=== PATIENT | female | born 1960 | race Caucasian/White ===

== ENCOUNTER 2016-11-17 02:46 | Inpatient (IN) ==
[2016-11-17] MEDS ORDERED: 0.9 % Sodium Chloride 1,000 ML IVC ONE ×2 (03:46→04:57)
[2016-11-17 03:52] LABS: Bilirubin,Urine Negative (Negative); Blood,Urine Negative (Negative); Clarity,Urine Clear (Clear); Color,Urine Yellow (Yellow); Glucose,Urine (UA) >=1000 mg/dL (Normal); Ketones,Urine 15 mg/dL (Negative); Leukocyte Esterase,Urine Negative (Negative); Nitrite,Urine Negative (Negative); PH,Urine 5.5 pH Units (5.0-8.0); Protein,Urine Trace mg/dL (Neg-Trace); Specific Gravity,Urine 1.027 (1.010-1.025); Urobilinogen,Urine Normal (Normal)
[2016-11-17 03:54] LABS: Bacteria,Urine None Seen per hpf (None-Few); Hyaline Casts,Urine Few per lpf (None-Few); Squamous Epithelial Cell,Urine Many per lpf (None-Few)
[2016-11-17 03:58] LABS: Amphetamine Screen,Urine Negative ng/mL (Cutoff=1000); Barbiturate Screen,Urine Negative ng/mL (Cutoff=200); Benzodiazepines Screen,Urine Negative ng/mL (Cutoff=200); Cannabinoid Screen,Urine Negative ng/mL (Cutoff = 50); Cocaine Screen,Urine Positive ng/mL (Cutoff= 300); Opiate Screen,Urine Positive ng/mL (Cutoff=300); Phencyclidine Screen,Urine Negative ng/mL (Cutoff=25)
[2016-11-17 04:30] LABS: VBG HCO3 24.3 mEq/L (21-27); VBG PH 7.27 pH Units (7.32-7.42)
[2016-11-17 04:33] LABS: Basophils % 0.2 %; Hematocrit 36.9 % (35.3-44.9); Hemoglobin 12.4 g/dL (11.5-15.4); Immature Granulocytes % 0.5 % (0-4); Lymphocytes # 1.3 K/mcL (0.6-4.6); Lymphocytes % 13.9 %; Mean Corpuscular HGB Conc 33.6 g/dL (31.6-35.5); Mean Corpuscular Hemoglobin 27.3 pg (28.0-33.3); Mean Corpuscular Volume 81.3 fL (83.0-100.0); Monocytes # 0.7 K/mcL (0.0-1.3); Monocytes % 7.5 %; Neutrophils # 7.3 K/mcL (1.6-8.9); Platelet Count 288 K/mcL (140-400); Red Blood Count 4.54 M/mcL (3.82-4.97); Red Cell Distribution Width 14.1 % (11.5-14.5); Segmented Neutrophils % 77.9 %
[2016-11-17 04:37] LABS: Beta-Hydroxybutyric Acid 1.34 mmol/L (0.02-0.27)
[2016-11-17 04:46] LABS: BUN/Creatinine Ratio 24 (6-26); Blood Urea Nitrogen 31 mg/dL (7-20); Calcium 9.5 mg/dL (8.6-10.8); Carbon Dioxide 23 mEq/L (19-29); Chloride 97 mEq/L (98-109); Glucose 418 mg/dL (70-99); Osmolality,Calculated 296 (280-300); Potassium 4.4 mEq/L (3.5-4.5); Sodium 131 mEq/L (136-145); eGFR For African Americans 51 (> 60); eGFR For Non-African Americans 42 (> 60)
[2016-11-17 04:47] LABS: Acetaminophen < 1.0 mcg/mL (10-30); Ethanol < 10 mg/dL (0-10); Salicylate < 5.0 mg/dL (15-30)
[2016-11-17] MEDS ORDERED: *HR* Dextrose 50 % in Water (Syg) 50 ML SYRINGE IVP PRN ×2 (04:59→07:40)
[2016-11-17] MEDS ORDERED: Insulin Human Regular 100 UNIT in 0.9 % Sodium Chloride 100 ML IVC SCH (05:00)
--- NOTE | 2016-11-17 07:22 | Emergency Department Note ---
Disposition Clinical Impression: Suicidal ideation Diabetic ketoacidosis Qualifiers: Diabetes mellitus type: type 2 Diabetes mellitus complication detail: without coma Qualified Code(s): E13.10 - Other specified diabetes mellitus with ketoacidosis without coma Disposition: Admitted As Inpatient Condition: Serious General Adult HPI - General Chief complaint: ED Psychiatric Symptoms Stated complaint: SI/elevated glucose Time Seen by Provider: 11/17/16 05:25 Source: patient Limitations: no limitations Nursing Notes Reviewed: Yes Vital Signs Reviewed: Yes - History of Present Illness HPI Narrative: 56-year-old male with history of diabetes presents to the emergency department complaining of elevated blood sugar. She complains of some nausea and one episode of vomiting. No diarrhea. No abdominal pain. No shortness of breath or chest pain. She complains of pain in the right lower leg which is chronic from an old tendon injury. Patient also complains of some mild suicidal ideation. She admits to substance abuse. Pain Scale: 6 - Related Data Home Medications Medication Instructions Recorded Confirmed Trazodone HCl 150 mg PO HS PRN 04/15/16 11/17/16 Buprenorphine HCl/Naloxone HCl 1 film SL BID 11/17/16 11/17/16 [Suboxone 8 mg-2 mg Sl Film] Insulin Human Regular [HumuLIN R] 2 - 10 unit SQ TIDWM MDD Sliding 11/17/1602/24 Scale Previous Rx's Medication Instructions Recorded Insulin Glargine [Lantus] 30 unit SQ HS #100 mls 04/21/16 Allergies Allergy/AdvReac Type Severity Reaction Status Date / Time No Known Allergies Allergy Verified 04/15/16 17:07 All systems ED: reviewed and negative except as stated. Constitutional: Denies: fever, chills Cardiovascular: Denies: chest pain, palpitations, syncope Respiratory: Denies: cough, dyspnea Gastrointestinal: Reports: nausea, vomiting. Denies: abdominal pain Genitourinary: Denies: dysuria, frequency Musculoskeletal: Reports: other (Pain in right martinez secondary to an old tendon injury.). Denies: back pain, neck pain Integumentary: Denies: rash Neurological: Reports: headache. 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 Absent: scleral icterus, conjunctival injection, nystagmus - ENT ENT exam: normal exam, normal oropharynx, mucous membranes moist, normal external ear exam - Neck Neck exam: Present: normal inspection, full ROM, trachea midline. Absent: tenderness, meningismus, lymphadenopathy - Chest Chest inspection: Present: normal inspection, symmetric chest wall rise. Absent : tenderness - Respiratory Respiratory exam: Present: normal lung sounds bilaterally. Absent: respiratory distress, wheezes, stridor - Cardiovascular Cardiovascular exam: Present: regular rate, normal rhythm, normal heart sounds - Abdominal Exam Abdominal exam: Present: soft, Non-Tender, normal bowel sounds - Extremities Exam Extremities exam: Present: full ROM. Absent: pedal edema - Back Exam Back exam: Present: normal inspection. Absent: CVA tenderness (R), CVA tenderness (L) - Neurological Exam Neurological exam: Present: alert, oriented X3. Absent: motor sensory deficit - Psychiatric Psychiatric exam: Present: anxious, suicidal ideation - Skin Skin exam: Present: warm, dry, intact, normal color. Absent: cyanosis, diaphoresis Course Course Narrative: Patient with insulin-dependent diabetes presents with complaint of elevated blood sugar among other multiple complaints. Also admits to suicidal ideation. Workup reveals DKA. Clinically patient does not look toxic. IV fluids initiated and patient was placed on an insulin drip. Hospitalist consulted for admission. - Consultations Consultation #1: The hospitalist, Dr. Moreland, was consulted and accepted admission of the patient. Time: 06:10 Vital Signs Temperature 98.3 F 11/17/16 02:50 Pulse Rate 98 11/17/16 02:50 Respiratory Rate 16 11/17/16 02:50 Blood Pressure 103/62 11/17/16 02:50 O2 Sat by Pulse Oximetry 93 11/17/16 02:50 Temperature 98.3 F 11/17/16 02:50 Pulse Rate 70 11/17/16 08:06 Respiratory Rate 18 11/17/16 08:06 Blood Pressure 109/57 11/17/16 08:06 O2 Sat by Pulse Oximetry 98 11/17/16 08:06 Oxygen Delivery Oxygen Delivery Room Air Medical Decision Making - Medical Records Medical records reviewed: Yes I reviewed the patient's medical records. - Lab Data Lab results reviewed: Yes I reviewed the patient's lab results. Result diagrams: 11/17/16 04:22 11/17/16 04:22 Lab Results 11/17/16 11/17/16 11/17/16 Range/Units 03:38 03:38 04:22 WBC 9.4 (4.3-11.1) K/mcL RBC 4.54 (3.82-4.97) M/mcL Hgb 12.4 (11.5-15.4) g/dL Hct 36.9 (35.3-44.9) % MCV 81.3 L (83.0-100.0) fL MCH 27.3 L (28.0-33.3) pg MCHC 33.6 (31.6-35.5) g/dL RDW 14.1 (11.5-14.5) % Plt Count 288 (140-400) K/mcL MPV 9.0 L (9.4-12.4) fL Immature Gran % 0.5 (0-4) % Seg Neutrophils % 77.9 % Lymphocytes % 13.9 % Monocytes % 7.5 % Eosinophils % 0.0 % Basophils % 0.2 % Neutrophils # 7.3 (1.6-8.9) K/mcL Lymphocytes # 1.3 (0.6-4.6) K/mcL Monocytes # 0.7 (0.0-1.3) K/mcL Eosinophils # 0.0 (0.0-0.6) K/mcL Basophils # 0.0 (0.0-0.2) K/mcL PT (9.4-12.1) Seconds INR VBG pH (7.32-7.42) pH Units VBG pCO2 (41-51) mmHg VBG pO2 (25-40) mmHg VBG HCO3 (21-27) mEq/L Sodium (136-145) mEq/L Potassium (3.5-4.5) mEq/L Chloride (98-109) mEq/L Carbon Dioxide (19-29) mEq/L BUN (7-20) mg/dL Creatinine (0.57-1.11) mg/dL Est GFR ( Amer) (> 60) Est GFR (Non-Af Amer) (> 60) BUN/Creatinine Ratio (6-26) Glucose (70-99) mg/dL POC Glucose (58-89) Calculated Osmolality (280-300) Calcium (8.6-10.8) mg/dL Beta-Hydroxybutyric Acd (0.02-0.27) mmol/L Urine Color Yellow (Yellow) Urine Clarity Clear (Clear) Urine pH 5.5 (5.0-8.0) pH Units Ur Specific [place] 1.027 H (1.010-1.025) Urine Protein Trace (Neg-Trace) mg/dL Urine Glucose (UA) >=1000 H (Normal) mg/dL Urine Ketones 15 H (Negative) mg/dL Urine Blood Negative (Negative) Urine Nitrite Negative (Negative) Urine Bilirubin Negative (Negative) Urine Urobilinogen Normal (Normal) mg/dL Ur Leukocyte Esterase Negative (Negative) Urine Microscopic RBC 5-15 H (0-3) per hpf Urine Microscopic WBC 5-15 H (0-3) per hpf Ur Squamous Epith Cells Many H (None-Few) per lpf Urine Bacteria None Seen (None-Few) per hpf Hyaline Casts Few (None-Few) per lpf Salicylates (15-30) mg/dL Urine Opiates Screen Positive H (Djbwza=103) ng/mL Acetaminophen (10-30) mcg/mL Ur Barbiturates Screen Negative (Lsflrk=783) ng/mL Ur Phencyclidine Scrn Negative (Cutoff=25) ng/mL Ur Amphetamines Screen Negative (Asdtzk=3010) ng/mL U Benzodiazepines Scrn Negative (Tolrwe=202) ng/mL Urine Cocaine Screen Positive H (Cutoff= 300) ng/mL U Marijuana (THC) Screen Negative (Cutoff = 50) ng/mL Ethyl Alcohol (0-10) mg/dL 11/17/16 11/17/16 11/17/16 Range/Units 04:22 04:22 04:22 WBC (4.3-11.1) K/mcL RBC (3.82-4.97) M/mcL Hgb (11.5-15.4) g/dL Hct (35.3-44.9) % MCV (83.0-100.0) fL MCH (28.0-33.3) pg MCHC (31.6-35.5) g/dL RDW (11.5-14.5) % Plt Count (140-400) K/mcL MPV (9.4-12.4) fL Immature Gran % (0-4) % Seg Neutrophils % % Lymphocytes % % Monocytes % % Eosinophils % % Basophils % % Neutrophils # (1.6-8.9) K/mcL Lymphocytes # (0.6-4.6) K/mcL Monocytes # (0.0-1.3) K/mcL Eosinophils # (0.0-0.6) K/mcL Basophils # (0.0-0.2) K/mcL PT 11.8 (9.4-12.1) Seconds INR 1.1 VBG pH 7.27 L (7.32-7.42) pH Units VBG pCO2 53 H (41-51) mmHg VBG pO2 27 (25-40) mmHg VBG HCO3 24.3 (21-27) mEq/L Sodium 131 L (136-145) mEq/L Potassium 4.4 (3.5-4.5) mEq/L Chloride 97 L (98-109) mEq/L Carbon Dioxide 23 (19-29) mEq/L BUN 31 H (7-20) mg/dL Creatinine 1.31 H (0.57-1.11) mg/dL Est GFR ( Amer) 51 L (> 60) Est GFR (Non-Af Amer) 42 L (> 60) BUN/Creatinine Ratio 24 (6-26) Glucose 418 H (70-99) mg/dL POC Glucose (58-89) Calculated Osmolality 296 (280-300) Calcium 9.5 (8.6-10.8) mg/dL Beta-Hydroxybutyric Acd 1.34 H (0.02-0.27) mmol/L Urine Color (Yellow) Urine Clarity (Clear) Urine pH (5.0-8.0) pH Units Ur Specific [place] (1.010-1.025) Urine Protein (Neg-Trace) mg/dL Urine Glucose (UA) (Normal) mg/dL Urine Ketones (Negative) mg/dL Urine Blood (Negative) Urine Nitrite (Negative) Urine Bilirubin (Negative) Urine Urobilinogen (Normal) mg/dL Ur Leukocyte Esterase (Negative) Urine Microscopic RBC (0-3) per hpf Urine Microscopic WBC (0-3) per hpf Ur Squamous Epith Cells (None-Few) per lpf Urine Bacteria (None-Few) per hpf Hyaline Casts (None-Few) per lpf Salicylates < 5.0 L (15-30) mg/dL Urine Opiates Screen ([place]=146) ng/mL Acetaminophen < 1.0 L (10-30) mcg/mL Ur Barbiturates Screen (Gfccos=799) ng/mL Ur Phencyclidine Scrn (Cutoff=25) ng/mL Ur Amphetamines Screen (Xgyqej=3717) ng/mL U Benzodiazepines Scrn (Prfaie=458) ng/mL Urine Cocaine Screen (Cutoff= 300) ng/mL U Marijuana (THC) Screen (Cutoff = 50) ng/mL Ethyl Alcohol < 10 (0-10) mg/dL 11/17/16 Range/Units 06:14 WBC (4.3-11.1) K/mcL RBC (3.82-4.97) M/mcL Hgb (11.5-15.4) g/dL Hct (35.3-44.9) % MCV (83.0-100.0) fL MCH (28.0-33.3) pg MCHC (31.6-35.5) g/dL RDW (11.5-14.5) % Plt Count (140-400) K/mcL MPV (9.4-12.4) fL Immature Gran % (0-4) % Seg Neutrophils % % Lymphocytes % % Monocytes % % Eosinophils % % Basophils % % Neutrophils # (1.6-8.9) K/mcL Lymphocytes # (0.6-4.6) K/mcL Monocytes # (0.0-1.3) K/mcL Eosinophils # (0.0-0.6) K/mcL Basophils # (0.0-0.2) K/mcL PT (9.4-12.1) Seconds INR VBG pH (7.32-7.42) pH Units VBG pCO2 (41-51) mmHg VBG pO2 (25-40) mmHg VBG HCO3 (21-27) mEq/L Sodium (136-145) mEq/L Potassium (3.5-4.5) mEq/L Chloride (98-109) mEq/L Carbon Dioxide (19-29) mEq/L BUN (7-20) mg/dL Creatinine (0.57-1.11) mg/dL Est GFR ( Amer) (> 60) Est GFR (Non-Af Amer) (> 60) BUN/Creatinine Ratio (6-26) Glucose (70-99) mg/dL POC Glucose 325 H (58-89) Calculated Osmolality (280-300) Calcium (8.6-10.8) mg/dL Beta-Hydroxybutyric Acd (0.02-0.27) mmol/L Urine Color (Yellow) Urine Clarity (Clear) Urine pH (5.0-8.0) pH Units Ur Specific [place] (1.010-1.025) Urine Protein (Neg-Trace) mg/dL Urine Glucose (UA) (Normal) mg/dL Urine Ketones (Negative) mg/dL Urine Blood (Negative) Urine Nitrite (Negative) Urine Bilirubin (Negative) Urine Urobilinogen (Normal) mg/dL Ur Leukocyte Esterase (Negative) Urine Microscopic RBC (0-3) per hpf Urine Microscopic WBC (0-3) per hpf Ur Squamous Epith Cells (None-Few) per lpf Urine Bacteria (None-Few) per hpf Hyaline Casts (None-Few) per lpf Salicylates (15-30) mg/dL Urine Opiates Screen (Xxhxet=929) ng/mL Acetaminophen (10-30) mcg/mL Ur Barbiturates Screen (Pugixr=303) ng/mL Ur Phencyclidine Scrn (Cutoff=25) ng/mL Ur Amphetamines Screen (Dqwooz=1275) ng/mL U Benzodiazepines Scrn (Xsdqak=621) ng/mL Urine Cocaine Screen (Cutoff= 300) ng/mL U Marijuana (THC) Screen (Cutoff = 50) ng/mL Ethyl Alcohol (0-10) mg/dL Critical Care Time Critical Care Time: Yes Total Critical Care Time: 40 Attestation: Critical care performed: Time is exclusive of separately billable procedures. Time includes: direct patient care, patient reassessment, coordination of patient care, interpretation of data (laboratory data, radiology data, and respiratory data), review of patient's medical records, medical consultation and documentation of patient care. Procedures included in critical care time: Procedures excluded from critical care time:
[2016-11-17] MEDS ORDERED: Acetaminophen 325 MG TABLET PO PRN (07:34)
[2016-11-17] MEDS ORDERED: *HR* Morphine 2 MG/ML SYRINGE IVP PRN (07:34)
[2016-11-17] MEDS ORDERED: Ondansetron 4 MG/2 ML VIAL IVP PRN (07:34)
[2016-11-17] MEDS ORDERED: Naloxone 0.4 MG/ML INJ IVP PRN (07:34)
[2016-11-17] MEDS ORDERED: traZODone 50 MG TABLET PO PRN (07:39)
[2016-11-17] MEDS ORDERED: Dextrose Gel 15 GM PO PRN ×2 (07:40)
[2016-11-17] MEDS ORDERED: D5% in Water 1,000 ML IVC PRN (07:40)
[2016-11-17 07:59] LABS: INR 1.1; Prothrombin Time 11.8 Seconds (9.4-12.1)
[2016-11-17 08:09] LABS: Chol/HDL Ratio 2.6 (0-4.9); Cholesterol 193 mg/dL (< 200); HDL Cholesterol 73 mg/dL (40-59); LDL Cholesterol,Calculated 98 mg/dL (0-99); Magnesium 2.2 mg/dL (1.6-2.6); Triglycerides 110 mg/dL (< 150)
[2016-11-17 08:58] LABS: Hemoglobin A1C 8.3 %
[2016-11-17] MEDS: BUPRENORPHINE HCL SL SCH ×2 (09:00→21:20)
[2016-11-17] MEDS: NALOXONE HCL SL SCH ×2 (09:00→21:20)
[2016-11-17] MEDS: Pantoprazole 40 MG VIAL IVP SCH (09:10)
--- NOTE | 2016-11-17 09:10 | Internal Med History&Physical ---
Date of Encounter: 11/17/16 Time of Encounter: 08:40 Assessment and Plan (1) Type 2 diabetes mellitus Current visit: Yes Status: Chronic Diabetes mellitus type 2, insulin-dependent - with hyperglycemia and hyperosmolarity, without DKA and without coma With chronic kidney disease stage III and peripheral neuropathy IV insulin started in the ED - now discontinued, normal anion gap Continue insulin sliding scale, glucose checks and Levemir Continue IV fluids, ADA diet Diabetes education, social service consult Labs in a.m. 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 Qualified Code(s): E11.42 - Type 2 diabetes mellitus with diabetic polyneuropathy; Z79.4 - care home ( current) use of insulin (2) IVDU (intravenous drug user) Current visit: No Status: Chronic Chronic use of heroin Last use was about 24 hours ago special services coordinator consult - will need to provide information about addiction clinics (3) Polysubstance dependence Current visit: No Status: Chronic Chronic injection drug user - uses heroin and cocaine Last use was about 24 hours ago Patient states she takes Buprenorphine/Naloxone - unclear where she is obtaining this (4) Bipolar disorder Current visit: No Status: Chronic Chronic bipolar disorder Psych consult Qualifiers: Active/Remission status: remission status unspecified Qualified Code(s): F31.9 - Bipolar disorder, unspecified (5) Depression with anxiety Current visit: No Status: Chronic Continue trazodone Psych consult (6) CAD (coronary artery disease) Current visit: No Status: Chronic History of coronary artery disease as per medical records Unclear about any PR or any intervention in the past Qualifiers: Coronary Disease-Associated Artery/Lesion type: [place] artery [place] vs. transplanted heart: [place] heart Associated angina: without angina Qualified Code(s): I25.10 - Atherosclerotic heart disease of [place] coronary artery without angina pectoris (7) DVT prophylaxis Current visit: Yes Status: Acute Continue heparin subcutaneous Internal Medicine - H&P: HPI Chief complaint: Elevated glucose, syncope Admitted From: Emergency Dept Plans for Post Hospital Care: Home History of present illness: Ms. Richardson is a 56 year old female with past medical history of injection drug use, depression, chronic pain, diabetes, GERD and bipolar disorder. Patient presents to the ED with complaints of elevated blood glucose. Patient states she had a fall last night and passed out. There was some concern initially about suicidal ideation. But patient states she has no intent of harming herself or others. No suicidal ideation. On examination patient is awake and alert. Not need distress. Able to provide history. She does seem anxious. No family members at bedside. She is unsure about when she may have passed out for the duration. Patient admits to using heroin and cocaine within the past 24 hours. Patient states she has been checking her blood glucose and has been taking her insulin regularly. She does mention that she does not have a house to live in and seems to be taking long-term in the basement of an apartment complex illegally. Patient complains of some mild nausea and mild shortness of breath. Denies chest pain denies headache or dizziness no abdominal pain or diarrhea or vomiting. No other aggravating or relieving factors. No other associated symptoms. She does have a history of a chronic right lower leg wound which is healing well. Patient does not follow up with any primary care physician. She also states she does take Buprenorphine/Naloxone for deaddiction, but it is unclear as to how she is obtaining this. Initial evaluation in the ED revealed hyperglycemia with ketones in urine. She was started on IV insulin for probable DKA. Patient has a normal anion gap. She will be on insulin sliding scale and Levemir. ADA diet. She needs a social studies department chair consult to look into her social situation. She will need information about chronic pain clinic or deaddiction clinic. Urine drug screen is positive for opiates and cocaine. Patient has been explained about her condition and plan of care. She understood and agreed. No unanswered questions. CODE STATUS full code. Past Med Surg Social Fam HX - Past Medical History Medical history: diabetes, hepatitis, other Psychiatric history: bipolar, panic disorder - Past Surgical History Surgical History: other - Social History Smoking Status: Current every day smoker Smokeless Tobacco Status: No Alcohol use: none Drug use: cocaine, opiates, IV Drug Use, prescription drug abuse, other - Family History Mother Living Status: Still Living Hx Family Cardiac Disorders: No Hx Family Respiratory Disorders: No Hx Family Cancer: No Hx Family GI Disorders: No Hx Family Endocrine Disorder: No Hx Family Neuromuscular Disorders: No Hx Family Neurologic Disorders: No Hx Family HEENT Disorders: No Hx Family Autoimmune Disorders: No Father Living Status: Hx Family Cardiac Disorders: No Hx Family Respiratory Disorders: Yes Hx Family Cancer: No Hx Family GI Disorders: No Hx Family Endocrine Disorder: Yes Hx Family Neuromuscular Disorders: No Hx Family Neurologic Disorders: No Hx Family HEENT Disorders: No Hx Family Autoimmune Disorders: No Internal Medicine - H&P: Meds Trazodone HCl 150 mg PO HS PRN 04/15/16 [History] Insulin Glargine [Lantus] 30 unit SQ HS #100 mls 04/21/16 [Rx] Buprenorphine HCl/Naloxone HCl [Suboxone 8 mg-2 mg Sl Film] 1 film SL BID [History] Insulin Human Regular [HumuLIN R] 2 - 10 unit SQ TIDWM MDD Sliding Scale [History] Allergies No Known Allergies Allergy (Verified 04/15/16 17:07) All Systems PM: A 10-system review of systems was performed and is negative for pertinent findings except as documented above in the HPI. - Constitutional Constitutional: weakness, no fatigue, no fever(s), no night sweats - EENT Eyes: no blurry vision - Cardiovascular Cardiovascular ROS IM: syncope, no chest pain, no diaphoresis, no dyspnea, no dyspnea on exertion, no lightheadedness, no orthopnea - Respiratory Respiratory: no cough, no dyspnea, no hemoptysis, no dyspnea on exertion, no wheezing, no chest congestion - Gastrointestinal Gastrointestinal: nausea, no abdominal pain, no bloating, no cramping, no diarrhea, no melena, no vomiting - Genitourinary Genitourinary: no dysuria - Musculoskeletal Musculoskeletal ROS IM: no arthralgias - Neurological Neurological ROS: no abnormal gait, no abnormal speech, no dizziness, no focal weakness, no loss of vision, no numbness, no tingling - Psychiatric Psychiatric: anxiety, depression, no homicidal ideation, no panic attacks, no suicidal ideation - Endocrine Endocrine IM: other (elevated blood glucose) - Constitutional Vitals: Temp Pulse Resp BP Pulse Ox 97.8 F 70 18 109/57 98 11/17/16 08:06 11/17/16 08:06 11/17/16 08:06 11/17/16 08:06 11/17/16 08:06 General appearance: Present: cachectic, A&O X 3, no acute distress, underweight , answers questions appropriately Exam: Frail, ill-appearing, anxiety - Head Head exam: Present: atraumatic - Eye Eye exam: Present: EOMI. Absent: scleral icterus - ENT ENT exam: Present: mucous membranes moist - Neck Neck exam general surgery: Present: supple - Respiratory Respiratory exam: Present: CTAB. Absent: rales, rhonchi, wheezes, tachypnea - Cardiovascular Cardiovascular exam: Present: RRR, +S1, +S2, systolic murmur - GI/Abdominal GI/Abdominal exam: Present: soft, no peritoneal signs. Absent: distended, firm , guarding, rigid, tenderness - Extremities Exam Extremities exam: Present: radial pulses palpable and symetrical. Absent: cyanotic, pedal edema, tenderness Additional comments: Chronic right lower leg wound healing well - Neurological Exam Neurological exam: Present: alert, oriented X3, no focal deficits Internal Med - H&P Results - Labs CBC & Chem 7: 11/17/16 04:22 11/17/16 04:22
[2016-11-17] MEDS: 0.9 % Sodium Chloride 1,000 ML IVC SCH ×2 (09:11→18:44)
[2016-11-17] MEDS: Nicotine 21 MG PATCH.TD24 TD SCH (11:54)
[2016-11-17] MEDS: Insulin LISPRO 300 UNITS/3 ML VIAL SQ SCH ×2 (11:55→15:58)
--- NOTE | 2016-11-17 14:42 | Consult Note ---
Date of Encounter: 11/17/16 Time of Encounter: 14:33 Assessment & Recommendation (1) Depression with anxiety Current visit: No Status: Chronic Assessment & Recommendation: Would not start additional meds at this time. Needs AOD treatment and medical stabilization before mental health meds will be effective. Recommend a social work consult for residential AOD treatment. Client is agreeable and she has periods of sobriety in her past. Also has family in [place] who might offer support if client shows she is working on her AOD issues. Not actively suicidal but does feel helpless given her situation. She is amenable to follow- up care and agrees she will be safe if she feels she has somewhere to go. community outreach worker from [facility] plans to try and make contact with director of social work from [facility] to offer suggestions. History of Present Illness Requesting Physician: Aurora Anglin MD Reason for consult: depression History of present illness: Ms. Richardson is a 56 year old female who was admitted with blood sugars in the 400s and DKA. When told about her medical issues client endorsed not wanting to live and made a comment that staff should just let her . On eval today she is denying any active suicidal thoughts but did admit to a passive wish. Daughter kicked her out of the house and she has no where to go. Using heroin and crack cocaine daily. Not caring for her medical problems. Mother and sister in [place] but she reports they don't want her if she is actively using. Discussed residential AOD treatment as it sounds like client has had some success with sobriety in the past. Client is open to this and reported she would try AOD treatment before ever considering suicide. Has a historical diagnosis of Bipolar Disorder but has not had any mental health treatment for years. Diagnosis may not even be accurate given extensive drug use history. Discussed medications but client agreed nothing would provide much benefit given her significant AOD issues and medical issues that need to be stabilized first. CC: Aurora Anglin MD Past Med Surg Social Fam HX - Past Medical History Medical history: diabetes, hepatitis, other - Past Psychiatric History Psychiatric history: Reports: bipolar Family psychiatric history: Unknown Family History of Suicide: Unknown - Past Surgical History Surgical History: other - Social History Smoking Status: Current every day smoker Smokeless Tobacco Status: No Alcohol use: none Drug use: cocaine, opiates, IV Drug Use, prescription drug abuse, other - Family History Mother Living Status: Still Living Hx Family Cardiac Disorders: No Hx Family Respiratory Disorders: No Hx Family Cancer: No Hx Family GI Disorders: No Hx Family Endocrine Disorder: No Hx Family Neuromuscular Disorders: No Hx Family Neurologic Disorders: No Hx Family HEENT Disorders: No Hx Family Autoimmune Disorders: No Father Living Status: Hx Family Cardiac Disorders: No Hx Family Respiratory Disorders: Yes Hx Family Cancer: No Hx Family GI Disorders: No Hx Family Endocrine Disorder: Yes Hx Family Neuromuscular Disorders: No Hx Family Neurologic Disorders: No Hx Family HEENT Disorders: No Hx Family Autoimmune Disorders: No Medications & Allergies Trazodone HCl 150 mg PO HS PRN 04/15/16 [History] Insulin Glargine [Lantus] 30 unit SQ HS #100 mls 04/21/16 [Rx] Buprenorphine HCl/Naloxone HCl [Suboxone 8 mg-2 mg Sl Film] 1 film SL BID [History] Insulin Human Regular [HumuLIN R] 2 - 10 unit SQ TIDWM MDD Sliding Scale [History] Allergies No Known Allergies Allergy (Verified 04/15/16 17:07) Review of Systems Constitutional: Reports: weakness. Denies: fever, chills, weight change Eyes: Denies: eye pain, vision change Ears, Nose, Throat: Denies: ear pain, throat pain, dental pain, hearing loss, congestion Cardiovascular: Denies: chest pain, palpitations, dyspnea on exertion Respiratory: Denies: cough, dyspnea, wheezes Gastrointestinal: Reports: abdominal pain. Denies: nausea, vomiting, diarrhea, constipation Genitourinary male: Denies: urgency, dysuria, frequency, genital lesions Genitourinary female: Denies: urgency, dysuria, frequency, abnormal menses, dyspareunia Musculoskeletal: Reports: myalgia. Denies: joint swelling, joint pain Integumentary: Denies: rash, lesions, pruritus Neurological: Reports: weakness. Denies: headache, numbness, memory loss Endocrine: Denies: fatigue, heat or cold intolerance Hematologic/Lymphatic: Denies: easy bruising, lymphadenopathy Allergic/Immunologic: Denies: urticaria, itchy eyes Mental Status Exam Patient orientation: Yes Person, Yes Time, Yes Place Level of alertness: Alert Patient appearance: Appropriate Behavior: calm, cooperative Psychomotor activity: Normal Eye contact: Maintains Eye Contact Mood description: Depressed Affect description: congruent with mood Speech pattern: Normal rate, Normal rhythm, Normal tone Speech volume: Normal Thought process: Linear Thought content: No Suicidal ideation, No Homicidal ideation, No Overt delusions Perceptual disturbances: No Auditory hallucinations, No Visual hallucinations Attention span: Capable of Focused Attention Memory description: Grossly Intact Patient reliability: Reliable Historian Intelligence estimate: Average Judgment: Limited Insight: Partial Results - Vital Signs Vital signs: Temp Pulse Resp BP Pulse Ox 97.8 F 80 18 101/56 100 11/17/16 11:14 11/17/16 11:51 11/17/16 11:14 11/17/16 11:14 11/17/16 11:14 - Labs Labs: Laboratory Last Values WBC 9.4 K/mcL (4.3-11.1) 11/17/16 04:22 RBC 4.54 M/mcL (3.82-4.97) 11/17/16 04:22 Hgb 12.4 g/dL (11.5-15.4) 11/17/16 04:22 Hct 36.9 % (35.3-44.9) 11/17/16 04:22 MCV 81.3 fL (83.0-100.0) L 11/17/16 04:22 MCH 27.3 pg (28.0-33.3) L 11/17/16 04:22 MCHC 33.6 g/dL (31.6-35.5) 11/17/16 04:22 RDW 14.1 % (11.5-14.5) 11/17/16 04:22 Plt Count 288 K/mcL (140-400) 11/17/16 04:22 MPV 9.0 fL (9.4-12.4) L 11/17/16 04:22 Immature Gran % 0.5 % (0-4) 11/17/16 04:22 Seg Neutrophils % 77.9 % 11/17/16 04:22 Lymphocytes % 13.9 % 11/17/16 04:22 Monocytes % 7.5 % 11/17/16 04:22 Eosinophils % 0.0 % 11/17/16 04:22 Basophils % 0.2 % 11/17/16 04:22 Neutrophils # 7.3 K/mcL (1.6-8.9) 11/17/16 04:22 Lymphocytes # 1.3 K/mcL (0.6-4.6) 11/17/16 04:22 Monocytes # 0.7 K/mcL (0.0-1.3) 11/17/16 04:22 Eosinophils # 0.0 K/mcL (0.0-0.6) 11/17/16 04:22 Basophils # 0.0 K/mcL (0.0-0.2) 11/17/16 04:22 PT 11.8 Seconds (9.4-12.1) 11/17/16 04:22 INR 1.1 11/17/16 04:22 VBG pH 7.27 pH Units (7.32-7.42) L 11/17/16 04:22 VBG pCO2 53 mmHg (41-51) H 11/17/16 04:22 VBG pO2 27 mmHg (25-40) 11/17/16 04:22 VBG HCO3 24.3 mEq/L (21-27) 11/17/16 04:22 Sodium 131 mEq/L (136-145) L 11/17/16 04:22 Potassium 4.4 mEq/L (3.5-4.5) 11/17/16 04:22 Chloride 97 mEq/L (98-109) L 11/17/16 04:22 Carbon Dioxide 23 mEq/L (19-29) 11/17/16 04:22 BUN 31 mg/dL (7-20) H 11/17/16 04:22 Creatinine 1.31 mg/dL (0.57-1.11) H 11/17/16 04:22 Est GFR ( Amer) 51 (> 60) L 11/17/16 04:22 Est GFR (Non-Af Amer) 42 (> 60) L 11/17/16 04:22 BUN/Creatinine Ratio 24 (6-26) 11/17/16 04:22 Glucose 418 mg/dL (70-99) H 11/17/16 04:22 POC Glucose 216 (58-89) H 11/17/16 07:09 Est Mean Plasma Glucose 192 mg/dl 11/17/16 04:22 Hemoglobin A1c 8.3 % (-5.6) H 11/17/16 04:22 Calculated Osmolality 296 (280-300) 11/17/16 04:22 Calcium 9.5 mg/dL (8.6-10.8) 11/17/16 04:22 Magnesium 2.2 mg/dL (1.6-2.6) 11/17/16 04:22 Triglycerides 110 mg/dL (< 150) 11/17/16 04:22 Cholesterol 193 mg/dL (< 200) 11/17/16 04:22 LDL Cholesterol, Calc 98 mg/dL (0-99) 11/17/16 04:22 VLDL Cholesterol, Calc 22 mg/dL (< 31) 11/17/16 04:22 HDL Cholesterol 73 mg/dL (40-59) H 11/17/16 04:22 Cholesterol/HDL Ratio 2.6 (0-4.9) 11/17/16 04:22 Beta-Hydroxybutyric Acd 1.34 mmol/L (0.02-0.27) H 11/17/16 04:22 Urine Color Yellow (Yellow) 11/17/16 03:38 Urine Clarity Clear (Clear) 11/17/16 03:38 Urine pH 5.5 pH Units (5.0-8.0) 11/17/16 03:38 Ur Specific [place] 1.027 (1.010-1.025) H 11/17/16 03:38 Urine Protein Trace mg/dL (Neg-Trace) 11/17/16 03:38 Urine Glucose (UA) >=1000 mg/dL (Normal) H 11/17/16 03:38 Urine Ketones 15 mg/dL (Negative) H 11/17/16 03:38 Urine Blood Negative (Negative) 11/17/16 03:38 Urine Nitrite Negative (Negative) 11/17/16 03:38 Urine Bilirubin Negative (Negative) 11/17/16 03:38 Urine Urobilinogen Normal mg/dL (Normal) 11/17/16 03:38 Ur Leukocyte Esterase Negative (Negative) 11/17/16 03:38 Urine Microscopic RBC 5-15 per hpf (0-3) H 11/17/16 03:38 Urine Microscopic WBC 5-15 per hpf (0-3) H 11/17/16 03:38 Ur Squamous Epith Cells Many per lpf (None-Few) H 11/17/16 03:38 Urine Bacteria None Seen per hpf (None-Few) 11/17/16 03:38 Hyaline Casts Few per lpf (None-Few) 11/17/16 03:38 Salicylates < 5.0 mg/dL (15-30) L 11/17/16 04:22 Urine Opiates Screen Positive ng/mL (Rknnov=806) H 11/17/16 03:38 Acetaminophen < 1.0 mcg/mL (10-30) L 11/17/16 04:22 Ur Barbiturates Screen Negative ng/mL (Lwiixq=550) 11/17/16 03:38 Ur Phencyclidine Scrn Negative ng/mL (Cutoff=25) 11/17/16 03:38 Ur Amphetamines Screen Negative ng/mL (Mieffa=3892) 11/17/16 03:38 U Benzodiazepines Scrn Negative ng/mL (Knymgh=236) 11/17/16 03:38 Urine Cocaine Screen Positive ng/mL (Cutoff= 300) H 11/17/16 03:38 U Marijuana (THC) Screen Negative ng/mL (Cutoff = 50) 11/17/16 03:38 Ethyl Alcohol < 10 mg/dL (0-10) 11/17/16 04:22 Consult Discharge Plan - Plan Referrals: Alize Zamora, [employer] [Advanced Practice Nurse] - 12/25/16 8:00 am (THIS IS A NEW PATIENT VISIT. PLEASE FILL OUT THE NEW PATIENT PACKET BEING SENT TO YOU AND TAKE WITH YOU TO YOUR APPOINTMENT. TAKE PICTURE ID, ALL MEDICATION IN THE BOTTLES, INSURANCE CARDS TO YOUR APPOINTMENT. TAKE DISCHARGE INSTUCTIONS TO YOUR APPOINTMENT. IF YOU ARE NOT ABLE TO MAKE YOUR APPOINTMENT PLEASE CALL 24 HOURS IN ADVANCE. IF YOU DO NOT SHOW UP FOR THIS APPOINTMENT YOU WILL NEED TO FIND ANOTHER DOCTOR, STUART LUNA IN THE CALL CENTER. ) NO,PCP [Primary Care Provider] -
[2016-11-17] MEDS: *HR* Heparin 5,000 UNIT/ML VIAL SQ SCH (18:43)
[2016-11-17] MEDS ORDERED: Insulin LISPRO 300 UNITS/3 ML VIAL SQ SCH (21:00)
[2016-11-17] MEDS ORDERED: Insulin DETEMIR 100 UNIT/ML X5UNITS SQ SCH (21:00)
[2016-11-18] MEDS: *HR* Heparin 5,000 UNIT/ML VIAL SQ SCH (05:23)
[2016-11-18 05:56] LABS: Alanine Aminotransferase 40 Units/L (0-55); Albumin 3.1 g/dL (3.5-5.0); Albumin/Globulin Ratio 0.9 (1.1-2.2); Alkaline Phosphatase 93 Units/L (38-126); Aspartate Amino Transferase 61 Units/L (5-34); BUN/Creatinine Ratio 21 (6-26); Bilirubin,Total 0.3 mg/dL (0.2-1.2); Calcium 8.6 mg/dL (8.6-10.8); Carbon Dioxide 16 mEq/L (19-29); Chloride 106 mEq/L (98-109); Globulin 3.4 g/dL (2.4-3.5); Osmolality,Calculated 300 (280-300); Potassium 4.5 mEq/L (3.5-4.5); Sodium 131 mEq/L (136-145); Total Protein 6.5 g/dL (6.0-8.3); eGFR For African Americans > 60 (> 60); eGFR For Non-African Americans > 60 (> 60)
[2016-11-18] MEDS: 0.9 % Sodium Chloride 1,000 ML IVC SCH (05:56)
[2016-11-18 05:57] LABS: Basophils % 0.6 %; Eosinophils # 0.1 K/mcL (0.0-0.6); Eosinophils % 1.5 %; Hematocrit 37.3 % (35.3-44.9); Hemoglobin 12.2 g/dL (11.5-15.4); Immature Granulocytes % 0.2 % (0-4); Lymphocytes # 1.9 K/mcL (0.6-4.6); Lymphocytes % 35.5 %; Mean Corpuscular HGB Conc 32.7 g/dL (31.6-35.5); Mean Corpuscular Hemoglobin 27.5 pg (28.0-33.3); Mean Platelet Volume 9.1 fL (9.4-12.4); Monocytes # 0.4 K/mcL (0.0-1.3); Monocytes % 6.8 %; Platelet Count 225 K/mcL (140-400); Red Blood Count 4.44 M/mcL (3.82-4.97); Red Cell Distribution Width 14.4 % (11.5-14.5); Segmented Neutrophils % 55.4 %
[2016-11-18 05:58] LABS: Blood Urea Nitrogen 19 mg/dL (7-20)
[2016-11-18 05:59] LABS: Glucose 558 mg/dL (70-99)
[2016-11-18] MEDS ORDERED: Insulin LISPRO 300 UNITS/3 ML VIAL SQ ONE ×2 (06:06)
[2016-11-18] MEDS: Insulin LISPRO 300 UNITS/3 ML VIAL SQ SCH ×2 (08:09→09:53)
[2016-11-18] MEDS: Pantoprazole 40 MG VIAL IVP SCH (08:11)
[2016-11-18] MEDS: Nicotine 21 MG PATCH.TD24 TD SCH (08:11)
[2016-11-18] MEDS ORDERED: cloNIDine HCl 0.1 MG TABLET PO ONE (08:13)
[2016-11-18] MEDS ORDERED: *HR* HYDROcodone/Acet 5/325 mg TABLET PO PRN ×2 (08:16→11:39)
[2016-11-18] MEDS ORDERED: Insulin DETEMIR 100 UNIT/ML X5UNITS SQ SCH ×3 (09:00→21:00)
[2016-11-18] MEDS ORDERED: Fluconazole 100 MG TABLET PO SCH (09:00)
[2016-11-18] MEDS ORDERED: Ondansetron 4 MG/2 ML VIAL IVP PRN (11:39)
[2016-11-18] MEDS ORDERED: D5% in Water 1,000 ML IVC PRN (11:39)
[2016-11-18] MEDS ORDERED: Acetaminophen 325 MG TABLET PO PRN (11:39)
[2016-11-18] MEDS ORDERED: 0.9 % Sodium Chloride 1,000 ML IVC SCH (11:39)
[2016-11-18] MEDS ORDERED: Dextrose Gel 15 GM PO PRN ×2 (11:39)
[2016-11-18] MEDS ORDERED: *HR* Dextrose 50 % in Water (Syg) 50 ML SYRINGE IVP PRN (11:39)
[2016-11-18] MEDS ORDERED: Insulin LISPRO 300 UNITS/3 ML VIAL SQ SCH ×3 (12:00→21:00)
[2016-11-18 15:57] VITALS: BP 141/74
--- NOTE | 2016-11-18 16:59 | Internal Med Progress Note ---
Date of Encounter: 11/18/16 Time of Encounter: 07:45 - Assessment and plan (1) Hyperglycemia due to type 2 diabetes mellitus Current Visit: Yes Status: Acute Assessment and plan: Diabetes mellitus type 2, insulin-dependent - with hyperglycemia and hyperosmolarity, without DKA and without coma. With chronic kidney disease stage III and peripheral neuropathy Received IV insulin drip in the ED. GLucose level at 500s this morning. She was given 15 units IV insulin and started on home dose of levemir 30 units but had an episode of hypoglycemia (glucose at 53) at noon. Decrease levemir to 10 units bid. Continue insulin sliding scale, IV fluids, ADA diet Qualifiers: Diabetes mellitus exterminator insulin use: with fdc use Qualified Code( s): E11.65 - Type 2 diabetes mellitus with hyperglycemia; Z79.4 - exterminator ( current) use of insulin (2) CAD (coronary artery disease) Current Visit: No Status: Chronic Qualifiers: Coronary Disease-Associated Artery/Lesion type: [place] artery [place] vs. transplanted heart: [place] heart Associated angina: without angina Qualified Code(s): I25.10 - Atherosclerotic heart disease of [place] coronary artery without angina pectoris (3) Depression with anxiety Current Visit: No Status: Chronic Assessment and plan: Appreciate psych input. continue trazodone hs prn. (4) Insulin dependent diabetes mellitus Current Visit: No Status: Chronic Assessment and plan: plan as in hyperglycemia (5) IVDU (intravenous drug user) Current Visit: No Status: Chronic Assessment and plan: daily heroin use. (6) Polysubstance dependence Current Visit: No Status: Chronic Assessment and plan: counseled to quit all drugs. - Subjective Interval history: patient states she knows she is withdrawing from heroin use and would like to start suboxone. She reports moderate diarrhea and cravings. - Constitutional Vitals: Temp Pulse Resp BP Pulse Ox 98.1 F 81 20 141/74 99 11/18/16 15:50 11/18/16 15:50 11/18/16 15:50 11/18/16 15:50 11/18/16 15:50 General appearance: Present: cachectic, cooperative, A&O X 3, pleasant, no acute distress, underweight, answers questions appropriately - Eye Eye exam: Present: PERRL, sclera anicteric - Neck Neck exam general surgery: Present: supple, trachea midline. Absent: lymphadenopathy - Respiratory Respiratory exam: Present: CTAB - Cardiovascular Cardiovascular exam: Present: RRR - GI/Abdominal GI/Abdominal exam: Present: normal bowel sounds, soft. Absent: distended, tenderness - Extremities Exam Extremities exam: Absent: pedal edema - Back Exam Back exam: Absent: CVA tenderness (L), CVA tenderness (R) - Neurological Exam Neurological exam: Present: alert, oriented X3, no focal deficits, strengths equal and symetr throughout. Absent: pronater drift, facial droop, speech deficit - Skin Skin exam: Absent: rash Internal Medicine: Result - Labs CBC & Chem 7: 11/18/16 05:19 11/18/16 05:19 Labs: Short CBC 11/18/16 Range/Units 05:19 WBC 5.4 (4.3-11.1) K/mcL Hgb 12.2 (11.5-15.4) g/dL Hct 37.3 (35.3-44.9) % Plt Count 225 (140-400) K/mcL Neutrophils # 3.0 (1.6-8.9) K/mcL BMP 11/18/16 05:19 Sodium 131 L Potassium 4.5 Chloride 106 Carbon Dioxide 16 L BUN 19 D Creatinine 0.92 Glucose 558 H* Calcium 8.6 Liver Function 11/18/16 Range/Units 05:19 Total Bilirubin 0.3 (0.2-1.2) mg/dL AST 61 H (5-34) Units/L ALT 40 (0-55) Units/L Alkaline Phosphatase 93 (38-126) Units/L Albumin 3.1 L (3.5-5.0) g/dL - ABG Interpretation ABG results: PT/INR, D-dimer PT 11.8 Seconds (9.4-12.1) 11/17/16 04:22 Consult Discharge Plan - Plan Referrals: Alize Zamora [employer] DEVEL[employer] [Advanced Practice Nurse] - 12/25/16 8:00 am (THIS IS A NEW PATIENT VISIT. PLEASE FILL OUT THE NEW PATIENT PACKET BEING SENT TO YOU AND TAKE WITH YOU TO YOUR APPOINTMENT. TAKE PICTURE ID, ALL MEDICATION IN THE BOTTLES, INSURANCE CARDS TO YOUR APPOINTMENT. TAKE DISCHARGE INSTUCTIONS TO YOUR APPOINTMENT. IF YOU ARE NOT ABLE TO MAKE YOUR APPOINTMENT PLEASE CALL 24 HOURS IN ADVANCE. IF YOU DO NOT SHOW UP FOR THIS APPOINTMENT YOU WILL NEED TO FIND ANOTHER DOCTOR, PER JEREMY IN THE CALL CENTER. ) NO,PCP [Primary Care Provider] -
[2016-11-18] MEDS ORDERED: *HR* Heparin 5,000 UNIT/ML VIAL SQ SCH (18:00)
[2016-11-18] MEDS ORDERED: traZODone 50 MG TABLET PO PRN (21:00)
[2016-11-19] MEDS ORDERED: Pantoprazole 40 MG VIAL IVP SCH (09:00)
[2016-11-19] MEDS ORDERED: Nicotine 21 MG PATCH.TD24 TD SCH (09:00)
[2016-11-19] MEDS ORDERED: Fluconazole 100 MG TABLET PO SCH (09:00)
--- NOTE | 2016-11-27 20:08 | Event Note ---
Date of Encounter: 11/18/16 Time of Encounter: 17:35 Ms Richardson is a 56 year old female with past medical history of injection drug use, depression, chronic pain, diabetes, GERD and bipolar disorder. She presents to the ED with complaints of elevated blood glucose. She was admitted with diagnosis of hyperglycemia secondary to poorly controlled DM type 2 and received IV fluids and insulin. Her insulin was being adjusted when she developed withdrawal symptoms from heroin and despite medical therapy she left AMA.
== END 2016-11-18 17:36 | disposition left against medical advice (07) | DRG 420 ==
LOC: 2NNU 02:46 → EMEROO 02:46 → 2NNU 07:35 → SUATTDRO 08:39 → 2ANU 11-18 10:27
PROVIDERS: ADMIT Internal Medicine Endocrinology, Diabetes & Metabolism; ATTEND Internal Medicine

== ENCOUNTER 2018-02-11 12:57 | Observation (INO) ==
--- NOTE | 2018-02-11 13:39 | Emergency Department Note ---
Disposition Clinical Impression: Hypoglycemia, Substance abuse Disposition: Admitted As Inpatient Condition: Fair Time of Disposition: 18:11 General Adult HPI - General Chief complaint: ED Altered Mental Status Stated complaint: Low blood sugar Time Seen by Provider: 02/11/18 13:09 Source: patient, EMS Mode of arrival: EMS Limitations: no limitations Nursing Notes Reviewed: Yes Vital Signs Reviewed: Yes - History of Present Illness HPI Narrative: 57-year-old female with significant past medical history of insulin-dependent diabetes presenting to the emergency department with chief complaint of hypoglycemia. According to the patient she took 30 units of Lantus last evening. She is not sure if she took insulin this morning. She states she did eat breakfast. She went to see her counselor this morning. According to EMS they found her slouched over in the bathroom. When they arrived they checked her glucose and it was 16. The provided her with an amp of D50 and she became alert. At this time patient denies any concerns or complaints. She states similar episode happened last week and her glucose was 17. Pain Scale: 0 - Related Data Home Medications Medication Instructions Recorded Confirmed Insulin Human Regular [HumuLIN R] 2 - 10 unit SQ TIDWM MDD Sliding 11/17/1608/26 Scale Previous Rx's Medication Instructions Recorded Insulin Glargine [Lantus] 30 unit SQ HS #100 mls 04/21/16 Allergies Allergy/AdvReac Type Severity Reaction Status Date / Time No Known Allergies Allergy Verified 07/21/17 21:28 All systems ED: reviewed and negative except as stated. Constitutional: Denies: fever, chills Eyes: Reports: as per HPI ENT ED: Reports: as per HPI Cardiovascular: Denies: chest pain, palpitations, dyspnea on exertion Respiratory: Denies: cough, dyspnea, wheezes Gastrointestinal: Denies: abdominal pain, nausea, vomiting Genitourinary: Reports: as per HPI Musculoskeletal: Reports: as per HPI Integumentary: Reports: as per HPI Neurological: Denies: numbness, paresthesias Psychiatric: Reports: as per HPI Endocrine: Reports: as per HPI Hematological/Lymphatic: Reports: as per HPI Allergic/Immunologic: Reports: as per HPI Past Medical History - Past Medical History Attestation: Yes The following information was validated with the patient. 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 Absent: scleral icterus, conjunctival injection - ENT ENT exam: mucous membranes dry - Neck Neck exam: Present: normal inspection, full ROM. Absent: tenderness, meningismus - Chest Chest inspection: Present: normal inspection, symmetric chest wall rise. Absent : tenderness, rash - Respiratory Respiratory exam: Present: normal lung sounds bilaterally. Absent: respiratory distress, wheezes - Cardiovascular Cardiovascular exam: Present: regular rate, normal rhythm, normal heart sounds - Abdominal Exam Abdominal exam: Present: soft, Non-Tender. Absent: distention, guarding, rebound - Extremities Exam Extremities exam: Present: normal inspection, full ROM - Neurological Exam Neurological exam: Present: alert, oriented X3 - Psychiatric Psychiatric exam: Present: normal affect, normal mood - Skin Skin exam: Present: warm, intact Course Course Narrative: 57-year-old female presenting to the emergency department for hypoglycemia. Patient received an amp of D50 on the way. At this time patient is alert and oriented 3 and hemodynamically stable. Repeat blood glucose 160 in the room. At this time will obtain basic laboratory analysis and CT of the head due to patient's initial altered mental status for EMS. We will repeat glucose checks every 1 hour and provide the patient with a meal tray. Disposition pending results. Patient agrees with this plan. - Reevaluation(s) Reevaluation #1: Patient became hypoglycemic twice again in the emergency department. Each time and amp of D50 was given. Due to patient's continued hypoglycemia we will provide the patient with D5 normal saline and plan to admit her for further evaluation. A CT of the head and basic laboratory analysis was also added for patient admission. Laboratory analysis did not show any acute abnormality. CT of the head within normal limits. Patient's urine drug screen was positive for amphetamines. Patient eating without difficulty. She is alert and oriented 3 with stable vital signs. At this time will plan to admit her for further treatment of her hypoglycemia refractory in the emergency department. I spoke with the hospitalist document control clerk Dr. Jurado who agrees to accept the patient at this time. Vital Signs Temperature 97.6 F 02/11/18 12:59 Pulse Rate 75 02/11/18 12:59 Respiratory Rate 20 02/11/18 12:59 Blood Pressure 125/84 02/11/18 12:59 O2 Sat by Pulse Oximetry 100 02/11/18 12:59 Temperature 97.6 F 02/11/18 12:59 Pulse Rate 71 02/11/18 17:42 Respiratory Rate 16 02/11/18 16:12 Blood Pressure 137/60 02/11/18 17:42 O2 Sat by Pulse Oximetry 100 02/11/18 17:42 Oxygen Delivery Oxygen Delivery Room Air Medical Decision Making - Lab Data Result diagrams: 02/11/18 14:07 02/11/18 14:07 Lab Results 02/11/18 02/11/18 Range/Units 14:07 14:07 WBC 3.9 L (4.3-11.1) K/mcL RBC 4.53 (3.82-4.97) M/mcL Hgb 12.2 (11.5-15.4) g/dL Hct 37.6 (35.3-44.9) % MCV 83.0 (83.0-100.0) fL MCH 26.9 L (28.0-33.3) pg MCHC 32.4 (31.6-35.5) g/dL RDW 14.2 (11.5-14.5) % Plt Count 202 (140-400) K/mcL MPV 9.4 (9.4-12.4) fL Immature Gran % 0.5 (0-4) % Seg Neutrophils % 46.8 % Lymphocytes % 40.4 % Monocytes % 9.7 % Eosinophils % 1.8 % Basophils % 0.8 % Neutrophils # 1.8 (1.6-8.9) K/mcL Lymphocytes # 1.6 (0.6-4.6) K/mcL Monocytes # 0.4 (0.0-1.3) K/mcL Eosinophils # 0.1 (0.0-0.6) K/mcL Basophils # 0.0 (0.0-0.2) K/mcL Platelet Estimate Normal (Normal) Sodium 133 L (136-145) mEq/L Potassium 3.5 (3.5-5.1) mEq/L Chloride 102 (98-107) mEq/L Carbon Dioxide 26 (23-29) mEq/L BUN 10 (6-20) mg/dL Creatinine 0.50 L (0.60-1.20) mg/dL Est GFR ( Amer) > 60 (> 60) Est GFR (Non-Af Amer) > 60 (> 60) BUN/Creatinine Ratio 20 (6-26) Glucose 47 L (70-105) mg/dL Calculated Osmolality 272 L (280-300) Calcium 8.9 (8.6-10.3) mg/dL - EKG Data EKG #1 EKG results narrative: Sinus rhythm. 75 beats minute. [place] interval 150, QRS 108, QTC 44. No sign of acute ST segment elevations or ischemia. Compared to previous EKG completed on 08/08/2017 no significant changes noted. Attestation Statement - Attestation Attestation: I, Buster Roach DO, examined this patient [id number] and my medical decision-making was reviewed with Dr. Dorina Bishop , Resident Physician. I agree with the documented findings, disposition and treatment plan as described except to the extent set forth below. Please see my progress notes for details.
[2018-02-11] MEDS ORDERED: 0.9 % Sodium Chloride 1,000 ML IVC ONE (13:50)
[2018-02-11 14:20] LABS: Eosinophils % 1.8 %
--- NOTE | 2018-02-11 14:27 | Emergency Department Note ---
Disposition Clinical Impression: Hypoglycemia, Substance abuse Disposition: Admitted As Inpatient Condition: Fair Referrals: Javier Capps ENGINE SETTER [Primary Care Provider] - Time of Disposition: 15:37 General Adult HPI - General Chief complaint: ED Altered Mental Status Stated complaint: Low blood sugar Time Seen by Provider: 02/11/18 13:09 Source: patient, EMS Mode of arrival: EMS Limitations: no limitations - History of Present Illness Pain Scale: 0 - Related Data Home Medications Medication Instructions Recorded Confirmed Insulin Human Regular [HumuLIN R] 2 - 10 unit SQ TIDWM MDD Sliding 11/17/1608/26 Scale Previous Rx's Medication Instructions Recorded Insulin Glargine [Lantus] 30 unit SQ HS #100 mls 04/21/16 Allergies Allergy/AdvReac Type Severity Reaction Status Date / Time No Known Allergies Allergy Verified 07/21/17 21:28 Constitutional: Denies: fever, chills Eyes: Reports: as per HPI ENT ED: Reports: as per HPI Cardiovascular: Denies: chest pain, palpitations, dyspnea on exertion Respiratory: Denies: cough, dyspnea, wheezes Gastrointestinal: Denies: abdominal pain, nausea, vomiting Genitourinary: Reports: as per HPI Musculoskeletal: Reports: as per HPI Integumentary: Reports: as per HPI Neurological: Denies: numbness, paresthesias Psychiatric: Reports: as per HPI Endocrine: Reports: as per HPI Hematological/Lymphatic: Reports: as per HPI Allergic/Immunologic: Reports: as per HPI Past Medical History - Past Medical History Medical history: Reports: hepatitis, other Surgical history: Reports: other Psychiatric history: Reports: bipolar SEQUINS WINDER history: Reports: no SEQUINS WINDER history, other - Social History Smoking Status: Current every day smoker Smokeless Tobacco Status: No Alcohol use: Reports: none Drug use: Reports: cocaine, opiates, IV Drug Use, prescription drug abuse, other Physical Exam - General Limitations: no limitations General appearance: alert, in no apparent distress Course Vital Signs Temperature 97.6 F 02/11/18 12:59 Pulse Rate 75 02/11/18 12:59 Respiratory Rate 20 02/11/18 12:59 Blood Pressure 125/84 02/11/18 12:59 O2 Sat by Pulse Oximetry 100 02/11/18 12:59 Temperature 97.6 F 02/11/18 12:59 Pulse Rate 71 02/11/18 17:42 Respiratory Rate 16 02/11/18 16:12 Blood Pressure 137/60 02/11/18 17:42 O2 Sat by Pulse Oximetry 100 02/11/18 17:42 Oxygen Delivery Oxygen Delivery Room Air Medical Decision Making - Lab Data Result diagrams: 02/11/18 14:07 02/11/18 14:07 Lab Results 02/11/18 02/11/18 02/11/18 Range/Units 14:07 14:07 17:16 WBC 3.9 L (4.3-11.1) K/mcL RBC 4.53 (3.82-4.97) M/mcL Hgb 12.2 (11.5-15.4) g/dL Hct 37.6 (35.3-44.9) % MCV 83.0 (83.0-100.0) fL MCH 26.9 L (28.0-33.3) pg MCHC 32.4 (31.6-35.5) g/dL RDW 14.2 (11.5-14.5) % Plt Count 202 (140-400) K/mcL MPV 9.4 (9.4-12.4) fL Immature Gran % 0.5 (0-4) % Seg Neutrophils % 46.8 % Lymphocytes % 40.4 % Monocytes % 9.7 % Eosinophils % 1.8 % Basophils % 0.8 % Neutrophils # 1.8 (1.6-8.9) K/mcL Lymphocytes # 1.6 (0.6-4.6) K/mcL Monocytes # 0.4 (0.0-1.3) K/mcL Eosinophils # 0.1 (0.0-0.6) K/mcL Basophils # 0.0 (0.0-0.2) K/mcL Platelet Estimate Normal (Normal) Sodium 133 L (136-145) mEq/L Potassium 3.5 (3.5-5.1) mEq/L Chloride 102 (98-107) mEq/L Carbon Dioxide 26 (23-29) mEq/L BUN 10 (6-20) mg/dL Creatinine 0.50 L (0.60-1.20) mg/dL Est GFR ( Amer) > 60 (> 60) Est GFR (Non-Af Amer) > 60 (> 60) BUN/Creatinine Ratio 20 (6-26) Glucose 47 L (70-105) mg/dL Calculated Osmolality 272 L (280-300) Calcium 8.9 (8.6-10.3) mg/dL Urine Color Yellow (Yellow) Urine Clarity Clear (Clear) Urine pH 7.0 (5.0-8.0) pH Units Ur Specific [place] 1.005 L (1.010-1.025) Urine Protein Negative (Neg-Trace) mg/dL Urine Glucose (UA) 100 H (Normal) mg/dL Urine Ketones Negative (Negative) mg/dL Urine Blood Negative (Negative) Urine Nitrite Negative (Negative) Urine Bilirubin Negative (Negative) Urine Urobilinogen Normal (Normal) mg/dL Ur Leukocyte Esterase Negative (Negative) Ur Culture Indicated? NO (NO) Urine Opiates Screen (Gobiza=757) ng/mL Ur Barbiturates Screen (Lizkjf=752) ng/mL Ur Phencyclidine Scrn (Cutoff=25) ng/mL Ur Amphetamines Screen (Qdkfrh=1063) ng/mL U Benzodiazepines Scrn (Sxmdcs=785) ng/mL Urine Cocaine Screen (Cutoff= 300) ng/mL U Marijuana (THC) Screen (Cutoff = 50) ng/mL Ur Drug Screen Interp 02/11/18 Range/Units 17:16 WBC (4.3-11.1) K/mcL RBC (3.82-4.97) M/mcL Hgb (11.5-15.4) g/dL Hct (35.3-44.9) % MCV (83.0-100.0) fL MCH (28.0-33.3) pg MCHC (31.6-35.5) g/dL RDW (11.5-14.5) % Plt Count (140-400) K/mcL MPV (9.4-12.4) fL Immature Gran % (0-4) % Seg Neutrophils % % Lymphocytes % % Monocytes % % Eosinophils % % Basophils % % Neutrophils # (1.6-8.9) K/mcL Lymphocytes # (0.6-4.6) K/mcL Monocytes # (0.0-1.3) K/mcL Eosinophils # (0.0-0.6) K/mcL Basophils # (0.0-0.2) K/mcL Platelet Estimate (Normal) Sodium (136-145) mEq/L Potassium (3.5-5.1) mEq/L Chloride (98-107) mEq/L Carbon Dioxide (23-29) mEq/L BUN (6-20) mg/dL Creatinine (0.60-1.20) mg/dL Est GFR ( Amer) (> 60) Est GFR (Non-Af Amer) (> 60) BUN/Creatinine Ratio (6-26) Glucose (70-105) mg/dL Calculated Osmolality (280-300) Calcium (8.6-10.3) mg/dL Urine Color (Yellow) Urine Clarity (Clear) Urine pH (5.0-8.0) pH Units Ur Specific [place] (1.010-1.025) Urine Protein (Neg-Trace) mg/dL Urine Glucose (UA) (Normal) mg/dL Urine Ketones (Negative) mg/dL Urine Blood (Negative) Urine Nitrite (Negative) Urine Bilirubin (Negative) Urine Urobilinogen (Normal) mg/dL Ur Leukocyte Esterase (Negative) Ur Culture Indicated? (NO) Urine Opiates Screen Negative (Enwcwp=898) ng/mL Ur Barbiturates Screen Negative (Ehusse=718) ng/mL Ur Phencyclidine Scrn Negative (Cutoff=25) ng/mL Ur Amphetamines Screen Positive H (Wjrxes=2063) ng/mL U Benzodiazepines Scrn Negative (Ddjgyy=342) ng/mL Urine Cocaine Screen Negative (Cutoff= 300) ng/mL U Marijuana (THC) Screen Negative (Cutoff = 50) ng/mL Ur Drug Screen Interp See Below Attestation Statement - Attestation Attestation: I, Buster Roach DO, examined this patient [id number] and my medical decision-making was reviewed with Dr. Dorina Bishop , Resident Physician. I agree with the documented findings, disposition and treatment plan as described except to the extent set forth below. Please see my progress notes for details. 57-year-old female presents to emergency room for evaluation of confusion and altered mentation and hypoglycemia. Patient was at the methadone clinic today where she is having an evaluation with her counselor. She was found on that. Altered. She had an Accu-Chek completed 16. IV access was obtained the patient was given. He will dextrose and transilluminated mentation came back to baseline. Patient denies any substance abuse. Denies any chest pain shortness breath headache vision changes nausea vomiting or diarrhea. She is only on injectable insulin at home. She does not take any long-acting medications. Medication list was reviewed. We decided an EKG CT of the head as well as screening labs considering the patient was still very steady in her conversation. There is concern for possible substances being utilized outside of the methadone. When they went to take off the patient's bra found a baggy full of an illicit substance. Patient will have screening evaluation completed patient will be provided with a meal tray repeat Accu-Cheks. Otherwise the patient denies any other symptoms or complaints. Disposition pending the full workup. See detailed documentation the physical exam, medical intervention, medical decision-making and disposition in the resident physician's note. Patient's had the atraumatic pupils are round reactive oropharynx is patent trachea is midline. Lungs are clear heart is regular. 1500 Patient's blood glucose is 47. Patient was awake and talking during the entire presentation to the emergency room and Accu-Chek. A be stable and transported by EMS for greater than 100 after that. Patient then became sleepy and at the bedside repeat Accu-Chek was collected and Accu-Chek was 37. 2 mg of dextrose have been given. Patient was started on D5 normal saline. The hospitalist Dr. Jurado reviewed the case. The midline axis will be placed and patient will have CT imaging and urinalysis completed prior to the admission process. No other concerns or issues. Patient will be observed here in the emergency room and to these 2 medical interventions are completed. 1745 Patient has not set a means in her urine drug screen. Otherwise is no acute signs of infection. CT imaging of her head is unremarkable for acute signs of intracranial related pathology. Patient has been maintaining her Accu-Chek and glucose here in the emergency room at this time a mentating appropriately. Admission process to be established for refractory hypoglycemia at this point. No infectious etiology is noted for the source.
[2018-02-11 14:35] LABS: Basophils % 0.8 %; Eosinophils # 0.1 K/mcL (0.0-0.6); Hematocrit 37.6 % (35.3-44.9); Hemoglobin 12.2 g/dL (11.5-15.4); Immature Granulocytes % 0.5 % (0-4); Lymphocytes # 1.6 K/mcL (0.6-4.6); Lymphocytes % 40.4 %; Mean Corpuscular HGB Conc 32.4 g/dL (31.6-35.5); Mean Corpuscular Hemoglobin 26.9 pg (28.0-33.3); Mean Platelet Volume 9.4 fL (9.4-12.4); Monocytes # 0.4 K/mcL (0.0-1.3); Monocytes % 9.7 %; Neutrophils # 1.8 K/mcL (1.6-8.9); Platelet Count 202 K/mcL (140-400); Red Blood Count 4.53 M/mcL (3.82-4.97); Red Cell Distribution Width 14.2 % (11.5-14.5); Segmented Neutrophils % 46.8 %
[2018-02-11 14:37] LABS: BUN/Creatinine Ratio 20 (6-26); Blood Urea Nitrogen 10 mg/dL (6-20); Calcium 8.9 mg/dL (8.6-10.3); Carbon Dioxide 26 mEq/L (23-29); Chloride 102 mEq/L (98-107); Glucose 47 mg/dL (70-105); Osmolality,Calculated 272 (280-300); Potassium 3.5 mEq/L (3.5-5.1); Sodium 133 mEq/L (136-145); eGFR For Non-African Americans > 60 (> 60)
[2018-02-11] MEDS ORDERED: *HR* Dextrose 50 % in Water (Syg) 50 ML SYRINGE ONE (14:43)
[2018-02-11] MEDS ORDERED: *HR* Dextrose 50 % in Water (Syg) 50 ML SYRINGE IVP ONE ×2 (14:43→15:12)
[2018-02-11 14:55] LABS: Platelet Estimate Normal (Normal)
[2018-02-11] MEDS ORDERED: Lidocaine -MPF 1% 5 ML AMPUL INFILT ONE (15:27)
[2018-02-11] MEDS ORDERED: Naloxone 0.4 MG/ML INJ IVP PRN (15:55)
--- NOTE | 2018-02-11 16:00 | Internal Med History&Physical ---
Date of Encounter: 02/11/18 Time of Encounter: 16:00 Internal Medicine - H&P: HPI Chief complaint: Low blood sugars Admitted From: Emergency Dept Plans for Post Hospital Care: Home History of present illness: Ms. Richardson is a 57 year old female patient with history of diabetes, polysubstance abuse who goes to the methadone clinic presented to the ER from the methadone clinic with low blood sugars. She was apparently found in the toilet at the methadone clinic passed out. Her blood glucose was 16. A similar episode occurred last month and at that time her sugar was 17. She was referred to her primary care provider was in the process of adjusting her insulin regimens area patient states that she took her long-acting insulin last night but did not eat much this morning. She denies any fevers or chills. No nausea or vomiting. No abdominal pain. She complains mainly of pain in her right shoulder that she has had since July when she had a traumatic injury. She reports that she has had workup on this done before and was referred to orthopedics for cortisone injection as it was believed to be due to tendinitis. However she has not been able to get this done due to insurance issues. She is also had trouble getting a glucometer. According to the ED record, nursing staff found her bag of illicit substance while they were helping her change her dress. Past Med Surg Social Fam HX - Past Medical History Attestation: Yes The following information was validated with the patient. Source: patient Medical history: hepatitis, other Additional medical history: hepatitis C Psychiatric history: bipolar - Past Surgical History Surgical History: other Additional surgical history: right lower extremity abcess. - Social History Smoking Status: Current every day smoker Smokeless Tobacco Status: No Alcohol use: none Drug use: cocaine, opiates, IV Drug Use, prescription drug abuse, other - Family History Mother Living Status: Still Living Hx Family Cardiac Disorders: No Hx Family Respiratory Disorders: No Hx Family Cancer: No Hx Family GI Disorders: No Hx Family Endocrine Disorder: No Hx Family Neuromuscular Disorders: No Hx Family Neurologic Disorders: No Hx Family HEENT Disorders: No Hx Family Autoimmune Disorders: No Father Living Status: Hx Family Cardiac Disorders: No Hx Family Respiratory Disorders: Yes Hx Family Cancer: No Hx Family GI Disorders: No Hx Family Endocrine Disorder: Yes Hx Family Neuromuscular Disorders: No Hx Family Neurologic Disorders: No Hx Family HEENT Disorders: No Hx Family Autoimmune Disorders: No Internal Medicine - H&P: Meds Insulin Glargine [Lantus] 30 unit SQ HS #100 mls 04/21/16 [Rx] Insulin Human Regular [HumuLIN R] 2 - 10 unit SQ TIDWM MDD Sliding Scale [History] 3 Allergy/AdvReac Type Severity Reaction Status Date / Time No Known Allergies Allergy Verified 07/21/17 21:28 All Systems PM: A 10-system review of systems was performed and is negative for pertinent findings except as documented above in the HPI. - Constitutional Constitutional: no chills, no fever(s), no night sweats - EENT Eyes: no change in vision, no discharge, no pain, no photophobia Ears: no ear discharge, no ear pain, no tinnitus Nose, mouth and throat: no dysphagia, no nasal discharge, no neck pain, no sore throat - Cardiovascular Cardiovascular ROS IM: no chest pain, no diaphoresis, no dyspnea, no lightheadedness, no palpitations, no syncope - Constitutional Vitals: Temp Pulse Resp BP Pulse Ox 97.6 F 81 16 123/66 100 02/11/18 12:59 02/11/18 14:53 02/11/18 14:53 02/11/18 14:53 02/11/18 14:53 General appearance: Present: cooperative, A&O X 3, underweight, answers questions appropriately Exam: . - Neck Neck exam general surgery: Present: supple, trachea midline. Absent: lymphadenopathy - Respiratory Respiratory exam: Present: CTAB. Absent: accessory muscle use, rales, rhonchi, wheezes - Cardiovascular Cardiovascular exam: Present: RRR, +S1, +S2. Absent: diastolic murmur, gallop, rubs, systolic murmur - GI/Abdominal GI/Abdominal exam: Present: normal bowel sounds, soft, no peritoneal signs. Absent: distended, tenderness - Extremities Exam Extremities exam: Present: warm, radial pulses palpable and symmetrical. Absent : calf tenderness, cyanotic, pedal edema Additional comments: tenderness in right shoulder - Neurological Exam Neurological exam: Present: CN II-XII intact, oriented X3, no focal deficits. Absent: facial droop, speech deficit - Skin Skin exam: Present: dry, intact Internal Med - H&P Results - Labs CBC & Chem 7: 02/11/18 14:07 02/11/18 14:07 Labs: Short CBC 02/11/18 Range/Units 14:07 WBC 3.9 L (4.3-11.1) K/mcL Hgb 12.2 (11.5-15.4) g/dL Hct 37.6 (35.3-44.9) % Plt Count 202 (140-400) K/mcL Neutrophils # 1.8 (1.6-8.9) K/mcL BMP 02/11/18 14:07 Sodium 133 L Potassium 3.5 Chloride 102 Carbon Dioxide 26 BUN 10 Creatinine 0.50 L Glucose 47 L Calcium 8.9 - Assessment and plan (1) Hypoglycemia Current Visit: Yes Status: Acute Assessment and plan: Patient with new episode of hypoglycemia. Likely due to taking long-acting insulin and not adequately eating. Monitor blood sugars. Patient received glucagon and dextrose infusion in the ER. Will observe in the hospital. Check blood sugars every hour to the improved to greater than 200. Hold insulin products for now. (2) Right shoulder pain Current Visit: Yes Status: Chronic Assessment and plan: Chronic shoulder pain. Will get x-ray. Qualifiers: Chronicity: chronic Qualified Code(s): M25.511 - Pain in right shoulder; G89.29 - Other chronic pain (3) Substance abuse Current Visit: Yes Status: Chronic Assessment and plan: History of drug abuse. Will check urine drug screen. sheet metal worker apprentice consult. (4) Type 2 diabetes mellitus Current Visit: Yes Status: Chronic Assessment and plan: Patient is a poorly controlled diabetic with recurrent episodes of hypoglycemia. Consult social work program coordinator to help with supplies and needs. Patient will need close outpatient follow-up. She will definitely need a reduction in the amount of insulin that she is taking and maybe even switch to a shorter form of insulin. For now monitor blood sugars as above. Qualifiers: Diabetes mellitus mcc insulin use: with intermediate school teacher use Diabetes mellitus complication detail: with polyneuropathy Qualified Code(s): E11.42 - Type 2 diabetes mellitus with diabetic polyneuropathy; Z79.4 - skilled nursing ( current) use of insulin - Time Spent With Patient Total time spent is greater than 50% in coordination of care (as documented) at patient's floor/unit and/or counseling patient:
[2018-02-11] MEDS: D5% in 0.9% NACL 1,000 ML IVC SCH (16:40)
[2018-02-11 17:29] LABS: Bilirubin,Urine Negative (Negative); Blood,Urine Negative (Negative); Clarity,Urine Clear (Clear); Color,Urine Yellow (Yellow); Glucose,Urine (UA) 100 mg/dL (Normal); Ketones,Urine Negative (Negative); Leukocyte Esterase,Urine Negative (Negative); Nitrite,Urine Negative (Negative); Protein,Urine Negative (Neg-Trace); Specific Gravity,Urine 1.005 (1.010-1.025); Urobilinogen,Urine Normal (Normal)
[2018-02-11 17:39] LABS: Amphetamine Screen,Urine Positive ng/mL (Cutoff=1000); Barbiturate Screen,Urine Negative ng/mL (Cutoff=200); Benzodiazepines Screen,Urine Negative ng/mL (Cutoff=200); Cannabinoid Screen,Urine Negative ng/mL (Cutoff = 50); Cocaine Screen,Urine Negative ng/mL (Cutoff= 300); Opiate Screen,Urine Negative ng/mL (Cutoff=300); Phencyclidine Screen,Urine Negative ng/mL (Cutoff=25)
[2018-02-12] MEDS: D5% in 0.9% NACL 1,000 ML IVC SCH (05:40)
[2018-02-12 06:55] VITALS: BP 127/64
--- NOTE | 2018-02-12 10:21 | Discharge Summary ---
- NOTES TO OUTPATIENT PROVIDER Notes to Outpatient Provider: The patient was admitted with severe hypoglycemia after being passed out in methadone clinic. Blood glucose was improved throughout her stay. This is a recurrent issue for the patient. Unfortunately the patient left AGAINST MEDICAL ADVICE and was never seen by myself. Should she follow up would recommend altering her diabetic regimen. Patient also had imaging which revealed a 7 x 8 mm noncalcified nodule in the peripheral right upper lobe. This should be followed up with repeat imaging per guidelines. Date of Encounter: 02/12/18 Time of Encounter: 10:19 - Discharge Diagnosis (1) Type 2 diabetes mellitus Priority: Secondary Status: Chronic Qualifiers: Diabetes mellitus manager long term care insulin use: with detention use Diabetes mellitus complication detail: with polyneuropathy Qualified Code(s): E11.42 - Type 2 diabetes mellitus with diabetic polyneuropathy; Z79.4 - detention ( current) use of insulin (2) Hypoglycemia Priority: Primary Status: Acute (3) Substance abuse Priority: Secondary Status: Chronic (4) Right shoulder pain Priority: Secondary Status: Chronic Qualifiers: Chronicity: chronic Qualified Code(s): M25.511 - Pain in right shoulder; G89.29 - Other chronic pain Hospital course: Ms. Richardson is a 57 year old female with history of diabetes who presents after being found unresponsive at methadone clinic. The patient sounded have a blood sugar of 16. Patient was given glucagon and dextrose with improvement in her mental status and glucose. Patient also had imaging which revealed a right upper lobe lung nodule that she will follow-up as outpatient. Unfortunately the patient left AGAINST MEDICAL ADVICE before my evaluation and was never seen by myself. This discharge summary is done for documentation purposes only it is not for billing. Should the patient follow-up with her primary care physician and would be recommended that her diabetic regimen be altered. The patient should follow up with her primary care physician within one week. Due to her severe hypoglycemia and leaving his medical advice the patient is a very high risk for readmission, deterioration, complications including anything up into . - Time Spent with Patient Total time spent providing and/or coordinating discharge services: Less than 30 minutes (10 minutes) - Discharge Medications Home Medications: Insulin Glargine [Lantus] 30 unit SQ HS #100 mls 04/21/16 [Rx] Insulin Human Regular [HumuLIN R] 2 - 10 unit SQ TIDWM MDD Sliding Scale [History] Allergies/Adverse Reactions: 3 Allergy/AdvReac Type Severity Reaction Status Date / Time No Known Allergies Allergy Verified 07/21/17 21:28 Date of admission: 02/11/18 17:15 Primary care physician: Javier Capps CNP - Constitutional Vitals: Temp Pulse Resp BP Pulse Ox 98.4 F 61 17 127/64 97 02/12/18 06:54 02/12/18 06:54 02/12/18 06:54 02/12/18 06:54 02/12/18 06:54 General appearance: Present: cooperative, A&O X 3, underweight, answers questions appropriately Exam: No physical exam was performed as the patient left AGAINST MEDICAL ADVICE before my evaluation - Patient Status Disposition: Left Against Medical Advice Condition: Undetermined Overall status at discharge: other (Never evaluated by myself; therefore I cannot comment on her status at discharge) - Discharge Instructions Follow Up With: Javier Capps CNP [Primary Care Provider] - Additional Instructions: Follow-up with PCP to have your diabetic regimen altered and for follow-up of your right lung nodule - Diet and Activity Diet: diabetic diet
--- NOTE | 2018-02-12 17:43 | Electrocardiograph Report ---
[place] Test Date: 2018-02-11 Pat Name: Daniela Richardson Department: EXAM3 Room: 3B23 Gender: F Housemaid: : 1960 Requested By: Dorina Bishop Order Number: [id number] Reading MD: Sampson Branham Measurements Intervals [place] Rate: 75 P: 89 NV: 150 QRS: 97 QRSD: 108 T: 81 QT: 433 QTc: 484 Interpretive Statements Sinus rhythm Atrial premature complexes in couplets Borderline right axis deviation Electronically Signed On 02-12-2018 17:42:10 EDT by Sampson Branham
== END 2018-02-12 10:33 | disposition left against medical advice (07) ==
LOC: 3BNU 12:57 → EMEROOARM 12:57 → 3BNU 17:57
PROVIDERS: ADMIT Internal Medicine; ATTEND Internal Medicine

== ENCOUNTER 2018-02-14 14:49 | Inpatient (IN) ==
[2018-02-14] MEDS ORDERED: 0.9 % Sodium Chloride 1,000 ML IVC ONE (15:06)
[2018-02-14] MEDS ORDERED: *HR* Dextrose 50 % in Water (Syg) 50 ML SYRINGE IVP ONE ×2 (15:06→17:28)
--- NOTE | 2018-02-14 15:21 | Emergency Department Note ---
Disposition Clinical Impression: Altered mental status Qualifiers: Altered mental status type: unspecified Qualified Code(s): R41.82 - Altered mental status, unspecified Disposition: Still a Patient Referrals: Javier Capps CNP [Primary Care Provider] - Forms: ED Satisfaction Letter General Adult HPI - General Chief complaint: ED Altered Mental Status Stated complaint: Unresponsive Time Seen by Provider: 02/14/18 15:02 Source: EMS Limitations: altered mental status Nursing Notes Reviewed: Yes Vital Signs Reviewed: Yes - History of Present Illness HPI Narrative: Referred to other notes for history of present illness, review of systems, physical exam, decision-making. This note was placed for central line documentation. 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: Reports: no 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 TRYOUT PERSON history, other - Social History Smoking Status: Current every day smoker Smokeless Tobacco Status: No Alcohol use: Reports: none Drug use: Reports: cocaine, opiates, methamphetamine, IV Drug Use, prescription drug abuse, other Physical Exam - General Limitations: altered mental status General appearance: other Course Vital Signs Temperature 97.0 F L 02/14/18 14:55 Pulse Rate 82 02/14/18 14:55 Respiratory Rate 26 02/14/18 14:55 Blood Pressure 117/98 02/14/18 14:55 O2 Sat by Pulse Oximetry 88 02/14/18 14:55 Temperature 97.0 F L 02/14/18 14:55 Pulse Rate 85 02/14/18 15:20 Respiratory Rate 22 02/14/18 15:20 Blood Pressure 135/75 02/14/18 15:20 O2 Sat by Pulse Oximetry 95 02/14/18 15:20 Oxygen Delivery Oxygen Delivery Room Air Procedures - Central Line Placement Right Femoral Central Line Inserted*: Yes Central Line Catheter Replacement*: Yes Central Line Insertion: emergent Procedural Pause: perform hand hygiene Patient Placed on Monitor/Pulse Ox: Yes During the Procedure: clinician is wearing sterile gloves, cap, mask,& gown during insertion, sterile field and sterile technique are maintained, patient's face is covered with drape or mask and wearing a cap Central Line Prep: Chlorhexidine scrub Prep the Procedure Site: apply chloraprep to the skin using a back and forth scrubbing motion, apply chloraprep for 30 seconds (upper body), 1-2 min ( femoral sites) Local Anesthetic: lidocaine 1% Amount of anesthesia used (mL): 3 Ultrasound Used for Placement: Yes Central Line Lumen Inserted: triple Post Procedure: sutured in place, sterile dressing applied, guide wire removed and visualized, dressing is dated Patient Tolerated Procedure: well Complications: none Name of Clinician Inserting Central Line: Cortes Contreras D.O. Clinician Assisting/Completing Checklist: Dr. Jeb Dumont Date: 02/14/18 Attestation Statement - Attestation Attestation: Patient was seen with resident physician. I reviewed the history, physical, assessment and plan, and agree with the findings. I also personally evaluated this patient and had [id number] time with this patient. 57-year-old female presents emergency Department chief complaint of unresponsive. Apparently the patient was at home became unresponsive family called EMS. Prior to leaving even though she was not responsive to give her oral glucagon. Pulse ox on arrival was in the 70s. Patient was providing no information. Apparently she is well-known to the ER staff. She is a history of well-controlled diabetes and also opiate abuse. Review of systems unobtainable secondary patient condition. Physical exam vital signs pulse ox was low. Blood pressure and heart rate were okay. ENT patient has what appears to be some glucagon or some bloody mucus from her mouth. Pupils are reactive. Head and neck did not show signs of trauma. Heart regular rhythm and rate. Lungs diffuse crackles heard throughout. Adamant soft and nontender. Extremities unremarkable. Neurologically initially responsive to painful stimuli. Through the course of her visit her mental status improved. Skin no obvious rashes or lesions. Psych unable to evaluate. ED course. Patient is very difficult to obtain a line we were able to get 1 very small line in the left arm but she required central venous access. Central line was placed by resident physician I observed the entire procedure was here for the critical portions. We get good venous blood flow and 2 of the 3 ports were functioning properly so we were able to use that line. Patient was given an amp of D50 which improved her glucose. Her mental status continually improved throughout her stay. There was some concern for aspiration pneumonia considering her initial evaluation. I we will do a complete workup for middle status change including CT scans of the head neck, chest x-ray, lab testing, and will admit to the hospital service for additional evaluation and treatment. Patient did not require Narcan at this visit. Agree with resident physician assessment and plan. Critical care time 35 minutes.
--- NOTE | 2018-02-14 15:47 | Emergency Department Note ---
Disposition Clinical Impression: Metabolic encephalopathy, Hypoglycemia, Elevated troponin Altered mental status Qualifiers: Altered mental status type: unspecified Qualified Code(s): R41.82 - Altered mental status, unspecified Disposition: Admitted As Inpatient Condition: Fair Referrals: Javier Capps CNP [Primary Care Provider] - Forms: ED Satisfaction Letter Altered Mental Status HPI - General Chief Complaint: ED Altered Mental Status Stated Complaint: Unresponsive Time Seen by Provider: 02/14/18 15:02 Source: EMS Mode of arrival: EMS Limitations: altered mental status Nursing Notes Reviewed: Yes Vital Signs Reviewed: Yes - History of Present Illness HPI Narrative: 57-year-old female presents to the ER for altered mental status. History is obtained from EMS. States that they were called that the patient was unresponsive. Upon their arrival her glucose was in the high 40s. She is a diabetic on insulin. She was given oral glucose and then glucagon. Recheck was in the high 60s. She was placed on a nonrebreather and brought in for evaluation. Upon arrival she was obtunded not following commands but withdrawing to pain. She was noted to be hypoxic in the high 80s. She was administered an amp of D50 and placed on a nonrebreather with improvement of her symptoms. She also coughed producing a decent amount of sputum and what appeared to be the oral glucose she received. She is unsure what happened today. States she believes that her sugar. Complaining currently that she is cold. No other complaints. complaint: altered mental status Onset (ago): unknown Context: diabetes Treatments prior to arrival: glucose - Related Data Home Medications Medication Instructions Recorded Confirmed Insulin Human Regular [HumuLIN R] 2 - 10 unit SQ TIDWM MDD Sliding 11/17/1608/26 Scale Previous Rx's Medication Instructions Recorded Insulin Glargine [Lantus] 30 unit SQ HS #100 mls 04/21/16 Allergies Allergy/AdvReac Type Severity Reaction Status Date / Time No Known Allergies Allergy Verified 07/21/17 21:28 All systems ED: reviewed and negative except as stated. Limitations: ROS unobtainable due to patients medical condition Past Medical History - Past Medical History Attestation: Yes The following information was validated with the patient. 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 SETTER history: Reports: no CORE SETTER history, other - Social History Smoking Status: Current every day smoker Smokeless Tobacco Status: No Alcohol use: Reports: none Drug use: Reports: cocaine, opiates, methamphetamine, IV Drug Use, prescription drug abuse, other Physical Exam - General Limitations: altered mental status General appearance: obtunded - Head Head exam: atraumatic, normocephalic, normal inspection - Eye Eye exam: Present: normal appearance, PERRL - ENT ENT exam: normal exam - Neck Neck exam: Present: normal inspection - Chest Chest inspection: Present: normal inspection, symmetric chest wall rise - Respiratory Respiratory exam: Present: normal lung sounds bilaterally - Cardiovascular Cardiovascular exam: Present: regular rate, normal rhythm, normal heart sounds - Abdominal Exam Abdominal exam: Present: soft, Non-Tender. Absent: tenderness, distention, rigidity - Extremities Exam Extremities exam: Present: normal inspection - Expanded Upper Extremity Exam Shoulder exam: Present: normal inspection Arm exam: Present: normal inspection Elbow exam: Present: normal inspection Forearm/Wrist exam: Present: normal inspection Hand exam: Present: normal inspection - Expanded Lower Extremity Exam Hip/Pelvis exam: Present: normal inspection Upper leg exam: Present: normal inspection Knee exam: Present: normal inspection Lower leg exam: Present: normal inspection Ankle exam: Present: normal inspection Foot/toe exam: Present: normal inspection - Neurological Exam Neurological exam: Present: other (GCS of 9 on arrival. Opens eyes to painful stimuli. Withdraws to painful stimuli. Incomprehensible speech) - Expanded Neurological Exam Coma Scale Eye Opening: To Pain Coma Scale Motor Response: Localizes to Pain Coma Scale Verbal Response: Incomprehensible Coma Scale Total: 9 - Skin Skin exam: Present: warm, other (The patient has track zavala and bruising on all of her extremities.) Course Course Narrative: Patient seen and examined at time of arrival. She remained hypoglycemic. She was given an amp of D50. Patient poor peripheral access and the central line was obtained. She also did have an episode of coughing and coughed up sputum and the oral glucose. Saturations have improved off oxygen. Plan for CT imaging of her head and cervical spine, EKG, labs, urinalysis. Suspect the patient will likely need admission for her hypoglycemia and altered mentation. - Reevaluation(s) Reevaluation #1: Patient easily arousable, alert complaint of shoulder pain which is chronic. No other complaints. She is agreeable with admission. I reviewed her chart it appears that she left AMA 2 days ago and that she will likely went home started using her insulin again and had a hypoglycemic event. Troponin elevated. No chest pain. No EKG changes. Aspirin given. Vital Signs Temperature 97.0 F L 02/14/18 14:55 Pulse Rate 82 02/14/18 14:55 Respiratory Rate 26 02/14/18 14:55 Blood Pressure 117/98 02/14/18 14:55 O2 Sat by Pulse Oximetry 88 02/14/18 14:55 Temperature 97.0 F L 02/14/18 14:55 Pulse Rate 85 02/14/18 16:55 Respiratory Rate 18 02/14/18 16:55 Blood Pressure 126/77 02/14/18 16:55 O2 Sat by Pulse Oximetry 95 02/14/18 16:55 Oxygen Delivery Oxygen Delivery Room Air Altered Mental Status - MDM Narrative Medical decision making narrative: 57-year-old female presenting unresponsive found to be hyperglycemic. It appears she has been starting no insulin regimens. She has a previous admission 3 days ago for very similar presentation at which point she left AGAINST MEDICAL ADVICE. Her symptoms improved here with D50. She is alert and appropriate at this time. Imaging of her head was unremarkable. EKG is nonischemic with a troponin of 0.08 without chest pain. The patient was given aspirin for this. Her chest x-rays, however she originally had very coarse breath sounds and suspected aspiration so she was given a dose of Unasyn. The patient is admitted to the hospitalist service for hypoglycemia and altered mental status. - Lab Data Lab results reviewed: Yes I reviewed the patient's lab results. Result diagrams: 02/14/18 15:35 02/14/18 15:35 Lab Results 02/14/18 02/14/18 02/14/18 Range/Units 14:55 15:25 15:35 WBC 14.8 H D (4.3-11.1) K/mcL RBC 5.04 H (3.82-4.97) M/mcL Hgb 13.5 (11.5-15.4) g/dL Hct 40.9 (35.3-44.9) % MCV 81.2 L (83.0-100.0) fL MCH 26.8 L (28.0-33.3) pg MCHC 33.0 (31.6-35.5) g/dL RDW 14.4 (11.5-14.5) % Plt Count 326 D (140-400) K/mcL MPV 9.0 L (9.4-12.4) fL Immature Gran % 0.2 (0-4) % Seg Neutrophils % 90.4 % Lymphocytes % 3.2 % Monocytes % 6.0 % Eosinophils % 0.1 % Basophils % 0.1 % Neutrophils # 13.4 H (1.6-8.9) K/mcL Lymphocytes # 0.5 L (0.6-4.6) K/mcL Monocytes # 0.9 (0.0-1.3) K/mcL Eosinophils # 0.0 (0.0-0.6) K/mcL Basophils # 0.0 (0.0-0.2) K/mcL PT (9.4-12.1) Seconds INR APTT (26.0-36.0) Seconds Sodium (136-145) mEq/L Potassium (3.5-5.1) mEq/L Chloride (98-107) mEq/L Carbon Dioxide (23-29) mEq/L BUN (6-20) mg/dL Creatinine (0.60-1.20) mg/dL Est GFR ( Amer) (> 60) Est GFR (Non-Af Amer) (> 60) BUN/Creatinine Ratio (6-26) Glucose (70-105) mg/dL POC Glucose 80 93 (70-99) mg/dL Calculated Osmolality (280-300) Lactic Acid (0.5-2.2) mmol/L Calcium (8.6-10.3) mg/dL Total Bilirubin (0.3-1.0) mg/dL Direct Bilirubin (0.0-0.2) mg/dL Indirect Bilirubin (0.0-1.2) mg/dL AST (13-39) Units/L ALT (7-52) Units/L Alkaline Phosphatase (34-104) Units/L Ammonia (16-53) mcmol/L Troponin I (< 0.04) ng/mL Serum Total Protein (6.4-8.9) g/dL Albumin (3.5-5.7) g/dL Globulin (2.4-3.5) g/dL Albumin/Globulin Ratio (1.1-2.2) TSH (0.340-5.600) mcIU/mL Ethyl Alcohol (Less than 10) mg/dL 02/14/18 02/14/18 02/14/18 Range/Units 15:35 15:35 15:35 WBC (4.3-11.1) K/mcL RBC (3.82-4.97) M/mcL Hgb (11.5-15.4) g/dL Hct (35.3-44.9) % MCV (83.0-100.0) fL MCH (28.0-33.3) pg MCHC (31.6-35.5) g/dL RDW (11.5-14.5) % Plt Count (140-400) K/mcL MPV (9.4-12.4) fL Immature Gran % (0-4) % Seg Neutrophils % % Lymphocytes % % Monocytes % % Eosinophils % % Basophils % % Neutrophils # (1.6-8.9) K/mcL Lymphocytes # (0.6-4.6) K/mcL Monocytes # (0.0-1.3) K/mcL Eosinophils # (0.0-0.6) K/mcL Basophils # (0.0-0.2) K/mcL PT 10.0 (9.4-12.1) Seconds INR 0.9 APTT 25.7 L (26.0-36.0) Seconds Sodium 136 (136-145) mEq/L Potassium 3.4 L (3.5-5.1) mEq/L Chloride 102 (98-107) mEq/L Carbon Dioxide 25 (23-29) mEq/L BUN 13 (6-20) mg/dL Creatinine 0.51 L (0.60-1.20) mg/dL Est GFR ( Amer) > 60 (> 60) Est GFR (Non-Af Amer) > 60 (> 60) BUN/Creatinine Ratio 25 (6-26) Glucose 144 H (70-105) mg/dL POC Glucose (70-99) mg/dL Calculated Osmolality 285 (280-300) Lactic Acid (0.5-2.2) mmol/L Calcium 9.2 (8.6-10.3) mg/dL Total Bilirubin 0.5 (0.3-1.0) mg/dL Direct Bilirubin 0.1 (0.0-0.2) mg/dL Indirect Bilirubin 0.4 (0.0-1.2) mg/dL AST 32 (13-39) Units/L ALT 20 (7-52) Units/L Alkaline Phosphatase 104 (34-104) Units/L Ammonia 30 (16-53) mcmol/L Troponin I 0.08 H* (< 0.04) ng/mL Serum Total Protein 7.2 (6.4-8.9) g/dL Albumin 4.1 (3.5-5.7) g/dL Globulin 3.1 (2.4-3.5) g/dL Albumin/Globulin Ratio 1.3 (1.1-2.2) TSH 0.710 (0.340-5.600) mcIU/mL Ethyl Alcohol < 10 (Less than 10) mg/dL 02/14/18 Range/Units 15:35 WBC (4.3-11.1) K/mcL RBC (3.82-4.97) M/mcL Hgb (11.5-15.4) g/dL Hct (35.3-44.9) % MCV (83.0-100.0) fL MCH (28.0-33.3) pg MCHC (31.6-35.5) g/dL RDW (11.5-14.5) % Plt Count (140-400) K/mcL MPV (9.4-12.4) fL Immature Gran % (0-4) % Seg Neutrophils % % Lymphocytes % % Monocytes % % Eosinophils % % Basophils % % Neutrophils # (1.6-8.9) K/mcL Lymphocytes # (0.6-4.6) K/mcL Monocytes # (0.0-1.3) K/mcL Eosinophils # (0.0-0.6) K/mcL Basophils # (0.0-0.2) K/mcL PT (9.4-12.1) Seconds INR APTT (26.0-36.0) Seconds Sodium (136-145) mEq/L Potassium (3.5-5.1) mEq/L Chloride (98-107) mEq/L Carbon Dioxide (23-29) mEq/L BUN (6-20) mg/dL Creatinine (0.60-1.20) mg/dL Est GFR ( Amer) (> 60) Est GFR (Non-Af Amer) (> 60) BUN/Creatinine Ratio (6-26) Glucose (70-105) mg/dL POC Glucose (70-99) mg/dL Calculated Osmolality (280-300) Lactic Acid 1.6 (0.5-2.2) mmol/L Calcium (8.6-10.3) mg/dL Total Bilirubin (0.3-1.0) mg/dL Direct Bilirubin (0.0-0.2) mg/dL Indirect Bilirubin (0.0-1.2) mg/dL AST (13-39) Units/L ALT (7-52) Units/L Alkaline Phosphatase (34-104) Units/L Ammonia (16-53) mcmol/L Troponin I (< 0.04) ng/mL Serum Total Protein (6.4-8.9) g/dL Albumin (3.5-5.7) g/dL Globulin (2.4-3.5) g/dL Albumin/Globulin Ratio (1.1-2.2) TSH (0.340-5.600) mcIU/mL Ethyl Alcohol (Less than 10) mg/dL - Radiology Data Radiology results reviewed: Yes I reviewed the patient's radiology results. Cervical Spine CT 02/14/18 15:06 IMPRESSION: No acute abnormality of the cervical spine. D/ / Nilson Palma MD / Nilson Palma MD Interpreting Provider: Nilson Palma MD Chest X-Ray 02/14/18 15:06 IMPRESSION: No acute cardiopulmonary disease. D/ / 02/14/2018 15:36:19 Satya Elliott MD / Katia Gr Interpreting Provider: Satya Elliott MD Head CT 02/14/18 15:06 IMPRESSION: No acute intracranial abnormality. D/ / Anjali Huitron Cha, MD / Anjali Huitron Cha, MD Interpreting Provider: Anjali Huitron Cha, MD - EKG Data EKG attestation: Yes I reviewed and interpreted this EKG. EKG results narrative: EKG demonstrates sinus rhythm with rate of 70 bpm. Normal axis. Normal intervals. Normal R-wave progression. No gross ST elevations or depressions. No acute ischemic findings. Gilbert - Gilbert Situation: Demographics, MOA Background: Presenting Complaint, Relevant PMH, Meds, & Allergies Assessment: Course and respsone to treatment, Exam Concerns, Patient/Family Expectation, Pertinant Lab Results Recommendation: Barrier(s) to disposition, Recommendation based on pending studies, treatments, or consults Gilbert Report Given to: Dr. Michael Hunt Repor Time: 16:45 Attestation Statement - Attestation Attestation: Patient was seen with resident physician. I reviewed the history, physical, assessment and plan, and agree with the findings. I also personally evaluated this patient and had [id number] time with this patient. 57-year-old female presents emergency Department chief complaint of unresponsive. Apparently the patient was at home became unresponsive family called EMS. Prior to leaving even though she was not responsive to give her oral glucagon. Pulse ox on arrival was in the 70s. Patient was providing no information. Apparently she is well-known to the ER staff. She is a history of well-controlled diabetes and also opiate abuse. Review of systems unobtainable secondary patient condition. Physical exam vital signs pulse ox was low. Blood pressure and heart rate were okay. ENT patient has what appears to be some glucagon or some bloody mucus from her mouth. Pupils are reactive. Head and neck did not show signs of trauma. Heart regular rhythm and rate. Lungs diffuse crackles heard throughout. Adamant soft and nontender. Extremities unremarkable. Neurologically initially responsive to painful stimuli. Through the course of her visit her mental status improved. Skin no obvious rashes or lesions. Psych unable to evaluate. ED course. Patient is very difficult to obtain a line we were able to get 1 very small line in the left arm but she required central venous access. Central line was placed by resident physician I observed the entire procedure was here for the critical portions. We get good venous blood flow and 2 of the 3 ports were functioning properly so we were able to use that line. Patient was given an amp of D50 which improved her glucose. Her mental status continually improved throughout her stay. There was some concern for aspiration pneumonia considering her initial evaluation. I we will do a complete workup for middle status change including CT scans of the head neck, chest x-ray, lab testing, and will admit to the hospital service for additional evaluation and treatment. Patient did not require Narcan at this visit. Agree with resident physician assessment and plan. Critical care time 35 minutes.
[2018-02-14 15:55] LABS: Basophils % 0.1 %; Eosinophils % 0.1 %; Hematocrit 40.9 % (35.3-44.9); Hemoglobin 13.5 g/dL (11.5-15.4); Immature Granulocytes % 0.2 % (0-4); Lymphocytes # 0.5 K/mcL (0.6-4.6); Lymphocytes % 3.2 %; Mean Corpuscular Hemoglobin 26.8 pg (28.0-33.3); Mean Corpuscular Volume 81.2 fL (83.0-100.0); Monocytes # 0.9 K/mcL (0.0-1.3); Neutrophils # 13.4 K/mcL (1.6-8.9); Platelet Count 326 K/mcL (140-400); Red Blood Count 5.04 M/mcL (3.82-4.97); Red Cell Distribution Width 14.4 % (11.5-14.5); Segmented Neutrophils % 90.4 %
[2018-02-14 15:57] LABS: INR 0.9
[2018-02-14 15:59] LABS: Activated Partial Thrombo Time 25.7 Seconds (26.0-36.0)
[2018-02-14 16:14] LABS: Alanine Aminotransferase 20 Units/L (7-52); Albumin 4.1 g/dL (3.5-5.7); Albumin/Globulin Ratio 1.3 (1.1-2.2); Alkaline Phosphatase 104 Units/L (34-104); Aspartate Amino Transferase 32 Units/L (13-39); BUN/Creatinine Ratio 25 (6-26); Bilirubin,Direct 0.1 mg/dL (0.0-0.2); Bilirubin,Indirect 0.4 mg/dL (0.0-1.2); Bilirubin,Total 0.5 mg/dL (0.3-1.0); Blood Urea Nitrogen 13 mg/dL (6-20); Calcium 9.2 mg/dL (8.6-10.3); Carbon Dioxide 25 mEq/L (23-29); Chloride 102 mEq/L (98-107); Ethanol < 10 mg/dL (Less than 10); Globulin 3.1 g/dL (2.4-3.5); Glucose 144 mg/dL (70-105); Osmolality,Calculated 285 (280-300); Potassium 3.4 mEq/L (3.5-5.1); Sodium 136 mEq/L (136-145); Total Protein 7.2 g/dL (6.4-8.9); eGFR For Non-African Americans > 60 (> 60)
[2018-02-14 16:16] LABS: Troponin I 0.08 ng/mL (< 0.04)
[2018-02-14] MEDS ORDERED: Ampicillin/Sulbactam 3,000 MG in 0.9 % Sodium Chloride Mini Bag 100 ML IVPB ONE (16:36)
[2018-02-14] MEDS ORDERED: Aspirin 325 MG TABLET PO ONE (16:36)
[2018-02-14] MEDS ORDERED: *HR* Dextrose 50 % in Water (Syg) 50 ML SYRINGE IVP PRN ×2 (17:38→18:08)
[2018-02-14] MEDS ORDERED: Naloxone 0.4 MG/ML INJ IVP PRN (17:38)
--- NOTE | 2018-02-14 17:56 | Event Note ---
Date of Encounter: 02/14/18 Time of Encounter: 17:15 To serve as attestation to history and physical exam documentation which is pending at this time I examined this patient and my medical decision-making was reviewed with the Resident Physician Dr Gonzáles. I agree with the documented findings, disposition and treatment plan as described except to the extent set forth below. Ms Richardson presented via ems after being found unresponsive. She was admitted to [facility] 02/11 and left AMA for the same. This time she was found unresponsive at home by family. EMS called and bs 40 and o2 sat documented to be 70-80%. She was placed on non rebreather and given d50. On arrival here bs remained low, o2 sats repsonded to nrb. She was obtunded and mentation and oxygenation improved with glucose and oxygen. CVC placed for poor access and need for emergent D50, right fem line. Noted to have bloody sputum in mouth, treated as if aspiration with unasyn. EKG without ischemic changes, trop 0.08. CT head and neck neg for acute findings. CXR neg. She is asleep on room air currently, no family present, BP normotensive, HR normal, arouses to tactile and verbal stimuli. She keeps eyes closed, angry when removed blanket to eval. yells some answers to questions. Denies chest pain , denies recent cough or sob. hpi and ros limited by mental status med hx includes t2dm, hep c, bipolar disorder, tobacco dependence, polysubstance abuse hx, cocaine, methamphetamines, ivda, previous opiates, now on methadone General: lethargic, appears stated age, frail apprearing HEENT: mmm, no sputum/blood appreciated in mouth, pupils equal, round, reactive to light Neck: supple, trachea midline Cardiovascular:regular rate and rhythm, normal S1 & S2, no rubs, murmurs or gallops appreciated. No JVD. radial pulses 2+, no lower extremity edema, right groin cvc, warm extremities Lungs:Normal breath sounds, no wheezes, rhonchi or crackles can be appreciated, though she will not sit up for posterior exam Normal respiratory effort on room air Abdomen:Soft, non-tender, non-distended, no rigidity, + bowel sounds Neurological: AAO to person, follows command to stick out tongue, quickly falls back asleep, no facial asymetry, speech clear when talks, no focal drficits appreciated Skin:Normal color, no rash, no pallor, no jaundice Metabolic Encephaloapthy/ Episode of Unresponsiveness- suspect 2/2 hypoglycemia , recurrent episodes, rule out drug intoxication, on methadone, rule out related to infection or ACS given trop - if does not improve with cont improved bs then narcan should be given, check abg, hypoglycemia tx as below, ua, cx, blx pending, cxr neg, neuro checks, acs rule out as below, keep npo except meds and may advance diet as mentation improves if passes a bedside RN swallow eval when more awake Hypoglycemia, recurrent in T2DM on chronic insulin- hold all insulin, routine accu checks, prn hypoglycemics, bs 84 on eval in ED and another amp d50 given, infectious work up Acute Resp Failure as evidence by hypoxia, requiring nrb, now resolved- treating empirically for aspiration, no cough for sputum collection at this time , o2 prn Leukocytosis, 14. 8 reactive vs infectious - work up as above, lactate wnl Elevated trop 0.08- ekg personally reviewed and without ischemic changes, may be demand related to hypoxia, unclear if was hypotensive- tele, trend trops, serial ekgs, normal cv exam and normotensive in ED, uds remains pending, cards if significant change in trops or with any ekg changes tonight Polysubstance abuse hx- udrug pending, on methadone- hold opiates , rule out cocaine use given trop elevation Hypokalemia 3.4- replete iv
[2018-02-14] MEDS ORDERED: Dextrose Gel 15 GM/37.5 ML TUBE PO PRN ×2 (18:08)
[2018-02-14] MEDS ORDERED: D5% in Water 1,000 ML IVC PRN (18:08)
[2018-02-14] MEDS: D5% in 0.45% NACL 1,000 ML IVC SCH (18:10)
--- NOTE | 2018-02-14 18:42 | Internal Med History&Physical ---
<SpencerKristyn Rincon - Last Filed: 02/14/18 19:44> Date of Encounter: 02/14/18 Internal Medicine - H&P: HPI History of present illness: Ms. Richardson is a 57 year old female Internal Medicine - H&P: Meds Insulin Glargine [Lantus] 30 unit SQ HS #100 mls 04/21/16 [Rx] Insulin Human Regular [HumuLIN R] 2 - 10 unit SQ TIDWM MDD Sliding Scale [History] 3 Allergy/AdvReac Type Severity Reaction Status Date / Time No Known Allergies Allergy Verified 07/21/17 21:28 All Systems PM: A 10-system review of systems was performed and is negative for pertinent findings except as documented above in the HPI. - Constitutional Vitals: Temp Pulse Resp BP Pulse Ox 98.7 F 97 22 148/80 93 02/14/18 19:33 02/14/18 19:33 02/14/18 19:33 02/14/18 19:33 02/14/18 19:33 Internal Med - H&P Results - Labs CBC & Chem 7: 02/14/18 15:35 02/14/18 15:35 - Time Spent With Patient Total time spent is greater than 50% in coordination of care (as documented) at patient's floor/unit and/or counseling patient: - Attending Attestation I examined this patient and my medical decision-making was reviewed with the Resident Physician Dr Gonzáles. I agree with the documented findings, disposition and treatment plan as described except to the extent set forth below. Ms Richardson presented via ems after being found unresponsive. She was admitted to [facility] 02/11 and left AMA for the same. This time she was found unresponsive at home by family. EMS called and bs 40 and o2 sat documented to be 70-80%. She was placed on non rebreather and given d50. On arrival here bs remained low, o2 sats repsonded to nrb. She was obtunded and mentation and oxygenation improved with glucose and oxygen. CVC placed for poor access and need for emergent D50, right fem line. Noted to have bloody sputum in mouth, treated as if aspiration with unasyn. EKG without ischemic changes, trop 0.08. CT head and neck neg for acute findings. CXR neg. She is asleep on room air currently, no family present, BP normotensive, HR normal, arouses to tactile and verbal stimuli. She keeps eyes closed, angry when removed blanket to eval. yells some answers to questions. Denies chest pain , denies recent cough or sob. hpi and ros limited by mental status med hx includes t2dm, hep c, bipolar disorder, tobacco dependence, polysubstance abuse hx, cocaine, methamphetamines, ivda, previous opiates, now on methadone General: lethargic, appears stated age, frail apprearing HEENT: mmm, no sputum/blood appreciated in mouth, pupils equal, round, reactive to light Neck: supple, trachea midline Cardiovascular:regular rate and rhythm, normal S1 & S2, no rubs, murmurs or gallops appreciated. No JVD. radial pulses 2+, no lower extremity edema, right groin cvc, warm extremities Lungs:Normal breath sounds, no wheezes, rhonchi or crackles can be appreciated, though she will not sit up for posterior exam Normal respiratory effort on room air Abdomen:Soft, non-tender, non-distended, no rigidity, + bowel sounds Neurological: AAO to person, follows command to stick out tongue, quickly falls back asleep, no facial asymetry, speech clear when talks, no focal drficits appreciated Skin:Normal color, no rash, no pallor, no jaundice Metabolic Encephaloapthy/ Episode of Unresponsiveness- suspect 2/2 hypoglycemia , recurrent episodes, rule out drug intoxication, on methadone, rule out related to infection or ACS given trop - if does not improve with cont improved bs then narcan should be given, check abg, hypoglycemia tx as below, ua, cx, blx pending, cxr neg, neuro checks, acs rule out as below, keep npo except meds and may advance diet as mentation improves if passes a bedside RN swallow eval when more awake Hypoglycemia, recurrent in T2DM on chronic insulin- hold all insulin, routine accu checks, prn hypoglycemics, bs 84 on eval in ED and another amp d50 given, infectious work up Acute Resp Failure as evidence by hypoxia, requiring nrb, now resolved- treating empirically for aspiration, no cough for sputum collection at this time , o2 prn Leukocytosis, 14. 8 reactive vs infectious - work up as above, lactate wnl Elevated trop 0.08- ekg personally reviewed and without ischemic changes, may be demand related to hypoxia, unclear if was hypotensive- tele, trend trops, serial ekgs, normal cv exam and normotensive in ED, uds remains pending, cards if significant change in trops or with any ekg changes tonight Polysubstance abuse hx- udrug pending, on methadone- hold opiates , rule out cocaine use given trop elevation Hypokalemia 3.4- replete iv <Colby Gonzáles A - Last Filed: 02/14/18 20:35> Date of Encounter: 02/14/18 Time of Encounter: 15:30 Internal Medicine - H&P: HPI Chief complaint: AMS/Hypoglycemia Admitted From: Home Plans for Post Hospital Care: Home History of present illness: Ms. Richardson is a 57F with PMH of type 2 DM requiring insulin, hepatitis C, bipolar disorder, and polysubstance abuse. She presented to the ED today after being found unresponsive at home. She was recently admitted here at [facility] on 02/11 for a similar episode at the methadone clinic. EMS reported blood sugar was 40 and SpO2 was in the 70s-80s%. She was given 1 amp of D50 and placed on a non- rebreather. Subsequent blood sugar check was in the 60s. Upon arrival to the ED she was obtunded despite improvement in blood glucose and SpO2. It was also reported that the pt had some bloody sputum in her mouth at this time. EKG was unchanged from recent visit. CT head and neck were unremarkable. CXR negative for acute abnormalities. Troponin was elevated at 0.08, and a new leukocytosis of 14.8 was also discovered. During the encounter with this provider, the pt remained grossly obtunded, however she did answer some questions. She denied any drug use and was very upset she will not receive her Methadone today. She states she did eat today, but thinks she may have taken too much insulin by accident. Denies any recent illness. No fever, chills, chest pain, shortness of breath or abdominal pain. Past Med Surg Social Fam HX - Past Medical History Medical history: diabetes, hepatitis, other Additional medical history: cardiac catheterization Psychiatric history: bipolar - Past Surgical History Surgical History: other Additional surgical history: LLE surgery - Social History Smoking Status: Current every day smoker Smokeless Tobacco Status: No Alcohol use: none Drug use: cocaine, opiates, methamphetamine, IV Drug Use, prescription drug abuse, other - Family History Mother Living Status: Still Living Hx Family Cardiac Disorders: No Hx Family Respiratory Disorders: No Hx Family Cancer: No Hx Family GI Disorders: No Hx Family Endocrine Disorder: No Hx Family Neuromuscular Disorders: No Hx Family Neurologic Disorders: No Hx Family HEENT Disorders: No Hx Family Autoimmune Disorders: No Father Living Status: Hx Family Cardiac Disorders: No Hx Family Respiratory Disorders: Yes (COPD) Hx Family Cancer: No Hx Family GI Disorders: No Hx Family Endocrine Disorder: Yes (DM) Hx Family Neuromuscular Disorders: No Hx Family Neurologic Disorders: No Hx Family HEENT Disorders: No Hx Family Autoimmune Disorders: No ROS unobtainable: due to mental status All Systems PM: A 10-system review of systems was performed and is negative for pertinent findings except as documented above in the HPI. - Constitutional Vitals: Temp Pulse Resp BP Pulse Ox 97.0 F L 85 22 142/77 98 02/14/18 14:55 02/14/18 18:13 02/14/18 18:13 02/14/18 18:13 02/14/18 18:13 General appearance: Present: A&O X 3, underweight. Absent: cooperative, answers questions appropriately Exam: Constitutional: thin female in mild distress HEENT: head normocephalic and atraumatic. PERRL, EOMI. No sputum or blood noted in mouth. Neck: supple, trachea midline, no lymphadenopathy Lungs: CTA bilaterally. non-labored breathing Heart: RRR +s1 +s2 No murmurs, clicks, or rubs appreciated GI: abdomen soft, non-tender, non-distended Extremities: radial pulses palpable and symmetrical. No edema, cyanosis, or calf tenderness Neuro: A&Ox3. Able to follow commands such as sticking out her tongue, however she falls back asleep quickly. Very responsive to pain. No slurred speech or facial droop Skin: warm, dry, intact. No lesions or rashes noted. Internal Med - H&P Results - Labs CBC & Chem 7: 02/14/18 15:35 02/14/18 15:35 Labs: Short CBC 02/14/18 Range/Units 15:35 WBC 14.8 H D (4.3-11.1) K/mcL Hgb 13.5 (11.5-15.4) g/dL Hct 40.9 (35.3-44.9) % Plt Count 326 D (140-400) K/mcL Neutrophils # 13.4 H (1.6-8.9) K/mcL BMP 02/14/18 15:35 Sodium 136 Potassium 3.4 L Chloride 102 Carbon Dioxide 25 BUN 13 Creatinine 0.51 L Glucose 144 H Calcium 9.2 Cardiac Enzymes 02/14/18 Range/Units 15:35 Troponin I 0.08 H* (< 0.04) ng/mL Liver Function 02/14/18 Range/Units 15:35 Total Bilirubin 0.5 (0.3-1.0) mg/dL Direct Bilirubin 0.1 (0.0-0.2) mg/dL AST 32 (13-39) Units/L ALT 20 (7-52) Units/L Alkaline Phosphatase 104 (34-104) Units/L Albumin 4.1 (3.5-5.7) g/dL - EKG Data EKG shows normal: sinus rhythm, axis, intervals Rate: normal - EKG Data Prior EKG available for review: yes When compared to previous EKG: there is no significant change Interpretation IM: normal EKG - Impressions ITS Impressions Cervical Spine CT 02/14/18 15:06 IMPRESSION: No acute abnormality of the cervical spine. D/ / Nilson Palma MD / Nilson Palma MD Interpreting Provider: Nilson Palma MD Chest X-Ray 02/14/18 15:06 IMPRESSION: No acute cardiopulmonary disease. D/ / 02/14/2018 15:36:19 Satya Elliott MD / Katia Gr Interpreting Provider: Satya Elliott MD Head CT 02/14/18 15:06 IMPRESSION: No acute intracranial abnormality. D/ / Anjali Huitron Cha, MD / Anjlai Huitron Cha, MD Interpreting Provider: Anjali Huitron Cha, MD - Diagnostic Studies Chest x-ray Status: image reviewed by me - Assessment and plan (1) Metabolic encephalopathy Current Visit: Yes Status: Acute Assessment and plan: Suspect 2/2 hypoglycemia, pt was recently seen in ED and signed out AMA for similar episode Will rule out drug intoxication with UDS, on methadone, Will rule out infection or ACS given trop - CXR was negative. Check UA and blood cultures x2. Serial trops and repeat EKG Continue neuro checks and blood sugar checks as below (2) Hypoglycemia Current Visit: Yes Status: Acute Assessment and plan: recurrent, question due to insulin overdose vs infectious cause T2DM on chronic insulin Will hold all insulin q1h glood glucose checks prn hypoglycemics Blood glucose 84 on eval in ED and another amp d50 given Infectious workup as below (3) Leukocytosis Current Visit: Yes Status: Acute Assessment and plan: WBC 14.8 Could be reactive vs infectious Rectal temp 97.0F in ED, will continue to monitor Non-tachypnic HR normal CXR in ED negative, there are concerns for aspiration which would not been seen on CXR acutely. Continue Unasyn as started in ED Will check UA and blood cultures x2 for other infectious causes. Qualifiers: Leukocytosis type: unspecified Qualified Code(s): D72.829 - Elevated white blood cell count, unspecified (4) Acute respiratory failure with hypoxia Current Visit: Yes Status: Acute Assessment and plan: Initially required supplemental O2 via non-rebreather Oxygenating and ventilating fine on room air during ED eval Suspect 2/2 hypoglycemia and possible aspiration Continue Unasyn as above prn duonebs supplemental O2 as needed obtain ABG to eval for CO2 retention (5) Elevated troponin Current Visit: Yes Status: Acute Assessment and plan: Troponin elevated in ED at 0.08 EKG unchanged from previous visits Suspect likely 2/2 demand ischemia from hypoxia decreased respiratory drive and hypoglycemia 325mg ASA given in ED Trend troponins Will repeat EKG in AM (6) Polysubstance dependence Current Visit: No Status: Chronic Assessment and plan: hx of polysubstance abuse with opiods, amphetamines, and cocaine Follows in methadone clinic No hx of alcohol abuse, alcohol screen in ED negative (7) Type 2 diabetes mellitus Current Visit: No Status: Chronic Assessment and plan: hx of type 2 DM on chronic insulin will hold insulin as above for hypoglycemia Qualifiers: Diabetes mellitus rat exterminator insulin use: with rat exterminator use Diabetes mellitus complication detail: with polyneuropathy Qualified Code(s): E11.42 - Type 2 diabetes mellitus with diabetic polyneuropathy; Z79.4 - intermediate ( current) use of insulin (8) Hypokalemia Current Visit: Yes Status: Acute Assessment and plan: Will replace IV since questionable tolerance for po med - Time Spent With Patient Total time spent is greater than 50% in coordination of care (as documented) at patient's floor/unit and/or counseling patient:
[2018-02-14 19:46] LABS: ABG Base Excess 1 mEq/L (-2 to 3); ABG HCO3 25 mEq/L (21-27); ABG Oxygen Saturation 94 % (95-98); ABG PCO2 34 mmHg (35-45); ABG PH 7.47 pH Units (7.32-7.45); ABG PO2 64 mmHg (85-104); ABG TCO2 26 mEq/L (20-26)
[2018-02-14 20:07] LABS: Bilirubin,Urine Negative (Negative); Blood,Urine Negative (Negative); Clarity,Urine Clear (Clear); Color,Urine Yellow (Yellow); Glucose,Urine (UA) 500 mg/dL (Normal); Ketones,Urine Negative (Negative); Leukocyte Esterase,Urine Negative (Negative); Nitrite,Urine Negative (Negative); Protein,Urine 30 mg/dL (Neg-Trace); Urobilinogen,Urine Normal (Normal)
[2018-02-14 20:09] LABS: Bacteria,Urine None Seen per hpf (None-Few); Hyaline Casts,Urine None Seen per lpf (None-Few); RBC,Urine 0-3 per hpf (0-3); Squamous Epithelial Cell,Urine Moderate per lpf (None-Few); WBC,Urine 0-3 per hpf (0-3)
[2018-02-14 20:15] LABS: Amphetamine Screen,Urine Positive ng/mL (Cutoff=1000); Barbiturate Screen,Urine Negative ng/mL (Cutoff=200); Benzodiazepines Screen,Urine Negative ng/mL (Cutoff=200); Cannabinoid Screen,Urine Negative ng/mL (Cutoff = 50); Cocaine Screen,Urine Negative ng/mL (Cutoff= 300); Opiate Screen,Urine Negative ng/mL (Cutoff=300); Phencyclidine Screen,Urine Negative ng/mL (Cutoff=25)
[2018-02-14] MEDS ORDERED: Melatonin 3 MG TABLET PO PRN (20:21)
[2018-02-14] MEDS: Ampicillin/Sulbactam 3,000 MG in 0.9 % Sodium Chloride Mini Bag 100 ML IVPB SCH (23:34)
[2018-02-15] MEDS: D5% in 0.45% NACL 1,000 ML IVC SCH ×2 (03:29→13:56)
[2018-02-15 04:04] LABS: Basophils % 0.2 %; Eosinophils % 0.1 %; Hematocrit 34.8 % (35.3-44.9); Hemoglobin 11.5 g/dL (11.5-15.4); Immature Granulocytes % 0.4 % (0-4); Lymphocytes # 1.8 K/mcL (0.6-4.6); Lymphocytes % 13.8 %; Mean Corpuscular Hemoglobin 26.8 pg (28.0-33.3); Mean Corpuscular Volume 81.1 fL (83.0-100.0); Monocytes # 0.9 K/mcL (0.0-1.3); Monocytes % 6.9 %; Neutrophils # 10.5 K/mcL (1.6-8.9); Platelet Count 265 K/mcL (140-400); Red Blood Count 4.29 M/mcL (3.82-4.97); Red Cell Distribution Width 14.6 % (11.5-14.5); Segmented Neutrophils % 78.6 %
[2018-02-15 04:32] LABS: BUN/Creatinine Ratio 23 (6-26); Blood Urea Nitrogen 11 mg/dL (6-20); Calcium 8.6 mg/dL (8.6-10.3); Carbon Dioxide 24 mEq/L (23-29); Chloride 102 mEq/L (98-107); Chol/HDL Ratio 1.6 (0-4.9); Cholesterol 146 mg/dL (< 200); Glucose 181 mg/dL (70-105); HDL Cholesterol 89 mg/dL (40-59); LDL Cholesterol,Calculated 45 mg/dL (0-99); Magnesium 1.9 mg/dL (1.6-2.6); Osmolality,Calculated 278 (280-300); Potassium 4.3 mEq/L (3.5-5.1); Sodium 132 mEq/L (136-145); Triglycerides 59 mg/dL (< 150); eGFR For Non-African Americans > 60 (> 60)
[2018-02-15] MEDS: Ampicillin/Sulbactam 3,000 MG in 0.9 % Sodium Chloride Mini Bag 100 ML IVPB SCH ×3 (05:37→17:06)
--- NOTE | 2018-02-15 08:58 | Internal Med Progress Note ---
<Colby Gonzáles - Last Filed: 02/15/18 14:17> Hospitalist Progress Note - Encounter Date of Encounter: 02/15/18 Time of Encounter: 08:56 - Subjective Interval History: Ms. Richardson is a 57F with PMH of type 2 DM requiring insulin, hepatitis C, bipolar disorder, and polysubstance abuse. She presented to the ED today after being found unresponsive at home. She was recently admitted here at [facility] on 02/11 for a similar episode at the methadone clinic. EMS reported blood sugar was 40 and SpO2 was in the 70s-80s%. She was given 1 amp of D50 and placed on a non- rebreather. Subsequent blood sugar check was in the 60s. Upon arrival to the ED she was obtunded despite improvement in blood glucose and SpO2. It was also reported that the pt had some bloody sputum in her mouth at this time. EKG was unchanged from recent visit. CT head and neck were unremarkable. CXR negative for acute abnormalities. Troponin was elevated at 0.08, and a new leukocytosis of 14.8 was also discovered. Started on Unasyn. Pt seen and examined at bedside. Pt is resting comfortably in bed, but adamant that she will leave if she doesn't receive her methadone. States she greatly desires to seek help for her polysubstance abuse, and wants to manage her home insulin better. Denies any chest pain, shortness of breath, abdominal pain, nausea, vomiting, headache, numbness, or tingling. Is complaining of constipation and requesting a suppository. Mentation and disposition greatly improved from yesterday. - Exam Vitals: Temp Pulse Resp BP Pulse Ox 99.3 F 86 18 141/66 92 02/15/18 07:25 02/15/18 07:25 02/15/18 07:25 02/15/18 07:25 02/15/18 07:25 Exam: Constitutional: thin female in mild distress HEENT: head normocephalic and atraumatic. PERRL, EOMI. No sputum or blood noted in mouth. Neck: supple, trachea midline, no lymphadenopathy Lungs: CTA bilaterally. non-labored breathing Heart: RRR +s1 +s2 No murmurs, clicks, or rubs appreciated GI: abdomen soft, non-tender, non-distended Extremities: radial pulses palpable and symmetrical. No edema, cyanosis, or calf tenderness Neuro: A&Ox3. No focal deficits. No speech difficulty or abnormality. Skin: warm, dry, intact. No lesions or rashes noted. - Assessment and Plan (1) Leukocytosis Current Visit: Yes Status: Acute Assessment and Plan: WBC 14.8 on admission, remains elevated at 13.4 today Could be reactive vs infectious Afebrile Non-tachypnic HR normal CXR in ED negative, there are concerns for aspiration which would not been seen on CXR acutely. UA negative. Await results of blood cultures x2. Continue Unasyn to empirically cover for aspiration pneumonia (2) Polysubstance dependence including opioid type drug, episodic abuse Current Visit: No Status: Chronic Assessment and Plan: hx of polysubstance abuse with opiods, amphetamines, and cocaine Follows in methadone clinic No hx of alcohol abuse, alcohol screen in ED negative UDS did reveal +Amphetamine, but negative for opioids Continue Methadone after obtaining records from [facility] (3) Insulin dependent diabetes mellitus Current Visit: No Status: Chronic Assessment and Plan: Home regimen on admission was 30u Lantus qhs, and Medium dose SSI with meals Now that pt can tolerate diet, will start Low dose SSI qhs and TID at meals Will adjust home regimen based on insulin needs while here (4) Hypoglycemia Current Visit: Yes Status: Resolved Assessment and Plan: recurrent, question due to insulin overdose vs amphetamine use vs infectious cause T2DM on chronic insulin prn hypoglycemics Blood sugars consistently elevated Pt mentation and disposition has improved, start ADA diet (5) Elevated troponin Current Visit: Yes Status: Acute Assessment and Plan: Serial troponins elevated but adynamic EKG unchanged from previous visits Suspect likely 2/2 demand ischemia from hypoxia decreased respiratory drive and hypoglycemia No complaints of chest pain, nausea, or shortness of breath 81mg ASA daily (6) Acute respiratory failure with hypoxia Current Visit: Yes Status: Resolved Assessment and Plan: Required supplemental O2 via non-rebreather with EMS and in ED Resolved at this time Suspect 2/2 hypoglycemia and possible aspiration Continue Unasyn as above prn duonebs supplemental O2 as needed DVT Prophylaxis: SQ heparin - Time Spent with Patient Total time spent is greater than 50% in coordination of care (as documented) at patient's floor/unit and/or counseling patient: Internal Medicine: Result - Labs CBC & Chem 7: 02/15/18 03:50 02/15/18 03:50 Labs: Short CBC 02/15/18 Range/Units 03:50 WBC 13.4 H (4.3-11.1) K/mcL Hgb 11.5 D (11.5-15.4) g/dL Hct 34.8 L (35.3-44.9) % Plt Count 265 (140-400) K/mcL Neutrophils # 10.5 H (1.6-8.9) K/mcL BMP 02/15/18 03:50 Sodium 132 L Potassium 4.3 D Chloride 102 Carbon Dioxide 24 BUN 11 Creatinine 0.47 L Glucose 181 H Calcium 8.6 Cardiac Enzymes 02/14/18 02/15/18 Range/Units 21:00 03:50 Troponin I 0.11 H* 0.10 H* (< 0.04) ng/mL Urine 02/14/18 Range/Units 19:50 Urine Color Yellow (Yellow) Urine Clarity Clear (Clear) Urine pH 7.0 (5.0-8.0) pH Units Ur Specific [place] 1.010 (1.010-1.025) Urine Protein 30 H (Neg-Trace) mg/dL Urine Glucose (UA) 500 H (Normal) mg/dL - ABG Interpretation ABG results: ABG ABG pH 7.47 pH Units (7.32-7.45) H 02/14/18 19:43 ABG pCO2 34 mmHg (35-45) L 02/14/18 19:43 ABG pO2 64 mmHg (85-104) L 02/14/18 19:43 ABG O2 Saturation 94 % (95-98) L 02/14/18 19:43 PT/INR, D-dimer PT 10.0 Seconds (9.4-12.1) 02/14/18 15:35 Consult Discharge Plan - Plan Referrals: Javier Capps, [facility] [Primary Care Provider] - <Syed Chavez - Last Filed: 02/15/18 16:41> Hospitalist Progress Note - Encounter Date of Encounter: 02/15/18 - Exam Vitals: Temp Pulse Resp BP Pulse Ox 99.1 F 91 16 97/49 96 02/15/18 14:00 02/15/18 16:13 02/15/18 16:13 02/15/18 16:13 02/15/18 16:13 - Assessment and Plan (1) Insulin dependent diabetes mellitus Current Visit: No Status: Chronic (2) Polysubstance dependence including opioid type drug, episodic abuse Current Visit: No Status: Chronic (3) Hypoglycemia Current Visit: Yes Status: Resolved (4) Elevated troponin Current Visit: Yes Status: Acute (5) Leukocytosis Current Visit: Yes Status: Acute (6) Acute respiratory failure with hypoxia Current Visit: Yes Status: Resolved - Time Spent with Patient Total time spent is greater than 50% in coordination of care (as documented) at patient's floor/unit and/or counseling patient: Internal Medicine: Result - Labs CBC & Chem 7: 02/15/18 03:50 02/15/18 03:50 Labs: Short CBC 02/15/18 Range/Units 03:50 WBC 13.4 H (4.3-11.1) K/mcL Hgb 11.5 D (11.5-15.4) g/dL Hct 34.8 L (35.3-44.9) % Plt Count 265 (140-400) K/mcL Neutrophils # 10.5 H (1.6-8.9) K/mcL BMP 02/15/18 03:50 Sodium 132 L Potassium 4.3 D Chloride 102 Carbon Dioxide 24 BUN 11 Creatinine 0.47 L Glucose 181 H Calcium 8.6 Cardiac Enzymes 02/14/18 02/15/18 Range/Units 21:00 03:50 Troponin I 0.11 H* 0.10 H* (< 0.04) ng/mL Urine 02/14/18 Range/Units 19:50 Urine Color Yellow (Yellow) Urine Clarity Clear (Clear) Urine pH 7.0 (5.0-8.0) pH Units Ur Specific [place] 1.010 (1.010-1.025) Urine Protein 30 H (Neg-Trace) mg/dL Urine Glucose (UA) 500 H (Normal) mg/dL - ABG Interpretation ABG results: ABG ABG pH 7.47 pH Units (7.32-7.45) H 02/14/18 19:43 ABG pCO2 34 mmHg (35-45) L 02/14/18 19:43 ABG pO2 64 mmHg (85-104) L 02/14/18 19:43 ABG O2 Saturation 94 % (95-98) L 02/14/18 19:43 PT/INR, D-dimer PT 10.0 Seconds (9.4-12.1) 02/14/18 15:35 - Attending Attestation I examined this patient and my medical decision-making was reviewed with the Resident Physician Dr. Gonzáles. I agree with the documented findings, disposition and treatment plan as described except to the extent set forth below. Ms. Richardson is a 57F with PMH of type 2 DM requiring insulin, hepatitis C, bipolar disorder, and polysubstance abuse pt presented to the ED after being found unresponsive. She happened to have hypoglycemia, also her UDS positive for Amphetamines. She is alert, awake and O x 3. Denied any CP / SOB. Willing to go to rehab and wanted to quit drugs. Gen: A, A, O x 3 Chest: Diminished BS b/l, No wheezing, No crackles, No rales a/p 1. Severe hypoglycemia due to poor PO intake improved cont ISS + Levemir 2. Poly substance abuse counseled to quit SW consulted will provide information for rehab centers 3. Acute hypoxic resp failure Resolved 4. Elevated troponin due to demand ischemia no further work up needed <Colby Gonzáles - Last Filed: 02/15/18 14:17> (1) Leukocytosis Qualifiers: Leukocytosis type: unspecified Qualified Code(s): D72.829 - Elevated white blood cell count, unspecified <Syed Chavez - Last Filed: 02/15/18 16:41> (5) Leukocytosis Qualifiers: Leukocytosis type: unspecified Qualified Code(s): D72.829 - Elevated white blood cell count, unspecified
[2018-02-15] MEDS: *HR* Heparin 5,000 UNIT/ML VIAL SQ SCH ×2 (09:26→17:08)
[2018-02-15] MEDS: Aspirin 81 MG TAB.CHEW PO SCH (09:27)
[2018-02-15] MEDS: *HR* Methadone 10 MG TABLET PO SCH (09:27)
[2018-02-15] MEDS: Bisacodyl 10 MG RECTAL SUPPOSITORY RC SCH (11:28)
[2018-02-15] MEDS: Insulin LISPRO 300 UNITS/3 ML VIAL SQ SCH ×2 (11:32→16:27)
[2018-02-15] MEDS ORDERED: Insulin LISPRO 300 UNITS/3 ML VIAL SQ SCH (21:00)
[2018-02-16] MEDS: Ampicillin/Sulbactam 3,000 MG in 0.9 % Sodium Chloride Mini Bag 100 ML IVPB SCH ×4 (00:52→17:08)
[2018-02-16 04:21] LABS: Basophils % 0.3 %; Eosinophils # 0.1 K/mcL (0.0-0.6); Eosinophils % 0.7 %; Hematocrit 30.1 % (35.3-44.9); Immature Granulocytes % 0.3 % (0-4); Lymphocytes # 2.4 K/mcL (0.6-4.6); Lymphocytes % 26.9 %; Mean Corpuscular HGB Conc 33.2 g/dL (31.6-35.5); Mean Corpuscular Hemoglobin 27.2 pg (28.0-33.3); Mean Corpuscular Volume 81.8 fL (83.0-100.0); Mean Platelet Volume 9.3 fL (9.4-12.4); Monocytes # 0.6 K/mcL (0.0-1.3); Monocytes % 7.3 %; Neutrophils # 5.6 K/mcL (1.6-8.9); Platelet Count 232 K/mcL (140-400); Red Blood Count 3.68 M/mcL (3.82-4.97); Red Cell Distribution Width 14.6 % (11.5-14.5); Segmented Neutrophils % 64.5 %
[2018-02-16 04:43] LABS: BUN/Creatinine Ratio 34 (6-26); Blood Urea Nitrogen 19 mg/dL (6-20); Carbon Dioxide 22 mEq/L (23-29); Chloride 98 mEq/L (98-107); Glucose 512 mg/dL (70-105); Magnesium 1.6 mg/dL (1.6-2.6); Osmolality,Calculated 289 (280-300); Potassium 4.4 mEq/L (3.5-5.1); Sodium 127 mEq/L (136-145); eGFR For Non-African Americans > 60 (> 60)
[2018-02-16] MEDS ORDERED: Insulin DETEMIR 100 UNIT/ML X5UNITS SQ ONE (04:49)
[2018-02-16] MEDS ORDERED: Insulin LISPRO 300 UNITS/3 ML VIAL SQ ONE (04:50)
[2018-02-16] MEDS: *HR* Heparin 5,000 UNIT/ML VIAL SQ SCH ×2 (05:18→17:08)
[2018-02-16] MEDS: *HR* Methadone 10 MG TABLET PO SCH (08:32)
[2018-02-16] MEDS: Aspirin 81 MG TAB.CHEW PO SCH (08:32)
[2018-02-16] MEDS: Insulin LISPRO 300 UNITS/3 ML VIAL SQ SCH ×3 (08:32→17:08)
[2018-02-16] MEDS: Bisacodyl 10 MG RECTAL SUPPOSITORY RC SCH (08:34)
[2018-02-16 08:56] LABS: Estimated Average Glucose 186 mg/dl; Hemoglobin A1C 8.1 %
--- NOTE | 2018-02-16 09:30 | Discharge Summary ---
Date of Encounter: 02/16/18 Time of Encounter: 09:10 - Discharge Diagnosis (1) Hypoglycemia Priority: Primary Status: Resolved Assessment and Plan: recurrent, question due to insulin overdose vs amphetamine use vs infectious cause T2DM on chronic insulin prn hypoglycemics Tolerating ADA diet 10u Levemir qhs medium dose SSI (2) Leukocytosis Priority: Secondary Status: Acute Assessment and Plan: WBC 14.8 on admission, has since normalised Could be reactive vs infectious Afebrile Non-tachypnic HR normal CXR in ED negative, there are concerns for aspiration which would not been seen on CXR acutely. UA negative. Await results of blood cultures x2. Continue Unasyn to empirically cover for aspiration pneumonia Qualifiers: Leukocytosis type: unspecified Qualified Code(s): D72.829 - Elevated white blood cell count, unspecified (3) Polysubstance dependence including opioid type drug, episodic abuse Priority: Secondary Status: Chronic (4) Insulin dependent diabetes mellitus Priority: Secondary Status: Chronic (5) Elevated troponin Priority: Secondary Status: Acute (6) Acute respiratory failure with hypoxia Priority: Secondary Status: Resolved Hospital course: Ms. Richardson is a 57 year old female Discharge discussed with: patient, nurse - Time Spent with Patient Total time spent providing and/or coordinating discharge services: - Discharge Medications Home Medications: Insulin Glargine [Lantus] 30 unit SQ HS #100 mls 04/21/16 [Rx] Insulin Human Regular [HumuLIN R] 0 unit SQ TIDWM MDD Sliding Scale 11/17/16 [ History] Methadone HCl [Diskets] 40 mg PO DAILY 02/15/18 [History] Allergies/Adverse Reactions: 3 Allergy/AdvReac Type Severity Reaction Status Date / Time No Known Allergies Allergy Verified 02/15/18 09:31 Date of admission: 02/14/18 18:08 Primary care physician: Javier Capps CNP Consults: 02/16/18 07:31 Consult to Prospect Manager [CONS] Routine Reason for SW Consult: pt needs substance abuse information Discharging clinician: Colby Gonzáles - Constitutional Vitals: Temp Pulse Resp BP Pulse Ox 99.2 F 76 17 100/59 95 02/16/18 07:04 02/16/18 07:04 02/16/18 07:04 02/16/18 07:04 02/16/18 07:04 General appearance: Present: A&O X 3, underweight. Absent: cooperative, answers questions appropriately Exam: Constitutional: thin female in mild distress Head: normocephalic and atraumatic. Eyes: PERRL, EOMI. Neck: supple, trachea midline, no lymphadenopathy Lungs: CTA bilaterally. non-labored breathing Heart: RRR +s1 +s2 No murmurs, clicks, or rubs appreciated GI: abdomen soft, non-tender, non-distended Extremities: radial pulses palpable and symmetrical. No edema, cyanosis, or calf tenderness Neuro: A&Ox3. No focal deficits. No speech difficulty or abnormality. Skin: warm, dry, intact. No lesions or rashes noted. - Patient Status Disposition: Home, Self-Care Condition: Fair Functional capacity at discharge: independent ambulation Overall status at discharge: patient is back to baseline - Discharge Instructions Follow Up With: Javier Capps SHRIMP TRAWLER [Primary Care Provider] - - Diet and Activity Activity: increase activity as tolerated, resume usual activities as tolerated Diet: diabetic diet
--- NOTE | 2018-02-16 14:52 | Internal Med Progress Note ---
<Colby Gonzáles - Last Filed: 02/16/18 16:48> Hospitalist Progress Note - Encounter Date of Encounter: 02/16/18 Time of Encounter: 09:10 - Subjective Interval History: Ms. Richardson is a 57F with PMH of type 2 DM requiring insulin, hepatitis C, bipolar disorder, and polysubstance abuse. She presented to the ED today after being found unresponsive at home. She was recently admitted here at [facility] on 02/11 for a similar episode at the methadone clinic. EMS reported blood sugar was 40 and SpO2 was in the 70s-80s%. She was given 1 amp of D50 and placed on a non- rebreather. Subsequent blood sugar check was in the 60s. Upon arrival to the ED she was obtunded despite improvement in blood glucose and SpO2. It was also reported that the pt had some bloody sputum in her mouth at this time. EKG was unchanged from recent visit. CT head and neck were unremarkable. CXR negative for acute abnormalities. Troponin was elevated at 0.08, and a new leukocytosis of 14.8 was also discovered. Started on Unasyn. Pt seen and examined at bedside. Pt is sitting comfortably in bed. States she feels pretty good and is excited that she has worked with her methadone clinic to find a rehab facility for her polysubstance abuse. Denies any fever, chills , chest pain, shortness of breath, abdominal pain, nausea, vomiting, headache, numbness, or tingling. - Exam Vitals: Temp Pulse Resp BP Pulse Ox 98.2 F 76 18 117/69 97 02/16/18 11:22 02/16/18 11:22 02/16/18 11:22 02/16/18 11:22 02/16/18 11:22 Exam: Constitutional: thin female. no acute distress Head: normocephalic and atraumatic. Eyes: PERRL, EOMI. sclera anicteric Neck: supple, trachea midline, no lymphadenopathy Lungs: CTA bilaterally. non-labored breathing Heart: RRR +s1 +s2 No murmurs, clicks, or rubs appreciated GI: abdomen soft, non-tender, non-distended Extremities: radial pulses palpable and symmetrical. No edema, cyanosis, or calf tenderness Neuro: A&Ox3. No focal deficits. No speech difficulty or abnormality. Skin: warm, dry, intact. No lesions or rashes noted. - Assessment and Plan (1) Insulin dependent diabetes mellitus Current Visit: No Status: Chronic Assessment and Plan: Home regimen on admission was 30u Lantus qhs, and Medium dose SSI with meals Tolerating ADA diet 10u Levemir qhs medium dose SSI (2) Hypoglycemia Current Visit: Yes Status: Resolved Assessment and Plan: recurrent, question due to insulin overdose vs amphetamine use vs infectious cause T2DM on chronic insulin prn hypoglycemics Diabetes type 2 plan as above: Tolerating ADA diet 10u Levemir qhs medium dose SSI (3) Polysubstance dependence including opioid type drug, episodic abuse Current Visit: No Status: Chronic Assessment and Plan: hx of polysubstance abuse with opiods, amphetamines, and cocaine Follows in methadone clinic No hx of alcohol abuse, alcohol screen in ED negative UDS did reveal +Amphetamine, but negative for opioids Continue Methadone 40mg qd (4) Elevated troponin Current Visit: Yes Status: Acute Assessment and Plan: Serial troponins elevated but adynamic EKG unchanged from previous visits Suspect likely 2/2 demand ischemia from hypoxia decreased respiratory drive and hypoglycemia No complaints of chest pain, nausea, or shortness of breath 81mg ASA daily (5) Leukocytosis Current Visit: Yes Status: Acute Assessment and Plan: WBC 14.8 on admission, improved today at 8.7 Could be reactive vs infectious Afebrile Non-tachypnic HR normal CXR in ED negative, there are concerns for aspiration which would not been seen on CXR acutely. UA negative. Await results of blood cultures x2. Continue Unasyn to empirically cover for aspiration pneumonia DVT Prophylaxis: SQ Heparin - Time Spent with Patient Total time spent is greater than 50% in coordination of care (as documented) at patient's floor/unit and/or counseling patient: Internal Medicine: Result - Labs CBC & Chem 7: 02/16/18 04:00 02/16/18 04:00 Labs: Short CBC 02/16/18 Range/Units 04:00 WBC 8.7 (4.3-11.1) K/mcL Hgb 10.0 L D (11.5-15.4) g/dL Hct 30.1 L (35.3-44.9) % Plt Count 232 (140-400) K/mcL Neutrophils # 5.6 (1.6-8.9) K/mcL BMP 02/16/18 04:00 Sodium 127 L Potassium 4.4 Chloride 98 Carbon Dioxide 22 L BUN 19 Creatinine 0.56 L Glucose 512 H* Calcium 8.0 L - ABG Interpretation ABG results: ABG ABG pH 7.47 pH Units (7.32-7.45) H 02/14/18 19:43 ABG pCO2 34 mmHg (35-45) L 02/14/18 19:43 ABG pO2 64 mmHg (85-104) L 02/14/18 19:43 ABG O2 Saturation 94 % (95-98) L 02/14/18 19:43 PT/INR, D-dimer PT 10.0 Seconds (9.4-12.1) 02/14/18 15:35 Consult Discharge Plan - Plan Referrals: Javier Capps, ADOBE LAYER HELPER [Primary Care Provider] - <Maria L Sheets - Last Filed: 02/16/18 17:17> Hospitalist Progress Note - Encounter Date of Encounter: 02/16/18 - Exam Vitals: Temp Pulse Resp BP Pulse Ox 98.7 F 75 18 105/57 97 02/16/18 15:53 02/16/18 15:53 02/16/18 15:53 02/16/18 15:53 02/16/18 15:53 - Assessment and Plan (1) Insulin dependent diabetes mellitus Current Visit: No Status: Chronic (2) Polysubstance dependence including opioid type drug, episodic abuse Current Visit: No Status: Chronic (3) Hypoglycemia Current Visit: Yes Status: Resolved (4) Elevated troponin Current Visit: Yes Status: Acute (5) Leukocytosis Current Visit: Yes Status: Acute - Time Spent with Patient Total time spent is greater than 50% in coordination of care (as documented) at patient's floor/unit and/or counseling patient: Internal Medicine: Result - Labs CBC & Chem 7: 02/16/18 04:00 02/16/18 04:00 Labs: Short CBC 02/16/18 Range/Units 04:00 WBC 8.7 (4.3-11.1) K/mcL Hgb 10.0 L D (11.5-15.4) g/dL Hct 30.1 L (35.3-44.9) % Plt Count 232 (140-400) K/mcL Neutrophils # 5.6 (1.6-8.9) K/mcL BMP 02/16/18 04:00 Sodium 127 L Potassium 4.4 Chloride 98 Carbon Dioxide 22 L BUN 19 Creatinine 0.56 L Glucose 512 H* Calcium 8.0 L - ABG Interpretation ABG results: ABG ABG pH 7.47 pH Units (7.32-7.45) H 02/14/18 19:43 ABG pCO2 34 mmHg (35-45) L 02/14/18 19:43 ABG pO2 64 mmHg (85-104) L 02/14/18 19:43 ABG O2 Saturation 94 % (95-98) L 02/14/18 19:43 PT/INR, D-dimer PT 10.0 Seconds (9.4-12.1) 02/14/18 15:35 - Attending Attestation 57F with PMH of type 2 DM requiring insulin, hepatitis C, bipolar disorder, and polysubstance abuse. She presented to the ED today after being found unresponsive at home. She was recently admitted here at [facility] on 02/11 for a similar episode at the methadone clinic. EMS reported blood sugar was 40 and SpO2 was in the 70s-80s% S: feeling better this am. Blood sugar was in the 500s this am Exam Constitutional: thin female in mild distress HEENT: head normocephalic and atraumatic. PERRL, EOMI. No sputum or blood noted in mouth. Neck: supple, trachea midline, no lymphadenopathy Lungs: CTA bilaterally. non-labored breathing Heart: RRR +s1 +s2 No murmurs, clicks, or rubs appreciated GI: abdomen soft, non-tender, non-distended Extremities: radial pulses palpable and symmetrical. No edema, cyanosis, or calf tenderness Neuro: A&Ox3. No focal deficits. No speech difficulty or abnormality. Skin: warm, dry, intact. No lesions or rashes noted. Plan Uncontrolled diabetes with episodes of severe hyperglycemia and hypoglycemia. Start on lantus 10units qhs. LDSS. Plan to d/c home on novolog with meals. Patient admits taking 30units of levemir at bed time self prescribed Acute hypoxic respiratory failure. LIkely 2/2 to hypoglycemia and AMS improved Polysubstance abuse. counseled <Colby Gonzáles A - Last Filed: 02/16/18 16:48> (5) Leukocytosis Qualifiers: Leukocytosis type: unspecified Qualified Code(s): D72.829 - Elevated white blood cell count, unspecified <Maria L Sheets A - Last Filed: 02/16/18 17:17> (5) Leukocytosis Qualifiers: Leukocytosis type: unspecified Qualified Code(s): D72.829 - Elevated white blood cell count, unspecified
--- NOTE | 2018-02-16 18:09 | Electrocardiograph Report ---
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
--- NOTE | 2018-02-16 18:31 | Electrocardiograph Report ---
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
[2018-02-16] MEDS ORDERED: Insulin LISPRO 300 UNITS/3 ML VIAL SQ SCH (21:00)
[2018-02-16] MEDS ORDERED: Insulin DETEMIR 100 UNIT/ML X5UNITS SQ SCH (21:00)
[2018-02-17] MEDS: Ampicillin/Sulbactam 3,000 MG in 0.9 % Sodium Chloride Mini Bag 100 ML IVPB SCH ×2 (00:48→05:59)
[2018-02-17 04:46] LABS: Basophils % 0.5 %; Eosinophils # 0.2 K/mcL (0.0-0.6); Eosinophils % 2.9 %; Hematocrit 32.9 % (35.3-44.9); Hemoglobin 10.5 g/dL (11.5-15.4); Immature Granulocytes % 0.5 % (0-4); Lymphocytes # 3.1 K/mcL (0.6-4.6); Lymphocytes % 41.3 %; Mean Corpuscular HGB Conc 31.9 g/dL (31.6-35.5); Mean Corpuscular Hemoglobin 26.6 pg (28.0-33.3); Mean Corpuscular Volume 83.3 fL (83.0-100.0); Mean Platelet Volume 8.9 fL (9.4-12.4); Monocytes # 0.6 K/mcL (0.0-1.3); Monocytes % 7.7 %; Neutrophils # 3.5 K/mcL (1.6-8.9); Platelet Count 271 K/mcL (140-400); Red Blood Count 3.95 M/mcL (3.82-4.97); Red Cell Distribution Width 14.2 % (11.5-14.5); Segmented Neutrophils % 47.1 %
[2018-02-17 05:03] LABS: BUN/Creatinine Ratio 37 (6-26); Blood Urea Nitrogen 16 mg/dL (6-20); Calcium 8.7 mg/dL (8.6-10.3); Carbon Dioxide 26 mEq/L (23-29); Chloride 101 mEq/L (98-107); Glucose 72 mg/dL (70-105); Osmolality,Calculated 278 (280-300); Potassium 3.9 mEq/L (3.5-5.1); Sodium 134 mEq/L (136-145); eGFR For Non-African Americans > 60 (> 60)
[2018-02-17] MEDS: *HR* Heparin 5,000 UNIT/ML VIAL SQ SCH (05:58)
[2018-02-17 06:43] VITALS: BP 98/61
[2018-02-17] MEDS: *HR* Methadone 10 MG TABLET PO SCH (08:11)
[2018-02-17] MEDS: Insulin LISPRO 300 UNITS/3 ML VIAL SQ SCH (08:11)
[2018-02-17] MEDS: Bisacodyl 10 MG RECTAL SUPPOSITORY RC SCH (08:11)
[2018-02-17] MEDS: Aspirin 81 MG TAB.CHEW PO SCH (08:11)
--- NOTE | 2018-02-17 09:54 | Discharge Summary ---
<EliecerMarcoMillbrook A - Last Filed: 02/17/18 09:49> - NOTES TO OUTPATIENT PROVIDER Notes to Outpatient Provider: Ms. Richardson was admitted on 02/14 for hypoglycemia. She was found unresponsive at home. During her stay she recieved diabetic counseling. Due to her blood glucose levels during her admission, we decreased her Lantus to 8 units at night and advised her to decrease her sliding scale with meals. Date of Encounter: 02/17/18 Time of Encounter: 09:49 - Discharge Diagnosis (1) Insulin dependent diabetes mellitus Priority: Secondary Status: Chronic Assessment and Plan: Home regimen on admission was 30u Lantus qhs, and Medium dose SSI with meals Received 20u Levemir yesterday morning, followed by 10u Levemir at night. Had episode of hypoglycemia again overnight. Discharge plan: 8u Levemir qhs medium dose SSI (2) Hypoglycemia Priority: Primary Status: Resolved Assessment and Plan: recurrent, question due to insulin overdose vs amphetamine use vs infectious cause T2DM on chronic insulin prn hypoglycemics Diabetes type 2 plan as above: 8u Levemir qhs medium dose SSI (3) Polysubstance dependence including opioid type drug, episodic abuse Priority: Secondary Status: Chronic Assessment and Plan: hx of polysubstance abuse with opiods, amphetamines, and cocaine Follows in methadone clinic No hx of alcohol abuse, alcohol screen in ED negative UDS did reveal +Amphetamine, but negative for opioids Continue Methadone 40mg qd (4) Leukocytosis Priority: Secondary Status: Acute Assessment and Plan: WBC 14.8 on admission, improved today at 8.7 Could be reactive vs infectious Afebrile Non-tachypnic HR normal CXR in ED negative, there are concerns for aspiration which would not been seen on CXR acutely. UA negative. Await results of blood cultures x2. Continue Unasyn to empirically cover for aspiration pneumonia Qualifiers: Leukocytosis type: unspecified Qualified Code(s): D72.829 - Elevated white blood cell count, unspecified Hospital course: Ms. Richardson is a 57 year old female Discharge discussed with: patient, nurse - Time Spent with Patient Total time spent providing and/or coordinating discharge services: - Discharge Medications Prescriptions: Aspirin 81 mg PO DAILY 30 Days #30 tab.chew Insulin ASPART [NovoLOG] 4 unit SQ TIDWM 30 Days #100 mls Insulin DETEMIR [Levemir] 8 unit SQ HS 30 Days #30 [id number] Home Medications: Methadone HCl [Diskets] 40 mg PO DAILY 02/15/18 [History] Aspirin 81 mg PO DAILY 30 Days #30 tab.chew 02/17/18 [Rx] Insulin ASPART [NovoLOG] 4 unit SQ TIDWM 30 Days #100 mls 02/17/18 [Rx] Insulin DETEMIR [Levemir] 8 unit SQ HS 30 Days #30 [id number] 02/17/18 [Rx] Allergies/Adverse Reactions: 3 Allergy/AdvReac Type Severity Reaction Status Date / Time No Known Allergies Allergy Verified 02/15/18 09:31 Date of admission: 02/14/18 18:08 Primary care physician: Javier Capps CNP Consults: 02/16/18 07:31 Consult to Slasher Sawyer [CONS] Routine Reason for SW Consult: pt needs substance abuse information Discharging clinician: Colby Gonzáles - Constitutional Vitals: Temp Pulse Resp BP Pulse Ox 98.2 F 73 16 98/61 98 02/17/18 06:41 02/17/18 06:41 02/17/18 06:41 02/17/18 06:41 02/17/18 06:41 General appearance: Present: A&O X 3, underweight. Absent: cooperative, answers questions appropriately Exam: Constitutional: thin female. no acute distress Head: normocephalic and atraumatic. Eyes: PERRL, EOMI. sclera anicteric Neck: supple, trachea midline, no lymphadenopathy Lungs: CTA bilaterally. non-labored breathing Heart: RRR +s1 +s2 No murmurs, clicks, or rubs appreciated GI: abdomen soft, non-tender, non-distended Extremities: radial pulses palpable and symmetrical. No edema, cyanosis, or calf tenderness Neuro: A&Ox3. No focal deficits. No speech difficulty or abnormality. Skin: warm, dry, intact. No lesions or rashes noted. - Patient Status Disposition: Home, Self-Care Condition: Fair Functional capacity at discharge: independent ambulation Overall status at discharge: patient is back to baseline - Discharge Instructions Instructions: Aspirin (By mouth), Insulin Aspart, Recombinant (Injection), Insulin Glargine (Injection), Diabetic Hypoglycemia (DC) Follow Up With: Javier Capps CNP [Primary Care Provider] - 02/23/18 10:15 am (Please follow up as schedule) - Diet and Activity Activity: increase activity as tolerated, resume usual activities as tolerated Diet: diabetic diet <Maria L Sheets - Last Filed: 02/17/18 14:05> Date of Encounter: 02/17/18 - Discharge Diagnosis (1) Insulin dependent diabetes mellitus Status: Chronic (2) Polysubstance dependence including opioid type drug, episodic abuse Status: Chronic (3) Hypoglycemia Status: Resolved (4) Leukocytosis Status: Acute Qualifiers: Leukocytosis type: unspecified Qualified Code(s): D72.829 - Elevated white blood cell count, unspecified Hospital course: Ms. Richardson is a 57 year old female - Time Spent with Patient Total time spent providing and/or coordinating discharge services: Date of admission: 02/14/18 18:08 Primary care physician: Javier Capps CNP Consults: 02/16/18 07:31 Consult to Slasher Sawyer [CONS] Routine Reason for SW Consult: pt needs substance abuse information - Constitutional Vitals: Temp Pulse Resp BP Pulse Ox 98.2 F 73 16 98/61 98 02/17/18 06:41 02/17/18 06:41 02/17/18 06:41 02/17/18 06:41 02/17/18 06:41 - Attending Attestation Constitutional: thin female. no acute distress Head: normocephalic and atraumatic. Eyes: PERRL, EOMI. sclera anicteric Neck: supple, trachea midline, no lymphadenopathy Lungs: CTA bilaterally. non-labored breathing Heart: RRR +s1 +s2 No murmurs, clicks, or rubs appreciated GI: abdomen soft, non-tender, non-distended Extremities: radial pulses palpable and symmetrical. No edema, cyanosis, or calf tenderness Neuro: A&Ox3. No focal deficits. No speech difficulty or abnormality. Skin: warm, dry, intact. No lesions or rashes noted. Ms. Richardson is a 57F with PMH of type 2 DM requiring insulin, hepatitis C, bipolar disorder, and polysubstance abuse. She presented to the ED today after being found unresponsive at home. She was recently admitted here at [facility] on 02/11 for a similar episode at the methadone clinic. EMS reported blood sugar was 40 and SpO2 was in the 70s-80s%. She was given 1 amp of D50 and placed on a non- rebreather. Subsequent blood sugar check was in the 60s. Upon arrival to the ED she was obtunded despite improvement in blood glucose and SpO2. It was also reported that the pt had some bloody sputum in her mouth at this time. EKG was unchanged from recent visit. CT head and neck were unremarkable. CXR negative for acute abnormalities. Troponin was elevated at 0.08, and a new leukocytosis of 14.8 was also discovered. Started on Unasyn. She completed a course of unasyn for likely aspiration pneumonia. Her metabolic encephalopathy was likely secondary to drug overdose and hypoglycemia and resolved with supportive care. she was noted to have episodes of fluctuating hyper and hypoglycemia and said she had been taking a self prescribed dose of 30units of lantus at bedtime. Her long acting was successfully reduced to 10units sc qhs and she was discharged on this regimen and 4 units of novolog
[2018-02-17] MEDS ORDERED: Insulin DETEMIR 100 UNIT/ML X5UNITS SQ SCH (21:00)
== END 2018-02-17 10:56 | disposition home or self-care (01) | DRG 420 ==
LOC: EMEROOARM 14:49 → 2NNU 18:08 → SUATTDRO 18:08 → 2NNU 18:42 → 2ANU 02-15 13:36
PROVIDERS: ADMIT Internal Medicine; ATTEND Student in an Organized Health Care Education/Training Program

== ENCOUNTER 2018-10-27 17:57 | Inpatient (IN) ==
[2018-10-27] MEDS ORDERED: *HR* Dextrose 50 % in Water (Syg) 50 ML SYRINGE IVP PRN ×2 (18:10→23:22)
[2018-10-27] MEDS ORDERED: 0.9 % Sodium Chloride 1,000 ML IVC ONE ×4 (18:12→20:40)
--- NOTE | 2018-10-27 18:20 | Emergency Department Note ---
Disposition Clinical Impression: Elevated troponin Altered mental status Qualifiers: Altered mental status type: disorientation Qualified Code(s): R41.0 - Disorientation, unspecified DKA (diabetic ketoacidoses) Qualifiers: Diabetes mellitus type: type 2 Diabetes mellitus complication detail: without coma Qualified Code(s): E11.10 - Type 2 diabetes mellitus with ketoacidosis without coma Hypotension Qualifiers: Hypotension type: other hypotension type Qualified Code(s): I95.89 - Other hypotension Disposition: Admitted As Inpatient Condition: Fair Time of Disposition: 22:31 General Adult HPI - General Chief complaint: ED Altered Mental Status Time Seen by Provider: 10/27/18 18:00 - History of Present Illness HPI Narrative: Ms. Avina is a 58-year-old male brought to the ED via EMS after found at [facility]'s bathroom. Per EMS she was having diarrhea was found down at [facility] bathroom. She does have history of IV drug use currently on Suboxone. She is complaining of thirst, diarrhea and hypersensitivity to pain. Known history of diabetes reports she is not been taking any of her diabetic medications as she is currently homeless. She does report that today she might have been taking heroin. She reports she has not been taking any of her medications for unknown amount of time. Also reports she is on insulin for diabetes and has not been taking her insulin as well. She reports nausea, emesis and diarrhea and sure frequency or how long this is been occurring as she is unable to give further information.. She denies fever, chills chest pain, shortness of breath. - Related Data Home Medications Medication Instructions Recorded Confirmed Buprenorphine HCl/Naloxone HCl 2 each SL DAILY 10/28/18 10/28/18 [Suboxone 8 mg-2 mg Sl Film] Previous Rx's Medication Instructions Recorded Aspirin 81 mg PO DAILY 30 Days #30 tab.chew 02/17/18 Insulin ASPART [NovoLOG] 4 unit SQ TIDWM 30 Days #100 mls 02/17/18 Insulin DETEMIR [Levemir] 8 unit SQ HS 30 Days #30 [id number] 02/17/18 Allergies Allergy/AdvReac Type Severity Reaction Status Date / Time No Known Allergies Allergy Verified 02/15/18 09:31 Constitutional: Denies: fever, chills, weakness Eyes: Denies: eye pain, vision change ENT ED: Denies: ear pain, congestion, dysphagia Cardiovascular: Denies: chest pain, palpitations, dyspnea on exertion Respiratory: Denies: cough, dyspnea, wheezes Gastrointestinal: Reports: abdominal pain, nausea, vomiting Genitourinary: Denies: urgency, dysuria Integumentary: Denies: rash, abrasion Neurological: Denies: headache, paresthesias Psychiatric: Reports: other (Bipolar) Endocrine: Reports: fatigue Past Medical History - Past Medical History Medical history: Reports: diabetes, hepatitis, other Surgical history: Reports: other Psychiatric history: Reports: bipolar NURSING TECHN history: Reports: no NURSING TECHN history, other - Social History Smoking Status: Current every day smoker Smokeless Tobacco Status: No Alcohol use: Reports: none Drug use: Reports: cocaine, opiates, methamphetamine, IV Drug Use, prescription drug abuse, other Physical Exam - General Limitations: altered mental status General appearance: other (Altered mental status) - Head Head exam: atraumatic, normocephalic - Eye Eye exam: Present: normal appearance, EOMI, miosis. Absent: conjunctival injection - ENT ENT exam: normal exam, normal oropharynx, mucous membranes moist - Neck Neck exam: Present: normal inspection, full ROM, trachea midline - Chest Chest inspection: Present: normal inspection, symmetric chest wall rise - Respiratory Respiratory exam: Present: normal lung sounds bilaterally. Absent: respiratory distress, wheezes - Cardiovascular Cardiovascular exam: Present: regular rate, normal rhythm, +S1, +S2 - Abdominal Exam Abdominal exam: Present: soft. Absent: tenderness, distention, guarding, rigidity - Extremities Exam Extremities exam: Present: normal inspection, full ROM, pedal edema (2+ b ilateral). Absent: tenderness - Neurological Exam Neurological exam: Present: other (Waxing and waning mental status. Pinpoint pupils. Facial sensation intact. Uvula midline tongue midline. Attempted cranial nerve II through XII exam patient follows some directions uvula and tongue was midline. Facial sensation was intact, extraocular movement was also intact.) - Psychiatric Psychiatric exam: Present: agitated, flat affect - Skin Skin exam: Present: warm, dry, intact Course Vital Signs Temperature 98.4 F 10/27/18 18:02 Pulse Rate 94 10/27/18 18:02 Respiratory Rate 22 10/27/18 18:02 Blood Pressure 93/50 10/27/18 18:02 O2 Sat by Pulse Oximetry 96 10/27/18 18:02 Temperature 96.7 F L 10/28/18 12:23 Pulse Rate 82 10/28/18 12:00 Respiratory Rate 20 10/28/18 12:00 Blood Pressure 119/66 10/28/18 12:00 O2 Sat by Pulse Oximetry 100 10/28/18 12:00 Oxygen Delivery Oxygen Delivery Room Air Procedures - Central Line Placement Right IJ Central Line Inserted*: Yes Central Line Catheter Replacement*: No Central Line Insertion: emergent Consent Obtained: verbal consent Procedural Pause: verify patient name and date of , timeout performed per policy, kimber and assess the site, assemble equipment and verify supplies, perform hand hygiene Patient Placed on Monitor/Pulse Ox: Yes During the Procedure: clinician is wearing sterile gloves, cap, mask,& gown during insertion, sterile field and sterile technique are maintained, patient's face is covered with drape or mask and wearing a cap, everyone in room is wearing a mask Central Line Prep: Chlorhexidine scrub Local Anesthetic: lidocaine 1% Ultrasound Used for Placement: Yes Central Line Lumen Inserted: single Post Procedure: sutured in place Post Procedure X-Ray: tip of catheter in good position, no pneumothorax seen Complications: none Medical Decision Making - MDM Narrative Medical decision making narrative: Mr. avian is a 58-year-old female presented to the ED from EMS, she was found at [facility]'s bathroom. His history of diabetes has not been using her insulin. Additionally has history of IV drug use. Additionally reports she is not taking any home medications. Did not appear to have bilateral lower extremity edema. Reports she was likely taking heroin today she is unsure. She reports diarrhea. Hypersensitive to pain, her GCS score is 13. There is anion gap ordered 4 liters of IV fluids ordered. Troponin is elevated likely secondary to dehydration and demand ischemia. Lactic acid, BMP, CBC, uric acid pending. IV fluids ordered. BMP showed hyperkalemia which is likely secondary to DKA. Lactic acid is elevated but white blood cell count is within normal limits. Lactic acid elevation is likely secondary to DKA but she has any other symptoms would consider starting antibiotics. Did report episode of diarrhea but due to her altered mental status is difficult to discern. EKG had showed peak T waves received IV calcium gluconate. Due to low blood pressure placed central line in right IJ. Sterile technique was used and was placed ultrasound-guided. - Medical Records Medical records reviewed: Yes I reviewed the patient's medical records. - Lab Data Lab results reviewed: Yes I reviewed the patient's lab results. Result diagrams: 10/27/18 18:50 10/28/18 09:50 Lab Results 10/27/18 10/27/18 10/27/18 Range/Units 18:00 18:01 18:50 WBC 9.0 (4.3-11.1) K/mcL RBC 4.27 (3.82-4.97) M/mcL Hgb 12.2 (11.5-15.4) g/dL Hct 38.8 (35.3-44.9) % MCV 90.9 (83.0-100.0) fL MCH 28.6 (28.0-33.3) pg MCHC 31.4 L (31.6-35.5) g/dL RDW 15.0 H (11.5-14.5) % Plt Count 445 H (140-400) K/mcL MPV 9.1 L (9.4-12.4) fL Immature Gran % 1.3 (0-4) % Seg Neutrophils % 82.6 % Lymphocytes % 9.4 % Monocytes % 6.3 % Eosinophils % 0.0 % Basophils % 0.4 % Neutrophils # 7.4 (1.6-8.9) K/mcL Lymphocytes # 0.9 (0.6-4.6) K/mcL Monocytes # 0.6 (0.0-1.3) K/mcL Eosinophils # 0.0 (0.0-0.6) K/mcL Basophils # 0.0 (0.0-0.2) K/mcL VBG pH (7.32-7.42) pH Units VBG pCO2 (41-51) mmHg VBG pO2 (25-50) mmHg VBG HCO3 (21-27) mEq/L Sodium (136-145) mEq/L Potassium (3.5-5.1) mEq/L Chloride (98-107) mEq/L Carbon Dioxide (23-29) mEq/L BUN (8-23) mg/dL Creatinine (0.60-1.20) mg/dL Est GFR ( Amer) (> 60) Est GFR (Non-Af Amer) (> 60) BUN/Creatinine Ratio (6-26) Glucose (70-105) mg/dL POC Glucose > 600 H* > 600 H* (70-99) mg/dL Calculated Osmolality (280-300) Lactic Acid (0.5-2.2) mmol/L Calcium (8.6-10.3) mg/dL Phosphorus (2.7-4.5) mg/dL Magnesium (1.6-2.6) mg/dL Total Bilirubin (0.3-1.0) mg/dL Direct Bilirubin (0.0-0.2) mg/dL Indirect Bilirubin (0.0-1.2) mg/dL AST (13-39) Units/L ALT (7-52) Units/L Alkaline Phosphatase (34-104) Units/L Troponin I (< 0.04) ng/mL Serum Total Protein (6.4-8.9) g/dL Albumin (3.5-5.7) g/dL Globulin (2.4-3.5) g/dL Albumin/Globulin Ratio (1.1-2.2) Lipase (11-82) Units/L Beta-Hydroxybutyric Acd (0.02-0.27) mmol/L Urine Color (Yellow) Urine Clarity (Clear) Urine pH (5.0-8.0) pH Units Ur Specific [place] (1.010-1.025) Urine Protein (Neg-Trace) mg/dL Urine Glucose (UA) (Normal) mg/dL Urine Ketones (Negative) mg/dL Urine Blood (Negative) Urine Nitrite (Negative) Urine Bilirubin (Negative) Urine Urobilinogen (Normal) mg/dL Ur Leukocyte Esterase (Negative) Ur Culture Indicated? (NO) Urine Opiates Screen (Tnfnad=183) ng/mL Ur Barbiturates Screen (Mzdhvd=069) ng/mL Ur Phencyclidine Scrn (Cutoff=25) ng/mL Ur Amphetamines Screen (Knglhf=8997) ng/mL U Benzodiazepines Scrn (Ujvexp=927) ng/mL Urine Cocaine Screen (Cutoff= 300) ng/mL U Marijuana (THC) Screen (Cutoff = 50) ng/mL Ur Drug Screen Interp 10/27/18 10/27/18 10/27/18 Range/Units 18:50 18:50 18:50 WBC (4.3-11.1) K/mcL RBC (3.82-4.97) M/mcL Hgb (11.5-15.4) g/dL Hct (35.3-44.9) % MCV (83.0-100.0) fL MCH (28.0-33.3) pg MCHC (31.6-35.5) g/dL RDW (11.5-14.5) % Plt Count (140-400) K/mcL MPV (9.4-12.4) fL Immature Gran % (0-4) % Seg Neutrophils % % Lymphocytes % % Monocytes % % Eosinophils % % Basophils % % Neutrophils # (1.6-8.9) K/mcL Lymphocytes # (0.6-4.6) K/mcL Monocytes # (0.0-1.3) K/mcL Eosinophils # (0.0-0.6) K/mcL Basophils # (0.0-0.2) K/mcL VBG pH (7.32-7.42) pH Units VBG pCO2 (41-51) mmHg VBG pO2 (25-50) mmHg VBG HCO3 (21-27) mEq/L Sodium 126 L (136-145) mEq/L Potassium 6.4 H (3.5-5.1) mEq/L Chloride 83 L (98-107) mEq/L Carbon Dioxide 12 L (23-29) mEq/L BUN 31 H (8-23) mg/dL Creatinine 0.94 (0.60-1.20) mg/dL Est GFR ( Amer) > 60 (> 60) Est GFR (Non-Af Amer) > 60 (> 60) BUN/Creatinine Ratio 33 H (6-26) Glucose 788 H* (70-105) mg/dL POC Glucose (70-99) mg/dL Calculated Osmolality 307 H (280-300) Lactic Acid 2.7 H (0.5-2.2) mmol/L Calcium 10.2 (8.6-10.3) mg/dL Phosphorus (2.7-4.5) mg/dL Magnesium 2.8 H (1.6-2.6) mg/dL Total Bilirubin (0.3-1.0) mg/dL Direct Bilirubin (0.0-0.2) mg/dL Indirect Bilirubin (0.0-1.2) mg/dL AST (13-39) Units/L ALT (7-52) Units/L Alkaline Phosphatase (34-104) Units/L Troponin I 0.63 H* (< 0.04) ng/mL Serum Total Protein (6.4-8.9) g/dL Albumin (3.5-5.7) g/dL Globulin (2.4-3.5) g/dL Albumin/Globulin Ratio (1.1-2.2) Lipase (11-82) Units/L Beta-Hydroxybutyric Acd > 2.00 H (0.02-0.27) mmol/L Urine Color (Yellow) Urine Clarity (Clear) Urine pH (5.0-8.0) pH Units Ur Specific [place] (1.010-1.025) Urine Protein (Neg-Trace) mg/dL Urine Glucose (UA) (Normal) mg/dL Urine Ketones (Negative) mg/dL Urine Blood (Negative) Urine Nitrite (Negative) Urine Bilirubin (Negative) Urine Urobilinogen (Normal) mg/dL Ur Leukocyte Esterase (Negative) Ur Culture Indicated? (NO) Urine Opiates Screen (Inuvpa=221) ng/mL Ur Barbiturates Screen (Mohupz=383) ng/mL Ur Phencyclidine Scrn (Cutoff=25) ng/mL Ur Amphetamines Screen (Cmvspe=3284) ng/mL U Benzodiazepines Scrn (Chvedg=946) ng/mL Urine Cocaine Screen (Cutoff= 300) ng/mL U Marijuana (THC) Screen (Cutoff = 50) ng/mL Ur Drug Screen Interp 10/27/18 10/27/18 10/27/18 Range/Units 18:50 19:27 20:20 WBC (4.3-11.1) K/mcL RBC (3.82-4.97) M/mcL Hgb (11.5-15.4) g/dL Hct (35.3-44.9) % MCV (83.0-100.0) fL MCH (28.0-33.3) pg MCHC (31.6-35.5) g/dL RDW (11.5-14.5) % Plt Count (140-400) K/mcL MPV (9.4-12.4) fL Immature Gran % (0-4) % Seg Neutrophils % % Lymphocytes % % Monocytes % % Eosinophils % % Basophils % % Neutrophils # (1.6-8.9) K/mcL Lymphocytes # (0.6-4.6) K/mcL Monocytes # (0.0-1.3) K/mcL Eosinophils # (0.0-0.6) K/mcL Basophils # (0.0-0.2) K/mcL VBG pH 7.27 L (7.32-7.42) pH Units VBG pCO2 27 L (41-51) mmHg VBG pO2 69 H (25-50) mmHg VBG HCO3 12 L (21-27) mEq/L Sodium (136-145) mEq/L Potassium (3.5-5.1) mEq/L Chloride (98-107) mEq/L Carbon Dioxide (23-29) mEq/L BUN (8-23) mg/dL Creatinine (0.60-1.20) mg/dL Est GFR ( Amer) (> 60) Est GFR (Non-Af Amer) (> 60) BUN/Creatinine Ratio (6-26) Glucose (70-105) mg/dL POC Glucose (70-99) mg/dL Calculated Osmolality (280-300) Lactic Acid (0.5-2.2) mmol/L Calcium (8.6-10.3) mg/dL Phosphorus 4.8 H (2.7-4.5) mg/dL Magnesium (1.6-2.6) mg/dL Total Bilirubin 1.4 H (0.3-1.0) mg/dL Direct Bilirubin 0.3 H (0.0-0.2) mg/dL Indirect Bilirubin 1.1 (0.0-1.2) mg/dL AST 20 (13-39) Units/L ALT 33 (7-52) Units/L Alkaline Phosphatase 192 H (34-104) Units/L Troponin I (< 0.04) ng/mL Serum Total Protein 7.4 (6.4-8.9) g/dL Albumin 4.2 (3.5-5.7) g/dL Globulin 3.2 (2.4-3.5) g/dL Albumin/Globulin Ratio 1.3 (1.1-2.2) Lipase 10 L (11-82) Units/L Beta-Hydroxybutyric Acd (0.02-0.27) mmol/L Urine Color Yellow (Yellow) Urine Clarity Clear (Clear) Urine pH 5.0 (5.0-8.0) pH Units Ur Specific [place] 1.030 H (1.010-1.025) Urine Protein Negative (Neg-Trace) mg/dL Urine Glucose (UA) >=1000 H (Normal) mg/dL Urine Ketones 80 H (Negative) mg/dL Urine Blood Negative (Negative) Urine Nitrite Negative (Negative) Urine Bilirubin Negative (Negative) Urine Urobilinogen Normal (Normal) mg/dL Ur Leukocyte Esterase Negative (Negative) Ur Culture Indicated? NO (NO) Urine Opiates Screen (Ideqip=714) ng/mL Ur Barbiturates Screen (Uksgti=241) ng/mL Ur Phencyclidine Scrn (Cutoff=25) ng/mL Ur Amphetamines Screen (Wmgtpn=5950) ng/mL U Benzodiazepines Scrn (Qrcpxb=486) ng/mL Urine Cocaine Screen (Cutoff= 300) ng/mL U Marijuana (THC) Screen (Cutoff = 50) ng/mL Ur Drug Screen Interp 10/27/18 Range/Units 20:20 WBC (4.3-11.1) K/mcL RBC (3.82-4.97) M/mcL Hgb (11.5-15.4) g/dL Hct (35.3-44.9) % MCV (83.0-100.0) fL MCH (28.0-33.3) pg MCHC (31.6-35.5) g/dL RDW (11.5-14.5) % Plt Count (140-400) K/mcL MPV (9.4-12.4) fL Immature Gran % (0-4) % Seg Neutrophils % % Lymphocytes % % Monocytes % % Eosinophils % % Basophils % % Neutrophils # (1.6-8.9) K/mcL Lymphocytes # (0.6-4.6) K/mcL Monocytes # (0.0-1.3) K/mcL Eosinophils # (0.0-0.6) K/mcL Basophils # (0.0-0.2) K/mcL VBG pH (7.32-7.42) pH Units VBG pCO2 (41-51) mmHg VBG pO2 (25-50) mmHg VBG HCO3 (21-27) mEq/L Sodium (136-145) mEq/L Potassium (3.5-5.1) mEq/L Chloride (98-107) mEq/L Carbon Dioxide (23-29) mEq/L BUN (8-23) mg/dL Creatinine (0.60-1.20) mg/dL Est GFR ( Amer) (> 60) Est GFR (Non-Af Amer) (> 60) BUN/Creatinine Ratio (6-26) Glucose (70-105) mg/dL POC Glucose (70-99) mg/dL Calculated Osmolality (280-300) Lactic Acid (0.5-2.2) mmol/L Calcium (8.6-10.3) mg/dL Phosphorus (2.7-4.5) mg/dL Magnesium (1.6-2.6) mg/dL Total Bilirubin (0.3-1.0) mg/dL Direct Bilirubin (0.0-0.2) mg/dL Indirect Bilirubin (0.0-1.2) mg/dL AST (13-39) Units/L ALT (7-52) Units/L Alkaline Phosphatase (34-104) Units/L Troponin I (< 0.04) ng/mL Serum Total Protein (6.4-8.9) g/dL Albumin (3.5-5.7) g/dL Globulin (2.4-3.5) g/dL Albumin/Globulin Ratio (1.1-2.2) Lipase (11-82) Units/L Beta-Hydroxybutyric Acd (0.02-0.27) mmol/L Urine Color (Yellow) Urine Clarity (Clear) Urine pH (5.0-8.0) pH Units Ur Specific [place] (1.010-1.025) Urine Protein (Neg-Trace) mg/dL Urine Glucose (UA) (Normal) mg/dL Urine Ketones (Negative) mg/dL Urine Blood (Negative) Urine Nitrite (Negative) Urine Bilirubin (Negative) Urine Urobilinogen (Normal) mg/dL Ur Leukocyte Esterase (Negative) Ur Culture Indicated? (NO) Urine Opiates Screen Negative (Lbnhog=357) ng/mL Ur Barbiturates Screen Negative (Qizdbp=955) ng/mL Ur Phencyclidine Scrn Negative (Cutoff=25) ng/mL Ur Amphetamines Screen Negative (Ftmbhs=9955) ng/mL U Benzodiazepines Scrn Positive H (Psizsf=294) ng/mL Urine Cocaine Screen Positive H (Cutoff= 300) ng/mL U Marijuana (THC) Screen Negative (Cutoff = 50) ng/mL Ur Drug Screen Interp See Below - Radiology Data Radiology results reviewed: Yes I reviewed the patient's radiology results. Critical Care Time Critical Care Time: Yes Total Critical Care Time: 55 Attestation: Critical care time was exclusive of separately billable procedures and treating other patients. Critical care was necessary to treat or prevent imminent or life-threatening deterioration. Critical care was time spent personally by me on the following activities: development of treatment plan with patient and/or surrogate as well as nursing, discussions with consultants, evaluation of patient's response to treatment, examination of patient, obtaining history from patient or surrogate, ordering and performing treatments and interventions, ordering and review of laboratory studies, ordering and review of radiographic studies, pulse oximetry and re-evaluation of patient's condition. Attestation Statement - Attestation Attestation: Resident Attestation: I examined this patient and my medical decision making was reviewed with the Resident Physician. I agree with the documented findings, disposition and treatment plan as described except to the extent set forth below. We independently had [id number] contact with the patient.EKG reviewed with resident physician. Agree with documentation. The patient presents via EMS after being found at [facility]'s bathroom. Patient has known history of diabetes. Patient is known to the [facility]. Patient also has a history of IV drug use. Patient states she does not know what happened. She believes she passed out. She admitted to using heroin earlier. The patient states she was kicked out of family member's house and has been without her medications including her insulin. The patient is to And has no elevated [id number] glucose greater than 600. Overall concern for DKA. Patient will undergo blood work as well as further fluid resuscitation and likely admission. Patient is able to answer questions but is somewhat agitated, abdomen is soft nontender to palpation: Mild tachypnea. Central line placed by resident physician. I was present and available throughout the entirety of the procedure. Central line without complication.
[2018-10-27 19:30] LABS: Basophils % 0.4 %; Hematocrit 38.8 % (35.3-44.9); Hemoglobin 12.2 g/dL (11.5-15.4); Immature Granulocytes % 1.3 % (0-4); Lymphocytes # 0.9 K/mcL (0.6-4.6); Lymphocytes % 9.4 %; Mean Corpuscular HGB Conc 31.4 g/dL (31.6-35.5); Mean Corpuscular Hemoglobin 28.6 pg (28.0-33.3); Mean Corpuscular Volume 90.9 fL (83.0-100.0); Mean Platelet Volume 9.1 fL (9.4-12.4); Monocytes # 0.6 K/mcL (0.0-1.3); Monocytes % 6.3 %; Neutrophils # 7.4 K/mcL (1.6-8.9); Platelet Count 445 K/mcL (140-400); Red Blood Count 4.27 M/mcL (3.82-4.97); Segmented Neutrophils % 82.6 %
[2018-10-27 19:31] LABS: VBG HCO3 12 mEq/L (21-27); VBG PCO2 27 mmHg (41-51); VBG PH 7.27 pH Units (7.32-7.42); VBG PO2 69 mmHg (25-50)
[2018-10-27 20:14] LABS: BUN/Creatinine Ratio 33 (6-26); Blood Urea Nitrogen 31 mg/dL (8-23); Calcium 10.2 mg/dL (8.6-10.3); Carbon Dioxide 12 mEq/L (23-29); Chloride 83 mEq/L (98-107); Glucose 788 mg/dL (70-105); Magnesium 2.8 mg/dL (1.6-2.6); Osmolality,Calculated 307 (280-300); Potassium 6.4 mEq/L (3.5-5.1); Sodium 126 mEq/L (136-145); Troponin I 0.63 ng/mL (< 0.04); eGFR For African Americans > 60 (> 60); eGFR For Non-African Americans > 60 (> 60)
[2018-10-27] MEDS ORDERED: Insulin Human Regular 100 UNIT in 0.9 % Sodium Chloride 100 ML IVC SCH (20:30)
[2018-10-27 20:33] LABS: Albumin 4.2 g/dL (3.5-5.7); Albumin/Globulin Ratio 1.3 (1.1-2.2); Bilirubin,Direct 0.3 mg/dL (0.0-0.2); Bilirubin,Indirect 1.1 mg/dL (0.0-1.2); Bilirubin,Total 1.4 mg/dL (0.3-1.0); Globulin 3.2 g/dL (2.4-3.5); Phosphorous 4.8 mg/dL (2.7-4.5); Total Protein 7.4 g/dL (6.4-8.9)
[2018-10-27] MEDS ORDERED: Calcium Gluconate 2,000 MG in 0.9 % Sodium Chloride 100 ML IVPB ONE (20:33)
[2018-10-27 20:55] LABS: Bilirubin,Urine Negative (Negative); Blood,Urine Negative (Negative); Clarity,Urine Clear (Clear); Color,Urine Yellow (Yellow); Glucose,Urine (UA) >=1000 mg/dL (Normal); Ketones,Urine 80 mg/dL (Negative); Leukocyte Esterase,Urine Negative (Negative); Nitrite,Urine Negative (Negative); Protein,Urine Negative (Neg-Trace); Urobilinogen,Urine Normal (Normal)
[2018-10-27] MEDS ORDERED: *HR* LORazepam 2 MG/ML VIAL IVP ONE (21:15)
[2018-10-27] MEDS ORDERED: D5% in Water 250 ML ONE (21:35)
[2018-10-27] MEDS ORDERED: *HR* Norepinephrine 4 MG/4 ML VIAL IVC ONE (21:35)
[2018-10-27 21:40] LABS: Amphetamine Screen,Urine Negative ng/mL (Cutoff=1000); Barbiturate Screen,Urine Negative ng/mL (Cutoff=200); Benzodiazepines Screen,Urine Positive ng/mL (Cutoff=200); Cannabinoid Screen,Urine Negative ng/mL (Cutoff = 50); Cocaine Screen,Urine Positive ng/mL (Cutoff= 300); Opiate Screen,Urine Negative ng/mL (Cutoff=300); Phencyclidine Screen,Urine Negative ng/mL (Cutoff=25)
[2018-10-27] MEDS ORDERED: Norepinephrine 4 MG in D5% in Water 250 ML IVC SCH (21:45)
[2018-10-27] MEDS ORDERED: Insulin Human Regular 10 UNIT in 0.9 % Sodium Chloride 10 ML IV ONE (22:40)
[2018-10-27] MEDS ORDERED: Naloxone 0.4 MG/ML INJ IVP PRN (22:55)
--- NOTE | 2018-10-27 23:13 | Internal Med History&Physical ---
<Francisco Rosen - Last Filed: 10/27/18 23:29> Date of Encounter: 10/27/18 Time of Encounter: 23:13 Internal Medicine - H&P: HPI Chief complaint: UNresponsive Admitted From: Emergency Dept Plans for Post Hospital Care: Home History of present illness: Ms. Richardson is a 58 year old female with a past medical history of diabetes, hepatitis, IV and other drug abuse. EMS was called because the patient was f ound unresponsive on the floor in a [facility] bathroom. The patient admitted to recently using heroin and also having diarrhea, and not using her insulin. On arrival to the emergency department labs revealed metabolic acidosis, hyperkalemia, hyponatremia, anion gap, elevated glucose and elevated lactic acid consistent with DKA. Troponin was also elevated and EKG demonstrated peak T waves consistent with hyperkalemia but no ST changes consistent with acute ischemia. She was given 4 L normal saline bolus, started on insulin drip and norepinephrine drip and transferred to the ICU. On arrival to the ICU I attempted to interview patient however she was obtunded and not answering questions. Past Med Surg Social Fam HX - Past Medical History Medical history: diabetes, hepatitis, other Additional medical history: cardiac catheterization Psychiatric history: bipolar - Past Surgical History Surgical History: other Additional surgical history: LLE surgery - Social History Smoking Status: Current every day smoker Smokeless Tobacco Status: No Alcohol use: none Drug use: cocaine, opiates, methamphetamine, IV Drug Use, prescription drug abuse, other - Family History Mother Living Status: Still Living Hx Family Cardiac Disorders: No Hx Family Respiratory Disorders: No Hx Family Cancer: No Hx Family GI Disorders: No Hx Family Endocrine Disorder: No Hx Family Neuromuscular Disorders: No Hx Family Neurologic Disorders: No Hx Family HEENT Disorders: No Hx Family Autoimmune Disorders: No Father Living Status: Hx Family Cardiac Disorders: No Hx Family Respiratory Disorders: Yes (COPD) Hx Family Cancer: No Hx Family GI Disorders: No Hx Family Endocrine Disorder: Yes (DM) Hx Family Neuromuscular Disorders: No Hx Family Neurologic Disorders: No Hx Family HEENT Disorders: No Hx Family Autoimmune Disorders: No Internal Medicine - H&P: Meds Methadone HCl [Diskets] 40 mg PO DAILY 02/15/18 [History] Aspirin 81 mg PO DAILY 30 Days #30 tab.chew 02/17/18 [Rx] Insulin ASPART [NovoLOG] 4 unit SQ TIDWM 30 Days #100 mls 02/17/18 [Rx] Insulin DETEMIR [Levemir] 8 unit SQ HS 30 Days #30 [id number] 02/17/18 [Rx] Allergy/AdvReac Type Severity Reaction Status Date / Time No Known Allergies Allergy Verified 02/15/18 09:31 ROS unobtainable: due to mental status All Systems PM: A 10-system review of systems was performed and is negative for pertinent findings except as documented above in the HPI. - Constitutional Vitals: Temp Pulse Resp BP Pulse Ox 98.4 F 88 30 98/50 100 10/27/18 18:02 10/27/18 21:59 10/27/18 21:59 10/27/18 21:59 10/27/18 21:59 General appearance: Present: A&O X 0 Exam: Responsive to painful stimuli, says no and withdraws Unable to perform neuro exam Pupils equal and reactive to light, extraocular movements intact Heart in regular rate and rhythm without murmur or gallop auscultated Lungs diffusely rhonchorous bilaterally Abdomen soft and nontender with normal bowel sounds noted Skin warm and dry without rash, bruising, bleeding noted Internal Med - H&P Results - Labs CBC & Chem 7: 10/27/18 18:50 10/27/18 18:50 Labs: Short CBC 10/27/18 Range/Units 18:50 WBC 9.0 (4.3-11.1) K/mcL Hgb 12.2 (11.5-15.4) g/dL Hct 38.8 (35.3-44.9) % Plt Count 445 H (140-400) K/mcL Neutrophils # 7.4 (1.6-8.9) K/mcL BMP 10/27/18 18:50 Sodium 126 L Potassium 6.4 H Chloride 83 L Carbon Dioxide 12 L BUN 31 H Creatinine 0.94 Glucose 788 H* Calcium 10.2 Cardiac Enzymes 10/27/18 Range/Units 18:50 Troponin I 0.63 H* (< 0.04) ng/mL Liver Function 10/27/18 Range/Units 18:50 Total Bilirubin 1.4 H (0.3-1.0) mg/dL Direct Bilirubin 0.3 H (0.0-0.2) mg/dL AST 20 (13-39) Units/L ALT 33 (7-52) Units/L Alkaline Phosphatase 192 H (34-104) Units/L Albumin 4.2 (3.5-5.7) g/dL Urine 10/27/18 Range/Units 20:20 Urine Color Yellow (Yellow) Urine Clarity Clear (Clear) Urine pH 5.0 (5.0-8.0) pH Units Ur Specific [place] 1.030 H (1.010-1.025) Urine Protein Negative (Neg-Trace) mg/dL Urine Glucose (UA) >=1000 H (Normal) mg/dL - ABG Interpretation ABG results: 10/27/18 19:27 VBG pH 7.27 L VBG pCO2 27 L VBG pO2 69 H VBG HCO3 12 L - Impressions ITS Impressions Chest X-Ray 10/27/18 18:18 IMPRESSION: 1. No acute cardiopulmonary process identified. D/ / Ji Wilson MD / Ji Wilson MD Interpreting Provider: Ji Wilson MD Chest X-Ray 10/27/18 21:59 IMPRESSION: Interval placement of a right IJ central venous catheter with tip in the mid SVC. No pneumothorax. No new consolidation. D/ / Jonathon Garcia / Jonathon Garcia Interpreting Provider: Jonathon Garcia - Assessment and Plan (1) Encephalopathy Current Visit: Yes Status: Acute Assessment and plan: Patient was found unresponsive, continues to only respond to painful stimuli Etiology is likely metabolic acidosis secondary to DKA We will continue to treat DKA and observe for resolution of altered mental status Differential also includes substance abuse as the patient admitted to heroin use and her tox screen was positive for benzodiazepines and cocaine (2) Diabetic ketoacidosis Current Visit: Yes Status: Acute Assessment and plan: Patient found to be in DKA on presenting labs, pH 7.27, bicarbonate 12, potassium 6.8, glucose 788, lactic acid 2.7 She was started on an insulin drip and 4 L normal saline boluses, repeat labs potassium 5.3, bicarbonate 6, glucose 659 She was transferred up to the ICU where we will continue insulin drip and every 3 hour electrolytes, every hour glucose We will continue 0.45% NaCl with 20 mEq potassium at 150 mL per hour as per DKA protocol, replace electrolytes per protocol Qualifiers: Diabetes mellitus type: type 2 Diabetes mellitus complication detail: without coma Qualified Code(s): E11.10 - Type 2 diabetes mellitus with ketoacidosis without coma (3) Electrolyte abnormality Current Visit: Yes Status: Acute Assessment and plan: On presentation patient was found to have hyperkalemia, hyperphosphatemia, hypomagnesemia These have all improved with fluid boluses, we will continue to trend (4) Elevated troponin Current Visit: Yes Status: Acute Assessment and plan: Troponin elevated at 0.63 on presentation This is likely related to demand, EKG negative for ST changes or other signs of acute ischemia EKG did demonstrate peaked T waves secondary to hyperkalemia but these have improved with improvement in potassium We will continue to trend troponin (5) Substance abuse Current Visit: Yes Status: Chronic Assessment and plan: Patient has chronic history of substance abuse, she has methadone listed as a home medication and recently admitted to using heroin however her tox screen was negative for opiates but positive for benzodiazepines and cocaine We will continue to monitor for signs of toxicity or withdrawal - Time Spent With Patient Total time spent is greater than 50% in coordination of care (as documented) at patient's floor/unit and/or counseling patient: <RajeshJai - Last Filed: 10/28/18 02:02> Date of Encounter: 10/27/18 All Systems PM: A 10-system review of systems was performed and is negative for pertinent findings except as documented above in the HPI. - Constitutional Vitals: Temp Pulse Resp BP Pulse Ox 98.4 F 88 30 98/50 100 10/27/18 18:02 10/27/18 21:59 10/27/18 21:59 10/27/18 21:59 10/27/18 21:59 Internal Med - H&P Results - Labs CBC & Chem 7: 10/27/18 18:50 10/28/18 00:18 Labs: Short CBC 10/27/18 Range/Units 18:50 WBC 9.0 (4.3-11.1) K/mcL Hgb 12.2 (11.5-15.4) g/dL Hct 38.8 (35.3-44.9) % Plt Count 445 H (140-400) K/mcL Neutrophils # 7.4 (1.6-8.9) K/mcL BMP 10/27/18 18:50 Sodium 126 L Potassium 6.4 H Chloride 83 L Carbon Dioxide 12 L BUN 31 H Creatinine 0.94 Glucose 788 H* Calcium 10.2 Cardiac Enzymes 10/27/18 Range/Units 18:50 Troponin I 0.63 H* (< 0.04) ng/mL Liver Function 10/27/18 Range/Units 18:50 Total Bilirubin 1.4 H (0.3-1.0) mg/dL Direct Bilirubin 0.3 H (0.0-0.2) mg/dL AST 20 (13-39) Units/L ALT 33 (7-52) Units/L Alkaline Phosphatase 192 H (34-104) Units/L Albumin 4.2 (3.5-5.7) g/dL Urine 10/27/18 Range/Units 20:20 Urine Color Yellow (Yellow) Urine Clarity Clear (Clear) Urine pH 5.0 (5.0-8.0) pH Units Ur Specific [place] 1.030 H (1.010-1.025) Urine Protein Negative (Neg-Trace) mg/dL Urine Glucose (UA) >=1000 H (Normal) mg/dL - ABG Interpretation ABG results: 10/27/18 19:27 VBG pH 7.27 L VBG pCO2 27 L VBG pO2 69 H VBG HCO3 12 L - Impressions ITS Impressions Chest X-Ray 10/27/18 18:18 IMPRESSION: 1. No acute cardiopulmonary process identified. D/ / Ji Wilson MD / Ji Wilson MD Interpreting Provider: Ji Wilson MD Chest X-Ray 10/27/18 21:59 IMPRESSION: Interval placement of a right IJ central venous catheter with tip in the mid SVC. No pneumothorax. No new consolidation. D/ / Jonathon Sessions / Jonathon Garcia Interpreting Provider: Jonathon Garcia - Time Spent With Patient Total time spent is greater than 50% in coordination of care (as documented) at patient's floor/unit and/or counseling patient: - Attending Attestation I performed a history and physical exam of the patient and discussed management with the resident. I reviewed the resident's note and agree with the documented findings and plan of care. Daniela Richardson is a 58 year old woman with substance use disorder, HCV and diabetes who was found in a [facility] bathroom with AMS. She reportedly complained of thirst, diarrhea and diffuse body aches. On arrival she was hypotensive and received 4L of IVF with only a modest response. Labs revealed HAGMA and acidemia deemed secondary to DKA. She was also hyperkalemic and EKG as reviewed by me showed peaked T waves. UDS positive for cocaine and benzos only. She is admitted to ICU for ongoing monitoring. Physical exam remarkable for an emaciated unkempt woman who is notably disoriented and lethargic but protecting her airway adequately. No wheezes, rale or rhonchi. Abdomen non-distended. No c/c/e. Will start insulin gtt after receiving a loading bolus. Continue fluid resuscitation. Monitor electrolytes closely. No indication for antibiotics at this time. Family history reviewed and found non- contributory. GRANT XIE.
[2018-10-27 23:21] LABS: INR 0.8; Prothrombin Time 9.5 Seconds (9.4-12.1)
[2018-10-27] MEDS ORDERED: D5% in 0.45% NACL 1,000 ML IVC PRN (23:22)
[2018-10-27] MEDS ORDERED: D5% in 0.45% NACL w KCl 20 MEQ/1,000 ML MLS IVC PRN (23:22)
[2018-10-27] MEDS ORDERED: Insulin LISPRO 300 UNITS/3 ML VIAL SQ PRN (23:22)
[2018-10-27] MEDS ORDERED: Calcium Gluconate 1gm/50mL 1 GM/50 ML BAG IVPB PRN (23:27)
[2018-10-27 23:36] LABS: BUN/Creatinine Ratio 34 (6-26); Blood Urea Nitrogen 31 mg/dL (8-23); Calcium 9.1 mg/dL (8.6-10.3); Carbon Dioxide 6 mEq/L (23-29); Chloride 98 mEq/L (98-107); Glucose 659 mg/dL (70-105); Magnesium 2.7 mg/dL (1.6-2.6); Osmolality,Calculated 308 (280-300); Phosphorous 4.6 mg/dL (2.7-4.5); Potassium 5.3 mEq/L (3.5-5.1); Sodium 130 mEq/L (136-145); eGFR For African Americans > 60 (> 60); eGFR For Non-African Americans > 60 (> 60)
[2018-10-28] MEDS: 0.45 % Sodium Chloride w/KCl 20 MEQ/1,000 ML MLS IVC SCH ×2 (00:25→07:06)
[2018-10-28 02:42] LABS: BUN/Creatinine Ratio 38 (6-26); Blood Urea Nitrogen 27 mg/dL (8-23); Calcium 8.4 mg/dL (8.6-10.3); Carbon Dioxide 14 mEq/L (23-29); Chloride 107 mEq/L (98-107); Glucose 361 mg/dL (70-105); Magnesium 2.4 mg/dL (1.6-2.6); Osmolality,Calculated 298 (280-300); Phosphorous 2.2 mg/dL (2.7-4.5); Potassium 4.2 mEq/L (3.5-5.1); Sodium 134 mEq/L (136-145); eGFR For African Americans > 60 (> 60); eGFR For Non-African Americans > 60 (> 60)
[2018-10-28 04:15] LABS: VBG HCO3 17 mEq/L (21-27); VBG PCO2 34 mmHg (41-51); VBG PH 7.32 pH Units (7.32-7.42); VBG PO2 124 mmHg (25-50)
[2018-10-28] MEDS ORDERED: *HR* Heparin 5,000 UNIT/ML VIAL SQ SCH ×2 (06:00→14:00)
[2018-10-28 06:24] LABS: BUN/Creatinine Ratio 37 (6-26); Blood Urea Nitrogen 23 mg/dL (8-23); Calcium 8.4 mg/dL (8.6-10.3); Carbon Dioxide 20 mEq/L (23-29); Chloride 105 mEq/L (98-107); Glucose 259 mg/dL (70-105); Magnesium 2.1 mg/dL (1.6-2.6); Osmolality,Calculated 295 (280-300); Phosphorous 2.1 mg/dL (2.7-4.5); Potassium 4.4 mEq/L (3.5-5.1); Sodium 136 mEq/L (136-145); eGFR For African Americans > 60 (> 60); eGFR For Non-African Americans > 60 (> 60)
[2018-10-28] MEDS ORDERED: Naloxone 0.4 MG/ML INJ IVP PRN (10:00)
[2018-10-28] MEDS ORDERED: *HR* Dextrose 50 % in Water (Syg) 50 ML SYRINGE IVP PRN (10:00)
[2018-10-28 10:19] LABS: BUN/Creatinine Ratio 38 (6-26); Blood Urea Nitrogen 20 mg/dL (8-23); Carbon Dioxide 24 mEq/L (23-29); Chloride 106 mEq/L (98-107); Glucose 174 mg/dL (70-105); Osmolality,Calculated 293 (280-300); Potassium 4.2 mEq/L (3.5-5.1); Sodium 138 mEq/L (136-145); eGFR For African Americans > 60 (> 60); eGFR For Non-African Americans > 60 (> 60)
[2018-10-28] MEDS ORDERED: Insulin LISPRO 300 UNITS/3 ML VIAL SQ SCH (11:30)
--- NOTE | 2018-10-28 12:10 | Electrocardiograph Report ---
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
--- NOTE | 2018-10-28 12:26 | Electrocardiograph Report ---
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
[2018-10-28] MEDS: Insulin DETEMIR 100 UNIT/ML X5UNITS SQ SCH (12:37)
[2018-10-28] MEDS: *HR* Buprenorphine HCl 8 MG TAB.SUBL SL SCH (12:37)
[2018-10-28] MEDS: Insulin LISPRO 300 UNITS/3 ML VIAL SQ SCH ×2 (12:37→17:58)
--- NOTE | 2018-10-28 13:21 | Internal Med Progress Note ---
<Gregory Torres - Last Filed: 10/28/18 15:59> Hospitalist Progress Note - Encounter Date of Encounter: 10/28/18 - Exam Vitals: Temp Pulse Resp BP Pulse Ox 96.7 F L 82 20 119/66 100 10/28/18 12:23 10/28/18 12:00 10/28/18 12:00 10/28/18 12:00 10/28/18 12:00 - Time Spent with Patient Total time spent is greater than 50% in coordination of care (as documented) at patient's floor/unit and/or counseling patient: Internal Medicine: Result - Labs CBC & Chem 7: 10/27/18 18:50 10/28/18 09:50 Labs: Short CBC 10/27/18 Range/Units 18:50 WBC 9.0 (4.3-11.1) K/mcL Hgb 12.2 (11.5-15.4) g/dL Hct 38.8 (35.3-44.9) % Plt Count 445 H (140-400) K/mcL Neutrophils # 7.4 (1.6-8.9) K/mcL BMP 10/27/18 10/27/18 10/28/18 18:50 23:00 00:18 Sodium 126 L 130 L Potassium 6.4 H 5.3 H Chloride 83 L 98 Carbon Dioxide 12 L 6 L* BUN 31 H 31 H Creatinine 0.94 0.92 Glucose 788 H* 659 H* 522 H* Calcium 10.2 9.1 10/28/18 10/28/18 10/28/18 01:42 02:10 05:51 Sodium 134 L 136 Potassium 4.2 4.4 Chloride 107 105 Carbon Dioxide 14 L 20 L BUN 27 H 23 Creatinine 0.71 0.62 Glucose 394 H 361 H 259 H Calcium 8.4 L 8.4 L 10/28/18 09:50 Sodium 138 Potassium 4.2 Chloride 106 Carbon Dioxide 24 BUN 20 Creatinine 0.52 L Glucose 174 H Calcium 8.0 L Cardiac Enzymes 10/27/18 10/28/18 10/28/18 Range/Units 18:50 02:10 13:50 Troponin I 0.63 H* 0.75 H* 0.86 H* (< 0.04) ng/mL Liver Function 10/27/18 Range/Units 18:50 Total Bilirubin 1.4 H (0.3-1.0) mg/dL Direct Bilirubin 0.3 H (0.0-0.2) mg/dL AST 20 (13-39) Units/L ALT 33 (7-52) Units/L Alkaline Phosphatase 192 H (34-104) Units/L Albumin 4.2 (3.5-5.7) g/dL Urine 10/27/18 Range/Units 20:20 Urine Color Yellow (Yellow) Urine Clarity Clear (Clear) Urine pH 5.0 (5.0-8.0) pH Units Ur Specific [place] 1.030 H (1.010-1.025) Urine Protein Negative (Neg-Trace) mg/dL Urine Glucose (UA) >=1000 H (Normal) mg/dL - ABG Interpretation ABG results: PT/INR, D-dimer PT 9.5 Seconds (9.4-12.1) 10/27/18 23:00 - Impressions Impressions Chest X-Ray 10/27/18 18:18 IMPRESSION: 1. No acute cardiopulmonary process identified. D/ / Ji Wilson MD / Ji Wilson MD Interpreting Provider: Ji Wilson MD Chest X-Ray 10/27/18 21:59 IMPRESSION: Interval placement of a right IJ central venous catheter with tip in the mid SVC. No pneumothorax. No new consolidation. D/ / Jonathon Garcia / Jonathon Garcia Interpreting Provider: Jonathon Garcia Chest X-Ray 10/28/18 00:01 IMPRESSION: Little prior study. Right internal jugular catheter in place. Central vasculature is top normal. D/ / Mary Driver MD / Mary Driver MD Interpreting Provider: Mary Driver MD Consult Discharge Plan - Plan Referrals: NONE,PCP [Primary Care Provider] - - Attending Attestation I examined this patient and my medical decision-making was reviewed with the Resident Physician on 10/28/18. I agree with the documented findings, disposition and treatment plan as described except to the extent set forth below. Ms Richardson is currently hospitalized for acute DKA and unresponsiveness. Her t roponin continues to elevate. She remains high risk due to potential for worsening clinical status. Ms Richardson awakens to name. Feels hungry. DKA has resolved - transitioning to subqu insulin. No CP at this time. No GI symptoms. Exam - alert. Heart not tachycardic. Abd soft. No wheeze. Anticipate will need further cardiac eval. Continue monitor blood sugar and adjust insulin. Will need SW at discharge as well. Anticipate d/c in next 24-48 hours. 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 She denied any chest pain or shortness of breath. Denied any abdominal pain, nausea, or vomiting. Denied any fever. Denied any cough. - Exam Vitals: Temp Pulse Resp BP Pulse Ox 96.7 F L 82 20 119/66 100 10/28/18 12:23 10/28/18 12:00 10/28/18 12:00 10/28/18 12:00 10/28/18 12:00 Exam: GENERAL APPEARANCE: Well developed, well nourished, alert and cooperative, and appears to be in no acute distress. HEAD: normocephalic. EYES: vision is grossly intact. EARS: hearing grossly intact. NOSE: No nasal discharge. THROAT: Oral cavity and pharynx normal. Dry mucosa. No inflammation, swelling, exudate, or lesions. NECK: Neck supple, non-tender without lymphadenopathy, masses or thyromegaly. CARDIAC: Normal S1 and S2. No S3, S4 or murmurs. Rhythm is regular. There is no peripheral edema, cyanosis or pallor. Extremities are warm and well perfused. Capillary refill is less than 2 seconds. No carotid bruits. LUNGS: Clear to auscultation and percussion without rales, rhonchi, wheezing or diminished breath sounds. ABDOMEN: Positive bowel sounds. Soft, nondistended, nontender. No guarding or rebound. No masses. MUSKULOSKELETAL: Adequately aligned spine. ROM intact spine and extremities. No joint erythema or tenderness. Normal muscular development. BACK: Examination of the spine reveals normal gait and posture, no spinal deformity, symmetry of spinal muscles, without tenderness, decreased range of motion or muscular spasm. EXTREMITIES: No significant deformity or joint abnormality. No edema. Peripheral pulses intact. No varicosities. LOWER EXTREMITY: Examination of both feet reveals all toes to be normal in size and symmetry, normal range of motion, normal sensation with distal capillary filling of less than 2 seconds without tenderness, swelling, discoloration, nodules, weakness or deformity; SKIN: Skin normal color, texture and turgor with no lesions or eruptions. PSYCHIATRIC: The mental examination revealed the patient was oriented to person, place, and time. - Assessment and Plan (1) Encephalopathy Current Visit: Yes Status: Acute Assessment and Plan: Patient was found unresponsive, continues to only respond to painful stimuli. Etiology is likely metabolic acidosis secondary to DKA Patient admitted to heroin use and her tox screen was positive for benzodiazepines and cocaine. Improved mental status today: was a & o x3. Out of DKA status. (2) Diabetic ketoacidosis Current Visit: Yes Status: Resolved Assessment and Plan: Patient found to be in DKA on presenting labs, pH 7.27, bicarbonate 12, potassium 6.8, glucose 788, lactic acid 2.7 She was started on an insulin drip and 4 L normal saline boluses, repeat labs potassium 5.3, bicarbonate 6, glucose 659 She was transferred up to the ICU where we will continue insulin drip and every 3 hour electrolytes, every hour glucose We will continue 0.45% NaCl with 20 mEq potassium at 150 mL per hour as per DKA protocol, replace electrolytes per protocol Today patient's AG closed from 26 to 11. Her hyperkalemia decreased from 5.3 down to 4.4. Renal function improved from 0.92-0.62. Plan: - Stop insulin drip. - Start subcutaneous insulin. - Continue with IV fluids. - (3) Elevated troponin Current Visit: Yes Status: Acute Assessment and Plan: Troponin elevated at 0.63 on presentation. Subsequent troponins were 0.75 and 0.86. EKG negative for ST changes or other signs of acute ischemia EKG did demonstrate peaked T waves secondary to hyperkalemia but these have improved with improvement of potassium. Plan: - Given uptrending troponins, consult cardiology was placed. - Nothing by mouth at midnight. - Start heparin drip. - Echocardiogram. (4) Substance abuse Current Visit: Yes Status: Chronic Assessment and Plan: Patient has chronic history of substance abuse, she has methadone listed as a home medication and recently admitted to using heroin however her tox screen was negative for opiates but positive for benzodiazepines and cocaine We will continue to monitor for signs of toxicity or withdrawal (5) NSTEMI (non-ST elevated myocardial infarction) Current Visit: Yes Status: Acute Assessment and Plan: No active chest pain however patient is a diabetic. Uptrending troponins. Juwan: - See plan for elevated troponin. DVT Prophylaxis: On heparin drip. - Time Spent with Patient Total time spent is greater than 50% in coordination of care (as documented) at patient's floor/unit and/or counseling patient: Internal Medicine: Result - Labs CBC & Chem 7: 10/27/18 18:50 10/28/18 09:50 Labs: Short CBC 10/27/18 Range/Units 18:50 WBC 9.0 (4.3-11.1) K/mcL Hgb 12.2 (11.5-15.4) g/dL Hct 38.8 (35.3-44.9) % Plt Count 445 H (140-400) K/mcL Neutrophils # 7.4 (1.6-8.9) K/mcL BMP 10/27/18 10/27/18 10/28/18 18:50 23:00 00:18 Sodium 126 L 130 L Potassium 6.4 H 5.3 H Chloride 83 L 98 Carbon Dioxide 12 L 6 L* BUN 31 H 31 H Creatinine 0.94 0.92 Glucose 788 H* 659 H* 522 H* Calcium 10.2 9.1 10/28/18 10/28/18 10/28/18 01:42 02:10 05:51 Sodium 134 L 136 Potassium 4.2 4.4 Chloride 107 105 Carbon Dioxide 14 L 20 L BUN 27 H 23 Creatinine 0.71 0.62 Glucose 394 H 361 H 259 H Calcium 8.4 L 8.4 L 10/28/18 09:50 Sodium 138 Potassium 4.2 Chloride 106 Carbon Dioxide 24 BUN 20 Creatinine 0.52 L Glucose 174 H Calcium 8.0 L Cardiac Enzymes 10/27/18 10/28/18 Range/Units 18:50 02:10 Troponin I 0.63 H* 0.75 H* (< 0.04) ng/mL Liver Function 10/27/18 Range/Units 18:50 Total Bilirubin 1.4 H (0.3-1.0) mg/dL Direct Bilirubin 0.3 H (0.0-0.2) mg/dL AST 20 (13-39) Units/L ALT 33 (7-52) Units/L Alkaline Phosphatase 192 H (34-104) Units/L Albumin 4.2 (3.5-5.7) g/dL Urine 10/27/18 Range/Units 20:20 Urine Color Yellow (Yellow) Urine Clarity Clear (Clear) Urine pH 5.0 (5.0-8.0) pH Units Ur Specific [place] 1.030 H (1.010-1.025) Urine Protein Negative (Neg-Trace) mg/dL Urine Glucose (UA) >=1000 H (Normal) mg/dL - ABG Interpretation ABG results: PT/INR, D-dimer PT 9.5 Seconds (9.4-12.1) 10/27/18 23:00 - Impressions Impressions Chest X-Ray 10/27/18 18:18 IMPRESSION: 1. No acute cardiopulmonary process identified. D/ / Ji Wilson MD / Ji Wilson MD Interpreting Provider: Ji Wilson MD Chest X-Ray 10/27/18 21:59 IMPRESSION: Interval placement of a right IJ central venous catheter with tip in the mid SVC. No pneumothorax. No new consolidation. D/ / Jonathon Sessions / Jonathon Sessions Interpreting Provider: Jonathon Sessions Chest X-Ray 10/28/18 00:01 IMPRESSION: Little prior study. Right internal jugular catheter in place. Central vasculature is top normal. D/ / Mary Driver MD / Mary Driver MD Interpreting Provider: Mary Driver MD <Varinder Frost - Last Filed: 10/28/18 19:15> (2) Diabetic ketoacidosis Qualifiers: Diabetes mellitus type: type 2 Diabetes mellitus complication detail: without coma Qualified Code(s): E11.10 - Type 2 diabetes mellitus with ketoacidosis without coma
[2018-10-28] MEDS ORDERED: *HR* Heparin 5,000 UNIT/ML VIAL IVP ONE (15:44)
[2018-10-28] MEDS ORDERED: *HR* Heparin 5,000 UNIT/ML VIAL IVP PRN ×2 (15:44)
[2018-10-28] MEDS ORDERED: Heparin 25,000 UNIT/250 ML D5W 25,000 UNIT/250 ML IV.SOLN IVC SCH (15:45)
[2018-10-28 16:39] LABS: Heparin anti-factor XA UFH 0.11 IU/mL (0.30-0.70)
[2018-10-28 16:40] LABS: INR 0.8; Prothrombin Time 9.6 Seconds (9.4-12.1)
[2018-10-28] MEDS ORDERED: Insulin DETEMIR 100 UNIT/ML X5UNITS SQ SCH (21:00)
[2018-10-29 01:14] LABS: Hematocrit 30.1 % (35.3-44.9); Mean Corpuscular HGB Conc 32.9 g/dL (31.6-35.5); Mean Corpuscular Hemoglobin 28.3 pg (28.0-33.3); Mean Platelet Volume 8.6 fL (9.4-12.4); Platelet Count 301 K/mcL (140-400); White Blood Count 9.4 K/mcL (4.3-11.1)
[2018-10-29 01:17] LABS: Hemoglobin 9.9 g/dL (11.5-15.4)
[2018-10-29 01:33] LABS: BUN/Creatinine Ratio 30 (6-26); Blood Urea Nitrogen 20 mg/dL (8-23); Calcium 8.7 mg/dL (8.6-10.3); Carbon Dioxide 25 mEq/L (23-29); Chloride 102 mEq/L (98-107); Glucose 258 mg/dL (70-105); Osmolality,Calculated 287 (280-300); Potassium 4.6 mEq/L (3.5-5.1); Sodium 133 mEq/L (136-145); eGFR For African Americans > 60 (> 60); eGFR For Non-African Americans > 60 (> 60)
[2018-10-29] MEDS ORDERED: Dextrose Gel 15 GM/37.5 ML TUBE PO PRN ×2 (07:35)
[2018-10-29] MEDS ORDERED: D5% in Water 1,000 ML IVC PRN (07:35)
[2018-10-29] MEDS ORDERED: *HR* Dextrose 50 % in Water (Syg) 50 ML SYRINGE IVP PRN (07:35)
[2018-10-29] MEDS: *HR* Buprenorphine HCl 8 MG TAB.SUBL SL SCH (08:23)
[2018-10-29] MEDS: Insulin DETEMIR 100 UNIT/ML X5UNITS SQ SCH (08:23)
[2018-10-29] MEDS: Insulin LISPRO 300 UNITS/3 ML VIAL SQ SCH ×3 (08:23→17:25)
--- NOTE | 2018-10-29 08:38 | Cardiology Consult Note ---
Date of Encounter: 10/29/18 Time of Encounter: 08:31 Assessment and Plan (1) Elevated troponin Current Visit: Yes Status: Acute ACS unlikely. Mild troponin elevation noted at 0.63, 0.75, 0.86, 0.68. Patient was started on a heparin gtt by primary team. Patient presented to the ED in DKA, with blood glucose >700 and lactic acid 2.7. Though patient denies use of illicit substances other than opioids, UDS was positive for both cocaine and benzodiazepines. She denies any chest pain/pressures, shortness of breath, edema, palpitations, or orthopnea. Echocardiogram performed on 10/28/2018 demonstrated the following: LVEF 60%. Indeterminate diastolic function. Normal right ventricular structure and function. Mild mitral regurgitation. Mild tricuspid regurgitation. No pulmonary hypertension. Suspect that mild troponin elevation likely occurred secondary to DKA/hypotension/cocaine use. Heparin gtt discontinued; patient started on SQ heparin. Recommend outpatient followup with PCP. Discussion w patient/family: The assessment and plan as outlined above was discussed with the patient and/or family members who expressed understanding and agreement. All questions were answered. Thank you for involving us in the care of your patient. Please call with any questions. History of Present Illness Consult date: 10/28/18 Requesting physician: Varinder Frost Consult reason: NSTEMI History of present illness: Ms. Richardson is a 58 year old female with a history of bipolar I disorder, hepatitis C, DM, and IVDU who presented to the ED via EMS after being found unresponsive on the floor in the bathroom of [facility]. Patient was found to be in DKA, with initial blood glucose of 788. Patient was also found to have lactic acid of 2.7, potassium 6.4, and pH 7.27. She became hypotensive while in the ED, requiring placement of IJ CVC and initiation of pressor support, with subsequent admission to the ICU for management. Her DKA has since resolved, and she has been transferred to the nursing floor. Patient was found to have an elevated troponin of 0.63, with continued upward trend. Cardiology consult placed for recommendations. On evaluation today, patient reports feeling well, and denies any chest pain, shortness of breath, palpitations, or edema. She denies any prior cardiac history, though she did have some type of cardiac workup in the past for chest heaviness. She denies use of cocaine, but does admit to opioid use. No previous cardiac studies available per search of [employer]. Past Med Surg Social Fam HX - Past Medical History Medical history: diabetes, hepatitis, other Additional medical history: cardiac catheterization Psychiatric history: bipolar - Past Surgical History Surgical History: other Additional surgical history: LLE surgery - Social History Smoking Status: Current every day smoker Smokeless Tobacco Status: No Alcohol use: none Drug use: cocaine, opiates, methamphetamine, IV Drug Use, prescription drug abuse, other - Family History Mother Living Status: Still Living Hx Family Cardiac Disorders: No Hx Family Respiratory Disorders: No Hx Family Cancer: No Hx Family GI Disorders: No Hx Family Endocrine Disorder: No Hx Family Neuromuscular Disorders: No Hx Family Neurologic Disorders: No Hx Family HEENT Disorders: No Hx Family Autoimmune Disorders: No Father Living Status: Hx Family Cardiac Disorders: No Hx Family Respiratory Disorders: Yes (COPD) Hx Family Cancer: No Hx Family GI Disorders: No Hx Family Endocrine Disorder: Yes (DM) Hx Family Neuromuscular Disorders: No Hx Family Neurologic Disorders: No Hx Family HEENT Disorders: No Hx Family Autoimmune Disorders: No Medications and Allergies Buprenorphine HCl/Naloxone HCl [Suboxone 8 mg-2 mg Sl Film] 2 each SL DAILY 10/28/18 [History] Cetirizine HCl [Allergy Relief] 10 mg PO DAILY 10/29/18 [History] Insulin ASPART [NovoLOG] 5 unit SQ TIDWM 10/29/18 [History] Insulin Glargine,Hum.rec.anlog [Basaglar Kwikpen U-100] 30 units SQ QPM 10/29/18 [History] Latanoprost [Xalatan] 1 drop BOTH EYES HS 10/29/18 [History] Meloxicam [Mobic] 15 mg PO DAILY PRN 10/29/18 [History] NALOXONE 4 MG Nasal Universal [Narcan] 1 spray NS AD 10/29/18 [History] Allergy/AdvReac Type Severity Reaction Status Date / Time No Known Allergies Allergy Verified 02/15/18 09:31 All Systems Review: The remainder of the systems were reviewed and are negative - Cardiovascular Cardiovascular: no chest pain at rest, no chest pain with exertion, no dyspnea on exertion, no irregular heart rhythm, no radiating jaw, neck or arm pain, no palpitations - Musculoskeletal Musculoskeletal: arthralgias, other (right shoulder pain) Physical Examination Vital Signs, Last 4 Hours Temp Pulse Resp BP Pulse Ox 10/29/18 08:27 98.3 F 68 16 122/69 91 General: Conversant HEENT: Atraumatic, Normocephaly, Mucus Membranes Moist Neck: No JVD, Normal carotid pulses Cardiac: Reg Rate and Rhythm, Normal S1 and S2, No Murmur Lungs: Normal Breath Sounds Neuro: Alert and responsive, No focal deficits noted Abdomen: Soft, Non-Tender Skin: No rashes noted on visualized skin Musculoskeletal: No Chest Wall Tenderness Extremities: No Clubbing, No Cyanosis, No Edema, Normal Pulses Results 10/29/18 00:33 10/29/18 00:33 Lab Results 10/28/18 10/28/18 10/28/18 09:50 13:50 16:21 WBC Hgb Hct Plt Count INR 0.8 Sodium 138 Potassium 4.2 Chloride 106 Carbon Dioxide 24 BUN 20 Creatinine 0.52 L Glucose 174 H Calcium 8.0 L Troponin I 0.86 H* 10/29/18 10/29/18 00:33 00:33 WBC 9.4 Hgb 9.9 L D Hct 30.1 L Plt Count 301 INR Sodium 133 L Potassium 4.6 Chloride 102 Carbon Dioxide 25 BUN 20 Creatinine 0.67 Glucose 258 H Calcium 8.7 Troponin I Consult Discharge Plan - Plan Referrals: NONE,PCP [Primary Care Provider] -
--- NOTE | 2018-10-29 13:38 | Discharge Summary ---
Date of Encounter: 10/29/18 Time of Encounter: 09:10 - Discharge Diagnosis (1) Encephalopathy Priority: Primary Status: Acute (2) Diabetic ketoacidosis Priority: Primary Status: Resolved Qualifiers: Diabetes mellitus type: type 2 Diabetes mellitus complication detail: without coma Qualified Code(s): E11.10 - Type 2 diabetes mellitus with ketoacidosis without coma (3) Elevated troponin Priority: Primary Status: Acute (4) Substance abuse Priority: Secondary Status: Chronic Hospital course: Ms. Richardson is a 58 year old female - Time Spent with Patient Total time spent providing and/or coordinating discharge services: - Discharge Medications Prescriptions: No Action Buprenorphine HCl/Naloxone HCl [Suboxone 8 mg-2 mg Sl Film] 2 each SL DAILY NALOXONE 4 MG Nasal [place] [Narcan] 1 spray NS AD Latanoprost [Xalatan] 1 drop BOTH EYES HS Cetirizine HCl [Allergy Relief] 10 mg PO DAILY Insulin Glargine,Hum.rec.anlog [Basaglar Kwikpen U-100] 30 units SQ QPM Insulin ASPART [NovoLOG] 5 unit SQ TIDWM Meloxicam [Mobic] 15 mg PO DAILY PRN PRN Reason: Pain Home Medications: Buprenorphine HCl/Naloxone HCl [Suboxone 8 mg-2 mg Sl Film] 2 each SL DAILY 10/28/18 [History] Cetirizine HCl [Allergy Relief] 10 mg PO DAILY 10/29/18 [History] Insulin ASPART [NovoLOG] 5 unit SQ TIDWM 10/29/18 [History] Insulin Glargine,Hum.rec.anlog [Basaglar Kwikpen U-100] 30 units SQ QPM 10/29/18 [History] Latanoprost [Xalatan] 1 drop BOTH EYES HS 10/29/18 [History] Meloxicam [Mobic] 15 mg PO DAILY PRN 10/29/18 [History] NALOXONE 4 MG Nasal [place] [Narcan] 1 spray NS AD 10/29/18 [History] Allergies/Adverse Reactions: Allergy/AdvReac Type Severity Reaction Status Date / Time No Known Allergies Allergy Verified 02/15/18 09:31 Date of admission: 10/27/18 22:23 Primary care physician: PCP NONE Consults: 10/28/18 15:49 Consult to Cardiology [CONS] Routine Comment: Consulting Provider: Cardiology Cassia Reason for Consult: NSTEMI Call Completed: Yes 10/29/18 11:16 Consult to Lab Animal Technician [CONS] Routine Reason for SW Consult: Hoimeless. 10/29/18 12:21 Consult to Invasive Line Access Team [CONS] Routine Reason for Consult: limited access Line Type: EPIV Discharging clinician: Varinder Frost Anticipated date of discharge: 10/29/18 - Constitutional Vitals: Temp Pulse Resp BP Pulse Ox 98.9 F 70 16 107/62 96 10/29/18 11:28 10/29/18 11:28 10/29/18 11:28 10/29/18 11:28 10/29/18 11:28 General appearance: Present: A&O X 0 - Patient Status Condition: Fair - Discharge Instructions Follow Up With: NONE,PCP [Primary Care Provider] - Forms: ED Satisfaction Letter
--- NOTE | 2018-10-29 13:50 | Internal Med Progress Note ---
Hospitalist Progress Note - Encounter Date of Encounter: 10/29/18 Time of Encounter: 09:10 - Subjective Interval History: When seen today, patient denies any abdominal pain, nausea, or vomiting. She denies a fever. Denies any cough wheezing, or SOB. - Exam Vitals: Temp Pulse Resp BP Pulse Ox 98.9 F 70 16 107/62 96 10/29/18 11:28 10/29/18 11:28 10/29/18 11:28 10/29/18 11:28 10/29/18 11:28 Exam: GENERAL APPEARANCE: Well developed, well nourished, alert and cooperative, and appears to be in no acute distress. Alert and oriented x 3. HEAD: normocephalic. EYES: vision is grossly intact. EARS: hearing grossly intact. NOSE: No nasal discharge. THROAT: Oral cavity and pharynx normal. Dry mucosa. No inflammation, swelling, exudate, or lesions. NECK: Neck supple, non-tender without lymphadenopathy, masses or thyromegaly. CARDIAC: Normal S1 and S2. No S3, S4 or murmurs. Rhythm is regular. There is no peripheral edema, cyanosis or pallor. Extremities are warm and well perfused. Capillary refill is less than 2 seconds. No carotid bruits. LUNGS: Clear to auscultation and percussion without rales, rhonchi, wheezing or diminished breath sounds. ABDOMEN: Positive bowel sounds. Soft, nondistended, nontender. No guarding or rebound. No masses. MUSKULOSKELETAL: Adequately aligned spine. ROM intact spine and extremities. No joint erythema or tenderness. Normal muscular development. BACK: Examination of the spine reveals normal gait and posture, no spinal deformity, symmetry of spinal muscles, without tenderness, decreased range of motion or muscular spasm. EXTREMITIES: No significant deformity or joint abnormality. No edema. Peripheral pulses intact. No varicosities. LOWER EXTREMITY: Examination of both feet reveals all toes to be normal in size and symmetry, normal range of motion, normal sensation with distal capillary filling of less than 2 seconds without tenderness, swelling, discoloration, nodules, weakness or deformity; SKIN: Skin normal color, texture and turgor with no lesions or eruptions. PSYCHIATRIC: The mental examination revealed the patient was oriented to person, place, and time. - Assessment and Plan (1) Encephalopathy Current Visit: Yes Status: Acute Assessment and Plan: Patient was found unresponsive, continues to only respond to painful stimuli. Etiology is likely metabolic acidosis secondary to DKA Patient admitted to heroin use and her tox screen was positive for benzodiaze pines and cocaine. Mental status continues to improve: was a & o x3. Is out of DKA status. (2) Diabetic ketoacidosis Current Visit: Yes Status: Resolved Assessment and Plan: Patient found to be in DKA on presenting labs, pH 7.27, bicarbonate 12, potassium 6.8, glucose 788, lactic acid 2.7 She was started on an insulin drip and 4 L normal saline boluses, repeat labs potassium 5.3, bicarbonate 6, glucose 659 She was transferred up to the ICU where she was on insulin drip and every 3 hour electrolytes, every hour glucose She was on 0.45% NaCl with 20 mEq potassium at 150 mL per hour as per DKA prot ocol, and replaced electrolytes per protocol Patient's AG closed from 26 to 11. Electrolytes WNL. Renal function improved. Insulin drip was stopped and patient was transitioned to SQ insulin. IVF were stopped. Plan: - C/W subcutaneous insulin. (3) Elevated troponin Current Visit: Yes Status: Acute Assessment and Plan: Mild troponin elevation noted at 0.63, 0.75, 0.86, 0.68. No active chest pain, however patient is a diabetic. Cardiology was consulted. Echocardiogram showed 60% EF with indeterminate diastolic dysfunction. Mild mitral regurgitation. Mild tricuspid regurgitation. No pulmonary hypertension. Cardiology notes that mild troponin elevation likely occurred secondary to DKA/hypotension/cocaine use. Heparin gtt discontinued; patient started on SQ heparin. (4) Substance abuse Current Visit: Yes Status: Chronic Assessment and Plan: Patient has chronic history of substance abuse, she has methadone listed as a home medication and recently admitted to using heroin however her tox screen was negative for opiates but positive for benzodiazepines and cocaine We will continue to monitor for signs of toxicity or withdrawal (5) Homeless Current Visit: Yes Status: Acute Assessment and Plan: Patient states that she used to live with her daughter, but was kicked out of the house by her. Plan: - Consult to social work for placement. DVT Prophylaxis: SQ heparin. - Time Spent with Patient Total time spent is greater than 50% in coordination of care (as documented) at patient's floor/unit and/or counseling patient: Internal Medicine: Result - Labs CBC & Chem 7: 10/29/18 00:33 10/29/18 00:33 Labs: Short CBC 10/29/18 Range/Units 00:33 WBC 9.4 (4.3-11.1) K/mcL Hgb 9.9 L D (11.5-15.4) g/dL Hct 30.1 L (35.3-44.9) % Plt Count 301 (140-400) K/mcL BMP 10/29/18 00:33 Sodium 133 L Potassium 4.6 Chloride 102 Carbon Dioxide 25 BUN 20 Creatinine 0.67 Glucose 258 H Calcium 8.7 Cardiac Enzymes 10/28/18 10/29/18 Range/Units 13:50 09:00 Troponin I 0.86 H* 0.68 H* (< 0.04) ng/mL - ABG Interpretation ABG results: PT/INR, D-dimer PT 9.6 Seconds (9.4-12.1) 10/28/18 16:21 - Impressions Impressions Echocardiogram 10/28/18 16:04 Impressions: LVEF 60%. Indeterminate diastolic function. Normal right ventricular structure and function. Mild mitral regurgitation. Mild tricuspid regurgitation. No pulmonary hypertension. Left Ventricular Wall Motion: Rest Echo Findings All wall segments showed normal motion. Findings: Study Quality * Technically adequate exam. ECG Findings * Normal sinus rhythm. Left Ventricle * LVEF 60%. * Normal LV chamber size, wall thickness and function. * Indeterminate diastolic function. Right Ventricle * Normal right ventricular structure and function. Left Atrium * Normal left atrial size. Right Atrium * Normal right atrial size. Mitral Valve * Normal mitral valve structure. * No mitral stenosis. * Mildly thickened mitral valve leaflets. * Mild mitral regurgitation. Aortic Valve * No aortic regurgitation. * Trileaflet aortic valve. * No aortic stenosis. Tricuspid Valve * Normal tricuspid valve structure. * Mild tricuspid regurgitation. * Estimated RA pressure is 8 mmHg. * Estimated RVSP is 26 mmHg. * No pulmonary hypertension. Pulmonic Valve * Pulmonic valve is not well visualized. * No pulmonic stenosis. * No pulmonic regurgitation. Pulmonary Artery * Pulmonary artery not well visualized. Aorta * Normally sized aortic root. Pericardium * There is no pericardial effusion present. Interatrial Septum * No evidence of PFO by color Doppler. IVC * The IVC is not dilated. * < 50% respiratory change. Consult Discharge Plan - Plan Referrals: NONE,PCP [Primary Care Provider] - (2) Diabetic ketoacidosis Qualifiers: Diabetes mellitus type: type 2 Diabetes mellitus complication detail: without coma Qualified Code(s): E11.10 - Type 2 diabetes mellitus with ketoacidosis without coma
[2018-10-29] MEDS ORDERED: *HR* Heparin 5,000 UNIT/ML VIAL SQ SCH (14:00)
[2018-10-29] MEDS ORDERED: cefTRIAXone 250 MG VIAL IM ONE ×2 (15:29)
[2018-10-29] MEDS ORDERED: Azithromycin 250 MG TABLET PO ONE (15:29)
[2018-10-29] MEDS ORDERED: metroNIDAZOLE 500 MG TABLET PO ONE (15:32)
[2018-10-29] MEDS ORDERED: Ondansetron 4 MG/2 ML VIAL IVP ONE (15:33)
[2018-10-29] MEDS ORDERED: Lidocaine -MPF 1% 2 ML VIAL INFILT ONE (16:02)
--- NOTE | 2018-10-29 16:07 | Discharge Summary ---
<MaikelkalyaniirisVarinder jin - Last Filed: 10/29/18 15:53> Orders not resulted at time of discharge: Pending orders 10/29/18 15:00 C.trach N.gonorrhoea DNA Moore U [MOLMIC] Routine Wet Prep (Tric/BV/Aide) [RM] Routine Date of Encounter: 10/29/18 Time of Encounter: 08:00 - Discharge Diagnosis (1) Encephalopathy Priority: Primary Status: Acute (2) Diabetic ketoacidosis Priority: Primary Status: Resolved Qualifiers: Diabetes mellitus type: type 2 Diabetes mellitus complication detail: with out coma Qualified Code(s): E11.10 - Type 2 diabetes mellitus with ketoacidosis without coma (3) Elevated troponin Priority: Secondary Status: Acute (4) Substance abuse Priority: Secondary Status: Chronic (5) Vaginal discharge Priority: Primary Status: Acute (6) Homeless Priority: Secondary Status: Acute Hospital course: Ms. Richardson is a 58 year old female with a past medical history of diabetes, hepatitis, IV and other drug abuse. EMS was called because the patient was found unresponsive on the floor in a [facility] bathroom. The patient admitted to recently using heroin and also having diarrhea, and not using her insulin. On arrival to the emergency department labs revealed metabolic acidosis, hyperkalemia, hyponatremia, anion gap, elevated glucose and elevated lactic acid consistent with DKA. Troponin was also elevated and EKG demonstrated peak T wa ves consistent with hyperkalemia but no ST changes consistent with acute ischemia. She was given 4 L normal saline bolus, started on insulin drip and norepinephrine drip and transferred to the ICU. On arrival to the ICU I attempted to interview patient however she was obtunded and not answering questions. Shana had an anion gap of 26 on admission and subsequently improved to 11. Transitioned from insulin drip to subcutaneous. Patient's mental status improved and she is now at her baseline. Patient had en elevated troponin on arrival of 0.63, 0.75, 0.86, 0.68. Echocardiogram showed an EF of 60% with indeterminate diastolic function. Normal right ventricular structure and function. Mild mitral regurgitation. Mild tricuspid regurgitation. No pulmonary hypertension. Suspect that mild troponin elevation likely occurred secondary to DKA/hypotension/cocaine use. Patient was also complaining of vaginal discharge. A pelvic exam was performed which showed erythema of the cervix and white pur ulent discharge in the cervical os. Gonorrhea and chlamydia urine cultures were obtained as well as trich/BV/aide cultures. Patient was empirically treated with a single dose of rocephin, azithromycin, and flagyl. Patient was warned that if her tests come back positive that she is to inform her sexual partners to have them treated as well. Patient is currently homeless. Social work has been working with the patient, providing her with list of homeless shelters that she is to follow-up with. Patient will need to follow-up with her PCP in the next 3-4 days. - Time Spent with Patient Total time spent providing and/or coordinating discharge services: Time spent: Greater than 30 minutes - Discharge Medications Prescriptions: New Latanoprost/Pf [Latanoprost 0.005% Eye Drop] 7.5 ml OP QPM #1 drops Meloxicam [Mobic] 15 mg PO DAILY PRN #60 tablet PRN Reason: Pain Continued Buprenorphine HCl/Naloxone HCl [Suboxone 8 mg-2 mg Sl Film] 2 each SL DAILY Cetirizine HCl [Allergy Relief] 10 mg PO DAILY #30 capsule Insulin Glargine,Hum.rec.anlog [Basaglar Kwikpen U-100] 30 units SQ QPM #30 insuln.pen Insulin ASPART [NovoLOG] 5 unit SQ TIDWM #450 mls Changed NALOXONE 4 MG Nasal Premont [Narcan] 1 spray NS AD PRN #2 spray PRN Reason: opiod overdose Discontinued Latanoprost [Xalatan] 1 drop BOTH EYES HS No Action Meloxicam [Mobic] 15 mg PO DAILY PRN PRN Reason: Pain Home Medications: Buprenorphine HCl/Naloxone HCl [Suboxone 8 mg-2 mg Sl Film] 2 each SL DAILY 10/28/18 [History] Cetirizine HCl [Allergy Relief] 10 mg PO DAILY #30 capsule 10/29/18 [Rx] Insulin ASPART [NovoLOG] 5 unit SQ TIDWM #450 mls 10/29/18 [Rx] Insulin Glargine,Hum.rec.anlog [Basaglar Kwikpen U-100] 30 units SQ QPM #30 insuln.pen 10/29/18 [Rx] Latanoprost/Pf [Latanoprost 0.005% Eye Drop] 7.5 ml OP QPM #1 drops 10/29/18 [Rx] Meloxicam [Mobic] 15 mg PO DAILY PRN 10/29/18 [History] Meloxicam [Mobic] 15 mg PO DAILY PRN #60 tablet 10/29/18 [Rx] NALOXONE 4 MG Nasal Premont [Narcan] 1 spray NS AD PRN #2 spray 10/29/18 [Rx] Allergies/Adverse Reactions: Allergy/AdvReac Type Severity Reaction Status Date / Time No Known Allergies Allergy Verified 02/15/18 09:31 Date of admission: 10/27/18 22:23 Primary care physician: PCP NONE Consults: 10/28/18 15:49 Consult to Cardiology [CONS] Routine Comment: Consulting Provider: Cardiology Cassia Reason for Consult: NSTEMI Call Completed: Yes 10/29/18 11:16 Consult to Rn Imaging [CONS] Routine Reason for SW Consult: Hoimeless. 10/29/18 12:21 Consult to Invasive Line Access Team [CONS] Routine Reason for Consult: limited access Line Type: EPIV Discharging clinician: Varinder Frost Anticipated date of discharge: 10/29/18 - Constitutional Vitals: Temp Pulse Resp BP Pulse Ox 98.9 F 70 16 107/62 96 10/29/18 11:28 10/29/18 11:28 10/29/18 11:28 10/29/18 11:28 10/29/18 11:28 General appearance: Present: A&O X 0 Exam: GENERAL APPEARANCE: Well developed, well nourished, alert and cooperative, and appears to be in no acute distress. Alert and oriented x 3. HEAD: normocephalic. EYES: vision is grossly intact. EARS: hearing grossly intact. NOSE: No nasal discharge. THROAT: Oral cavity and pharynx normal. Dry mucosa. No inflammation, swelling, exudate, or lesions. NECK: Neck supple, non-tender without lymphadenopathy, masses or thyromegaly. CARDIAC: Normal S1 and S2. No S3, S4 or murmurs. Rhythm is regular. There is no peripheral edema, cyanosis or pallor. Extremities are warm and well perfused. Capillary refill is less than 2 seconds. No carotid bruits. LUNGS: Clear to auscultation and percussion without rales, rhonchi, wheezing or diminished breath sounds. ABDOMEN: Positive bowel sounds. Soft, nondistended, nontender. No guarding or rebound. No masses. MUSKULOSKELETAL: Adequately aligned spine. ROM intact spine and extremities. No joint erythema or tenderness. Normal muscular development. BACK: Examination of the spine reveals normal gait and posture, no spinal deformity, symmetry of spinal muscles, without tenderness, decreased range of motion or muscular spasm. EXTREMITIES: No significant deformity or joint abnormality. No edema. Peripheral pulses intact. No varicosities. LOWER EXTREMITY: Examination of both feet reveals all toes to be normal in size and symmetry, normal range of motion, normal sensation with distal capillary filling of less than 2 seconds without tenderness, swelling, discoloration, nodules, weakness or deformity; SKIN: Skin normal color, texture and turgor with no lesions or eruptions. PSYCHIATRIC: The mental examination revealed the patient was oriented to person, place, and time. - Patient Status Disposition: Home, Self-Care Condition: Fair Functional capacity at discharge: independent ambulation Overall status at discharge: patient is progressing back to baseline - Discharge Instructions Instructions: Diabetes Mellitus Type 2 in Adults (DC) Follow Up With: NONE,PCP [Primary Care Provider] - Forms: ED Satisfaction Letter - Diet and Activity Activity: increase activity as tolerated Diet: diabetic diet <Gregory Torres - Last Filed: 10/29/18 18:02> Orders not resulted at time of discharge: Pending orders 10/29/18 15:00 Vaginosis Panel [MOLMIC] Stat 10/29/18 16:20 C.trach N.gonorrhoea DNA Panel [MOLMIC] Routine Date of Encounter: 10/29/18 Hospital course: Ms. Richardson is a 58 year old female - Time Spent with Patient Total time spent providing and/or coordinating discharge services: 38min Date of admission: 10/27/18 22:23 Primary care physician: PCP NONE Consults: 10/28/18 15:49 Consult to Cardiology [CONS] Routine Comment: Consulting Provider: Cardiology Cassia Reason for Consult: NSTEMI Call Completed: Yes 10/29/18 11:16 Consult to Rn Imaging [CONS] Routine Reason for SW Consult: Hoimeless. 10/29/18 12:21 Consult to Invasive Line Access Team [CONS] Routine Reason for Consult: limited access Line Type: EPIV - Constitutional Vitals: Temp Pulse Resp BP Pulse Ox 98.9 F 70 16 107/62 96 10/29/18 11:28 10/29/18 11:28 10/29/18 11:28 10/29/18 11:28 10/29/18 11:28 - Attending Attestation I examined this patient and my medical decision-making was reviewed with the Resident Physician on 10/29/18. I agree with the documented findings, disposition and treatment plan as described except to the extent set forth below. Ms Richardson has been hospitalized for acute DKA. She had type 2 MS as well. She had vaginal discharge and studies sent. She was treated with abx. She is planning to go to drug rehab or homeless retirement. She is ready for discharge. Exam as above.
[2018-10-29 18:30] VITALS: BP 124/54
== END 2018-10-29 18:06 | disposition home or self-care (01) | DRG 420 ==
LOC: EMEROOARM 17:57 → SUATTDRO 22:23 → ICNU 22:23 → 2ANU 10-28 20:13
PROVIDERS: ADMIT Internal Medicine; ATTEND Internal Medicine

== ENCOUNTER 2018-11-12 11:59 | Inpatient (IN) ==
[2018-11-12] MEDS ORDERED: *HR* Dextrose 50 % in Water (Syg) 50 ML SYRINGE IVP PRN ×2 (12:16→16:04)
[2018-11-12] MEDS ORDERED: 0.9 % Sodium Chloride 1,000 ML ONE (12:24)
[2018-11-12] MEDS: 0.9 % Sodium Chloride 1,000 ML IVC SCH ×4 (12:28→22:03)
[2018-11-12 12:41] LABS: Basophils % 0.2 %; Eosinophils % 0.1 %; Immature Granulocytes % 2.3 % (0-4); Mean Corpuscular HGB Conc 27.4 g/dL (31.6-35.5); Red Cell Distribution Width 15.4 % (11.5-14.5); Segmented Neutrophils % 83.5 %
[2018-11-12 12:42] LABS: Hematocrit 42.4 % (35.3-44.9); Hemoglobin 11.6 g/dL (11.5-15.4); Lymphocytes # 1.3 K/mcL (0.6-4.6); Mean Corpuscular Hemoglobin 28.4 pg (28.0-33.3); Mean Corpuscular Volume 103.7 fL (83.0-100.0); Mean Platelet Volume 9.6 fL (9.4-12.4); Monocytes # 1.3 K/mcL (0.0-1.3); Monocytes % 6.9 %; Platelet Count 485 K/mcL (140-400); Red Blood Count 4.09 M/mcL (3.82-4.97); White Blood Count 18.6 K/mcL (4.3-11.1)
[2018-11-12 12:53] LABS: VBG HCO3 4 mEq/L (21-27); VBG PCO2 16 mmHg (41-51); VBG PH 6.96 pH Units (7.32-7.42); VBG PO2 101 mmHg (25-50)
[2018-11-12 12:54] LABS: Bilirubin,Urine Negative (Negative); Blood,Urine Moderate (Negative); Clarity,Urine Cloudy (Clear); Color,Urine Yellow (Yellow); Glucose,Urine (UA) >=1000 mg/dL (Normal); Ketones,Urine 80 mg/dL (Negative); Leukocyte Esterase,Urine Negative (Negative); Nitrite,Urine Negative (Negative); Protein,Urine 30 mg/dL (Neg-Trace); Specific Gravity,Urine 1.023 (1.010-1.025); Urobilinogen,Urine Normal (Normal)
[2018-11-12 12:56] LABS: Bacteria,Urine None Seen per hpf (None-Few); Hyaline Casts,Urine Few per lpf (None-Few); RBC,Urine 0-3 per hpf (0-3); Squamous Epithelial Cell,Urine Many per lpf (None-Few); WBC,Urine 0-3 per hpf (0-3)
[2018-11-12] MEDS ORDERED: Piperacillin/Tazobactam 3.375 GM in 0.9 % Sodium Chloride Mini Bag 100 ML IVPB ONE (12:59)
[2018-11-12 13:11] LABS: Amphetamine Screen,Urine Negative ng/mL (Cutoff=1000); Barbiturate Screen,Urine Negative ng/mL (Cutoff=200); Benzodiazepines Screen,Urine Negative ng/mL (Cutoff=200); Cannabinoid Screen,Urine Negative ng/mL (Cutoff = 50); Cocaine Screen,Urine Positive ng/mL (Cutoff= 300); Opiate Screen,Urine Negative ng/mL (Cutoff=300); Phencyclidine Screen,Urine Negative ng/mL (Cutoff=25)
[2018-11-12] MEDS ORDERED: Insulin Human Regular 100 UNIT in 0.9 % Sodium Chloride 100 ML IVC SCH (13:15)
[2018-11-12 13:19] LABS: Alanine Aminotransferase 35 Units/L (7-52); Albumin 3.8 g/dL (3.5-5.7); Albumin/Globulin Ratio 1.4 (1.1-2.2); Alkaline Phosphatase 170 Units/L (34-104); Aspartate Amino Transferase 22 Units/L (13-39); BUN/Creatinine Ratio 28 (6-26); Bilirubin,Total 0.5 mg/dL (0.3-1.0); Blood Urea Nitrogen 43 mg/dL (8-23); Calcium 9.4 mg/dL (8.6-10.3); Carbon Dioxide 4 mEq/L (23-29); Chloride 89 mEq/L (98-107); Globulin 2.8 g/dL (2.4-3.5); Glucose 1198 mg/dL (70-105); Magnesium 3.4 mg/dL (1.6-2.6); Osmolality,Calculated 338 (280-300); Phosphorous 9.7 mg/dL (2.7-4.5); Potassium 6.9 mEq/L (3.5-5.1); Sodium 128 mEq/L (136-145); Total Protein 6.6 g/dL (6.4-8.9); Troponin I 0.61 ng/mL (< 0.04); eGFR For African Americans 43 (> 60); eGFR For Non-African Americans 35 (> 60)
[2018-11-12] MEDS ORDERED: Sodium Bicarbonate 50 MEQ/50 ML VIAL IVP ONE (13:21)
[2018-11-12 13:23] LABS: Neutrophils # 15.5 K/mcL (1.6-8.9)
[2018-11-12 13:25] LABS: Platelet Estimate Normal (Normal)
[2018-11-12 13:26] LABS: Hypochromasia Present (Not Present)
[2018-11-12] MEDS ORDERED: Insulin Regular, Human 100 UNIT/ML ONE (13:48)
[2018-11-12] MEDS ORDERED: 0.9 % Sodium Chloride 250 ML ONE (14:00)
[2018-11-12 15:33] LABS: Thyroid Stimulating Hormone 0.684 mcIU/mL (0.340-5.600)
[2018-11-12] MEDS ORDERED: Insulin Regular, Human 100 UNIT/ML IV PRN (16:04)
[2018-11-12] MEDS: Insulin Human Regular 100 UNIT in 0.9 % Sodium Chloride 100 ML IVC SCH ×2 (16:34→22:07)
[2018-11-12 16:55] LABS: ABG PCO2 < 13 mmHg (35-45); ABG PH 7.14 pH Units (7.32-7.45); ABG PO2 94 mmHg (85-104)
[2018-11-12 17:57] LABS: Potassium 4.7 mEq/L (3.5-5.1)
[2018-11-12] MEDS: 0.45 % Sodium Chloride w/KCl 20 MEQ/1,000 ML MLS IVC SCH ×2 (18:33→23:03)
[2018-11-12 20:23] LABS: ABG PCO2 < 13 mmHg (35-45); ABG PH 7.35 pH Units (7.32-7.45); ABG PO2 101 mmHg (85-104)
[2018-11-12 21:33] LABS: BUN/Creatinine Ratio 30 (6-26); Blood Urea Nitrogen 30 mg/dL (8-23); Calcium 8.3 mg/dL (8.6-10.3); Carbon Dioxide 10 mEq/L (23-29); Chloride 120 mEq/L (98-107); Glucose 225 mg/dL (70-105); Osmolality,Calculated 317 (280-300); Potassium 4.3 mEq/L (3.5-5.1); Sodium 147 mEq/L (136-145); eGFR For African Americans > 60 (> 60); eGFR For Non-African Americans 57 (> 60)
[2018-11-12] MEDS: D5% in 0.45% NACL w KCl 20 MEQ/1,000 ML MLS IVC PRN (22:04)
[2018-11-12] MEDS: *HR* Heparin 5,000 UNIT/ML VIAL SQ SCH (22:57)
[2018-11-13 00:42] LABS: VBG HCO3 17 mEq/L (21-27); VBG PCO2 29 mmHg (41-51); VBG PH 7.39 pH Units (7.32-7.42); VBG PO2 157 mmHg (25-50)
[2018-11-13 01:41] LABS: BUN/Creatinine Ratio 31 (6-26); Blood Urea Nitrogen 28 mg/dL (8-23); Calcium 7.9 mg/dL (8.6-10.3); Carbon Dioxide 14 mEq/L (23-29); Chloride 121 mEq/L (98-107); Glucose 152 mg/dL (70-105); Osmolality,Calculated 310 (280-300); Potassium 4.1 mEq/L (3.5-5.1); Sodium 146 mEq/L (136-145); eGFR For African Americans > 60 (> 60); eGFR For Non-African Americans > 60 (> 60)
[2018-11-13] MEDS: 0.9 % Sodium Chloride 1,000 ML IVC SCH (02:59)
[2018-11-13 04:56] LABS: Basophils % 0.1 %; Hematocrit 31.9 % (35.3-44.9); Hemoglobin 10.6 g/dL (11.5-15.4); Immature Granulocytes % 0.5 % (0-4); Lymphocytes % 7.9 %; Mean Corpuscular HGB Conc 33.2 g/dL (31.6-35.5); Mean Corpuscular Hemoglobin 28.3 pg (28.0-33.3); Mean Platelet Volume 9.3 fL (9.4-12.4); Monocytes # 0.7 K/mcL (0.0-1.3); Monocytes % 5.3 %; Neutrophils # 11.4 K/mcL (1.6-8.9); Platelet Count 248 K/mcL (140-400); Red Blood Count 3.75 M/mcL (3.82-4.97); Red Cell Distribution Width 15.6 % (11.5-14.5); Segmented Neutrophils % 86.2 %; White Blood Count 13.2 K/mcL (4.3-11.1)
[2018-11-13 04:57] LABS: VBG HCO3 18 mEq/L (21-27); VBG PCO2 26 mmHg (41-51); VBG PH 7.45 pH Units (7.32-7.42); VBG PO2 206 mmHg (25-50)
[2018-11-13] MEDS: D5% in 0.45% NACL w KCl 20 MEQ/1,000 ML MLS IVC PRN (05:05)
[2018-11-13 05:10] LABS: Mean Corpuscular Volume 85.1 fL (83.0-100.0)
[2018-11-13 05:16] LABS: BUN/Creatinine Ratio 33 (6-26); Blood Urea Nitrogen 27 mg/dL (8-23); Carbon Dioxide 18 mEq/L (23-29); Chloride 121 mEq/L (98-107); Glucose 150 mg/dL (70-105); Osmolality,Calculated 310 (280-300); Sodium 146 mEq/L (136-145); eGFR For African Americans > 60 (> 60); eGFR For Non-African Americans > 60 (> 60)
[2018-11-13] MEDS: *HR* Heparin 5,000 UNIT/ML VIAL SQ SCH ×3 (05:58→22:50)
[2018-11-13 07:14] LABS: VBG HCO3 19 mEq/L (21-27); VBG PCO2 28 mmHg (41-51); VBG PH 7.44 pH Units (7.32-7.42); VBG PO2 178 mmHg (25-50)
[2018-11-13] MEDS: 0.45 % Sodium Chloride w/KCl 20 MEQ/1,000 ML MLS IVC SCH (07:16)
[2018-11-13 07:27] LABS: BUN/Creatinine Ratio 32 (6-26); Blood Urea Nitrogen 25 mg/dL (8-23); Calcium 7.9 mg/dL (8.6-10.3); Carbon Dioxide 20 mEq/L (23-29); Chloride 119 mEq/L (98-107); Glucose 98 mg/dL (70-105); Osmolality,Calculated 310 (280-300); Potassium 3.7 mEq/L (3.5-5.1); Sodium 148 mEq/L (136-145); eGFR For African Americans > 60 (> 60); eGFR For Non-African Americans > 60 (> 60)
[2018-11-13] MEDS ORDERED: Insulin LISPRO 300 UNITS/3 ML VIAL SQ ONE (08:28)
[2018-11-13] MEDS ORDERED: Insulin DETEMIR 100 UNIT/ML X5UNITS SQ ONE (09:32)
[2018-11-13] MEDS ORDERED: Piperacillin/Tazobactam 3.375 GM in 0.9 % Sodium Chloride Mini Bag 100 ML IVPB SCH (10:00)
[2018-11-13] MEDS ORDERED: *HR* Dextrose 50 % in Water (Syg) 50 ML SYRINGE IVP PRN (10:28)
[2018-11-13] MEDS: Piperacillin/Tazobactam 3.375 GM in 0.9 % Sodium Chloride Mini Bag 100 ML IVPB SCH ×2 (10:49→18:49)
[2018-11-13] MEDS: Vancomycin 500 MG in 0.9 % Sodium Chloride Mini Bag 100 ML IVPB SCH (11:34)
[2018-11-13] MEDS ORDERED: Dextrose Gel 15 GM/37.5 ML TUBE PO PRN ×2 (13:00)
[2018-11-13] MEDS ORDERED: Insulin LISPRO 300 UNITS/3 ML VIAL SQ SCH ×2 (16:30→21:00)
[2018-11-13] MEDS ORDERED: *HR* LORazepam 2 MG/ML VIAL IVP PRN ×3 (18:37)
[2018-11-13] MEDS: Insulin LISPRO 300 UNITS/3 ML VIAL SQ SCH (21:46)
[2018-11-14 01:56] LABS: Basophils % 0.1 %; Eosinophils % 0.1 %; Hematocrit 32.3 % (35.3-44.9); Hemoglobin 10.6 g/dL (11.5-15.4); Immature Granulocytes % 0.6 % (0-4); Lymphocytes # 1.4 K/mcL (0.6-4.6); Lymphocytes % 19.9 %; Mean Corpuscular HGB Conc 32.8 g/dL (31.6-35.5); Mean Corpuscular Hemoglobin 28.3 pg (28.0-33.3); Mean Corpuscular Volume 86.4 fL (83.0-100.0); Mean Platelet Volume 9.3 fL (9.4-12.4); Monocytes # 0.4 K/mcL (0.0-1.3); Monocytes % 6.1 %; Neutrophils # 5.1 K/mcL (1.6-8.9); Platelet Count 195 K/mcL (140-400); Red Blood Count 3.74 M/mcL (3.82-4.97); Red Cell Distribution Width 16.1 % (11.5-14.5); Segmented Neutrophils % 73.2 %; White Blood Count 6.9 K/mcL (4.3-11.1)
[2018-11-14 02:21] LABS: Troponin I 0.47 ng/mL (< 0.04)
[2018-11-14] MEDS: Piperacillin/Tazobactam 3.375 GM in 0.9 % Sodium Chloride Mini Bag 100 ML IVPB SCH ×3 (03:24→18:08)
[2018-11-14] MEDS: *HR* Heparin 5,000 UNIT/ML VIAL SQ SCH ×3 (06:43→21:26)
[2018-11-14] MEDS ORDERED: Aminoglycoside Consult 1 EACH MC ONE (08:17)
[2018-11-14] MEDS: Insulin LISPRO 300 UNITS/3 ML VIAL SQ SCH ×4 (08:20→21:33)
[2018-11-14] MEDS: Loratadine 10 MG TABLET PO SCH (08:21)
[2018-11-14] MEDS: Vancomycin 500 MG in 0.9 % Sodium Chloride Mini Bag 100 ML IVPB SCH (12:06)
[2018-11-14] MEDS ORDERED: Ziprasidone 10 MG in Water for inj. (sterile) 0.5 ML IM ONE (16:05)
[2018-11-14] MEDS: Ziprasidone 20 MG CAPSULE PO PRN (16:21)
[2018-11-14] MEDS: *HR* Buprenorphine HCl 8 MG TAB.SUBL SL SCH (17:01)
[2018-11-14] MEDS ORDERED: Ziprasidone 20 MG CAPSULE PO SCH (21:00)
[2018-11-15 03:36] LABS: Hematocrit 33.6 % (35.3-44.9); Hemoglobin 10.7 g/dL (11.5-15.4); Mean Corpuscular HGB Conc 31.8 g/dL (31.6-35.5); Mean Corpuscular Hemoglobin 28.3 pg (28.0-33.3); Mean Corpuscular Volume 88.9 fL (83.0-100.0); Mean Platelet Volume 9.1 fL (9.4-12.4); Platelet Count 185 K/mcL (140-400); Red Blood Count 3.78 M/mcL (3.82-4.97); Red Cell Distribution Width 15.8 % (11.5-14.5); White Blood Count 5.3 K/mcL (4.3-11.1)
[2018-11-15 03:55] LABS: Alanine Aminotransferase 22 Units/L (7-52); Albumin 2.6 g/dL (3.5-5.7); Albumin/Globulin Ratio 1.1 (1.1-2.2); Alkaline Phosphatase 104 Units/L (34-104); Aspartate Amino Transferase 20 Units/L (13-39); BUN/Creatinine Ratio 33 (6-26); Blood Urea Nitrogen 23 mg/dL (8-23); Calcium 8.1 mg/dL (8.6-10.3); Carbon Dioxide 24 mEq/L (23-29); Chloride 103 mEq/L (98-107); Globulin 2.3 g/dL (2.4-3.5); Glucose 393 mg/dL (70-105); Magnesium 1.6 mg/dL (1.6-2.6); Osmolality,Calculated 302 (280-300); Potassium 4.1 mEq/L (3.5-5.1); Sodium 136 mEq/L (136-145); Total Protein 4.9 g/dL (6.4-8.9); eGFR For African Americans > 60 (> 60); eGFR For Non-African Americans > 60 (> 60)
[2018-11-15] MEDS: Piperacillin/Tazobactam 3.375 GM in 0.9 % Sodium Chloride Mini Bag 100 ML IVPB SCH ×3 (04:15→18:33)
[2018-11-15] MEDS: *HR* Heparin 5,000 UNIT/ML VIAL SQ SCH ×3 (04:15→22:53)
[2018-11-15] MEDS ORDERED: Insulin DETEMIR 100 UNIT/ML X5UNITS SQ SCH ×2 (08:00→21:00)
[2018-11-15] MEDS ORDERED: Insulin LISPRO 300 UNITS/3 ML VIAL SQ ONE ×2 (08:48→10:30)
[2018-11-15] MEDS: Insulin LISPRO 300 UNITS/3 ML VIAL SQ SCH ×4 (08:49→22:54)
[2018-11-15] MEDS: *HR* Buprenorphine HCl 8 MG TAB.SUBL SL SCH (08:51)
[2018-11-15] MEDS: Loratadine 10 MG TABLET PO SCH (08:51)
[2018-11-15] MEDS: 0.9 % Sodium Chloride 1,000 ML IVC SCH ×3 (08:52→22:56)
[2018-11-15] MEDS: Doxycycline 100 MG CAPSULE PO SCH ×2 (12:13→22:54)
[2018-11-15 13:16] LABS: Alanine Aminotransferase 23 Units/L (7-52); Albumin 2.6 g/dL (3.5-5.7); Albumin/Globulin Ratio 1.1 (1.1-2.2); Alkaline Phosphatase 101 Units/L (34-104); Aspartate Amino Transferase 25 Units/L (13-39); BUN/Creatinine Ratio 27 (6-26); Bilirubin,Total 0.6 mg/dL (0.3-1.0); Blood Urea Nitrogen 19 mg/dL (8-23); Carbon Dioxide 17 mEq/L (23-29); Chloride 114 mEq/L (98-107); Globulin 2.4 g/dL (2.4-3.5); Glucose 159 mg/dL (70-105); Osmolality,Calculated 304 (280-300); Potassium 3.5 mEq/L (3.5-5.1); Sodium 144 mEq/L (136-145); eGFR For African Americans > 60 (> 60); eGFR For Non-African Americans > 60 (> 60)
[2018-11-15] MEDS: *HR* Dextrose 50 % in Water (Syg) 50 ML SYRINGE IVP PRN ×2 (17:26→18:37)
[2018-11-15] MEDS: Ziprasidone 20 MG CAPSULE PO PRN (18:34)
[2018-11-16] MEDS: *HR* Dextrose 50 % in Water (Syg) 50 ML SYRINGE IVP PRN ×3 (04:00→09:00)
[2018-11-16] MEDS: Piperacillin/Tazobactam 3.375 GM in 0.9 % Sodium Chloride Mini Bag 100 ML IVPB SCH ×3 (04:00→19:09)
[2018-11-16] MEDS: D5% in Water 1,000 ML IVC PRN ×2 (04:53→12:36)
[2018-11-16] MEDS: *HR* Heparin 5,000 UNIT/ML VIAL SQ SCH ×3 (05:16→19:36)
[2018-11-16] MEDS ORDERED: Insulin DETEMIR 100 UNIT/ML X5UNITS SQ SCH (07:00)
[2018-11-16] MEDS: Loratadine 10 MG TABLET PO SCH (08:18)
[2018-11-16] MEDS: *HR* Buprenorphine HCl 8 MG TAB.SUBL SL SCH (08:18)
[2018-11-16] MEDS: Ziprasidone 20 MG CAPSULE PO PRN ×2 (08:18→19:53)
[2018-11-16] MEDS: 0.9 % Sodium Chloride 1,000 ML IVC SCH (08:18)
[2018-11-16] MEDS: Doxycycline 100 MG CAPSULE PO SCH ×2 (08:18→19:53)
[2018-11-16] MEDS: Insulin LISPRO 300 UNITS/3 ML VIAL SQ SCH ×4 (08:20→19:36)
[2018-11-16] MEDS ORDERED: *HR* Succinylcholine 200 MG/10 ML VIAL IVP ONE (16:06)
[2018-11-16] MEDS ORDERED: *HR* FentaNYL (PF) 100 MCG/2 ML VIAL ONE (16:06)
[2018-11-16] MEDS ORDERED: Lidocaine -MPF 2% 2 ML VIAL ONE (16:06)
[2018-11-16] MEDS ORDERED: *HR* Propofol 200 MG/20 ML VIAL IVP ONE (16:06)
[2018-11-16] MEDS ORDERED: Ondansetron 4 MG/2 ML VIAL IVP ONE (16:16)
[2018-11-16] MEDS ORDERED: *HR* Promethazine 25 MG/ML VIAL IVP PRN (16:16)
[2018-11-16] MEDS ORDERED: *HR* HYDROmorphone (PF) 1 MG/ML SYRINGE IVP PRN (16:16)
[2018-11-16] MEDS ORDERED: *HR* OxyCODONE Immed Rel 5 MG TABLET PO PRN (16:16)
[2018-11-16] MEDS ORDERED: Dexamethasone 4 MG/ML VIAL IVP ONE ×2 (16:16→18:27)
[2018-11-16] MEDS ORDERED: Acetaminophen IV 1,000 MG/100 ML INFUS..BTL ONE (16:22)
[2018-11-16] MEDS ORDERED: *HR* PHENYLEPHRINE 1,000 MCG/10 ML SYRINGE IVP ONE (17:04)
[2018-11-16] MEDS ORDERED: *HR* LORazepam 2 MG/ML VIAL IVP PRN ×2 (18:27)
[2018-11-16] MEDS ORDERED: Dextrose Gel 15 GM/37.5 ML TUBE PO PRN ×2 (18:27)
[2018-11-16] MEDS ORDERED: D5% in Water 1,000 ML IVC PRN (18:27)
[2018-11-16] MEDS ORDERED: 0.9 % Sodium Chloride 1,000 ML IVC SCH (18:27)
[2018-11-16] MEDS: *HR* LORazepam 2 MG/ML VIAL IVP PRN (19:53)
[2018-11-17] MEDS: Piperacillin/Tazobactam 3.375 GM in 0.9 % Sodium Chloride Mini Bag 100 ML IVPB SCH ×3 (02:08→20:20)
[2018-11-17] MEDS: *HR* LORazepam 2 MG/ML VIAL IVP PRN (02:08)
[2018-11-17 05:44] LABS: Basophils % 0.3 %; Hematocrit 31.6 % (35.3-44.9); Hemoglobin 10.1 g/dL (11.5-15.4); Immature Granulocytes % 0.5 % (0-4); Lymphocytes # 1.2 K/mcL (0.6-4.6); Lymphocytes % 31.5 %; Mean Corpuscular Hemoglobin 27.7 pg (28.0-33.3); Mean Corpuscular Volume 86.8 fL (83.0-100.0); Mean Platelet Volume 9.4 fL (9.4-12.4); Monocytes # 0.2 K/mcL (0.0-1.3); Monocytes % 6.5 %; Neutrophils # 2.3 K/mcL (1.6-8.9); Platelet Count 188 K/mcL (140-400); Red Blood Count 3.64 M/mcL (3.82-4.97); Red Cell Distribution Width 15.4 % (11.5-14.5); Segmented Neutrophils % 61.2 %; White Blood Count 3.7 K/mcL (4.3-11.1)
[2018-11-17 05:56] LABS: BUN/Creatinine Ratio 27 (6-26); Blood Urea Nitrogen 19 mg/dL (8-23); Calcium 8.1 mg/dL (8.6-10.3); Carbon Dioxide 22 mEq/L (23-29); Chloride 101 mEq/L (98-107); Glucose 355 mg/dL (70-105); Osmolality,Calculated 303 (280-300); Potassium 4.2 mEq/L (3.5-5.1); Sodium 138 mEq/L (136-145); eGFR For African Americans > 60 (> 60); eGFR For Non-African Americans > 60 (> 60)
[2018-11-17] MEDS: *HR* Heparin 5,000 UNIT/ML VIAL SQ SCH ×3 (06:45→20:21)
[2018-11-17] MEDS: *HR* Buprenorphine HCl 8 MG TAB.SUBL SL SCH (08:29)
[2018-11-17] MEDS: Doxycycline 100 MG CAPSULE PO SCH ×2 (08:29→20:20)
[2018-11-17] MEDS: Loratadine 10 MG TABLET PO SCH (08:30)
[2018-11-17] MEDS: Insulin LISPRO 300 UNITS/3 ML VIAL SQ SCH ×4 (08:30→20:33)
[2018-11-17] MEDS: Insulin DETEMIR 100 UNIT/ML X5UNITS SQ SCH (08:31)
[2018-11-17] MEDS: Ziprasidone 20 MG CAPSULE PO PRN (20:34)
[2018-11-18] MEDS: Piperacillin/Tazobactam 3.375 GM in 0.9 % Sodium Chloride Mini Bag 100 ML IVPB SCH ×3 (03:20→22:09)
[2018-11-18 05:40] LABS: Hematocrit 30.8 % (35.3-44.9); Hemoglobin 10.1 g/dL (11.5-15.4); Mean Corpuscular HGB Conc 32.8 g/dL (31.6-35.5); Mean Corpuscular Hemoglobin 28.1 pg (28.0-33.3); Mean Corpuscular Volume 85.8 fL (83.0-100.0); Mean Platelet Volume 9.3 fL (9.4-12.4); Platelet Count 201 K/mcL (140-400); Red Blood Count 3.59 M/mcL (3.82-4.97); Red Cell Distribution Width 15.3 % (11.5-14.5)
[2018-11-18 05:55] LABS: Alanine Aminotransferase 17 Units/L (7-52); Albumin 2.5 g/dL (3.5-5.7); Albumin/Globulin Ratio 1.1 (1.1-2.2); Alkaline Phosphatase 92 Units/L (34-104); Aspartate Amino Transferase 14 Units/L (13-39); BUN/Creatinine Ratio 27 (6-26); Bilirubin,Total 0.3 mg/dL (0.3-1.0); Blood Urea Nitrogen 20 mg/dL (8-23); Calcium 8.2 mg/dL (8.6-10.3); Carbon Dioxide 27 mEq/L (23-29); Chloride 102 mEq/L (98-107); Globulin 2.3 g/dL (2.4-3.5); Glucose 167 mg/dL (70-105); Magnesium 1.7 mg/dL (1.6-2.6); Osmolality,Calculated 296 (280-300); Phosphorous 3.3 mg/dL (2.7-4.5); Potassium 4.5 mEq/L (3.5-5.1); Sodium 140 mEq/L (136-145); Total Protein 4.8 g/dL (6.4-8.9); eGFR For African Americans > 60 (> 60); eGFR For Non-African Americans > 60 (> 60)
[2018-11-18] MEDS: *HR* Heparin 5,000 UNIT/ML VIAL SQ SCH ×3 (06:34→22:11)
[2018-11-18] MEDS ORDERED: Acetaminophen 325 MG TABLET PO PRN (07:52)
[2018-11-18] MEDS ORDERED: Furosemide 20 MG/2 ML VIAL IVP ONE (08:52)
[2018-11-18] MEDS ORDERED: Aminoglycoside Consult 1 EACH MC ONE (09:10)
[2018-11-18] MEDS: Doxycycline 100 MG CAPSULE PO SCH ×2 (11:07→22:10)
[2018-11-18] MEDS: *HR* Buprenorphine HCl 8 MG TAB.SUBL SL SCH (11:07)
[2018-11-18] MEDS: Loratadine 10 MG TABLET PO SCH (11:07)
[2018-11-18] MEDS: Insulin LISPRO 300 UNITS/3 ML VIAL SQ SCH ×4 (11:07→22:10)
[2018-11-18] MEDS: Vancomycin 500 MG in 0.9 % Sodium Chloride Mini Bag 100 ML IVPB SCH ×2 (11:08→22:10)
[2018-11-18] MEDS: Insulin DETEMIR 100 UNIT/ML X5UNITS SQ SCH (11:16)
[2018-11-19 02:59] LABS: Hematocrit 32.9 % (35.3-44.9); Hemoglobin 10.6 g/dL (11.5-15.4); Mean Corpuscular HGB Conc 32.2 g/dL (31.6-35.5); Mean Corpuscular Hemoglobin 27.8 pg (28.0-33.3); Mean Corpuscular Volume 86.4 fL (83.0-100.0); Mean Platelet Volume 8.9 fL (9.4-12.4); Platelet Count 268 K/mcL (140-400); Red Blood Count 3.81 M/mcL (3.82-4.97); Red Cell Distribution Width 14.9 % (11.5-14.5); White Blood Count 5.2 K/mcL (4.3-11.1)
[2018-11-19] MEDS: Ziprasidone 20 MG CAPSULE PO PRN (03:15)
[2018-11-19] MEDS: Piperacillin/Tazobactam 3.375 GM in 0.9 % Sodium Chloride Mini Bag 100 ML IVPB SCH ×3 (03:16→21:05)
[2018-11-19 03:19] LABS: Alanine Aminotransferase 22 Units/L (7-52); Albumin 2.9 g/dL (3.5-5.7); Albumin/Globulin Ratio 1.2 (1.1-2.2); Alkaline Phosphatase 105 Units/L (34-104); Aspartate Amino Transferase 19 Units/L (13-39); BUN/Creatinine Ratio 29 (6-26); Bilirubin,Total 0.4 mg/dL (0.3-1.0); Blood Urea Nitrogen 22 mg/dL (8-23); Calcium 8.3 mg/dL (8.6-10.3); Carbon Dioxide 32 mEq/L (23-29); Chloride 99 mEq/L (98-107); Globulin 2.4 g/dL (2.4-3.5); Glucose 91 mg/dL (70-105); Magnesium 1.7 mg/dL (1.6-2.6); Osmolality,Calculated 287 (280-300); Phosphorous 3.2 mg/dL (2.7-4.5); Potassium 3.8 mEq/L (3.5-5.1); Sodium 137 mEq/L (136-145); Total Protein 5.3 g/dL (6.4-8.9); eGFR For African Americans > 60 (> 60); eGFR For Non-African Americans > 60 (> 60)
[2018-11-19 03:30] LABS: Hepatitis B Surface Antibody < 3.10 mIU/mL
[2018-11-19 03:41] LABS: Hepatitis B Surface Antigen Nonreactive (Nonreactive)
[2018-11-19 04:10] LABS: HIV-1&2 Antibody & p24 Ag Nonreactive (Nonreactive)
[2018-11-19] MEDS: *HR* Heparin 5,000 UNIT/ML VIAL SQ SCH ×4 (06:16→21:07)
[2018-11-19] MEDS: Doxycycline 100 MG CAPSULE PO SCH (08:40)
[2018-11-19] MEDS: Loratadine 10 MG TABLET PO SCH (08:41)
[2018-11-19] MEDS: *HR* Buprenorphine HCl 8 MG TAB.SUBL SL SCH (08:41)
[2018-11-19] MEDS: Insulin LISPRO 300 UNITS/3 ML VIAL SQ SCH ×4 (09:25→21:14)
[2018-11-19] MEDS: Insulin DETEMIR 100 UNIT/ML X5UNITS SQ SCH ×2 (09:29→21:13)
[2018-11-19] MEDS: Vancomycin 500 MG in 0.9 % Sodium Chloride Mini Bag 100 ML IVPB SCH (14:39)
[2018-11-19] MEDS: Latanoprost 2.5 ML BOTTLE BOTH EYES SCH (21:07)
[2018-11-20] MEDS: *HR* Dextrose 50 % in Water (Syg) 50 ML SYRINGE IVP PRN (01:12)
[2018-11-20] MEDS: Piperacillin/Tazobactam 3.375 GM in 0.9 % Sodium Chloride Mini Bag 100 ML IVPB SCH ×3 (03:51→19:51)
[2018-11-20] MEDS: *HR* Heparin 5,000 UNIT/ML VIAL SQ SCH ×3 (05:14→21:19)
[2018-11-20 07:28] LABS: Hematocrit 31.8 % (35.3-44.9); Hemoglobin 10.4 g/dL (11.5-15.4); Mean Corpuscular HGB Conc 32.7 g/dL (31.6-35.5); Mean Corpuscular Hemoglobin 28.3 pg (28.0-33.3); Mean Corpuscular Volume 86.4 fL (83.0-100.0); Platelet Count 228 K/mcL (140-400); Red Blood Count 3.68 M/mcL (3.82-4.97); Red Cell Distribution Width 14.9 % (11.5-14.5)
[2018-11-20 07:32] LABS: Alanine Aminotransferase 24 Units/L (7-52); Albumin/Globulin Ratio 1.2 (1.1-2.2); Alkaline Phosphatase 118 Units/L (34-104); Aspartate Amino Transferase 24 Units/L (13-39); BUN/Creatinine Ratio 24 (6-26); Bilirubin,Total 0.4 mg/dL (0.3-1.0); Blood Urea Nitrogen 22 mg/dL (8-23); Calcium 8.6 mg/dL (8.6-10.3); Carbon Dioxide 30 mEq/L (23-29); Chloride 99 mEq/L (98-107); Globulin 2.6 g/dL (2.4-3.5); Glucose 103 mg/dL (70-105); Magnesium 2.1 mg/dL (1.6-2.6); Osmolality,Calculated 286 (280-300); Phosphorous 3.5 mg/dL (2.7-4.5); Potassium 4.7 mEq/L (3.5-5.1); Sodium 136 mEq/L (136-145); Total Protein 5.6 g/dL (6.4-8.9); eGFR For African Americans > 60 (> 60); eGFR For Non-African Americans > 60 (> 60)
[2018-11-20] MEDS ORDERED: Insulin DETEMIR 100 UNIT/ML X5UNITS SQ SCH (09:00)
[2018-11-20] MEDS: Insulin LISPRO 300 UNITS/3 ML VIAL SQ SCH ×3 (10:04→18:11)
[2018-11-20] MEDS: *HR* Buprenorphine HCl 8 MG TAB.SUBL SL SCH (10:17)
[2018-11-20] MEDS: Loratadine 10 MG TABLET PO SCH (10:17)
[2018-11-20] MEDS: Latanoprost 2.5 ML BOTTLE BOTH EYES SCH (21:19)
[2018-11-21] MEDS: Piperacillin/Tazobactam 3.375 GM in 0.9 % Sodium Chloride Mini Bag 100 ML IVPB SCH ×3 (03:13→20:22)
[2018-11-21] MEDS: *HR* Heparin 5,000 UNIT/ML VIAL SQ SCH ×3 (05:36→20:24)
[2018-11-21 05:48] LABS: Hematocrit 43.4 % (35.3-44.9); Mean Corpuscular HGB Conc 31.8 g/dL (31.6-35.5); Mean Corpuscular Hemoglobin 27.9 pg (28.0-33.3); Mean Corpuscular Volume 87.9 fL (83.0-100.0); Mean Platelet Volume 8.7 fL (9.4-12.4); Platelet Count 314 K/mcL (140-400); Red Blood Count 4.94 M/mcL (3.82-4.97); Red Cell Distribution Width 15.3 % (11.5-14.5); White Blood Count 3.8 K/mcL (4.3-11.1)
[2018-11-21 05:49] LABS: Hemoglobin 13.8 g/dL (11.5-15.4)
[2018-11-21 06:09] LABS: Alanine Aminotransferase 25 Units/L (7-52); Albumin 3.8 g/dL (3.5-5.7); Albumin/Globulin Ratio 1.1 (1.1-2.2); Alkaline Phosphatase 165 Units/L (34-104); Aspartate Amino Transferase 17 Units/L (13-39); BUN/Creatinine Ratio 32 (6-26); Bilirubin,Total 1.2 mg/dL (0.3-1.0); Blood Urea Nitrogen 27 mg/dL (8-23); Calcium 9.4 mg/dL (8.6-10.3); Carbon Dioxide 29 mEq/L (23-29); Chloride 90 mEq/L (98-107); Globulin 3.4 g/dL (2.4-3.5); Glucose 467 mg/dL (70-105); Magnesium 2.2 mg/dL (1.6-2.6); Osmolality,Calculated 292 (280-300); Phosphorous 2.5 mg/dL (2.7-4.5); Potassium 5.4 mEq/L (3.5-5.1); Sodium 128 mEq/L (136-145); Total Protein 7.2 g/dL (6.4-8.9); eGFR For African Americans > 60 (> 60); eGFR For Non-African Americans > 60 (> 60)
[2018-11-21] MEDS: Insulin LISPRO 300 UNITS/3 ML VIAL SQ SCH ×3 (06:37→17:07)
[2018-11-21 07:38] LABS: BUN/Creatinine Ratio 33 (6-26); Blood Urea Nitrogen 26 mg/dL (8-23); Calcium 8.9 mg/dL (8.6-10.3); Carbon Dioxide 26 mEq/L (23-29); Chloride 91 mEq/L (98-107); Glucose 454 mg/dL (70-105); Osmolality,Calculated 291 (280-300); Potassium 4.7 mEq/L (3.5-5.1); Sodium 128 mEq/L (136-145); eGFR For African Americans > 60 (> 60); eGFR For Non-African Americans > 60 (> 60)
[2018-11-21] MEDS: *HR* Buprenorphine HCl 8 MG TAB.SUBL SL SCH (08:16)
[2018-11-21] MEDS: Loratadine 10 MG TABLET PO SCH (08:16)
[2018-11-21] MEDS: Insulin DETEMIR 100 UNIT/ML X5UNITS SQ SCH (08:16)
[2018-11-21] MEDS: QUEtiapine Fumarate 100 MG TABLET PO PRN (20:24)
[2018-11-21] MEDS: Latanoprost 2.5 ML BOTTLE BOTH EYES SCH (20:28)
[2018-11-22] MEDS: Piperacillin/Tazobactam 3.375 GM in 0.9 % Sodium Chloride Mini Bag 100 ML IVPB SCH ×3 (02:37→17:54)
[2018-11-22 02:47] LABS: Hematocrit 33.9 % (35.3-44.9); Mean Corpuscular HGB Conc 31.6 g/dL (31.6-35.5); Mean Corpuscular Hemoglobin 27.6 pg (28.0-33.3); Mean Corpuscular Volume 87.6 fL (83.0-100.0); Mean Platelet Volume 8.9 fL (9.4-12.4); Platelet Count 314 K/mcL (140-400); Red Blood Count 3.87 M/mcL (3.82-4.97); Red Cell Distribution Width 15.5 % (11.5-14.5); White Blood Count 4.8 K/mcL (4.3-11.1)
[2018-11-22 02:48] LABS: Hemoglobin 10.7 g/dL (11.5-15.4)
[2018-11-22 03:10] LABS: Alanine Aminotransferase 19 Units/L (7-52); Albumin 3.2 g/dL (3.5-5.7); Albumin/Globulin Ratio 1.3 (1.1-2.2); Alkaline Phosphatase 106 Units/L (34-104); Aspartate Amino Transferase 14 Units/L (13-39); BUN/Creatinine Ratio 29 (6-26); Bilirubin,Total 0.5 mg/dL (0.3-1.0); Blood Urea Nitrogen 24 mg/dL (8-23); Calcium 8.7 mg/dL (8.6-10.3); Carbon Dioxide 29 mEq/L (23-29); Chloride 98 mEq/L (98-107); Globulin 2.4 g/dL (2.4-3.5); Glucose 172 mg/dL (70-105); Magnesium 2.1 mg/dL (1.6-2.6); Osmolality,Calculated 286 (280-300); Phosphorous 3.1 mg/dL (2.7-4.5); Potassium 4.4 mEq/L (3.5-5.1); Sodium 134 mEq/L (136-145); Total Protein 5.6 g/dL (6.4-8.9); eGFR For African Americans > 60 (> 60); eGFR For Non-African Americans > 60 (> 60)
[2018-11-22] MEDS: Ziprasidone 20 MG CAPSULE PO PRN ×2 (03:24→12:29)
[2018-11-22] MEDS: *HR* Heparin 5,000 UNIT/ML VIAL SQ SCH ×3 (06:09→20:45)
[2018-11-22] MEDS: Loratadine 10 MG TABLET PO SCH (07:33)
[2018-11-22] MEDS: *HR* Buprenorphine HCl 8 MG TAB.SUBL SL SCH (07:33)
[2018-11-22 08:02] LABS: Glucose 547 mg/dL (70-105)
[2018-11-22] MEDS: Insulin DETEMIR 100 UNIT/ML X5UNITS SQ SCH (08:08)
[2018-11-22] MEDS: Insulin LISPRO 300 UNITS/3 ML VIAL SQ SCH ×3 (08:08→16:23)
[2018-11-22 10:07] LABS: % Iron Saturation 29 % (15-50); Iron 87 mcg/dL (50-170); Transferrin 218 mg/dL (203-362)
[2018-11-22] MEDS: Latanoprost 2.5 ML BOTTLE BOTH EYES SCH (20:45)
[2018-11-22] MEDS: QUEtiapine Fumarate 100 MG TABLET PO PRN (20:47)
[2018-11-22] MEDS ORDERED: Mag Hydrox/Al Hydrox/Simeth 30 ML UDC PO ONE (22:50)
[2018-11-23] MEDS: Piperacillin/Tazobactam 3.375 GM in 0.9 % Sodium Chloride Mini Bag 100 ML IVPB SCH ×3 (02:32→18:04)
[2018-11-23] MEDS: *HR* Heparin 5,000 UNIT/ML VIAL SQ SCH ×3 (05:03→23:35)
[2018-11-23 07:27] LABS: Hematocrit 38.7 % (35.3-44.9); Hemoglobin 12.1 g/dL (11.5-15.4); Mean Corpuscular HGB Conc 31.3 g/dL (31.6-35.5); Mean Corpuscular Hemoglobin 28.3 pg (28.0-33.3); Mean Corpuscular Volume 90.4 fL (83.0-100.0); Mean Platelet Volume 8.9 fL (9.4-12.4); Platelet Count 309 K/mcL (140-400); Red Blood Count 4.28 M/mcL (3.82-4.97); Red Cell Distribution Width 15.1 % (11.5-14.5); White Blood Count 4.1 K/mcL (4.3-11.1)
[2018-11-23] MEDS: *HR* Buprenorphine HCl 8 MG TAB.SUBL SL SCH (07:33)
[2018-11-23] MEDS: Insulin LISPRO 300 UNITS/3 ML VIAL SQ SCH ×3 (07:33→16:53)
[2018-11-23] MEDS: Insulin DETEMIR 100 UNIT/ML X5UNITS SQ SCH (07:34)
[2018-11-23 07:49] LABS: Alanine Aminotransferase 18 Units/L (7-52); Albumin 3.2 g/dL (3.5-5.7); Albumin/Globulin Ratio 1.2 (1.1-2.2); Alkaline Phosphatase 120 Units/L (34-104); Aspartate Amino Transferase 16 Units/L (13-39); BUN/Creatinine Ratio 33 (6-26); Bilirubin,Total 0.7 mg/dL (0.3-1.0); Blood Urea Nitrogen 27 mg/dL (8-23); Calcium 8.7 mg/dL (8.6-10.3); Carbon Dioxide 26 mEq/L (23-29); Chloride 93 mEq/L (98-107); Globulin 2.7 g/dL (2.4-3.5); Glucose 545 mg/dL (70-105); Osmolality,Calculated 300 (280-300); Phosphorous 2.6 mg/dL (2.7-4.5); Potassium 5.5 mEq/L (3.5-5.1); Sodium 130 mEq/L (136-145); Total Protein 5.9 g/dL (6.4-8.9); eGFR For African Americans > 60 (> 60); eGFR For Non-African Americans > 60 (> 60)
[2018-11-23] MEDS ORDERED: Insulin DETEMIR 100 UNIT/ML X5UNITS SQ STA (09:00)
[2018-11-23] MEDS ORDERED: Insulin DETEMIR 100 UNIT/ML X5UNITS SQ SCH (09:00)
[2018-11-23] MEDS: Latanoprost 2.5 ML BOTTLE BOTH EYES SCH (23:35)
[2018-11-24] MEDS: Piperacillin/Tazobactam 3.375 GM in 0.9 % Sodium Chloride Mini Bag 100 ML IVPB SCH ×2 (04:56→12:47)
[2018-11-24] MEDS: *HR* Heparin 5,000 UNIT/ML VIAL SQ SCH ×3 (04:56→21:35)
[2018-11-24] MEDS ORDERED: Insulin LISPRO 300 UNITS/3 ML VIAL SQ ONE (07:38)
[2018-11-24] MEDS: *HR* Buprenorphine HCl 8 MG TAB.SUBL SL SCH (07:59)
[2018-11-24] MEDS: Insulin LISPRO 300 UNITS/3 ML VIAL SQ SCH ×3 (08:00→16:32)
[2018-11-24 08:20] LABS: Basophils % 0.4 %; Eosinophils # 0.1 K/mcL (0.0-0.6); Eosinophils % 0.7 %; Hematocrit 39.9 % (35.3-44.9); Hemoglobin 12.6 g/dL (11.5-15.4); Immature Granulocytes % 0.7 % (0-4); Lymphocytes # 2.1 K/mcL (0.6-4.6); Lymphocytes % 30.5 %; Mean Corpuscular HGB Conc 31.6 g/dL (31.6-35.5); Mean Corpuscular Hemoglobin 27.8 pg (28.0-33.3); Mean Corpuscular Volume 88.1 fL (83.0-100.0); Mean Platelet Volume 8.9 fL (9.4-12.4); Monocytes # 0.5 K/mcL (0.0-1.3); Monocytes % 7.1 %; Neutrophils # 4.2 K/mcL (1.6-8.9); Platelet Count 357 K/mcL (140-400); Red Blood Count 4.53 M/mcL (3.82-4.97); Red Cell Distribution Width 15.2 % (11.5-14.5); Segmented Neutrophils % 60.6 %
[2018-11-24 08:22] LABS: White Blood Count 6.9 K/mcL (4.3-11.1)
[2018-11-24 08:33] LABS: BUN/Creatinine Ratio 34 (6-26); Blood Urea Nitrogen 25 mg/dL (8-23); Calcium 9.3 mg/dL (8.6-10.3); Carbon Dioxide 26 mEq/L (23-29); Chloride 90 mEq/L (98-107); Glucose 545 mg/dL (70-105); Magnesium 1.9 mg/dL (1.6-2.6); Osmolality,Calculated 293 (280-300); Potassium 5.2 mEq/L (3.5-5.1); Sodium 127 mEq/L (136-145); eGFR For African Americans > 60 (> 60); eGFR For Non-African Americans > 60 (> 60)
[2018-11-24] MEDS ORDERED: 0.9 % Sodium Chloride 1,000 ML IVC SCH (09:00)
[2018-11-24] MEDS ORDERED: Insulin DETEMIR 100 UNIT/ML X5UNITS SQ SCH ×2 (09:00→21:00)
[2018-11-24] MEDS: *HR* Dextrose 50 % in Water (Syg) 50 ML SYRINGE IVP PRN (15:14)
[2018-11-24] MEDS: Latanoprost 2.5 ML BOTTLE BOTH EYES SCH (21:36)
[2018-11-25] MEDS: *HR* Dextrose 50 % in Water (Syg) 50 ML SYRINGE IVP PRN (02:50)
[2018-11-25 06:23] LABS: Basophils % 0.3 %; Eosinophils % 0.4 %; Hematocrit 34.5 % (35.3-44.9); Immature Granulocytes % 0.4 % (0-4); Lymphocytes # 1.7 K/mcL (0.6-4.6); Lymphocytes % 23.7 %; Mean Corpuscular HGB Conc 31.3 g/dL (31.6-35.5); Mean Corpuscular Hemoglobin 28.3 pg (28.0-33.3); Mean Corpuscular Volume 90.3 fL (83.0-100.0); Mean Platelet Volume 10.6 fL (9.4-12.4); Monocytes # 0.6 K/mcL (0.0-1.3); Monocytes % 7.7 %; Neutrophils # 4.8 K/mcL (1.6-8.9); Platelet Count 180 K/mcL (140-400); Red Blood Count 3.82 M/mcL (3.82-4.97); Red Cell Distribution Width 15.5 % (11.5-14.5); Segmented Neutrophils % 67.5 %; White Blood Count 7.2 K/mcL (4.3-11.1)
[2018-11-25 06:24] LABS: Hemoglobin 10.8 g/dL (11.5-15.4)
[2018-11-25 06:55] LABS: BUN/Creatinine Ratio 37 (6-26); Blood Urea Nitrogen 19 mg/dL (8-23); Calcium 8.4 mg/dL (8.6-10.3); Carbon Dioxide 25 mEq/L (23-29); Chloride 103 mEq/L (98-107); Glucose 52 mg/dL (70-105); Magnesium 2.1 mg/dL (1.6-2.6); Osmolality,Calculated 290 (280-300); Potassium 4.6 mEq/L (3.5-5.1); Sodium 140 mEq/L (136-145); eGFR For African Americans > 60 (> 60); eGFR For Non-African Americans > 60 (> 60)
[2018-11-25] MEDS: *HR* Heparin 5,000 UNIT/ML VIAL SQ SCH (07:33)
[2018-11-25] MEDS: *HR* Buprenorphine HCl 8 MG TAB.SUBL SL SCH (08:08)
[2018-11-25] MEDS: Insulin LISPRO 300 UNITS/3 ML VIAL SQ SCH ×2 (08:09→12:17)
[2018-11-25] MEDS ORDERED: Insulin DETEMIR 100 UNIT/ML X5UNITS SQ SCH ×2 (09:00)
[2018-11-25 10:57] VITALS: BP 123/66
== END 2018-11-25 13:41 | disposition left against medical advice (07) | DRG 710 ==
LOC: EMEROOARM 11:59 → ICNU 14:48 → SUATTDRO 14:48 → ICNU 15:40 → 3ANU 11-13 13:48
PROVIDERS: ADMIT Internal Medicine Hospice and Palliative Medicine; ATTEND Internal Medicine

== ENCOUNTER 2018-12-18 07:49 | Inpatient (IN) ==
[2018-12-18] MEDS ORDERED: 0.9 % Sodium Chloride 1,000 ML IVC ONE (07:58)
[2018-12-18] MEDS ORDERED: Piperacillin/Tazobactam 3.375 GM in Water for inj. (sterile) 20 ML IVP ONE (07:58)
[2018-12-18] MEDS ORDERED: Propofol 500 MG/50 ML INFUS..BTL ONE (07:59)
[2018-12-18] MEDS ORDERED: Insulin Human Regular 10 UNIT in 0.9 % Sodium Chloride 10 ML IV ONE (08:02)
[2018-12-18] MEDS ORDERED: Calcium Gluconate 1,000 MG/10 ML VIAL ONE (08:03)
[2018-12-18] MEDS ORDERED: *HR* Etomidate 20 MG/10 ML AMPUL IVP ONE ×2 (08:03→10:54)
[2018-12-18] MEDS ORDERED: *HR* Rocuronium Bromide 50 MG/5 ML VIAL IVP ONE (08:03)
--- NOTE | 2018-12-18 08:16 | Emergency Department Note ---
Disposition Clinical Impression: Unresponsive, Hypokalemia Disposition: Admitted As Inpatient Condition: Critical Referrals: NONE,PCP [Primary Care Provider] - Time of Disposition: 09:53 General Adult HPI - General Chief complaint: ED Overdose Stated complaint: UNRESPONSIVE Time Seen by Provider: 12/18/18 07:58 Source: EMS Limitations: no limitations Nursing Notes Reviewed: Yes Vital Signs Reviewed: Yes - History of Present Illness HPI Narrative: Patient is a 58-year-old female who is brought in via EMS from home with chief complaint of unresponsive. Patient has known history of insulin-dependent diabetes type 2, CAD, IV drug use including heroin, amphetamines and cocaine, DKA. Per EMS on their arrival, patient was found down at her home, for unknown time, last known well is unknown. In route, patient was given a total of 2 mg of Narcan without response, glucose on arrival was 14, patient was given 1 amp of D50 without change in AMS. Patient was initially nasally intubated, with oxygen saturation in the mid 80s, patient then became agitated and pulled out her nasal tube. When patient arrived to the ER, patient glucose was obtained and noted to be 109. Patient otherwise is unable to answer questions, she does respond to painful similar to the upper and lower extremities, however has no pupillary response, no specific posturing is noted on examination. Pain Scale: 0 - Related Data Home Medications Medication Instructions Recorded Confirmed Buprenorphine HCl/Naloxone HCl 2 each SL DAILY 10/28/18 11/15/18 [Suboxone 8 mg-2 mg Sl Film] Previous Rx's Medication Instructions Recorded Cetirizine HCl [Allergy Relief] 10 mg PO DAILY #30 capsule 10/29/18 Insulin ASPART [NovoLOG] 5 unit SQ TIDWM #450 mls 10/29/18 Latanoprost/Pf [Latanoprost 0.005% 7.5 ml OP QPM #1 drops 10/29/18 Eye Drop] Meloxicam [Mobic] 15 mg PO DAILY PRN #60 tablet 10/29/18 Naloxone [Narcan] 1 spray NS AD PRN #2 spray 10/29/18 Amoxicillin/Clavulanate [Augmentin] 875 mg PO BIDWM 5 Days #10 tablet 11/25/18 Insulin Glargine,Hum.rec.anlog 17 units SQ QAM 30 Days insuln.pen 11/25/18 [Coni Ellison U-100] Allergies Allergy/AdvReac Type Severity Reaction Status Date / Time No Known Allergies Allergy Verified 02/15/18 09:31 All systems ED: reviewed and negative except as stated. Review of Systems: As Per HPI Limitations: ROS unobtainable due to patients medical condition Past Medical History - Past Medical History Attestation: Yes The following information was validated with the patient. Source: old records reviewed Medical history: Reports: diabetes, hepatitis, other Surgical history: Reports: other Psychiatric history: Reports: bipolar, depression SUBSTATION MECHANIC history: Reports: no SUBSTATION MECHANIC history, other - Social History Smoking Status: Unknown if ever smoked Smokeless Tobacco Status: No Alcohol use: Reports: none Drug use: Reports: cocaine, opiates, methamphetamine, IV Drug Use, prescription drug abuse, other Physical Exam - General Limitations: no limitations, altered mental status General appearance: in distress - Head Head exam: atraumatic, normocephalic - Eye Eye exam: Present: mydriasis. Absent: PERRL, scleral icterus, miosis - ENT ENT exam: mucous membranes dry - Neck Neck exam: Present: normal inspection, trachea midline - Chest Chest inspection: Present: normal inspection, symmetric chest wall rise - Respiratory Respiratory exam: Present: other (Patient with diffuse crackles throughout, decreased breath sounds) - Cardiovascular Cardiovascular exam: Present: normal rhythm, tachycardia - Abdominal Exam Abdominal exam: Present: soft, Non-Tender. Absent: tenderness, distention, guarding, rebound, rigidity - Extremities Exam Extremities exam: Present: normal capillary refill. Absent: pedal edema - Expanded Neurological Exam Patient oriented to: Absent: person, place, time Speech: Absent: fluid speech Coma Scale Eye Opening: None Coma Scale Motor Response: Withdraws to Pain Coma Scale Verbal Response: None Coma Scale Total: 6 - Skin Skin exam: Absent: rash, diaphoresis Course Vital Signs Pulse Rate 109 12/18/18 07:50 Respiratory Rate 42 12/18/18 07:50 Blood Pressure 176/96 12/18/18 07:50 O2 Sat by Pulse Oximetry 96 12/18/18 07:50 Temperature 97 F L 12/18/18 10:06 Pulse Rate 108 12/18/18 10:06 Respiratory Rate 22 12/18/18 10:06 Blood Pressure 156/76 12/18/18 10:06 O2 Sat by Pulse Oximetry 100 12/18/18 10:11 Oxygen Delivery Oxygen Delivery Ventilator Procedures - Intubation Time out performed: Yes sedative: Etomidate Mg Given: 20 paralytic: Rocuronium Mg Given: 80 Laryngoscope: fiber optic video scope ET Tube Size: Oral Tube Secured Depth (cm): 23 Tube Secured Location: lips Tube Placement Confirmation: visualized tube passing through cords, equal breath sounds bilaterally, no breath sounds over epigastrium, confirmation by capnometry Patient Tolerated Procedure: well, no complications Intubation Complications: none Medical Decision Making - MDM Narrative Medical decision making narrative: Patient is a 58-year-old female who is presenting unresponsive via EMS. Patient was found in her home unresponsive with last known well being around 1 AM. P atient otherwise is unable to provide further history. On arrival, patient is hypertensive, tachycardic with a GCS of 6. On arrival to patient's home, EMS had POC glucose of 14, patient was given an amp of D50, on arrival her glucose is 109. Patient remains unresponsive. She was nasally intubated in route, however the patient did become combative and pulled this in route. On her arrival to the ED, patient continues to be unresponsive, patient was given a total 4 mg of Narcan, unchanged mental status. She will respond to painful stimuli. She has crackles bilaterally, with decreased breath sounds throughout, trachea is midline. Patient is unable to protect her airway, therefore she was intubated. During this time her oxygen saturation remained in the low 90s to 98%. Patient was intubated without complications. Immediate concern for infectious versus overdose versus intracranial etiology. CT of the head, chest x-ray and cervical spine was performed. Blood work was also performed. Given concerning EKG for hyperacute T waves in anterior septal leads, 1 g of calcium chloride was given peripherally. She was started on vancomycin and Zosyn, with concern for aspiration. X-ray reveals the patient has hypokalemia at 3.0, further blood work is relatively unremarkable with a normal lactic acid, CBC. Urinalysis shows no sign of urinary tract infection, UDS shows positive cocaine. ABG shows patient to be without significant acidosis with a pH of 7.39, further ABG is relatively auricle. Patient was given 40 mEq via potassium rider. She was also started on D5 fluids. Patient is remained sedated on propofol and fentanyl drip. No clear etiology for her current mental status, most likely anoxic brain injury. I did speak with Dr. Malcolm, ICU attending, patient has been accepted to the ICU at this point in time. Patient otherwise has remained stable here in the ER. Currently patient has multiple peripheral IVs including an EJ. Otherwise patient's blood pressures remained stable, she has not gone hypotensive, do not feel as though a central line is necessary at this point. - Medical Records Medical records reviewed: Yes I reviewed the patient's medical records. - Lab Data Lab results reviewed: Yes I reviewed the patient's lab results. Result diagrams: 12/18/18 07:59 12/18/18 07:59 Lab Results 12/18/18 12/18/18 12/18/18 Range/Units 07:52 07:58 07:59 WBC 16.1 H (4.3-11.1) K/mcL RBC 4.79 (3.82-4.97) M/mcL Hgb 13.4 (11.5-15.4) g/dL Hct 41.7 (35.3-44.9) % MCV 87.1 (83.0-100.0) fL MCH 28.0 (28.0-33.3) pg MCHC 32.1 (31.6-35.5) g/dL RDW 14.1 (11.5-14.5) % Plt Count 345 (140-400) K/mcL MPV 8.2 L (9.4-12.4) fL Immature Gran % 0.6 (0-4) % Seg Neutrophils % 88.8 % Lymphocytes % 6.4 % Monocytes % 3.8 % Eosinophils % 0.1 % Basophils % 0.3 % Neutrophils # 14.3 H (1.6-8.9) K/mcL Lymphocytes # 1.0 (0.6-4.6) K/mcL Monocytes # 0.6 (0.0-1.3) K/mcL Eosinophils # 0.0 (0.0-0.6) K/mcL Basophils # 0.1 (0.0-0.2) K/mcL PT (9.4-12.1) Seconds INR APTT (26.0-36.0) Seconds Sample Site ABG pH (7.32-7.45) pH Units ABG pCO2 (35-45) mmHg ABG pO2 (85-104) mmHg ABG HCO3 (21-27) mEq/L ABG Total CO2 (20-26) mEq/L ABG O2 Saturation (95-98) % ABG Base Excess (-2 to 3) mEq/L Nicolás Test Respiration Rate O2 Delivery Device Blood Gas Modality Inspired O2 (1-15=lpm ew63-963=%) Tidal Volume cc PEEP cm H2O Sodium (136-145) mEq/L Potassium (3.5-5.1) mEq/L Chloride (98-107) mEq/L Carbon Dioxide (23-29) mEq/L BUN (8-23) mg/dL Creatinine (0.60-1.20) mg/dL Est GFR ( Amer) (> 60) Est GFR (Non-Af Amer) (> 60) BUN/Creatinine Ratio (6-26) Glucose (70-105) mg/dL POC Glucose 109 H (70-99) mg/dL Calculated Osmolality (280-300) Lactic Acid (0.5-2.2) mmol/L Calcium (8.6-10.3) mg/dL Phosphorus (2.7-4.5) mg/dL Magnesium (1.6-2.6) mg/dL Total Bilirubin (0.3-1.0) mg/dL Direct Bilirubin (0.0-0.2) mg/dL Indirect Bilirubin (0.0-1.2) mg/dL AST (13-39) Units/L ALT (7-52) Units/L Alkaline Phosphatase (34-104) Units/L Creatine Kinase (30-223) Units/L Troponin I (< 0.04) ng/mL Serum Total Protein (6.4-8.9) g/dL Albumin (3.5-5.7) g/dL Globulin (2.4-3.5) g/dL Albumin/Globulin Ratio (1.1-2.2) Lipase 8 L (11-82) Units/L Random Cortisol 35.7 mcg/dl Urine Color (Yellow) Urine Clarity (Clear) Urine pH (5.0-8.0) pH Units Ur Specific [place] (1.010-1.025) Urine Protein (Neg-Trace) mg/dL Urine Glucose (UA) (Normal) mg/dL Urine Ketones (Negative) mg/dL Urine Blood (Negative) Urine Nitrite (Negative) Urine Bilirubin (Negative) Urine Urobilinogen (Normal) mg/dL Ur Leukocyte Esterase (Negative) Urine Microscopic RBC (0-3) per hpf Urine Microscopic WBC (0-3) per hpf Ur Squamous Epith Cells (None-Few) per lpf Urine Bacteria (None-Few) per hpf Hyaline Casts (None-Few) per lpf Ur Culture Indicated? (NO) Salicylates < 2.5 L (15.0-30.0) mg/dL Urine Opiates Screen (Hcyykf=427) ng/mL Acetaminophen < 10 L (10-20) mcg/mL Ur Barbiturates Screen (Nynmmu=923) ng/mL Ur Phencyclidine Scrn (Cutoff=25) ng/mL Ur Amphetamines Screen (Myokvw=3377) ng/mL U Benzodiazepines Scrn (Yrxsdz=391) ng/mL Urine Cocaine Screen (Cutoff= 300) ng/mL U Marijuana (THC) Screen (Cutoff = 50) ng/mL Ur Drug Screen Interp Ethyl Alcohol < 10 (Less than 10) mg/dL 12/18/18 12/18/18 12/18/18 Range/Units 07:59 07:59 08:03 WBC (4.3-11.1) K/mcL RBC (3.82-4.97) M/mcL Hgb (11.5-15.4) g/dL Hct (35.3-44.9) % MCV (83.0-100.0) fL MCH (28.0-33.3) pg MCHC (31.6-35.5) g/dL RDW (11.5-14.5) % Plt Count (140-400) K/mcL MPV (9.4-12.4) fL Immature Gran % (0-4) % Seg Neutrophils % % Lymphocytes % % Monocytes % % Eosinophils % % Basophils % % Neutrophils # (1.6-8.9) K/mcL Lymphocytes # (0.6-4.6) K/mcL Monocytes # (0.0-1.3) K/mcL Eosinophils # (0.0-0.6) K/mcL Basophils # (0.0-0.2) K/mcL PT 10.1 (9.4-12.1) Seconds INR 0.9 APTT 30.9 (26.0-36.0) Seconds Sample Site ABG pH (7.32-7.45) pH Units ABG pCO2 (35-45) mmHg ABG pO2 (85-104) mmHg ABG HCO3 (21-27) mEq/L ABG Total CO2 (20-26) mEq/L ABG O2 Saturation (95-98) % ABG Base Excess (-2 to 3) mEq/L Nicolás Test Respiration Rate O2 Delivery Device Blood Gas Modality Inspired O2 (1-15=lpm ad90-658=%) Tidal Volume cc PEEP cm H2O Sodium 138 (136-145) mEq/L Potassium 3.0 L (3.5-5.1) mEq/L Chloride 102 (98-107) mEq/L Carbon Dioxide 28 (23-29) mEq/L BUN 11 (8-23) mg/dL Creatinine 0.43 L (0.60-1.20) mg/dL Est GFR ( Amer) > 60 (> 60) Est GFR (Non-Af Amer) > 60 (> 60) BUN/Creatinine Ratio 26 (6-26) Glucose 81 (70-105) mg/dL POC Glucose (70-99) mg/dL Calculated Osmolality 284 (280-300) Lactic Acid (0.5-2.2) mmol/L Calcium 12.3 H (8.6-10.3) mg/dL Phosphorus 4.0 (2.7-4.5) mg/dL Magnesium 1.9 (1.6-2.6) mg/dL Total Bilirubin 0.6 (0.3-1.0) mg/dL Direct Bilirubin 0.1 (0.0-0.2) mg/dL Indirect Bilirubin 0.5 (0.0-1.2) mg/dL AST 41 H (13-39) Units/L ALT 34 (7-52) Units/L Alkaline Phosphatase 154 H (34-104) Units/L Creatine Kinase 112 (30-223) Units/L Troponin I 0.34 H* (< 0.04) ng/mL Serum Total Protein 7.3 (6.4-8.9) g/dL Albumin 4.2 (3.5-5.7) g/dL Globulin 3.1 (2.4-3.5) g/dL Albumin/Globulin Ratio 1.4 (1.1-2.2) Lipase (11-82) Units/L Random Cortisol mcg/dl Urine Color (Yellow) Urine Clarity (Clear) Urine pH (5.0-8.0) pH Units Ur Specific [place] (1.010-1.025) Urine Protein (Neg-Trace) mg/dL Urine Glucose (UA) (Normal) mg/dL Urine Ketones (Negative) mg/dL Urine Blood (Negative) Urine Nitrite (Negative) Urine Bilirubin (Negative) Urine Urobilinogen (Normal) mg/dL Ur Leukocyte Esterase (Negative) Urine Microscopic RBC (0-3) per hpf Urine Microscopic WBC (0-3) per hpf Ur Squamous Epith Cells (None-Few) per lpf Urine Bacteria (None-Few) per hpf Hyaline Casts (None-Few) per lpf Ur Culture Indicated? (NO) Salicylates (15.0-30.0) mg/dL Urine Opiates Screen (Kjeqcs=055) ng/mL Acetaminophen (10-20) mcg/mL Ur Barbiturates Screen (Rkvnzs=589) ng/mL Ur Phencyclidine Scrn (Cutoff=25) ng/mL Ur Amphetamines Screen (Yuyuqe=9682) ng/mL U Benzodiazepines Scrn (Pbsibw=405) ng/mL Urine Cocaine Screen (Cutoff= 300) ng/mL U Marijuana (THC) Screen (Cutoff = 50) ng/mL Ur Drug Screen Interp Ethyl Alcohol (Less than 10) mg/dL 12/18/18 12/18/18 12/18/18 Range/Units 08:40 09:16 09:16 WBC (4.3-11.1) K/mcL RBC (3.82-4.97) M/mcL Hgb (11.5-15.4) g/dL Hct (35.3-44.9) % MCV (83.0-100.0) fL MCH (28.0-33.3) pg MCHC (31.6-35.5) g/dL RDW (11.5-14.5) % Plt Count (140-400) K/mcL MPV (9.4-12.4) fL Immature Gran % (0-4) % Seg Neutrophils % % Lymphocytes % % Monocytes % % Eosinophils % % Basophils % % Neutrophils # (1.6-8.9) K/mcL Lymphocytes # (0.6-4.6) K/mcL Monocytes # (0.0-1.3) K/mcL Eosinophils # (0.0-0.6) K/mcL Basophils # (0.0-0.2) K/mcL PT (9.4-12.1) Seconds INR APTT (26.0-36.0) Seconds Sample Site ABG pH (7.32-7.45) pH Units ABG pCO2 (35-45) mmHg ABG pO2 (85-104) mmHg ABG HCO3 (21-27) mEq/L ABG Total CO2 (20-26) mEq/L ABG O2 Saturation (95-98) % ABG Base Excess (-2 to 3) mEq/L Nicolás Test Respiration Rate O2 Delivery Device Blood Gas Modality Inspired O2 (1-15=lpm ng63-850=%) Tidal Volume cc PEEP cm H2O Sodium (136-145) mEq/L Potassium (3.5-5.1) mEq/L Chloride (98-107) mEq/L Carbon Dioxide (23-29) mEq/L BUN (8-23) mg/dL Creatinine (0.60-1.20) mg/dL Est GFR ( Amer) (> 60) Est GFR (Non-Af Amer) (> 60) BUN/Creatinine Ratio (6-26) Glucose (70-105) mg/dL POC Glucose (70-99) mg/dL Calculated Osmolality (280-300) Lactic Acid 0.9 (0.5-2.2) mmol/L Calcium (8.6-10.3) mg/dL Phosphorus (2.7-4.5) mg/dL Magnesium (1.6-2.6) mg/dL Total Bilirubin (0.3-1.0) mg/dL Direct Bilirubin (0.0-0.2) mg/dL Indirect Bilirubin (0.0-1.2) mg/dL AST (13-39) Units/L ALT (7-52) Units/L Alkaline Phosphatase (34-104) Units/L Creatine Kinase (30-223) Units/L Troponin I (< 0.04) ng/mL Serum Total Protein (6.4-8.9) g/dL Albumin (3.5-5.7) g/dL Globulin (2.4-3.5) g/dL Albumin/Globulin Ratio (1.1-2.2) Lipase (11-82) Units/L Random Cortisol mcg/dl Urine Color Yellow (Yellow) Urine Clarity Clear (Clear) Urine pH 7.5 (5.0-8.0) pH Units Ur Specific [place] 1.011 (1.010-1.025) Urine Protein 30 H (Neg-Trace) mg/dL Urine Glucose (UA) 100 H (Normal) mg/dL Urine Ketones Negative (Negative) mg/dL Urine Blood Moderate H (Negative) Urine Nitrite Negative (Negative) Urine Bilirubin Negative (Negative) Urine Urobilinogen Normal (Normal) mg/dL Ur Leukocyte Esterase Negative (Negative) Urine Microscopic RBC 30-50 H (0-3) per hpf Urine Microscopic WBC 0-3 (0-3) per hpf Ur Squamous Epith Cells Few (None-Few) per lpf Urine Bacteria None Seen (None-Few) per hpf Hyaline Casts None Seen (None-Few) per lpf Ur Culture Indicated? NO (NO) Salicylates (15.0-30.0) mg/dL Urine Opiates Screen Negative (Vjjxfn=673) ng/mL Acetaminophen (10-20) mcg/mL Ur Barbiturates Screen Negative (Qqoeky=754) ng/mL Ur Phencyclidine Scrn Negative (Cutoff=25) ng/mL Ur Amphetamines Screen Negative (Zgdjfl=1571) ng/mL U Benzodiazepines Scrn Negative (Dawwlz=259) ng/mL Urine Cocaine Screen Positive H (Cutoff= 300) ng/mL U Marijuana (THC) Screen Negative (Cutoff = 50) ng/mL Ur Drug Screen Interp See Below Ethyl Alcohol (Less than 10) mg/dL 12/18/18 12/18/18 Range/Units 09:21 09:37 WBC (4.3-11.1) K/mcL RBC (3.82-4.97) M/mcL Hgb (11.5-15.4) g/dL Hct (35.3-44.9) % MCV (83.0-100.0) fL MCH (28.0-33.3) pg MCHC (31.6-35.5) g/dL RDW (11.5-14.5) % Plt Count (140-400) K/mcL MPV (9.4-12.4) fL Immature Gran % (0-4) % Seg Neutrophils % % Lymphocytes % % Monocytes % % Eosinophils % % Basophils % % Neutrophils # (1.6-8.9) K/mcL Lymphocytes # (0.6-4.6) K/mcL Monocytes # (0.0-1.3) K/mcL Eosinophils # (0.0-0.6) K/mcL Basophils # (0.0-0.2) K/mcL PT (9.4-12.1) Seconds INR APTT (26.0-36.0) Seconds Sample Site R Brach ABG pH 7.39 (7.32-7.45) pH Units ABG pCO2 40 (35-45) mmHg ABG pO2 181 H (85-104) mmHg ABG HCO3 25 (21-27) mEq/L ABG Total CO2 26 (20-26) mEq/L ABG O2 Saturation 100 H (95-98) % ABG Base Excess 0 (-2 to 3) mEq/L Nicolás Test Positive Respiration Rate 31 O2 Delivery Device Adult Vent Blood Gas Modality ASSIST CONTROL Inspired O2 60.0 (1-15=lpm ds20-836=%) Tidal Volume 420 cc PEEP 5 cm H2O Sodium (136-145) mEq/L Potassium (3.5-5.1) mEq/L Chloride (98-107) mEq/L Carbon Dioxide (23-29) mEq/L BUN (8-23) mg/dL Creatinine (0.60-1.20) mg/dL Est GFR ( Amer) (> 60) Est GFR (Non-Af Amer) (> 60) BUN/Creatinine Ratio (6-26) Glucose (70-105) mg/dL POC Glucose 79 (70-99) mg/dL Calculated Osmolality (280-300) Lactic Acid (0.5-2.2) mmol/L Calcium (8.6-10.3) mg/dL Phosphorus (2.7-4.5) mg/dL Magnesium (1.6-2.6) mg/dL Total Bilirubin (0.3-1.0) mg/dL Direct Bilirubin (0.0-0.2) mg/dL Indirect Bilirubin (0.0-1.2) mg/dL AST (13-39) Units/L ALT (7-52) Units/L Alkaline Phosphatase (34-104) Units/L Creatine Kinase (30-223) Units/L Troponin I (< 0.04) ng/mL Serum Total Protein (6.4-8.9) g/dL Albumin (3.5-5.7) g/dL Globulin (2.4-3.5) g/dL Albumin/Globulin Ratio (1.1-2.2) Lipase (11-82) Units/L Random Cortisol mcg/dl Urine Color (Yellow) Urine Clarity (Clear) Urine pH (5.0-8.0) pH Units Ur Specific [place] (1.010-1.025) Urine Protein (Neg-Trace) mg/dL Urine Glucose (UA) (Normal) mg/dL Urine Ketones (Negative) mg/dL Urine Blood (Negative) Urine Nitrite (Negative) Urine Bilirubin (Negative) Urine Urobilinogen (Normal) mg/dL Ur Leukocyte Esterase (Negative) Urine Microscopic RBC (0-3) per hpf Urine Microscopic WBC (0-3) per hpf Ur Squamous Epith Cells (None-Few) per lpf Urine Bacteria (None-Few) per hpf Hyaline Casts (None-Few) per lpf Ur Culture Indicated? (NO) Salicylates (15.0-30.0) mg/dL Urine Opiates Screen (Ahjpot=111) ng/mL Acetaminophen (10-20) mcg/mL Ur Barbiturates Screen (Xcsfrn=240) ng/mL Ur Phencyclidine Scrn (Cutoff=25) ng/mL Ur Amphetamines Screen (Fgkgdi=2021) ng/mL U Benzodiazepines Scrn (Gzxsoa=761) ng/mL Urine Cocaine Screen (Cutoff= 300) ng/mL U Marijuana (THC) Screen (Cutoff = 50) ng/mL Ur Drug Screen Interp Ethyl Alcohol (Less than 10) mg/dL - Radiology Data Radiology results reviewed: Yes I reviewed the patient's radiology results. Chest X-Ray 12/18/18 07:59 IMPRESSION: No acute abnormality. D/ / Sree Jones MD / Sree Jones MD Interpreting Provider: Sree Jones MD Cervical Spine CT 12/18/18 08:00 IMPRESSION: No acute abnormality of the cervical spine. D/ / Clayton Colindres MD / Clayton Colindres MD Interpreting Provider: Clayton Colindres MD Head CT 12/18/18 08:00 IMPRESSION: No acute intracranial abnormality. D/ / Sree Jones MD / Sree Jones MD Interpreting Provider: Sree Jones MD - EKG Data EKG #1 EKG attestation: Yes I reviewed and interpreted this EKG. EKG results narrative: EKG obtained at 0 756 ventricular rate of 90, regular rhythm, normal axis, right atrial enlargement is noted, LVH first peak T waves in the anterior septal leads. Attestation Statement - Attestation Attestation: I, Buster Roach DO, examined this patient [id number] and my medical decision-making was reviewed with Dr. Keagan Mccloud , Resident Physician. I agree with the documented findings, disposition and treatment plan as described except to the extent set forth below. I personally supervised and was present for the pa/critical portions of the procedures completed by the resident documented below. Please see my progress notes for details.
[2018-12-18 08:52] LABS: Basophils # 0.1 K/mcL (0.0-0.2); Basophils % 0.3 %; Eosinophils % 0.1 %; Hematocrit 41.7 % (35.3-44.9); Hemoglobin 13.4 g/dL (11.5-15.4); Immature Granulocytes % 0.6 % (0-4); Lymphocytes % 6.4 %; Mean Corpuscular HGB Conc 32.1 g/dL (31.6-35.5); Mean Corpuscular Volume 87.1 fL (83.0-100.0); Mean Platelet Volume 8.2 fL (9.4-12.4); Monocytes # 0.6 K/mcL (0.0-1.3); Monocytes % 3.8 %; Neutrophils # 14.3 K/mcL (1.6-8.9); Platelet Count 345 K/mcL (140-400); Red Blood Count 4.79 M/mcL (3.82-4.97); Red Cell Distribution Width 14.1 % (11.5-14.5); Segmented Neutrophils % 88.8 %; White Blood Count 16.1 K/mcL (4.3-11.1)
[2018-12-18 09:02] LABS: INR 0.9; Prothrombin Time 10.1 Seconds (9.4-12.1)
[2018-12-18 09:04] LABS: Activated Partial Thrombo Time 30.9 Seconds (26.0-36.0)
--- NOTE | 2018-12-18 09:05 | Emergency Department Note ---
Disposition Clinical Impression: Unresponsive, Hypokalemia Disposition: Admitted As Inpatient Condition: Critical Forms: ED Satisfaction Letter Time of Disposition: 10:11 General Adult HPI - General Chief complaint: ED Overdose Stated complaint: UNRESPONSIVE Time Seen by Provider: 12/18/18 07:58 Source: EMS Limitations: no limitations - History of Present Illness Pain Scale: 0 - Related Data Home Medications Medication Instructions Recorded Confirmed Buprenorphine HCl/Naloxone HCl 2 each SL DAILY 10/28/18 11/15/18 [Suboxone 8 mg-2 mg Sl Film] Previous Rx's Medication Instructions Recorded Cetirizine HCl [Allergy Relief] 10 mg PO DAILY #30 capsule 10/29/18 Insulin ASPART [NovoLOG] 5 unit SQ TIDWM #450 mls 10/29/18 Latanoprost/Pf [Latanoprost 0.005% 7.5 ml OP QPM #1 drops 10/29/18 Eye Drop] Meloxicam [Mobic] 15 mg PO DAILY PRN #60 tablet 10/29/18 Naloxone [Narcan] 1 spray NS AD PRN #2 spray 10/29/18 Amoxicillin/Clavulanate [Augmentin] 875 mg PO BIDWM 5 Days #10 tablet 11/25/18 Insulin Glargine,Hum.rec.anlog 17 units SQ QAM 30 Days insuln.pen 11/25/18 [Basaglar Kwikpen U-100] Allergies Allergy/AdvReac Type Severity Reaction Status Date / Time No Known Allergies Allergy Verified 02/15/18 09:31 Past Medical History - Past Medical History Medical history: Reports: diabetes, hepatitis, other Surgical history: Reports: other Psychiatric history: Reports: bipolar, depression 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 SUPERVISOR history, other - Social History Smoking Status: Unknown if ever smoked Smokeless Tobacco Status: No Alcohol use: Reports: none Drug use: Reports: cocaine, opiates, methamphetamine, IV Drug Use, prescription drug abuse, other Physical Exam - General Limitations: no limitations General appearance: in distress Course Vital Signs Pulse Rate 109 12/18/18 07:50 Respiratory Rate 42 12/18/18 07:50 Blood Pressure 176/96 12/18/18 07:50 O2 Sat by Pulse Oximetry 96 12/18/18 07:50 Temperature 97 F L 12/18/18 10:06 Pulse Rate 108 12/18/18 10:06 Respiratory Rate 22 12/18/18 10:06 Blood Pressure 156/76 12/18/18 10:06 O2 Sat by Pulse Oximetry 100 12/18/18 10:06 Oxygen Delivery Oxygen Delivery Ventilator Medical Decision Making - Lab Data Result diagrams: 12/18/18 07:59 12/18/18 07:59 Lab Results 12/18/18 12/18/18 12/18/18 Range/Units 07:52 07:58 07:59 WBC 16.1 H (4.3-11.1) K/mcL RBC 4.79 (3.82-4.97) M/mcL Hgb 13.4 (11.5-15.4) g/dL Hct 41.7 (35.3-44.9) % MCV 87.1 (83.0-100.0) fL MCH 28.0 (28.0-33.3) pg MCHC 32.1 (31.6-35.5) g/dL RDW 14.1 (11.5-14.5) % Plt Count 345 (140-400) K/mcL MPV 8.2 L (9.4-12.4) fL Immature Gran % 0.6 (0-4) % Seg Neutrophils % 88.8 % Lymphocytes % 6.4 % Monocytes % 3.8 % Eosinophils % 0.1 % Basophils % 0.3 % Neutrophils # 14.3 H (1.6-8.9) K/mcL Lymphocytes # 1.0 (0.6-4.6) K/mcL Monocytes # 0.6 (0.0-1.3) K/mcL Eosinophils # 0.0 (0.0-0.6) K/mcL Basophils # 0.1 (0.0-0.2) K/mcL PT (9.4-12.1) Seconds INR APTT (26.0-36.0) Seconds Sample Site ABG pH (7.32-7.45) pH Units ABG pCO2 (35-45) mmHg ABG pO2 (85-104) mmHg ABG HCO3 (21-27) mEq/L ABG Total CO2 (20-26) mEq/L ABG O2 Saturation (95-98) % ABG Base Excess (-2 to 3) mEq/L Nicolás Test Respiration Rate O2 Delivery Device Blood Gas Modality Inspired O2 (1-15=lpm [id number]=%) Tidal Volume cc PEEP cm H2O Sodium (136-145) mEq/L Potassium (3.5-5.1) mEq/L Chloride (98-107) mEq/L Carbon Dioxide (23-29) mEq/L BUN (8-23) mg/dL Creatinine (0.60-1.20) mg/dL Est GFR ( Amer) (> 60) Est GFR (Non-Af Amer) (> 60) BUN/Creatinine Ratio (6-26) Glucose (70-105) mg/dL POC Glucose 109 H (70-99) mg/dL Calculated Osmolality (280-300) Lactic Acid (0.5-2.2) mmol/L Calcium (8.6-10.3) mg/dL Phosphorus (2.7-4.5) mg/dL Magnesium (1.6-2.6) mg/dL Total Bilirubin (0.3-1.0) mg/dL Direct Bilirubin (0.0-0.2) mg/dL Indirect Bilirubin (0.0-1.2) mg/dL AST (13-39) Units/L ALT (7-52) Units/L Alkaline Phosphatase (34-104) Units/L Creatine Kinase (30-223) Units/L Troponin I (< 0.04) ng/mL Serum Total Protein (6.4-8.9) g/dL Albumin (3.5-5.7) g/dL Globulin (2.4-3.5) g/dL Albumin/Globulin Ratio (1.1-2.2) Lipase 8 L (11-82) Units/L Random Cortisol 35.7 mcg/dl Urine Color (Yellow) Urine Clarity (Clear) Urine pH (5.0-8.0) pH Units Ur Specific Monroe (1.010-1.025) Urine Protein (Neg-Trace) mg/dL Urine Glucose (UA) (Normal) mg/dL Urine Ketones (Negative) mg/dL Urine Blood (Negative) Urine Nitrite (Negative) Urine Bilirubin (Negative) Urine Urobilinogen (Normal) mg/dL Ur Leukocyte Esterase (Negative) Urine Microscopic RBC (0-3) per hpf Urine Microscopic WBC (0-3) per hpf Ur Squamous Epith Cells (None-Few) per lpf Urine Bacteria (None-Few) per hpf Hyaline Casts (None-Few) per lpf Ur Culture Indicated? (NO) Salicylates < 2.5 L (15.0-30.0) mg/dL Acetaminophen < 10 L (10-20) mcg/mL Ur Drug Screen Interp Ethyl Alcohol < 10 (Less than 10) mg/dL 12/18/18 12/18/18 12/18/18 Range/Units 07:59 07:59 08:03 WBC (4.3-11.1) K/mcL RBC (3.82-4.97) M/mcL Hgb (11.5-15.4) g/dL Hct (35.3-44.9) % MCV (83.0-100.0) fL MCH (28.0-33.3) pg MCHC (31.6-35.5) g/dL RDW (11.5-14.5) % Plt Count (140-400) K/mcL MPV (9.4-12.4) fL Immature Gran % (0-4) % Seg Neutrophils % % Lymphocytes % % Monocytes % % Eosinophils % % Basophils % % Neutrophils # (1.6-8.9) K/mcL Lymphocytes # (0.6-4.6) K/mcL Monocytes # (0.0-1.3) K/mcL Eosinophils # (0.0-0.6) K/mcL Basophils # (0.0-0.2) K/mcL PT 10.1 (9.4-12.1) Seconds INR 0.9 APTT 30.9 (26.0-36.0) Seconds Sample Site ABG pH (7.32-7.45) pH Units ABG pCO2 (35-45) mmHg ABG pO2 (85-104) mmHg ABG HCO3 (21-27) mEq/L ABG Total CO2 (20-26) mEq/L ABG O2 Saturation (95-98) % ABG Base Excess (-2 to 3) mEq/L Nicolás Test Respiration Rate O2 Delivery Device Blood Gas Modality Inspired O2 (1-15=lpm [id number]=%) Tidal Volume cc PEEP cm H2O Sodium 138 (136-145) mEq/L Potassium 3.0 L (3.5-5.1) mEq/L Chloride 102 (98-107) mEq/L Carbon Dioxide 28 (23-29) mEq/L BUN 11 (8-23) mg/dL Creatinine 0.43 L (0.60-1.20) mg/dL Est GFR ( Amer) > 60 (> 60) Est GFR (Non-Af Amer) > 60 (> 60) BUN/Creatinine Ratio 26 (6-26) Glucose 81 (70-105) mg/dL POC Glucose (70-99) mg/dL Calculated Osmolality 284 (280-300) Lactic Acid (0.5-2.2) mmol/L Calcium 12.3 H (8.6-10.3) mg/dL Phosphorus 4.0 (2.7-4.5) mg/dL Magnesium 1.9 (1.6-2.6) mg/dL Total Bilirubin 0.6 (0.3-1.0) mg/dL Direct Bilirubin 0.1 (0.0-0.2) mg/dL Indirect Bilirubin 0.5 (0.0-1.2) mg/dL AST 41 H (13-39) Units/L ALT 34 (7-52) Units/L Alkaline Phosphatase 154 H (34-104) Units/L Creatine Kinase 112 (30-223) Units/L Troponin I 0.34 H* (< 0.04) ng/mL Serum Total Protein 7.3 (6.4-8.9) g/dL Albumin 4.2 (3.5-5.7) g/dL Globulin 3.1 (2.4-3.5) g/dL Albumin/Globulin Ratio 1.4 (1.1-2.2) Lipase (11-82) Units/L Random Cortisol mcg/dl Urine Color (Yellow) Urine Clarity (Clear) Urine pH (5.0-8.0) pH Units Ur Specific Monroe (1.010-1.025) Urine Protein (Neg-Trace) mg/dL Urine Glucose (UA) (Normal) mg/dL Urine Ketones (Negative) mg/dL Urine Blood (Negative) Urine Nitrite (Negative) Urine Bilirubin (Negative) Urine Urobilinogen (Normal) mg/dL Ur Leukocyte Esterase (Negative) Urine Microscopic RBC (0-3) per hpf Urine Microscopic WBC (0-3) per hpf Ur Squamous Epith Cells (None-Few) per lpf Urine Bacteria (None-Few) per hpf Hyaline Casts (None-Few) per lpf Ur Culture Indicated? (NO) Salicylates (15.0-30.0) mg/dL Acetaminophen (10-20) mcg/mL Ur Drug Screen Interp Ethyl Alcohol (Less than 10) mg/dL 12/18/18 12/18/18 12/18/18 Range/Units 08:40 09:16 09:16 WBC (4.3-11.1) K/mcL RBC (3.82-4.97) M/mcL Hgb (11.5-15.4) g/dL Hct (35.3-44.9) % MCV (83.0-100.0) fL MCH (28.0-33.3) pg MCHC (31.6-35.5) g/dL RDW (11.5-14.5) % Plt Count (140-400) K/mcL MPV (9.4-12.4) fL Immature Gran % (0-4) % Seg Neutrophils % % Lymphocytes % % Monocytes % % Eosinophils % % Basophils % % Neutrophils # (1.6-8.9) K/mcL Lymphocytes # (0.6-4.6) K/mcL Monocytes # (0.0-1.3) K/mcL Eosinophils # (0.0-0.6) K/mcL Basophils # (0.0-0.2) K/mcL PT (9.4-12.1) Seconds INR APTT (26.0-36.0) Seconds Sample Site ABG pH (7.32-7.45) pH Units ABG pCO2 (35-45) mmHg ABG pO2 (85-104) mmHg ABG HCO3 (21-27) mEq/L ABG Total CO2 (20-26) mEq/L ABG O2 Saturation (95-98) % ABG Base Excess (-2 to 3) mEq/L Nicolás Test Respiration Rate O2 Delivery Device Blood Gas Modality Inspired O2 (1-15=lpm [id number]=%) Tidal Volume cc PEEP cm H2O Sodium (136-145) mEq/L Potassium (3.5-5.1) mEq/L Chloride (98-107) mEq/L Carbon Dioxide (23-29) mEq/L BUN (8-23) mg/dL Creatinine (0.60-1.20) mg/dL Est GFR ( Amer) (> 60) Est GFR (Non-Af Amer) (> 60) BUN/Creatinine Ratio (6-26) Glucose (70-105) mg/dL POC Glucose (70-99) mg/dL Calculated Osmolality (280-300) Lactic Acid 0.9 (0.5-2.2) mmol/L Calcium (8.6-10.3) mg/dL Phosphorus (2.7-4.5) mg/dL Magnesium (1.6-2.6) mg/dL Total Bilirubin (0.3-1.0) mg/dL Direct Bilirubin (0.0-0.2) mg/dL Indirect Bilirubin (0.0-1.2) mg/dL AST (13-39) Units/L ALT (7-52) Units/L Alkaline Phosphatase (34-104) Units/L Creatine Kinase (30-223) Units/L Troponin I (< 0.04) ng/mL Serum Total Protein (6.4-8.9) g/dL Albumin (3.5-5.7) g/dL Globulin (2.4-3.5) g/dL Albumin/Globulin Ratio (1.1-2.2) Lipase (11-82) Units/L Random Cortisol mcg/dl Urine Color Yellow (Yellow) Urine Clarity Clear (Clear) Urine pH 7.5 (5.0-8.0) pH Units Ur Specific Monroe 1.011 (1.010-1.025) Urine Protein 30 H (Neg-Trace) mg/dL Urine Glucose (UA) 100 H (Normal) mg/dL Urine Ketones Negative (Negative) mg/dL Urine Blood Moderate H (Negative) Urine Nitrite Negative (Negative) Urine Bilirubin Negative (Negative) Urine Urobilinogen Normal (Normal) mg/dL Ur Leukocyte Esterase Negative (Negative) Urine Microscopic RBC 30-50 H (0-3) per hpf Urine Microscopic WBC 0-3 (0-3) per hpf Ur Squamous Epith Cells Few (None-Few) per lpf Urine Bacteria None Seen (None-Few) per hpf Hyaline Casts None Seen (None-Few) per lpf Ur Culture Indicated? NO (NO) Salicylates (15.0-30.0) mg/dL Acetaminophen (10-20) mcg/mL Ur Drug Screen Interp See Below Ethyl Alcohol (Less than 10) mg/dL 12/18/18 12/18/18 Range/Units 09:21 09:37 WBC (4.3-11.1) K/mcL RBC (3.82-4.97) M/mcL Hgb (11.5-15.4) g/dL Hct (35.3-44.9) % MCV (83.0-100.0) fL MCH (28.0-33.3) pg MCHC (31.6-35.5) g/dL RDW (11.5-14.5) % Plt Count (140-400) K/mcL MPV (9.4-12.4) fL Immature Gran % (0-4) % Seg Neutrophils % % Lymphocytes % % Monocytes % % Eosinophils % % Basophils % % Neutrophils # (1.6-8.9) K/mcL Lymphocytes # (0.6-4.6) K/mcL Monocytes # (0.0-1.3) K/mcL Eosinophils # (0.0-0.6) K/mcL Basophils # (0.0-0.2) K/mcL PT (9.4-12.1) Seconds INR APTT (26.0-36.0) Seconds Sample Site R Brach ABG pH 7.39 (7.32-7.45) pH Units ABG pCO2 40 (35-45) mmHg ABG pO2 181 H (85-104) mmHg ABG HCO3 25 (21-27) mEq/L ABG Total CO2 26 (20-26) mEq/L ABG O2 Saturation 100 H (95-98) % ABG Base Excess 0 (-2 to 3) mEq/L Nicolás Test Positive Respiration Rate 31 O2 Delivery Device Adult Vent Blood Gas Modality ASSIST CONTROL Inspired O2 60.0 (1-15=lpm [id number]=%) Tidal Volume 420 cc PEEP 5 cm H2O Sodium (136-145) mEq/L Potassium (3.5-5.1) mEq/L Chloride (98-107) mEq/L Carbon Dioxide (23-29) mEq/L BUN (8-23) mg/dL Creatinine (0.60-1.20) mg/dL Est GFR ( Amer) (> 60) Est GFR (Non-Af Amer) (> 60) BUN/Creatinine Ratio (6-26) Glucose (70-105) mg/dL POC Glucose 79 (70-99) mg/dL Calculated Osmolality (280-300) Lactic Acid (0.5-2.2) mmol/L Calcium (8.6-10.3) mg/dL Phosphorus (2.7-4.5) mg/dL Magnesium (1.6-2.6) mg/dL Total Bilirubin (0.3-1.0) mg/dL Direct Bilirubin (0.0-0.2) mg/dL Indirect Bilirubin (0.0-1.2) mg/dL AST (13-39) Units/L ALT (7-52) Units/L Alkaline Phosphatase (34-104) Units/L Creatine Kinase (30-223) Units/L Troponin I (< 0.04) ng/mL Serum Total Protein (6.4-8.9) g/dL Albumin (3.5-5.7) g/dL Globulin (2.4-3.5) g/dL Albumin/Globulin Ratio (1.1-2.2) Lipase (11-82) Units/L Random Cortisol mcg/dl Urine Color (Yellow) Urine Clarity (Clear) Urine pH (5.0-8.0) pH Units Ur Specific Monroe (1.010-1.025) Urine Protein (Neg-Trace) mg/dL Urine Glucose (UA) (Normal) mg/dL Urine Ketones (Negative) mg/dL Urine Blood (Negative) Urine Nitrite (Negative) Urine Bilirubin (Negative) Urine Urobilinogen (Normal) mg/dL Ur Leukocyte Esterase (Negative) Urine Microscopic RBC (0-3) per hpf Urine Microscopic WBC (0-3) per hpf Ur Squamous Epith Cells (None-Few) per lpf Urine Bacteria (None-Few) per hpf Hyaline Casts (None-Few) per lpf Ur Culture Indicated? (NO) Salicylates (15.0-30.0) mg/dL Acetaminophen (10-20) mcg/mL Ur Drug Screen Interp Ethyl Alcohol (Less than 10) mg/dL Attestation Statement - Attestation Attestation: I, Buster Roach DO, examined this patient [id number] and my medical decision-making was reviewed with Dr. Keagan Mccloud , Resident Physician. I agree with the documented findings, disposition and treatment plan as described except to the extent set forth below. I personally supervised and was present for the pa/critical portions of the procedures completed by the resident documented below. Please see my progress notes for details. 58-year-old female noted to be this person based on records as well as ID from police presents emergency room via EMS for an unresponsive presentation. Patient found a home morning nonspeaking and unable to be aroused. Patient last seen well for 1 AM last night. She does have a history of IV drug abuse as well as what is suspected to be diabetes considering her glucose was 14 on arrival. Patient IV access obtained dextrose was given and Narcan were given. She was nasally intubated in transport and pulled it out when she became agitated. Patient does not show any acute signs of neurologic status at this point. She is moving her extremities and does isolate pain. She does not appear to be protecting her airway and has coarse crackles on bilateral auscultation of the lungs. At that point patient was provided oxygen by bag valve mask and her pulse ox remained up at 100%. It was determined that because she was not responsive to Narcan as well as had a repeat Accu-Chek here in the department of 109, the patient would be intubated for protection of her airway. 20 mg of etomidate and 80 mg this document utilize that point for 1 attempt with direct v isualization of the oropharynx and vocal cords. The tube was passed without any difficulty and placement was confirmed by chest x-ray. After that measure was completed patient was stabilized and had detailed workup looking for infectious, traumatic, metabolic issues causing the presentation here today. Her head is otherwise atraumatic. Her pupils were approximately 3 mm and fixed. She did not have any specific vulvar sensation with palpation and type of the ET tube after arrival. She did isolate pain out in the upper extremities and lower extremities on arrival. She has coarse crackles bilaterally on auscultation abdomen is soft her heart was regular and tachycardic. Patient will have CBCs chemistry lactic acid CPK troponin urinalysis along with a VBG collected here in the emergency department. CT imaging of the head and cervical spine will be ordered as well as a chest x-ray for confirmatory placement ET tube. Disposition will most likely be admission to the intensive care unit for continuation of care management. Neurologic status is questionable this time the patient may have had anoxic brain injury considering she had a end-tidal CO2 of 4 at the time of arrival by EMS prior to nasopharyngeal intubation. Disposition and clinical outcome are most likely bleak considering the patient's presenting issues as well as medical history. 2 large-bore IVs were obtained 1 in the left external jugular by myself and then 1 in the left before meals by EMS prior to arrival. Since the date of measures were started. EKG was reviewed and documented in the resident physician's note. There are visible signs of acute T waves in leads V2 and V3 use of calcium insulin dextrose were given and the patient was started on D5 normal saline resuscitative fluid here in the emergency department. Patient will be monitored here in the department until admission process is completed. 60 minutes of critical care applied. See detailed documentation the physical exam, medical intervention, medical decision-making, procedures and disposition in the resident physician's note. 1000 Patient has stable ABG and labs appear to be normal at this point. Patient otherwise does not require any other immediate intervention. She is continuing to tremor falls or place. CPK is normal. Lactic acid is normal. Chest x-ray shows possible aspiration antibiotics including vancomycin and Zosyn have been given. The on-call manager corporate marketing was contacted and Dr. Malcolm reviewed the case and is happy except patient to the ICU for continued care management. At this point, CT imaging the head cervical spine and chest x-ray unremarkable. Source to this is most likely polypharmacy based on the patient's history as well as described presentation. We will continue to monitor here to the ICU admission is completed. No other concerns or issues noted this time. Patient is oth erwise stabilizing.
[2018-12-18] MEDS ORDERED: *HR* Midazolam HCl 5 MG/5 ML VIAL IVP ONE (09:08)
[2018-12-18] MEDS ORDERED: *HR* Midazolam HCl 2 MG/2 ML VIAL ONE (09:11)
[2018-12-18 09:13] LABS: Lipase 8 Units/L (11-82)
[2018-12-18 09:18] LABS: Alanine Aminotransferase 34 Units/L (7-52); Albumin 4.2 g/dL (3.5-5.7); Albumin/Globulin Ratio 1.4 (1.1-2.2); Alkaline Phosphatase 154 Units/L (34-104); Aspartate Amino Transferase 41 Units/L (13-39); BUN/Creatinine Ratio 26 (6-26); Bilirubin,Direct 0.1 mg/dL (0.0-0.2); Bilirubin,Indirect 0.5 mg/dL (0.0-1.2); Bilirubin,Total 0.6 mg/dL (0.3-1.0); Blood Urea Nitrogen 11 mg/dL (8-23); Calcium 12.3 mg/dL (8.6-10.3); Carbon Dioxide 28 mEq/L (23-29); Chloride 102 mEq/L (98-107); Globulin 3.1 g/dL (2.4-3.5); Glucose 81 mg/dL (70-105); Magnesium 1.9 mg/dL (1.6-2.6); Osmolality,Calculated 284 (280-300); Sodium 138 mEq/L (136-145); Total Protein 7.3 g/dL (6.4-8.9); Troponin I 0.34 ng/mL (< 0.04); eGFR For African Americans > 60 (> 60); eGFR For Non-African Americans > 60 (> 60)
[2018-12-18] MEDS: FentaNYL (PF) 1,000 MCG in 0.9 % Sodium Chloride 80 ML IVC SCH (09:23)
[2018-12-18] MEDS: D5% in 0.9% NACL 1,000 ML IVC SCH (09:28)
[2018-12-18 09:32] LABS: Acetaminophen < 10 mcg/mL (10-20); Ethanol < 10 mg/dL (Less than 10); Salicylate < 2.5 mg/dL (15.0-30.0)
[2018-12-18 09:41] LABS: ABG Base Excess 0 mEq/L (-2 to 3); ABG HCO3 25 mEq/L (21-27); ABG Oxygen Saturation 100 % (95-98); ABG PCO2 40 mmHg (35-45); ABG PH 7.39 pH Units (7.32-7.45); ABG PO2 181 mmHg (85-104); ABG TCO2 26 mEq/L (20-26); Blood Gas Modality ASSIST CONTROL; Blood Gas PEEP 5 cm H2O; Blood Gas VT 420 cc
[2018-12-18 09:53] LABS: Bilirubin,Urine Negative (Negative); Blood,Urine Moderate (Negative); Clarity,Urine Clear (Clear); Color,Urine Yellow (Yellow); Glucose,Urine (UA) 100 mg/dL (Normal); Ketones,Urine Negative (Negative); Leukocyte Esterase,Urine Negative (Negative); Nitrite,Urine Negative (Negative); PH,Urine 7.5 pH Units (5.0-8.0); Protein,Urine 30 mg/dL (Neg-Trace); Specific Gravity,Urine 1.011 (1.010-1.025); Urobilinogen,Urine Normal (Normal)
[2018-12-18 09:56] LABS: Bacteria,Urine None Seen per hpf (None-Few); Hyaline Casts,Urine None Seen per lpf (None-Few); RBC,Urine 30-50 per hpf (0-3); Squamous Epithelial Cell,Urine Few per lpf (None-Few); WBC,Urine 0-3 per hpf (0-3)
[2018-12-18 10:14] LABS: Amphetamine Screen,Urine Negative ng/mL (Cutoff=1000); Barbiturate Screen,Urine Negative ng/mL (Cutoff=200)
[2018-12-18 10:15] LABS: Benzodiazepines Screen,Urine Negative ng/mL (Cutoff=300); Cannabinoid Screen,Urine Negative ng/mL (Cutoff = 50); Cocaine Screen,Urine Positive ng/mL (Cutoff= 300); Opiate Screen,Urine Negative ng/mL (Cutoff=300); Phencyclidine Screen,Urine Negative ng/mL (Cutoff=25)
[2018-12-18] MEDS ORDERED: *HR* Rocuronium Bromide 100 MG/10 ML VIAL IVC ONE (10:54)
--- NOTE | 2018-12-18 12:47 | Pulmonology History & Physical ---
Date of Encounter: 12/18/18 Time of Encounter: 12:44 Assessment and Plan (1) Acute respiratory failure Current visit: Yes Status: Acute The patient was intubated due to failure to protect the airway in the setting of severe encephalopathy. The full vent support as her current mental status precludes extubation. Qualifiers: Respiratory failure complication: unspecified whether with hypoxia or hypercapnia Qualified Code(s): J96.00 - Acute respiratory failure, unspecified whether with hypoxia or hypercapnia (2) Encephalopathy Current visit: No Status: Acute Multifactorial in etiology. She had fairly profound hypoglycemia, and may have sustained a brain injury. She may also benefit hypoxic, and she is at risk for anoxia. Polysubstance abuse is likely also playing a role. We will continue supportive measures and minimize sedation as able. We can consider EEG, MRI, neurology consultation based on clinical course and goals of care. (3) Hypoglycemia Current visit: No Status: Resolved The patient is reportedly a type II diabetic but is insulin-dependent. Reportedly, her blood sugar was 14 in the field. She is now back up in the normal range. She is on a D5 drip, but we can likely begin enteral nutrition soon. We will start sliding scale insulin, and we can consider adding long- acting insulin based on her requirements. (4) Pneumonia Current visit: Yes Status: Acute Although her chest imaging is fairly unremarkable, we are suctioning copious amounts of purulent secretions from her endotracheal tube. In this clinical setting, I am concerned for an aspiration pneumonia. We will treat her with a 7 day course of ceftriaxone and follow up culture results. Qualifiers: Pneumonia type: aspiration pneumonia Aspiration pneumonia type: unspecified Laterality: unspecified laterality Lung location: unspecified part of lung Qualified Code(s): J69.0 - Pneumonitis due to inhalation of food and vomit (5) Polysubstance abuse Current visit: No Status: Acute Urine drug screen positive for cocaine. She has a history of IV drug abuse and hepatitis C. We will monitor for signs of withdrawal. Comment: Prognosis guarded. History of Present Illness Chief complaint: respiratory failure HPI: Ms. Richardson is a 58 year old female Of note, the patient is currently intubated and encephalopathic. Therefore, she has unable to test. In history or review of systems. Information was obtained from the medical record and in discussion with hospital staff. Reportedly, the patient was found unresponsive. When EMS arrived she was noted to be severely hypoglycemic with a glucose level of 14. She did not respond adequately to Narcan. She was intubated in the field nasally, and then she was reintubated in the emergency department. She was transferred to the ICU for o ngoing care. Past Med Surg Social Fam HX - Past Medical History Medical history: diabetes, hepatitis, other Additional medical history: cardiac catheterization Psychiatric history: bipolar, depression - Past Surgical History Surgical History: other Additional surgical history: LLE surgery - Social History Smoking Status: Unknown if ever smoked Smokeless Tobacco Status: No Alcohol use: none Drug use: cocaine, opiates, methamphetamine, IV Drug Use, prescription drug abuse, other - Family History Mother Living Status: Still Living Hx Family Cardiac Disorders: No Hx Family Respiratory Disorders: No Hx Family Cancer: No Hx Family GI Disorders: No Hx Family Endocrine Disorder: No Hx Family Neuromuscular Disorders: No Hx Family Neurologic Disorders: No Hx Family HEENT Disorders: No Hx Family Autoimmune Disorders: No Father Living Status: Hx Family Cardiac Disorders: No Hx Family Respiratory Disorders: Yes (COPD) Hx Family Cancer: No Hx Family GI Disorders: No Hx Family Endocrine Disorder: Yes (DM) Hx Family Neuromuscular Disorders: No Hx Family Neurologic Disorders: No Hx Family HEENT Disorders: No Hx Family Autoimmune Disorders: No Medications and Allergies Buprenorphine HCl/Naloxone HCl [Suboxone 8 mg-2 mg Sl Film] 2 each SL DAILY 10/28/18 [History] Cetirizine HCl [Allergy Relief] 10 mg PO DAILY #30 capsule 10/29/18 [Rx] Insulin ASPART [NovoLOG] 5 unit SQ TIDWM #450 mls 10/29/18 [Rx] Latanoprost/Pf [Latanoprost 0.005% Eye Drop] 7.5 ml OP QPM #1 drops 10/29/18 [Rx] Meloxicam [Mobic] 15 mg PO DAILY PRN #60 tablet 10/29/18 [Rx] Naloxone [Narcan] 1 spray NS AD PRN #2 spray 10/29/18 [Rx] Amoxicillin/Clavulanate [Augmentin] 875 mg PO BIDWM 5 Days #10 tablet 11/25/18 [Rx] Insulin Glargine,Hum.rec.anlog [Basaglar Kwikpen U-100] 17 units SQ QAM 30 Days insuln.pen 11/25/18 [Rx] Allergy/AdvReac Type Severity Reaction Status Date / Time No Known Allergies Allergy Verified 02/15/18 09:31 ROS unobtainable: due to endotracheal tube, due to mental status Physical Examination Vital Signs: Vital Signs, Last 4 Hours Temp Pulse Resp BP Pulse Ox 12/18/18 12:08 92 16 140/70 100 12/18/18 11:37 16 100 12/18/18 11:35 23 100 12/18/18 11:08 99 F 101 17 184/102 97 12/18/18 10:11 100 12/18/18 10:06 97 F L 108 22 156/76 100 12/18/18 10:01 112 16 164/85 100 General: Intubated and sedated Eyes: nonicteric ENT: Endotracheal tube in place Neck: supple, no lymphadenopathy Lungs: Coarse bilateral breath sounds Cardiovascular: regular rate and rhythm Gastrointestinal: Abdomen is soft, non-tender, non-distended Integumentary: normal Extremities: no cyanosis, no edema Musculoskeletal: no deformities Neuro: Sedated Psych: Sedated Results - Laboratory Findings CBC and BMP: 12/18/18 07:59 12/18/18 07:59 ABG ABG pH 7.39 pH Units (7.32-7.45) 12/18/18 09:37 ABG pCO2 40 mmHg (35-45) 12/18/18 09:37 ABG pO2 181 mmHg (85-104) H 12/18/18 09:37 ABG O2 Saturation 100 % (95-98) H 12/18/18 09:37 PT/INR, D-dimer PT 10.1 Seconds (9.4-12.1) 12/18/18 07:59 Abnormal lab findings: Abnormal lab results WBC 16.1 K/mcL (4.3-11.1) H 12/18/18 07:59 MPV 8.2 fL (9.4-12.4) L 12/18/18 07:59 Neutrophils # 14.3 K/mcL (1.6-8.9) H 12/18/18 07:59 ABG pO2 181 mmHg (85-104) H 12/18/18 09:37 ABG O2 Saturation 100 % (95-98) H 12/18/18 09:37 Potassium 3.0 mEq/L (3.5-5.1) L 12/18/18 07:59 Creatinine 0.43 mg/dL (0.60-1.20) L 12/18/18 07:59 POC Glucose 109 mg/dL (70-99) H 12/18/18 07:52 Calcium 12.3 mg/dL (8.6-10.3) H 12/18/18 07:59 AST 41 Units/L (13-39) H 12/18/18 07:59 Alkaline Phosphatase 154 Units/L (34-104) H 12/18/18 07:59 Troponin I 0.34 ng/mL (< 0.04) H* 12/18/18 07:59 Lipase 8 Units/L (11-82) L 12/18/18 07:58 Urine Protein 30 mg/dL (Neg-Trace) H 12/18/18 09:16 Urine Glucose (UA) 100 mg/dL (Normal) H 12/18/18 09:16 Urine Blood Moderate (Negative) H 12/18/18 09:16 Urine Microscopic RBC 30-50 per hpf (0-3) H 12/18/18 09:16 Salicylates < 2.5 mg/dL (15.0-30.0) L 12/18/18 07:58 Acetaminophen < 10 mcg/mL (10-20) L 12/18/18 07:58 Urine Cocaine Screen Positive ng/mL (Cutoff= 300) H 12/18/18 09:16
[2018-12-18] MEDS ORDERED: 0.9 % Sodium Chloride Mini Bag 100 ML ONE (13:31)
[2018-12-18] MEDS: cefTRIAXone 1,000 MG in 0.9 % Sodium Chloride Mini Bag 100 ML IVPB SCH (13:32)
[2018-12-18] MEDS: Insulin LISPRO 300 UNITS/3 ML VIAL SQ SCH ×2 (17:12→20:51)
[2018-12-18] MEDS ORDERED: Insulin LISPRO 300 UNITS/3 ML VIAL SQ SCH (21:00)
[2018-12-19] MEDS: Insulin LISPRO 300 UNITS/3 ML VIAL SQ SCH ×7 (00:21→23:28)
[2018-12-19] MEDS: FentaNYL (PF) 1,000 MCG in 0.9 % Sodium Chloride 80 ML IVC SCH ×2 (00:22→18:41)
[2018-12-19 05:09] LABS: Basophils % 0.3 %; Eosinophils % 0.2 %; Immature Granulocytes % 0.5 % (0-4); Lymphocytes # 1.6 K/mcL (0.6-4.6); Mean Corpuscular HGB Conc 32.8 g/dL (31.6-35.5); Mean Corpuscular Hemoglobin 28.6 pg (28.0-33.3); Mean Corpuscular Volume 87.2 fL (83.0-100.0); Mean Platelet Volume 8.5 fL (9.4-12.4); Monocytes # 0.8 K/mcL (0.0-1.3); Monocytes % 5.4 %; Neutrophils # 11.7 K/mcL (1.6-8.9); Platelet Count 255 K/mcL (140-400); Red Blood Count 3.67 M/mcL (3.82-4.97); Red Cell Distribution Width 14.1 % (11.5-14.5); Segmented Neutrophils % 82.6 %; White Blood Count 14.2 K/mcL (4.3-11.1)
[2018-12-19 05:12] LABS: Hemoglobin 10.5 g/dL (11.5-15.4)
[2018-12-19 05:28] LABS: ABG Base Excess 4 mEq/L (-2 to 3); ABG HCO3 28 mEq/L (21-27); ABG Oxygen Saturation 95 % (95-98); ABG PCO2 41 mmHg (35-45); ABG PH 7.45 pH Units (7.32-7.45); ABG PO2 74 mmHg (85-104); ABG TCO2 30 mEq/L (20-26); Blood Gas Modality AF; Blood Gas PEEP 5 cm H2O; Blood Gas VT 420 cc
[2018-12-19 05:33] LABS: BUN/Creatinine Ratio 29 (6-26); Blood Urea Nitrogen 12 mg/dL (8-23); Calcium 8.5 mg/dL (8.6-10.3); Carbon Dioxide 27 mEq/L (23-29); Chloride 102 mEq/L (98-107); Glucose 132 mg/dL (70-105); Osmolality,Calculated 288 (280-300); Potassium 3.7 mEq/L (3.5-5.1); Sodium 138 mEq/L (136-145); eGFR For African Americans > 60 (> 60); eGFR For Non-African Americans > 60 (> 60)
--- NOTE | 2018-12-19 08:17 | Pulmonology Progress Note ---
Date of Encounter: 12/19/18 Time of Encounter: 08:13 Assessment and Plan (1) Acute respiratory failure Current Visit: Yes Status: Acute The patient was intubated due to failure to protect the airway in the setting of severe encephalopathy. Continue with daily SAT and SBT. Suspect mental status may preclude extubation for now. She will be risk for requiring tracheostomy tube placement (depending on goals of care) if her mental status does not impro ve. Qualifiers: Respiratory failure complication: unspecified whether with hypoxia or hypercapnia Qualified Code(s): J96.00 - Acute respiratory failure, unspecified whether with hypoxia or hypercapnia (2) Encephalopathy Current Visit: No Status: Acute Multifactorial in etiology. She had fairly profound hypoglycemia, and may have sustained a brain injury. She may also have been hypoxic prior to being found, and she is at risk for anoxia. Polysubstance abuse is likely also playing a role. We will continue supportive measures and minimize sedation as able. We can consider EEG, MRI, neurology consultation based on clinical course and goals of care. (3) Hypoglycemia Current Visit: No Status: Resolved The patient is reportedly a type II diabetic and is insulin-dependent. Reportedly, her blood sugar was 14 in the field. She is now back up in the normal range. We have her on sliding scale insulin and enteral nutrition. We can add long-acting insulin if indicated. (4) Pneumonia Current Visit: Yes Status: Acute Although her chest imaging is fairly unremarkable, we are suctioning copious amounts of purulent secretions from her endotracheal tube. In this clinical setting, I am concerned for an aspiration pneumonia. We will treat her with a 7 day course of ceftriaxone and follow up culture results. Gram stain from sputum culture polymicrobial, consistent with aspiration. Final culture and sensitivities pending. Qualifiers: Pneumonia type: aspiration pneumonia Aspiration pneumonia type: unspecified Laterality: unspecified laterality Lung location: unspecified part of lung Qualified Code(s): J69.0 - Pneumonitis due to inhalation of food and vomit (5) Polysubstance abuse Current Visit: No Status: Acute Urine drug screen positive for cocaine. She has a history of IV drug abuse and hepatitis C. We will monitor for signs of withdrawal. Comment: Prognosis guarded. Total direct critical care time: 32 minutes. Subjective Principal diagnosis: Coronary failure, encephalopathy Interval history: No acute overnight events. Patient was stable on the mechanical ventilator. Hypoglycemia has resolved. She is still not following commands or interacting with caregivers. Objective PUL Vital signs: Last Vital Signs Temp 98.4 F 12/19/18 04:00 Pulse 83 12/19/18 06:00 Resp 17 12/19/18 06:00 BP 98/54 12/19/18 06:00 Pulse Ox 98 12/19/18 06:00 General: Intubated and sedated Eyes: nonicteric ENT: Endotracheal tube in place Neck: supple, no lymphadenopathy Lungs: Coarse bilateral breath sounds Cardiovascular: regular rate and rhythm Gastrointestinal: Abdomen is soft, non-tender, non-distended Integumentary: normal Extremities: no cyanosis, no edema Musculoskeletal: no deformities Neuro: Sedated Psych: Sedated Ventilator Settings Ventilator Settings: Ventilator Settings, Last 8 Hours Ventilator Tidal Volume 420 Setting Ventilator Tidal Volume 420 Setting Ventilator Tidal Volume 420 Setting Ventilator Tidal Volume 420 Setting Ventilator Tidal Volume 420 Setting Ventilator Tidal Volume 420 Setting Ventilator Tidal Volume 420 Setting Ventilator Tidal Volume 420 Setting Ventilator Tidal Volume 420 Setting Ventilator Respiratory Rate 16 Setting Ventilator Respiratory Rate 16 Setting Ventilator Respiratory Rate 16 Setting Ventilator Respiratory Rate 16 Setting Ventilator Respiratory Rate 16 Setting Ventilator Respiratory Rate 16 Setting Ventilator Respiratory Rate 16 Setting Ventilator Respiratory Rate 16 Setting Ventilator Respiratory Rate 16 Setting Actual Respiratory Rate 17 Actual Respiratory Rate 17 Actual Respiratory Rate 17 Actual Respiratory Rate 17 Actual Respiratory Rate 16 Actual Respiratory Rate 16 Actual Respiratory Rate 16 Actual Respiratory Rate 16 Positive End Expiratory 5 Pressure Positive End Expiratory 5 Pressure Positive End Expiratory 5 Pressure Positive End Expiratory 5 Pressure Positive End Expiratory 5 Pressure Positive End Expiratory 5 Pressure Positive End Expiratory 5 Pressure Positive End Expiratory 5 Pressure Positive End Expiratory 5 Pressure Peak Inspiratory Airway 18 Pressure Peak Inspiratory Airway 17 Pressure Peak Inspiratory Airway 18 Pressure Peak Inspiratory Airway 17 Pressure Peak Inspiratory Airway 18 Pressure Peak Inspiratory Airway 18 Pressure Peak Inspiratory Airway 17 Pressure Peak Inspiratory Airway 18 Pressure Results - Laboratory Findings CBC and BMP: 12/19/18 04:55 12/19/18 04:55 ABG ABG pH 7.45 pH Units (7.32-7.45) 12/19/18 05:25 ABG pCO2 41 mmHg (35-45) 12/19/18 05:25 ABG pO2 74 mmHg (85-104) L 12/19/18 05:25 ABG O2 Saturation 95 % (95-98) 12/19/18 05:25 PT/INR, D-dimer PT 10.1 Seconds (9.4-12.1) 12/18/18 07:59 Abnormal lab findings: Abnormal lab results WBC 14.2 K/mcL (4.3-11.1) H 12/19/18 04:55 RBC 3.67 M/mcL (3.82-4.97) L 12/19/18 04:55 Hgb 10.5 g/dL (11.5-15.4) L D 12/19/18 04:55 Hct 32.0 % (35.3-44.9) L 12/19/18 04:55 MPV 8.5 fL (9.4-12.4) L 12/19/18 04:55 Neutrophils # 11.7 K/mcL (1.6-8.9) H 12/19/18 04:55 ABG pO2 74 mmHg (85-104) L 12/19/18 05:25 ABG HCO3 28 mEq/L (21-27) H 12/19/18 05:25 ABG Total CO2 30 mEq/L (20-26) H 12/19/18 05:25 ABG O2 Saturation 100 % (95-98) H 12/18/18 09:37 ABG Base Excess 4 mEq/L (-2 to 3) H 12/19/18 05:25 Potassium 3.0 mEq/L (3.5-5.1) L 12/18/18 07:59 Creatinine 0.42 mg/dL (0.60-1.20) L 12/19/18 04:55 BUN/Creatinine Ratio 29 (6-26) H 12/19/18 04:55 Glucose 132 mg/dL (70-105) H 12/19/18 04:55 POC Glucose 110 mg/dL (70-99) H 12/18/18 19:21 Calcium 8.5 mg/dL (8.6-10.3) L 12/19/18 04:55 AST 41 Units/L (13-39) H 12/18/18 07:59 Alkaline Phosphatase 154 Units/L (34-104) H 12/18/18 07:59 Troponin I 0.34 ng/mL (< 0.04) H* 12/18/18 07:59 Lipase 8 Units/L (11-82) L 12/18/18 07:58 Urine Protein 30 mg/dL (Neg-Trace) H 12/18/18 09:16 Urine Glucose (UA) 100 mg/dL (Normal) H 12/18/18 09:16 Urine Blood Moderate (Negative) H 12/18/18 09:16 Urine Microscopic RBC 30-50 per hpf (0-3) H 12/18/18 09:16 Salicylates < 2.5 mg/dL (15.0-30.0) L 12/18/18 07:58 Acetaminophen < 10 mcg/mL (10-20) L 12/18/18 07:58 Urine Cocaine Screen Positive ng/mL (Cutoff= 300) H 12/18/18 09:16 - Microbiology Findings Microbiology Findings: Microbiology, Last 48 Hours 12/18/18 12:45 Sputum Culture - Preliminary Aspirate 12/18/18 08:40 Blood Culture - Preliminary Peripheral Venipuncture Culture is incubating and being continuously monitored for growth. Final report to follow. 12/18/18 08:40 Blood Culture - Preliminary Peripheral Venipuncture Culture is incubating and being continuously monitored for growth. Final report to follow. - Clinical Findings Intake & Output: Intake & Output 12/18/18 12/19/18 12/19/18 23:59 07:59 15:59 Intake Total 339 / 712 363 / 363 Output Total 150 / 200 150 / 150 Balance 189 / 512 213 / 213 Weight 49.7 kg Consult Discharge Plan - Plan Referrals: NONE,PCP [Primary Care Provider] -
[2018-12-19] MEDS: D5% in 0.9% NACL 1,000 ML IVC SCH (09:53)
[2018-12-19] MEDS: cefTRIAXone 1,000 MG in 0.9 % Sodium Chloride Mini Bag 100 ML IVPB SCH (09:57)
[2018-12-20] MEDS: Insulin LISPRO 300 UNITS/3 ML VIAL SQ SCH ×5 (03:28→19:41)
[2018-12-20 04:19] LABS: ABG Base Excess 1 mEq/L (-2 to 3); ABG HCO3 25 mEq/L (21-27); ABG Oxygen Saturation 99 % (95-98); ABG PCO2 37 mmHg (35-45); ABG PH 7.44 pH Units (7.32-7.45); ABG PO2 113 mmHg (85-104); ABG TCO2 26 mEq/L (20-26); Blood Gas Modality PRVC; Blood Gas PEEP 5 cm H2O; Blood Gas VT 420 cc
[2018-12-20 04:43] LABS: Basophils % 0.4 %; Eosinophils % 0.4 %; Hematocrit 33.8 % (35.3-44.9); Hemoglobin 10.6 g/dL (11.5-15.4); Immature Granulocytes % 0.5 % (0-4); Lymphocytes # 1.5 K/mcL (0.6-4.6); Lymphocytes % 14.6 %; Mean Corpuscular HGB Conc 31.4 g/dL (31.6-35.5); Mean Corpuscular Hemoglobin 27.8 pg (28.0-33.3); Mean Corpuscular Volume 88.7 fL (83.0-100.0); Monocytes # 0.7 K/mcL (0.0-1.3); Monocytes % 6.9 %; Platelet Count 254 K/mcL (140-400); Red Blood Count 3.81 M/mcL (3.82-4.97); Red Cell Distribution Width 14.1 % (11.5-14.5); Segmented Neutrophils % 77.2 %; White Blood Count 10.4 K/mcL (4.3-11.1)
[2018-12-20 04:47] LABS: BUN/Creatinine Ratio 33 (6-26); Blood Urea Nitrogen 16 mg/dL (8-23); Calcium 8.4 mg/dL (8.6-10.3); Carbon Dioxide 24 mEq/L (23-29); Chloride 103 mEq/L (98-107); Glucose 281 mg/dL (70-105); Osmolality,Calculated 293 (280-300); Potassium 3.6 mEq/L (3.5-5.1); Sodium 136 mEq/L (136-145); eGFR For African Americans > 60 (> 60); eGFR For Non-African Americans > 60 (> 60)
[2018-12-20] MEDS: Dexmedetomidine HCl 400 MCG/100 ML MLS IVC SCH ×2 (06:05→15:33)
--- NOTE | 2018-12-20 06:14 | Pulmonology Progress Note ---
Date of Encounter: 12/20/18 Time of Encounter: 06:10 Assessment and Plan (1) Acute respiratory failure with hypoxia Current Visit: No Status: Resolved Complicated by encephalopathy and pneumonia V/Q mismatch is stable adjusted the tidal volume and respiratory rate for lung protective strategy. Patient did not do well on the spontaneous awakening trial she was doing okay with the breathing trial patient cannot be extubated today because of not improving mental status. (2) Metabolic encephalopathy Current Visit: No Status: Resolved The initial encephalopathy is due to hyperglycemia now the blood sugars are stabilized possible that will be some demyelination injury contributing to this current time picture. We will need to get a few more days to see how she recovers in the mental status is not improving we will consider EEG, MRI possible neuro consult. (3) Polysubstance abuse Current Visit: No Status: Acute Patient has baseline polysubstance abuse that might worsen her already existing encephalopathy (4) Pneumonia Current Visit: Yes Status: Acute Patient is growing Enterobacter pansensitive patient was on ceftriaxone patient might have inducible resistant to this above organism will change antibiotic to Zosyn. Qualifiers: Pneumonia type: due to other aerobic Gram-negative bacteria Laterality: unspecified laterality Lung location: unspecified part of lung Qualified Code(s): J15.6 - Pneumonia due to other Gram-negative bacteria Subjective Principal diagnosis: encephalopathy, respiratory failure Interval history: No acute events overnight patient still encephalopathy needing mechanical ventilation. Objective PUL Vital signs: Last Vital Signs Temp 98.8 F 12/20/18 00:00 Pulse 96 12/20/18 06:00 Resp 16 12/20/18 06:00 BP 149/86 12/20/18 06:00 Pulse Ox 100 12/20/18 06:00 General appearance: no acute distress, lethargic Eyes: nonicteric ENT: oropharynx moist Auscultation: bilateral: diminished breath sounds (in the bases ) Cardiovascular: regular rate and rhythm Gastrointestinal: normoactive bowel sounds Extremities: no cyanosis, no edema unable to assess due to mental status other (Unable to assess due to mental status.) Ventilator Settings Ventilator Settings: Ventilator Settings, Last 8 Hours Ventilator Tidal Volume 420 Setting Ventilator Tidal Volume 420 Setting Ventilator Tidal Volume 420 Setting Ventilator Tidal Volume 420 Setting Ventilator Tidal Volume 420 Setting Ventilator Tidal Volume 420 Setting Ventilator Tidal Volume 420 Setting Ventilator Tidal Volume 420 Setting Ventilator Tidal Volume 420 Setting Ventilator Tidal Volume 420 Setting Ventilator Tidal Volume 420 Setting Ventilator Respiratory Rate 16 Setting Ventilator Respiratory Rate 16 Setting Ventilator Respiratory Rate 16 Setting Ventilator Respiratory Rate 16 Setting Ventilator Respiratory Rate 16 Setting Ventilator Respiratory Rate 16 Setting Ventilator Respiratory Rate 16 Setting Ventilator Respiratory Rate 16 Setting Ventilator Respiratory Rate 16 Setting Ventilator Respiratory Rate 16 Setting Ventilator Respiratory Rate 16 Setting Ventilator Respiratory Rate 16 Setting Actual Respiratory Rate 16 Actual Respiratory Rate 28 Actual Respiratory Rate 28 Actual Respiratory Rate 22 Actual Respiratory Rate 18 Actual Respiratory Rate 16 Actual Respiratory Rate 16 Actual Respiratory Rate 16 Actual Respiratory Rate 16 Actual Respiratory Rate 19 Actual Respiratory Rate 16 Actual Respiratory Rate 16 Actual Respiratory Rate 16 Positive End Expiratory 5 Pressure Positive End Expiratory 5 Pressure Positive End Expiratory 5 Pressure Positive End Expiratory 5 Pressure Positive End Expiratory 5 Pressure Positive End Expiratory 5 Pressure Positive End Expiratory 5 Pressure Positive End Expiratory 5 Pressure Positive End Expiratory 5 Pressure Positive End Expiratory 5 Pressure Positive End Expiratory 5 Pressure Positive End Expiratory 5 Pressure Positive End Expiratory 5 Pressure Positive End Expiratory 5 Pressure Peak Inspiratory Airway 44 Pressure Peak Inspiratory Airway 18 Pressure Peak Inspiratory Airway 10 Pressure Peak Inspiratory Airway 11 Pressure Peak Inspiratory Airway 24 Pressure Peak Inspiratory Airway 24 Pressure Peak Inspiratory Airway 18 Pressure Peak Inspiratory Airway 21 Pressure Peak Inspiratory Airway 21 Pressure Peak Inspiratory Airway 21 Pressure Peak Inspiratory Airway 20 Pressure Peak Inspiratory Airway 20 Pressure Peak Inspiratory Airway 17 Pressure Results - Laboratory Findings CBC and BMP: 12/20/18 04:00 12/20/18 04:00 ABG ABG pH 7.44 pH Units (7.32-7.45) 12/20/18 04:17 ABG pCO2 37 mmHg (35-45) 12/20/18 04:17 ABG pO2 113 mmHg (85-104) H 12/20/18 04:17 ABG O2 Saturation 99 % (95-98) H 12/20/18 04:17 PT/INR, D-dimer PT 10.1 Seconds (9.4-12.1) 12/18/18 07:59 Abnormal lab findings: Abnormal lab results WBC 14.2 K/mcL (4.3-11.1) H 12/19/18 04:55 RBC 3.81 M/mcL (3.82-4.97) L 12/20/18 04:00 Hgb 10.6 g/dL (11.5-15.4) L 12/20/18 04:00 Hct 33.8 % (35.3-44.9) L 12/20/18 04:00 MCH 27.8 pg (28.0-33.3) L 12/20/18 04:00 MCHC 31.4 g/dL (31.6-35.5) L 12/20/18 04:00 MPV 9.0 fL (9.4-12.4) L 12/20/18 04:00 Neutrophils # 11.7 K/mcL (1.6-8.9) H 12/19/18 04:55 ABG pO2 113 mmHg (85-104) H 12/20/18 04:17 ABG HCO3 28 mEq/L (21-27) H 12/19/18 05:25 ABG Total CO2 30 mEq/L (20-26) H 12/19/18 05:25 ABG O2 Saturation 99 % (95-98) H 12/20/18 04:17 ABG Base Excess 4 mEq/L (-2 to 3) H 12/19/18 05:25 Potassium 3.0 mEq/L (3.5-5.1) L 12/18/18 07:59 Creatinine 0.49 mg/dL (0.60-1.20) L 12/20/18 04:00 BUN/Creatinine Ratio 33 (6-26) H 12/20/18 04:00 Glucose 281 mg/dL (70-105) H 12/20/18 04:00 POC Glucose 166 mg/dL (70-99) H 12/19/18 23:08 Calcium 8.4 mg/dL (8.6-10.3) L 12/20/18 04:00 AST 41 Units/L (13-39) H 12/18/18 07:59 Alkaline Phosphatase 154 Units/L (34-104) H 12/18/18 07:59 Troponin I 0.34 ng/mL (< 0.04) H* 12/18/18 07:59 Lipase 8 Units/L (11-82) L 12/18/18 07:58 Urine Protein 30 mg/dL (Neg-Trace) H 12/18/18 09:16 Urine Glucose (UA) 100 mg/dL (Normal) H 12/18/18 09:16 Urine Blood Moderate (Negative) H 12/18/18 09:16 Urine Microscopic RBC 30-50 per hpf (0-3) H 12/18/18 09:16 Salicylates < 2.5 mg/dL (15.0-30.0) L 12/18/18 07:58 Acetaminophen < 10 mcg/mL (10-20) L 12/18/18 07:58 Urine Cocaine Screen Positive ng/mL (Cutoff= 300) H 12/18/18 09:16 - Microbiology Findings Microbiology Findings: Microbiology, Last 48 Hours 12/18/18 12:45 Sputum Culture - Preliminary Aspirate Gram Negative Rian 12/18/18 08:40 Blood Culture - Preliminary Peripheral Venipuncture Culture is incubating and being continuously monitored for growth. Final report to follow. 12/18/18 08:40 Blood Culture - Preliminary Peripheral Venipuncture Culture is incubating and being continuously monitored for growth. Final report to follow. - Clinical Findings Intake & Output: Intake & Output 12/19/18 12/19/18 12/20/18 15:59 23:59 07:59 Intake Total 2509 / 3386 464 / 3386 241 / 241 Output Total 300 / 650 100 / 650 100 / 100 Balance 2209 / 2736 364 / 2736 141 / 141 Weight 50.4 kg Consult Discharge Plan - Plan Referrals: NONE,PCP [Primary Care Provider] - Critical Care Time Critical Care Time: Yes Total Critical Care Time: 40 Attestation: I spent 40 minutes of Critical Care time with this patient. It involved decision making of high complexity to assess, manipulate, and support vital organ system failure and/or to prevent further life threatening deterioration of the patient's condition. The time involved in the performance of separately reportable procedures was not counted toward critical care time.
[2018-12-20] MEDS: Piperacillin/Tazobactam 3.375 GM in 0.9 % Sodium Chloride Mini Bag 100 ML IVPB SCH ×2 (08:02→15:32)
[2018-12-20] MEDS ORDERED: Artificial Tears SOLN 15 ML BOTTLE BOTH EYES PRN (11:14)
[2018-12-20] MEDS: Pantoprazole 40 MG VIAL IVP SCH (11:44)
[2018-12-20] MEDS: Artificial Tears SOLN 15 ML BOTTLE BOTH EYES SCH ×3 (11:44→19:44)
[2018-12-20] MEDS ORDERED: Piperacillin/Tazobactam 4.5 GM in 0.9 % Sodium Chloride Mini Bag 100 ML IVPB SCH (12:00)
[2018-12-20] MEDS: FentaNYL (PF) 1,000 MCG in 0.9 % Sodium Chloride 80 ML IVC SCH (14:32)
[2018-12-20] MEDS: Chlorhexidine Rinse 15 ML MOUTHWASH MM SCH (20:48)
[2018-12-21] MEDS: Artificial Tears SOLN 15 ML BOTTLE BOTH EYES SCH ×7 (00:19→23:09)
[2018-12-21] MEDS: Insulin LISPRO 300 UNITS/3 ML VIAL SQ SCH ×7 (00:24→23:10)
[2018-12-21] MEDS: Piperacillin/Tazobactam 3.375 GM in 0.9 % Sodium Chloride Mini Bag 100 ML IVPB SCH ×4 (00:27→23:15)
[2018-12-21 04:57] LABS: ABG Base Excess 3 mEq/L (-2 to 3); ABG HCO3 28 mEq/L (21-27); ABG Oxygen Saturation 90 % (95-98); ABG PCO2 42 mmHg (35-45); ABG PH 7.43 pH Units (7.32-7.45); ABG PO2 58 mmHg (85-104); ABG TCO2 29 mEq/L (20-26); Blood Gas Modality ASSIST CONTROL; Blood Gas PEEP 5 cm H2O; Blood Gas VT 380 cc
[2018-12-21] MEDS: Chlorhexidine Rinse 15 ML MOUTHWASH MM SCH ×2 (08:17→19:35)
[2018-12-21] MEDS: Pantoprazole 40 MG VIAL IVP SCH (08:18)
--- NOTE | 2018-12-21 08:24 | Pulmonology Progress Note ---
<Ave Duran - Last Filed: 12/21/18 10:47> Date of Encounter: 12/21/18 Time of Encounter: 08:22 Assessment and Plan (1) Acute respiratory failure with hypoxia Current Visit: Yes Status: Resolved Likely multifactorial secondary to pneumonia and not able to be weaned off the event as she failed spontaneous awakening trial. Likely complicated by encephalopathy and not improving mental status. -Continue to wean off the vent if tolerating -Continue to treat underlying pneumonia (2) Metabolic encephalopathy Current Visit: Yes Status: Acute Was presented to the ED on 12/18/18 due to unresponsiveness Likely multifactorial given history of IV heroin use, methamphetamine and cocaine Additionally has history of insulin-dependent type 2 diabetes and glucose was found to be 14 at presentation Continues to not respond to commands, at presentation did not show acute abnorma lities EEG and MRI pending Continue to monitor blood glucose (3) Pneumonia Current Visit: Yes Status: Acute Sputum culture showed Enterobacter which is pansensitive Was unresponsive at presentation concern for aspiration pneumonia Continue Zosyn day 2 Qualifiers: Pneumonia type: aspiration pneumonia Aspiration pneumonia type: unspecified Laterality: unspecified laterality Lung location: unspecified part of lung Qualified Code(s): J69.0 - Pneumonitis due to inhalation of food and vomit (4) Polysubstance abuse Current Visit: No Status: Acute History of polysubstance use Family reported history of IV heroin use and cocaine use UDS was positive for cocaine Likely effecting underlying encephalopathy (5) DVT prophylaxis Current Visit: Yes Status: Acute Continue subcutaneous heparin every 12 hours Subjective Principal diagnosis: encephalopathy, respiratory failure Interval history: Ms. Richardson was seen at bedside this morning. She was noted to be tachycardic at a heart rate of 90 and was afebrile overnight. She was awake and opening her eyes but not responding to command. Objective PUL Vital signs: Last Vital Signs Temp 99.0 F 12/21/18 07:20 Pulse 92 12/21/18 08:00 Resp 11 12/21/18 08:00 BP 156/75 12/21/18 08:00 Pulse Ox 100 12/21/18 08:00 General appearance: no acute distress, other (Awake but does not respond to commands) Eyes: nonicteric ENT: oropharynx moist Neck: supple Effort: normal Auscultation: bilateral: diminished breath sounds (Bilateral bases) Cardiovascular: other (Regular rhythm but tachycardic) Gastrointestinal: hypoactive bowel sounds, soft, non-tender Integumentary: normal Extremities: no cyanosis, no edema Musculoskeletal: no deformities unable to assess due to mental status Ventilator Settings Ventilator Settings: Ventilator Settings, Last 8 Hours Ventilator Tidal Volume 380 Setting Ventilator Tidal Volume 380 Setting Ventilator Tidal Volume 380 Setting Ventilator Tidal Volume 380 Setting Ventilator Tidal Volume 380 Setting Ventilator Tidal Volume 380 Setting Ventilator Tidal Volume 380 Setting Ventilator Tidal Volume 380 Setting Ventilator Respiratory Rate 16 Setting Ventilator Respiratory Rate 16 Setting Ventilator Respiratory Rate 16 Setting Ventilator Respiratory Rate 16 Setting Ventilator Respiratory Rate 16 Setting Ventilator Respiratory Rate 16 Setting Ventilator Respiratory Rate 16 Setting Ventilator Respiratory Rate 16 Setting Actual Respiratory Rate 11 Actual Respiratory Rate 15 Actual Respiratory Rate 11 Actual Respiratory Rate 12 Actual Respiratory Rate 23 Actual Respiratory Rate 18 Actual Respiratory Rate 16 Actual Respiratory Rate 23 Actual Respiratory Rate 16 Actual Respiratory Rate 16 Actual Respiratory Rate 16 Positive End Expiratory 5 Pressure Positive End Expiratory 5 Pressure Positive End Expiratory 5 Pressure Positive End Expiratory 5 Pressure Positive End Expiratory 5 Pressure Positive End Expiratory 5 Pressure Positive End Expiratory 5 Pressure Positive End Expiratory 5 Pressure Positive End Expiratory 5 Pressure Positive End Expiratory 5 Pressure Positive End Expiratory 5 Pressure Positive End Expiratory 5 Pressure Peak Inspiratory Airway 10 Pressure Peak Inspiratory Airway 10 Pressure Peak Inspiratory Airway 10 Pressure Peak Inspiratory Airway 10 Pressure Peak Inspiratory Airway 7 Pressure Peak Inspiratory Airway 15 Pressure Peak Inspiratory Airway 15 Pressure Peak Inspiratory Airway 7 Pressure Peak Inspiratory Airway 18 Pressure Peak Inspiratory Airway 17 Pressure Peak Inspiratory Airway 17 Pressure Results - Laboratory Findings CBC and BMP: 12/20/18 04:00 12/20/18 04:00 ABG ABG pH 7.43 pH Units (7.32-7.45) 12/21/18 04:54 ABG pCO2 42 mmHg (35-45) 12/21/18 04:54 ABG pO2 58 mmHg (85-104) L 12/21/18 04:54 ABG O2 Saturation 90 % (95-98) L 12/21/18 04:54 PT/INR, D-dimer PT 10.1 Seconds (9.4-12.1) 12/18/18 07:59 Abnormal lab findings: Abnormal lab results WBC 14.2 K/mcL (4.3-11.1) H 12/19/18 04:55 RBC 3.81 M/mcL (3.82-4.97) L 12/20/18 04:00 Hgb 10.6 g/dL (11.5-15.4) L 12/20/18 04:00 Hct 33.8 % (35.3-44.9) L 12/20/18 04:00 MCH 27.8 pg (28.0-33.3) L 12/20/18 04:00 MCHC 31.4 g/dL (31.6-35.5) L 12/20/18 04:00 MPV 9.0 fL (9.4-12.4) L 12/20/18 04:00 Neutrophils # 11.7 K/mcL (1.6-8.9) H 12/19/18 04:55 ABG pO2 58 mmHg (85-104) L 12/21/18 04:54 ABG HCO3 28 mEq/L (21-27) H 12/21/18 04:54 ABG Total CO2 29 mEq/L (20-26) H 12/21/18 04:54 ABG O2 Saturation 90 % (95-98) L 12/21/18 04:54 ABG Base Excess 4 mEq/L (-2 to 3) H 12/19/18 05:25 Potassium 3.0 mEq/L (3.5-5.1) L 12/18/18 07:59 Creatinine 0.49 mg/dL (0.60-1.20) L 12/20/18 04:00 BUN/Creatinine Ratio 33 (6-26) H 12/20/18 04:00 Glucose 281 mg/dL (70-105) H 12/20/18 04:00 POC Glucose 164 mg/dL (70-99) H 12/20/18 19:38 Calcium 8.4 mg/dL (8.6-10.3) L 12/20/18 04:00 AST 41 Units/L (13-39) H 12/18/18 07:59 Alkaline Phosphatase 154 Units/L (34-104) H 12/18/18 07:59 Troponin I 0.34 ng/mL (< 0.04) H* 12/18/18 07:59 Lipase 8 Units/L (11-82) L 12/18/18 07:58 Urine Protein 30 mg/dL (Neg-Trace) H 12/18/18 09:16 Urine Glucose (UA) 100 mg/dL (Normal) H 12/18/18 09:16 Urine Blood Moderate (Negative) H 12/18/18 09:16 Urine Microscopic RBC 30-50 per hpf (0-3) H 12/18/18 09:16 Salicylates < 2.5 mg/dL (15.0-30.0) L 12/18/18 07:58 Acetaminophen < 10 mcg/mL (10-20) L 12/18/18 07:58 Urine Cocaine Screen Positive ng/mL (Cutoff= 300) H 12/18/18 09:16 - Microbiology Findings Microbiology Findings: Microbiology, Last 48 Hours 12/18/18 12:45 Sputum Culture - Final Aspirate Enterobacter aerogenes - Clinical Findings Intake & Output: Intake & Output 12/20/18 12/21/18 12/21/18 23:59 07:59 15:59 Intake Total 183 / 716 492 / 492 Output Total 25 / 500 125 / 125 Balance 158 / 216 367 / 367 Weight 50.7 kg Consult Discharge Plan - Plan Referrals: NONE,PCP [Primary Care Provider] - <Lj Hooks - Last Filed: 12/21/18 19:23> Date of Encounter: 12/21/18 Assessment and Plan (1) Acute respiratory failure with hypoxia Current Visit: Yes Status: Resolved (2) Metabolic encephalopathy Current Visit: Yes Status: Acute (3) Polysubstance abuse Current Visit: No Status: Acute (4) Pneumonia Current Visit: Yes Status: Acute Qualifiers: Pneumonia type: due to other aerobic Gram-negative bacteria Laterality: unspecified laterality Lung location: unspecified part of lung Qualified Code(s): J15.6 - Pneumonia due to other Gram-negative bacteria Objective PUL Vital signs: Last Vital Signs Temp 98.1 F 12/21/18 16:00 Pulse 76 12/21/18 18:00 Resp 16 12/21/18 18:00 BP 89/57 12/21/18 18:00 Pulse Ox 97 12/21/18 18:00 Ventilator Settings Ventilator Settings: Ventilator Settings, Last 8 Hours Ventilator Tidal Volume 380 Setting Ventilator Tidal Volume 380 Setting Ventilator Tidal Volume 380 Setting Ventilator Tidal Volume 380 Setting Ventilator Tidal Volume 380 Setting Ventilator Tidal Volume 380 Setting Ventilator Tidal Volume 380 Setting Ventilator Respiratory Rate 16 Setting Ventilator Respiratory Rate 16 Setting Ventilator Respiratory Rate 16 Setting Ventilator Respiratory Rate 16 Setting Ventilator Respiratory Rate 16 Setting Ventilator Respiratory Rate 16 Setting Ventilator Respiratory Rate 16 Setting Actual Respiratory Rate 16 Actual Respiratory Rate 16 Actual Respiratory Rate 16 Actual Respiratory Rate 16 Actual Respiratory Rate 18 Actual Respiratory Rate 18 Actual Respiratory Rate 29 Actual Respiratory Rate 19 Actual Respiratory Rate 20 Actual Respiratory Rate 17 Actual Respiratory Rate 23 Positive End Expiratory 5 Pressure Positive End Expiratory 5 Pressure Positive End Expiratory 5 Pressure Positive End Expiratory 5 Pressure Positive End Expiratory 5 Pressure Positive End Expiratory 5 Pressure Positive End Expiratory 5 Pressure Positive End Expiratory 5 Pressure Positive End Expiratory 5 Pressure Positive End Expiratory 5 Pressure Positive End Expiratory 5 Pressure Peak Inspiratory Airway 49 Pressure Peak Inspiratory Airway 33 Pressure Peak Inspiratory Airway 10 Pressure Peak Inspiratory Airway 10 Pressure Peak Inspiratory Airway 10 Pressure Peak Inspiratory Airway 11 Pressure Results - Laboratory Findings CBC and BMP: 12/21/18 11:45 12/21/18 11:45 ABG ABG pH 7.43 pH Units (7.32-7.45) 12/21/18 04:54 ABG pCO2 42 mmHg (35-45) 12/21/18 04:54 ABG pO2 58 mmHg (85-104) L 12/21/18 04:54 ABG O2 Saturation 90 % (95-98) L 12/21/18 04:54 PT/INR, D-dimer PT 10.1 Seconds (9.4-12.1) 12/18/18 07:59 Abnormal lab findings: Abnormal lab results WBC 14.2 K/mcL (4.3-11.1) H 12/19/18 04:55 RBC 3.81 M/mcL (3.82-4.97) L 12/20/18 04:00 Hgb 10.6 g/dL (11.5-15.4) L 12/20/18 04:00 Hct 33.8 % (35.3-44.9) L 12/20/18 04:00 MCH 27.8 pg (28.0-33.3) L 12/21/18 11:45 MCHC 31.4 g/dL (31.6-35.5) L 12/20/18 04:00 MPV 8.7 fL (9.4-12.4) L 12/21/18 11:45 Neutrophils # 11.7 K/mcL (1.6-8.9) H 12/19/18 04:55 ABG pO2 58 mmHg (85-104) L 12/21/18 04:54 ABG HCO3 28 mEq/L (21-27) H 12/21/18 04:54 ABG Total CO2 29 mEq/L (20-26) H 12/21/18 04:54 ABG O2 Saturation 90 % (95-98) L 12/21/18 04:54 ABG Base Excess 4 mEq/L (-2 to 3) H 12/19/18 05:25 Potassium 3.0 mEq/L (3.5-5.1) L 12/18/18 07:59 BUN 28 mg/dL (8-23) H 12/21/18 11:45 Creatinine 0.51 mg/dL (0.60-1.20) L 12/21/18 11:45 BUN/Creatinine Ratio 55 (6-26) H 12/21/18 11:45 Glucose 226 mg/dL (70-105) H 12/21/18 11:45 POC Glucose 164 mg/dL (70-99) H 12/20/18 19:38 Calculated Osmolality 301 (280-300) H 12/21/18 11:45 Calcium 8.4 mg/dL (8.6-10.3) L 12/20/18 04:00 AST 41 Units/L (13-39) H 12/18/18 07:59 Alkaline Phosphatase 154 Units/L (34-104) H 12/18/18 07:59 Troponin I 0.34 ng/mL (< 0.04) H* 12/18/18 07:59 Lipase 8 Units/L (11-82) L 12/18/18 07:58 Urine Protein 30 mg/dL (Neg-Trace) H 12/18/18 09:16 Urine Glucose (UA) 100 mg/dL (Normal) H 12/18/18 09:16 Urine Blood Moderate (Negative) H 12/18/18 09:16 Urine Microscopic RBC 30-50 per hpf (0-3) H 12/18/18 09:16 Salicylates < 2.5 mg/dL (15.0-30.0) L 12/18/18 07:58 Acetaminophen < 10 mcg/mL (10-20) L 12/18/18 07:58 Urine Cocaine Screen Positive ng/mL (Cutoff= 300) H 12/18/18 09:16 - Microbiology Findings Microbiology Findings: Microbiology, Last 48 Hours 12/18/18 12:45 Sputum Culture - Final Aspirate Enterobacter aerogenes - Clinical Findings Intake & Output: Intake & Output 12/21/18 12/21/18 12/21/18 07:59 15:59 23:59 Intake Total 492 / 832 235 / 832 105 / 832 Output Total 125 / 350 225 / 350 Balance 367 / 482 105 / 482 Weight 50.7 kg - Attending Attestation I saw and evaluated this patient and my medical decision-making was reviewed with the Resident Physician. I agree with the documented findings, disposition and treatment plan as described except to the extent set forth below. We independently had [id number] contact with the patient I spent 45 minutes of Critical Care time with this patient. It involved decision making of high complexity to assess, manipulate, and support vital organ system failure and/or to prevent further life threatening deterioration of the patient's condition. The time involved in the performance of separately reportable procedures was not counted toward critical care time. Patient seen and examined at bedside Labs, radiology, chart personally reviewed. Management was reviewed during multidisciplinary critical care rounds. ACADEMIC GUIDANCE SPECIALIST: patient is still encephalopathy agitated will get an EEG and MRI if there is any any significant findings WITH no neurological improvement We will involve Neurology Pulm: patient has acceptable oxygenation and ventilation patient is growing Enterobacter to continue Zosyn Cards: patient is hemodynamically labile between higher than lower pressures wonder if this all central vasomotor instability FEN-GI: to continue tube feeds as per nutrition Renal: labs and output reviewed ID: the covered with the broad-spectrum antibiotics Heme/Onc: labs reviewed Endo: Glucose Monitored Integ/MSK: Skin Care per routine ICU Nursing Protocol to prevent ulcers. Lines: All lines examined without evidence of infection : Dispo: critically ill CODE: full code
[2018-12-21] MEDS ORDERED: Gadolinium Contrast Agent (WT Based) IV PRN (09:48)
[2018-12-21] MEDS: *HR* Heparin 5,000 UNIT/ML VIAL SQ SCH ×2 (11:40→17:34)
[2018-12-21 12:03] LABS: Hemoglobin 11.8 g/dL (11.5-15.4); Mean Corpuscular HGB Conc 31.9 g/dL (31.6-35.5); Mean Corpuscular Hemoglobin 27.8 pg (28.0-33.3); Mean Corpuscular Volume 87.1 fL (83.0-100.0); Mean Platelet Volume 8.7 fL (9.4-12.4); Platelet Count 365 K/mcL (140-400); Red Blood Count 4.25 M/mcL (3.82-4.97); Red Cell Distribution Width 13.4 % (11.5-14.5); White Blood Count 8.9 K/mcL (4.3-11.1)
[2018-12-21 12:19] LABS: BUN/Creatinine Ratio 55 (6-26); Blood Urea Nitrogen 28 mg/dL (8-23); Carbon Dioxide 23 mEq/L (23-29); Chloride 106 mEq/L (98-107); Glucose 226 mg/dL (70-105); Osmolality,Calculated 301 (280-300); Potassium 3.7 mEq/L (3.5-5.1); Sodium 139 mEq/L (136-145); eGFR For African Americans > 60 (> 60); eGFR For Non-African Americans > 60 (> 60)
--- NOTE | 2018-12-21 13:13 | EEG/EMG/Oth Biometrics Report ---
EEG Procedure Report EEG Procedure: Routine EEG Procedure Note: This is a routine 21 channel digital EEG performed utilizing 10- 20 international electrode placement system. FINDINGS: Patient has a predominant waking background frequency that is average voltage 4- 8 Hz Hertz delta activity in the posterior region, high amplitude symmetrical over the both hemispheres reactive to eyes opening and closing record continued to show delta activity intermixed with some theta off and on, no abnormal activity recorded, predominantly no evidence of any spike wave discharges or any lateralizing abnormalities, Photic stimulation did not produce any convulsive response. Intermittent EMG artifacts were noted. Stage II sleep was not achieved. Impression: Abnormal electroencephalogram, generalized slowing is a nonspecific pattern mostly seen in the patient with metabolic toxic encephalopathy consistent with diffuse cortical dysfunction. No epileptiform discharges or any other paroxysmal activities noted. Clinical correlation is suggested
[2018-12-21] MEDS ORDERED: *HR* FentaNYL (PF) 100 MCG/2 ML VIAL IVP ONE (14:00)
[2018-12-21] MEDS ORDERED: *HR* Labetalol 20 MG/4 ML SYRINGE IVP PRN (14:01)
[2018-12-21] MEDS ORDERED: *HR* LORazepam 2 MG/ML VIAL IVP SCH (14:29)
[2018-12-21] MEDS: Dexmedetomidine HCl 400 MCG/100 ML MLS IVC SCH (15:23)
[2018-12-21] MEDS: FentaNYL (PF) 1,000 MCG in 0.9 % Sodium Chloride 80 ML IVC SCH (15:34)
[2018-12-21] MEDS: *HR* LORazepam 2 MG/ML VIAL IVP SCH ×3 (17:33→23:09)
[2018-12-22] MEDS: *HR* LORazepam 2 MG/ML VIAL IVP SCH ×2 (04:06→05:16)
[2018-12-22] MEDS: Artificial Tears SOLN 15 ML BOTTLE BOTH EYES SCH ×5 (04:06→20:39)
[2018-12-22] MEDS: Insulin LISPRO 300 UNITS/3 ML VIAL SQ SCH ×5 (04:07→20:38)
[2018-12-22] MEDS: FentaNYL (PF) 1,000 MCG in 0.9 % Sodium Chloride 80 ML IVC SCH ×2 (04:15→22:30)
[2018-12-22 04:18] LABS: Basophils % 0.3 %; Eosinophils # 0.1 K/mcL (0.0-0.6); Eosinophils % 1.2 %; Hematocrit 31.6 % (35.3-44.9); Hemoglobin 9.9 g/dL (11.5-15.4); Immature Granulocytes % 0.7 % (0-4); Lymphocytes # 1.7 K/mcL (0.6-4.6); Lymphocytes % 27.8 %; Mean Corpuscular HGB Conc 31.3 g/dL (31.6-35.5); Mean Corpuscular Hemoglobin 28.1 pg (28.0-33.3); Mean Corpuscular Volume 89.8 fL (83.0-100.0); Mean Platelet Volume 8.8 fL (9.4-12.4); Monocytes # 0.6 K/mcL (0.0-1.3); Monocytes % 9.8 %; Neutrophils # 3.6 K/mcL (1.6-8.9); Platelet Count 276 K/mcL (140-400); Red Blood Count 3.52 M/mcL (3.82-4.97); Red Cell Distribution Width 13.5 % (11.5-14.5); Segmented Neutrophils % 60.2 %; White Blood Count 5.9 K/mcL (4.3-11.1)
[2018-12-22 04:36] LABS: BUN/Creatinine Ratio 54 (6-26); Blood Urea Nitrogen 30 mg/dL (8-23); Calcium 8.5 mg/dL (8.6-10.3); Carbon Dioxide 28 mEq/L (23-29); Chloride 106 mEq/L (98-107); Glucose 258 mg/dL (70-105); Osmolality,Calculated 309 (280-300); Potassium 3.9 mEq/L (3.5-5.1); Sodium 142 mEq/L (136-145); eGFR For African Americans > 60 (> 60); eGFR For Non-African Americans > 60 (> 60)
[2018-12-22 05:00] LABS: ABG Base Excess 6 mEq/L (-2 to 3); ABG HCO3 30 mEq/L (21-27); ABG Oxygen Saturation 98 % (95-98); ABG PCO2 42 mmHg (35-45); ABG PH 7.47 pH Units (7.32-7.45); ABG PO2 96 mmHg (85-104); ABG TCO2 31 mEq/L (20-26); Blood Gas Modality VC; Blood Gas PEEP 5 cm H2O; Blood Gas VT 380 cc
[2018-12-22] MEDS: *HR* Heparin 5,000 UNIT/ML VIAL SQ SCH ×2 (05:18→16:22)
[2018-12-22] MEDS: Piperacillin/Tazobactam 3.375 GM in 0.9 % Sodium Chloride Mini Bag 100 ML IVPB SCH ×2 (07:36→16:22)
[2018-12-22] MEDS: Pantoprazole 40 MG VIAL IVP SCH (07:36)
[2018-12-22] MEDS: Chlorhexidine Rinse 15 ML MOUTHWASH MM SCH ×2 (07:36→20:38)
--- NOTE | 2018-12-22 09:34 | Neurology Progress Note ---
<Shayne Gurrola M - Last Filed: 12/22/18 11:48> Date of Encounter: 12/22/18 Time of Encounter: 09:30 Assessment and Plan (1) Metabolic encephalopathy Current Visit: Yes Status: Acute Reviewed MRI showing restricted diffusion in parietal and occipital lobes as well as in periventricular white matter and internal capsule. EEG showed gene ralized slowing which is nonspecific and could be a result of metabolic encephalopathy with diffuse cortical dysfunction. No epileptiform discharges noted. Given clinical history as well as imaging results, metabolic encephalopathy most likely etiology for current mental status Consider repeat MRI if patients mental status or cognition changes. At this time recommend continue medical stabilization. Will continue to follow. Subjective Principal diagnosis: encephalopathy, respiratory failure Interval history: Ms Richardson is a 58 year old admitted from ED after being found unresponsive with severe Hypoglycemia. She has a past medical history significant for diabetes, hepatitis (diagnosed over 20 years ago, unsure of treatment status), and polysubstance use disorder. Brief chart review reveals patient was treated in November for altered mental status and had a stay in ICU for diabetic ketoacidosis. She was seen today at bedside intubated and sedated. Collateral information provided by staff revealed patient has been opening her eyes spontaneously but has been unable to follow simple commands. Family was not present at bedside at this time. Patient did withdraw when babinskis was performed but was unable to follow commands at this time. Objective - Constitutional Vitals: Temp Pulse Resp BP Pulse Ox 98.1 F 77 16 152/63 100 12/22/18 08:00 12/22/18 09:00 12/22/18 09:00 12/22/18 09:00 12/22/18 09:00 General appearance: Present: severe distress (patient intubated and sedated), thin Exam: GENERAL: Patient currently intubated and sedated making neurological examination at this time unreliable. HEENT: nonicteric, no noticable rashes or lesions, neck supple LUNGS: intubated, bilateral diminished breath sounds HEART: RRR, S1 S2 Audible, no murmur EXTREMITIES: No Pedal edema. DETAILED NEUROLOGICAL EXAMINATION: MENTAL STATUS: Could not assess due to intubation and sedation Cranial Nerve Examination: unable to accurately assess due to intubation and sedation Motor examination: patient did withdraw both legs to babinskis right more than left, but was unable to follow simple commands making formal motor examination n ot possible at this time. Coordination: Could not assess at this time due to sedation Sensory system: Could not assess at this time due to sedation No evidence of Babinski. Results - Laboratory Findings CBC and BMP: 12/22/18 03:50 12/22/18 03:50 Abnormal lab findings: Abnormal lab results WBC 14.2 K/mcL (4.3-11.1) H 12/19/18 04:55 RBC 3.52 M/mcL (3.82-4.97) L 12/22/18 03:50 Hgb 9.9 g/dL (11.5-15.4) L D 12/22/18 03:50 Hct 31.6 % (35.3-44.9) L 12/22/18 03:50 MCH 27.8 pg (28.0-33.3) L 12/21/18 11:45 MCHC 31.3 g/dL (31.6-35.5) L 12/22/18 03:50 MPV 8.8 fL (9.4-12.4) L 12/22/18 03:50 Neutrophils # 11.7 K/mcL (1.6-8.9) H 12/19/18 04:55 ABG pH 7.47 pH Units (7.32-7.45) H 12/22/18 04:57 ABG pO2 58 mmHg (85-104) L 12/21/18 04:54 ABG HCO3 30 mEq/L (21-27) H 12/22/18 04:57 ABG Total CO2 31 mEq/L (20-26) H 12/22/18 04:57 ABG O2 Saturation 90 % (95-98) L 12/21/18 04:54 ABG Base Excess 6 mEq/L (-2 to 3) H 12/22/18 04:57 Potassium 3.0 mEq/L (3.5-5.1) L 12/18/18 07:59 BUN 30 mg/dL (8-23) H 12/22/18 03:50 Creatinine 0.56 mg/dL (0.60-1.20) L 12/22/18 03:50 BUN/Creatinine Ratio 54 (6-26) H 12/22/18 03:50 Glucose 258 mg/dL (70-105) H 12/22/18 03:50 POC Glucose 224 mg/dL (70-99) H 12/21/18 23:05 Calculated Osmolality 309 (280-300) H 12/22/18 03:50 Calcium 8.5 mg/dL (8.6-10.3) L 12/22/18 03:50 AST 41 Units/L (13-39) H 12/18/18 07:59 Alkaline Phosphatase 154 Units/L (34-104) H 12/18/18 07:59 Troponin I 0.34 ng/mL (< 0.04) H* 12/18/18 07:59 Lipase 8 Units/L (11-82) L 12/18/18 07:58 Urine Protein 30 mg/dL (Neg-Trace) H 12/18/18 09:16 Urine Glucose (UA) 100 mg/dL (Normal) H 12/18/18 09:16 Urine Blood Moderate (Negative) H 12/18/18 09:16 Urine Microscopic RBC 30-50 per hpf (0-3) H 12/18/18 09:16 Salicylates < 2.5 mg/dL (15.0-30.0) L 12/18/18 07:58 Acetaminophen < 10 mcg/mL (10-20) L 12/18/18 07:58 Urine Cocaine Screen Positive ng/mL (Cutoff= 300) H 12/18/18 09:16 Consult Discharge Plan - Plan Referrals: NONE,PCP [Primary Care Provider] - <Aurora Olmedo I - Last Filed: 12/22/18 16:55> Date of Encounter: 12/22/18 Assessment and Plan (1) Metabolic encephalopathy Current Visit: Yes Status: Acute Pt was seen and examined, my medical decision was reviewed with the Resident Taniya flores, I agree with the documented findings, disposition and treatment plan, as described except to the extent set forth below Patient was been admitted with the mental status changes remains intubated. On clinical examination she is minimally responsive, she does open the eyes to voice as well as to painful stimuli but did not follow any commands, though at times she is able to follow one-step commands. Limited neurological examination due to intubation in mental status changes, though no obvious facial asymmetry noted neither any abnormality in the brainstem reflexes, she is able to withdraw all 4 extremities to the deep pain equally, reflexes are symmetrical and downgoing toes bilaterally. MRI of the brain did shows concern off press syndrome, some atypical findings on diffusion weighted images, without any significant abnormality on ADC. Possibility of posterior reversible encephalopathy but at the same time, could be due to significant hypoperfusion. Did not see any significant abnormalities in the brainstem. EEG did not show any seizure activity consistent with diffuse cortical dysfunction. At this time I recommend we should continue to treat underlying metabolic infectious dysfunction Keep her blood pressure stable and at the same time try to a wide any further hypoglycemia. It is possible that she may have suffered some damage to her brain function with significant hypoglycemia and hypoperfusion. Continue current treatment plan ,We will follow the patient with you Discussed with the ICU team Aurora Olmedo MD Objective - Constitutional Vitals: Temp Pulse Resp BP Pulse Ox 97.5 F L 72 16 96/49 99 12/22/18 16:15 12/22/18 16:00 12/22/18 16:19 12/22/18 16:00 12/22/18 16:19 Results - Laboratory Findings CBC and BMP: 12/22/18 03:50 12/22/18 03:50 Abnormal lab findings: Abnormal lab results WBC 14.2 K/mcL (4.3-11.1) H 12/19/18 04:55 RBC 3.52 M/mcL (3.82-4.97) L 12/22/18 03:50 Hgb 9.9 g/dL (11.5-15.4) L D 12/22/18 03:50 Hct 31.6 % (35.3-44.9) L 12/22/18 03:50 MCH 27.8 pg (28.0-33.3) L 12/21/18 11:45 MCHC 31.3 g/dL (31.6-35.5) L 12/22/18 03:50 MPV 8.8 fL (9.4-12.4) L 12/22/18 03:50 Neutrophils # 11.7 K/mcL (1.6-8.9) H 12/19/18 04:55 ABG pH 7.47 pH Units (7.32-7.45) H 12/22/18 04:57 ABG pO2 58 mmHg (85-104) L 12/21/18 04:54 ABG HCO3 30 mEq/L (21-27) H 12/22/18 04:57 ABG Total CO2 31 mEq/L (20-26) H 12/22/18 04:57 ABG O2 Saturation 90 % (95-98) L 12/21/18 04:54 ABG Base Excess 6 mEq/L (-2 to 3) H 12/22/18 04:57 Potassium 3.0 mEq/L (3.5-5.1) L 12/18/18 07:59 BUN 30 mg/dL (8-23) H 12/22/18 03:50 Creatinine 0.56 mg/dL (0.60-1.20) L 12/22/18 03:50 BUN/Creatinine Ratio 54 (6-26) H 12/22/18 03:50 Glucose 258 mg/dL (70-105) H 12/22/18 03:50 POC Glucose 224 mg/dL (70-99) H 12/21/18 23:05 Calculated Osmolality 309 (280-300) H 12/22/18 03:50 Calcium 8.5 mg/dL (8.6-10.3) L 12/22/18 03:50 AST 41 Units/L (13-39) H 12/18/18 07:59 Alkaline Phosphatase 154 Units/L (34-104) H 12/18/18 07:59 Troponin I 0.34 ng/mL (< 0.04) H* 12/18/18 07:59 Lipase 8 Units/L (11-82) L 12/18/18 07:58 Urine Protein 30 mg/dL (Neg-Trace) H 12/18/18 09:16 Urine Glucose (UA) 100 mg/dL (Normal) H 12/18/18 09:16 Urine Blood Moderate (Negative) H 12/18/18 09:16 Urine Microscopic RBC 30-50 per hpf (0-3) H 12/18/18 09:16 Salicylates < 2.5 mg/dL (15.0-30.0) L 12/18/18 07:58 Acetaminophen < 10 mcg/mL (10-20) L 12/18/18 07:58 Urine Cocaine Screen Positive ng/mL (Cutoff= 300) H 12/18/18 09:16
--- NOTE | 2018-12-22 13:23 | Pulmonology Progress Note ---
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 Likely complicated by encephalopathy and not improving mental status. -Continue to wean off the vent if tolerating -Continue to treat underlying pneumonia (3) Pneumonia Current Visit: Yes Status: Acute Sputum culture showed Enterobacter which is pansensitive Was unresponsive at presentation concern for aspiration pneumonia Continue Zosyn day 3 Qualifiers: Pneumonia type: aspiration pneumonia Aspiration pneumonia type: unspecified Laterality: unspecified laterality Lung location: unspecified part of lung Qualified Code(s): J69.0 - Pneumonitis due to inhalation of food and vomit (4) Polysubstance abuse Current Visit: No Status: Acute History of polysubstance use Family reported history of IV heroin use and cocaine use UDS was positive for cocaine Likely effecting underlying encephalopathy (5) Insulin dependent diabetes mellitus Current Visit: No Status: Chronic History of insulin-dependent diabetes presented to the ED with glucose of 14 This morning glucose was noted to be 305 In the past has presented to the ICU with diabetic ketoacidosis Currently appears to have elevated glucose will change from low scale to high sl iding-scale Likely elevated due to tube feeding Added 10 units of Levemir at night (6) Hypertension Current Visit: Yes Status: Acute Unsure of etiology Blood pressure has been elevated for the past few days could be secondary to o piate withdrawal Ativan 2 mg when necessary ordered 6.25 mg carvedilol twice a day Goal of blood pressure, systolic below 160 Labetalol and hydralazine when necessary ordered Qualifiers: Hypertension type: unspecified Qualified Code(s): I10 - Essential (primary) hypertension (7) DVT prophylaxis Current Visit: Yes Status: Acute Continue subcutaneous heparin every 12 hours Subjective Principal diagnosis: encephalopathy, respiratory failure Interval history: Ms. Richardson was seen at bedside this morning. She was noted to be tachycardic at a heart rate of 90 and was afebrile overnight. She was awake and opening her eyes but not responding to command. Objective PUL Vital signs: Last Vital Signs Temp 98.5 F 12/22/18 12:25 Pulse 84 12/22/18 11:00 Resp 16 12/22/18 11:19 BP 155/71 12/22/18 11:00 Pulse Ox 100 12/22/18 11:19 General appearance: no acute distress Eyes: nonicteric ENT: oropharynx moist Neck: supple Effort: normal Auscultation: bilateral: clear Cardiovascular: regular rate and rhythm Gastrointestinal: soft, non-tender, non-distended Integumentary: normal Extremities: no cyanosis, no edema Musculoskeletal: no deformities unable to assess due to mental status, other (Negative Babinski) Ventilator Settings Ventilator Settings: Ventilator Settings, Last 8 Hours Ventilator Tidal Volume 380 Setting Ventilator Tidal Volume 380 Setting Ventilator Tidal Volume 380 Setting Ventilator Tidal Volume 380 Setting Ventilator Tidal Volume 380 Setting Ventilator Tidal Volume 380 Setting Ventilator Tidal Volume 380 Setting Ventilator Tidal Volume 380 Setting Ventilator Tidal Volume 380 Setting Ventilator Tidal Volume 380 Setting Ventilator Respiratory Rate 16 Setting Ventilator Respiratory Rate 16 Setting Ventilator Respiratory Rate 16 Setting Ventilator Respiratory Rate 16 Setting Ventilator Respiratory Rate 16 Setting Ventilator Respiratory Rate 16 Setting Ventilator Respiratory Rate 16 Setting Ventilator Respiratory Rate 16 Setting Ventilator Respiratory Rate 16 Setting Ventilator Respiratory Rate 16 Setting Actual Respiratory Rate 17 Actual Respiratory Rate 16 Actual Respiratory Rate 16 Actual Respiratory Rate 16 Actual Respiratory Rate 16 Actual Respiratory Rate 16 Actual Respiratory Rate 16 Actual Respiratory Rate 16 Actual Respiratory Rate 16 Actual Respiratory Rate 16 Positive End Expiratory 5 Pressure Positive End Expiratory 5 Pressure Positive End Expiratory 5 Pressure Positive End Expiratory 5 Pressure Positive End Expiratory 5 Pressure Positive End Expiratory 5 Pressure Positive End Expiratory 5 Pressure Positive End Expiratory 5 Pressure Positive End Expiratory 5 Pressure Positive End Expiratory 5 Pressure Peak Inspiratory Airway 14 Pressure Peak Inspiratory Airway 13 Pressure Peak Inspiratory Airway 15 Pressure Peak Inspiratory Airway 13 Pressure Peak Inspiratory Airway 13 Pressure Peak Inspiratory Airway 13 Pressure Peak Inspiratory Airway 8.4 Pressure Peak Inspiratory Airway 13 Pressure Peak Inspiratory Airway 13 Pressure Results - Laboratory Findings CBC and BMP: 12/22/18 03:50 12/22/18 03:50 ABG ABG pH 7.47 pH Units (7.32-7.45) H 12/22/18 04:57 ABG pCO2 42 mmHg (35-45) 12/22/18 04:57 ABG pO2 96 mmHg (85-104) 12/22/18 04:57 ABG O2 Saturation 98 % (95-98) 12/22/18 04:57 PT/INR, D-dimer PT 10.1 Seconds (9.4-12.1) 12/18/18 07:59 Abnormal lab findings: Abnormal lab results WBC 14.2 K/mcL (4.3-11.1) H 12/19/18 04:55 RBC 3.52 M/mcL (3.82-4.97) L 12/22/18 03:50 Hgb 9.9 g/dL (11.5-15.4) L D 12/22/18 03:50 Hct 31.6 % (35.3-44.9) L 12/22/18 03:50 MCH 27.8 pg (28.0-33.3) L 12/21/18 11:45 MCHC 31.3 g/dL (31.6-35.5) L 12/22/18 03:50 MPV 8.8 fL (9.4-12.4) L 12/22/18 03:50 Neutrophils # 11.7 K/mcL (1.6-8.9) H 12/19/18 04:55 ABG pH 7.47 pH Units (7.32-7.45) H 12/22/18 04:57 ABG pO2 58 mmHg (85-104) L 12/21/18 04:54 ABG HCO3 30 mEq/L (21-27) H 12/22/18 04:57 ABG Total CO2 31 mEq/L (20-26) H 12/22/18 04:57 ABG O2 Saturation 90 % (95-98) L 12/21/18 04:54 ABG Base Excess 6 mEq/L (-2 to 3) H 12/22/18 04:57 Potassium 3.0 mEq/L (3.5-5.1) L 12/18/18 07:59 BUN 30 mg/dL (8-23) H 12/22/18 03:50 Creatinine 0.56 mg/dL (0.60-1.20) L 12/22/18 03:50 BUN/Creatinine Ratio 54 (6-26) H 12/22/18 03:50 Glucose 258 mg/dL (70-105) H 12/22/18 03:50 POC Glucose 224 mg/dL (70-99) H 12/21/18 23:05 Calculated Osmolality 309 (280-300) H 12/22/18 03:50 Calcium 8.5 mg/dL (8.6-10.3) L 12/22/18 03:50 AST 41 Units/L (13-39) H 12/18/18 07:59 Alkaline Phosphatase 154 Units/L (34-104) H 12/18/18 07:59 Troponin I 0.34 ng/mL (< 0.04) H* 12/18/18 07:59 Lipase 8 Units/L (11-82) L 12/18/18 07:58 Urine Protein 30 mg/dL (Neg-Trace) H 12/18/18 09:16 Urine Glucose (UA) 100 mg/dL (Normal) H 12/18/18 09:16 Urine Blood Moderate (Negative) H 12/18/18 09:16 Urine Microscopic RBC 30-50 per hpf (0-3) H 12/18/18 09:16 Salicylates < 2.5 mg/dL (15.0-30.0) L 12/18/18 07:58 Acetaminophen < 10 mcg/mL (10-20) L 12/18/18 07:58 Urine Cocaine Screen Positive ng/mL (Cutoff= 300) H 12/18/18 09:16 - Microbiology Findings Microbiology Findings: Microbiology, Last 48 Hours 12/18/18 12:45 Sputum Culture - Final Aspirate Enterobacter aerogenes - Clinical Findings Intake & Output: Intake & Output 12/21/18 12/22/18 12/22/18 23:59 07:59 15:59 Intake Total 485 / 1212 516 / 516 Output Total 150 / 500 100 / 250 150 / 250 Balance 335 / 712 416 / 266 -150 / 266 Weight 50.7 kg Consult Discharge Plan - Plan Referrals: NONE,PCP [Primary Care Provider] - <Lj Hooks - Last Filed: 12/22/18 20:39> Date of Encounter: 12/22/18 Assessment and Plan (1) Acute respiratory failure with hypoxia Current Visit: Yes Status: Resolved (2) Metabolic encephalopathy Current Visit: Yes Status: Acute (3) Polysubstance abuse Current Visit: No Status: Acute (4) Pneumonia Current Visit: Yes Status: Acute Qualifiers: Pneumonia type: due to other aerobic Gram-negative bacteria Laterality: unspecified laterality Lung location: unspecified part of lung Qualified Code(s): J15.6 - Pneumonia due to other Gram-negative bacteria Objective PUL Vital signs: Last Vital Signs Temp 97.5 F L 12/22/18 16:15 Pulse 66 12/22/18 18:00 Resp 16 12/22/18 19:37 BP 85/50 12/22/18 19:37 Pulse Ox 99 12/22/18 19:37 Ventilator Settings Ventilator Settings: Ventilator Settings, Last 8 Hours Ventilator Tidal Volume 380 Setting Ventilator Tidal Volume 380 Setting Ventilator Tidal Volume 380 Setting Ventilator Tidal Volume 380 Setting Ventilator Tidal Volume 380 Setting Ventilator Tidal Volume 380 Setting Ventilator Tidal Volume 380 Setting Ventilator Tidal Volume 380 Setting Ventilator Tidal Volume 380 Setting Ventilator Tidal Volume 380 Setting Ventilator Respiratory Rate 16 Setting Ventilator Respiratory Rate 16 Setting Ventilator Respiratory Rate 16 Setting Ventilator Respiratory Rate 16 Setting Ventilator Respiratory Rate 16 Setting Ventilator Respiratory Rate 16 Setting Ventilator Respiratory Rate 16 Setting Ventilator Respiratory Rate 16 Setting Ventilator Respiratory Rate 16 Setting Ventilator Respiratory Rate 16 Setting Actual Respiratory Rate 16 Actual Respiratory Rate 16 Actual Respiratory Rate 16 Actual Respiratory Rate 16 Actual Respiratory Rate 16 Actual Respiratory Rate 16 Actual Respiratory Rate 16 Actual Respiratory Rate 16 Actual Respiratory Rate 16 Actual Respiratory Rate 16 Positive End Expiratory 5 Pressure Positive End Expiratory 5 Pressure Positive End Expiratory 5 Pressure Positive End Expiratory 5 Pressure Positive End Expiratory 5 Pressure Positive End Expiratory 5 Pressure Positive End Expiratory 5 Pressure Positive End Expiratory 5 Pressure Positive End Expiratory 5 Pressure Positive End Expiratory 5 Pressure Peak Inspiratory Airway 16 Pressure Peak Inspiratory Airway 15 Pressure Peak Inspiratory Airway 16 Pressure Peak Inspiratory Airway 16 Pressure Peak Inspiratory Airway 15 Pressure Peak Inspiratory Airway 16 Pressure Peak Inspiratory Airway 13 Pressure Peak Inspiratory Airway 13 Pressure Peak Inspiratory Airway 13 Pressure Peak Inspiratory Airway 13 Pressure Results - Laboratory Findings CBC and BMP: 12/22/18 03:50 12/22/18 03:50 ABG ABG pH 7.47 pH Units (7.32-7.45) H 12/22/18 04:57 ABG pCO2 42 mmHg (35-45) 12/22/18 04:57 ABG pO2 96 mmHg (85-104) 12/22/18 04:57 ABG O2 Saturation 98 % (95-98) 12/22/18 04:57 PT/INR, D-dimer PT 10.1 Seconds (9.4-12.1) 12/18/18 07:59 Abnormal lab findings: Abnormal lab results WBC 14.2 K/mcL (4.3-11.1) H 12/19/18 04:55 RBC 3.52 M/mcL (3.82-4.97) L 12/22/18 03:50 Hgb 9.9 g/dL (11.5-15.4) L D 12/22/18 03:50 Hct 31.6 % (35.3-44.9) L 12/22/18 03:50 MCH 27.8 pg (28.0-33.3) L 12/21/18 11:45 MCHC 31.3 g/dL (31.6-35.5) L 12/22/18 03:50 MPV 8.8 fL (9.4-12.4) L 12/22/18 03:50 Neutrophils # 11.7 K/mcL (1.6-8.9) H 12/19/18 04:55 ABG pH 7.47 pH Units (7.32-7.45) H 12/22/18 04:57 ABG pO2 58 mmHg (85-104) L 12/21/18 04:54 ABG HCO3 30 mEq/L (21-27) H 12/22/18 04:57 ABG Total CO2 31 mEq/L (20-26) H 12/22/18 04:57 ABG O2 Saturation 90 % (95-98) L 12/21/18 04:54 ABG Base Excess 6 mEq/L (-2 to 3) H 12/22/18 04:57 Potassium 3.0 mEq/L (3.5-5.1) L 12/18/18 07:59 BUN 30 mg/dL (8-23) H 12/22/18 03:50 Creatinine 0.56 mg/dL (0.60-1.20) L 12/22/18 03:50 BUN/Creatinine Ratio 54 (6-26) H 12/22/18 03:50 Glucose 258 mg/dL (70-105) H 12/22/18 03:50 POC Glucose 224 mg/dL (70-99) H 12/21/18 23:05 Calculated Osmolality 309 (280-300) H 12/22/18 03:50 Calcium 8.5 mg/dL (8.6-10.3) L 12/22/18 03:50 AST 41 Units/L (13-39) H 12/18/18 07:59 Alkaline Phosphatase 154 Units/L (34-104) H 12/18/18 07:59 Troponin I 0.34 ng/mL (< 0.04) H* 12/18/18 07:59 Lipase 8 Units/L (11-82) L 12/18/18 07:58 Urine Protein 30 mg/dL (Neg-Trace) H 12/18/18 09:16 Urine Glucose (UA) 100 mg/dL (Normal) H 12/18/18 09:16 Urine Blood Moderate (Negative) H 12/18/18 09:16 Urine Microscopic RBC 30-50 per hpf (0-3) H 12/18/18 09:16 Salicylates < 2.5 mg/dL (15.0-30.0) L 12/18/18 07:58 Acetaminophen < 10 mcg/mL (10-20) L 12/18/18 07:58 Urine Cocaine Screen Positive ng/mL (Cutoff= 300) H 12/18/18 09:16 - Clinical Findings Intake & Output: Intake & Output 12/22/18 12/22/18 12/22/18 07:59 15:59 23:59 Intake Total 516 / 726 185 / 726 25 / 726 Output Total 100 / 350 150 / 350 100 / 350 Balance 416 / 376 35 / 376 -75 / 376 Weight 50.7 kg - Attending Attestation I saw and evaluated this patient and my medical decision-making was reviewed with the Resident Physician. I agree with the documented findings, disposition and treatment plan as described except to the extent set forth below. We independently had [id number] contact with the patient I spent 45 of Critical Care time with this patient. It involved decision making of high complexity to assess, manipulate, and support vital organ system failure and/or to prevent further life threatening deterioration of the patient's condition. The time involved in the performance of separately reportable p rocedures was not counted toward critical care time. Patient seen and examined at bedside Labs, radiology, chart personally reviewed. Management was reviewed during multidisciplinary critical care rounds. [employer] OPERATOR: Patient significant encephalopathy neurology consult did EEG MRI done MRI was concerning for atypical posterior reversible leukoencephalopathy syndrome can be due to hypoglycemic injury on due to her high blood pressure does of cocaine intoxication Pulm: Patient has acceptable oxygenation and ventilation to continue low tidal volume strategy Cards: Patient is similarly stable FEN-GI: Diet according to nutrition recommendations Renal: Labs and output were reviewed ID: Patient is having broad-spectrum antibiotics for Enterobacter pneumonia Heme/Onc: Labs reviewed Endo: Glucose Monitored Integ/MSK: Skin Care per routine ICU Nursing Protocol to prevent ulcers. Lines: All lines examined without evidence of infection : Dispo: critically ill CODE: Full code
[2018-12-22] MEDS: *HR* LORazepam 2 MG/ML VIAL IVP PRN (14:23)
[2018-12-22] MEDS: Dexmedetomidine HCl 400 MCG/100 ML MLS IVC SCH (16:23)
[2018-12-22] MEDS: Insulin DETEMIR 100 UNIT/ML X5UNITS SQ SCH (20:38)
[2018-12-23] MEDS: Insulin LISPRO 300 UNITS/3 ML VIAL SQ SCH ×7 (00:08→23:48)
[2018-12-23] MEDS: Artificial Tears SOLN 15 ML BOTTLE BOTH EYES SCH ×7 (00:08→23:22)
[2018-12-23] MEDS: Piperacillin/Tazobactam 3.375 GM in 0.9 % Sodium Chloride Mini Bag 100 ML IVPB SCH ×4 (00:15→23:26)
[2018-12-23 04:19] LABS: Hematocrit 29.9 % (35.3-44.9); Hemoglobin 9.3 g/dL (11.5-15.4); Mean Corpuscular HGB Conc 31.1 g/dL (31.6-35.5); Mean Corpuscular Hemoglobin 28.4 pg (28.0-33.3); Mean Corpuscular Volume 91.2 fL (83.0-100.0); Platelet Count 255 K/mcL (140-400); Red Blood Count 3.28 M/mcL (3.82-4.97); Red Cell Distribution Width 13.3 % (11.5-14.5); White Blood Count 6.5 K/mcL (4.3-11.1)
[2018-12-23 04:23] LABS: ABG Base Excess 7 mEq/L (-2 to 3); ABG HCO3 31 mEq/L (21-27); ABG Oxygen Saturation 97 % (95-98); ABG PCO2 46 mmHg (35-45); ABG PH 7.45 pH Units (7.32-7.45); ABG PO2 83 mmHg (85-104); ABG TCO2 33 mEq/L (20-26); Blood Gas Modality PRVC; Blood Gas PEEP 5 cm H2O; Blood Gas VT 380 cc
[2018-12-23 04:43] LABS: BUN/Creatinine Ratio 63 (6-26); Blood Urea Nitrogen 29 mg/dL (8-23); Calcium 8.4 mg/dL (8.6-10.3); Carbon Dioxide 27 mEq/L (23-29); Chloride 109 mEq/L (98-107); Glucose 194 mg/dL (70-105); Osmolality,Calculated 309 (280-300); Potassium 3.7 mEq/L (3.5-5.1); Sodium 144 mEq/L (136-145); eGFR For African Americans > 60 (> 60); eGFR For Non-African Americans > 60 (> 60)
[2018-12-23] MEDS: *HR* Heparin 5,000 UNIT/ML VIAL SQ SCH ×2 (05:21→17:57)
[2018-12-23] MEDS: Pantoprazole 40 MG VIAL IVP SCH (09:13)
[2018-12-23] MEDS: Chlorhexidine Rinse 15 ML MOUTHWASH MM SCH ×2 (09:13→20:50)
--- NOTE | 2018-12-23 09:32 | Pulmonology Progress Note ---
<Ave Duran - Last Filed: 12/23/18 09:29> Date of Encounter: 12/23/18 Time of Encounter: 09:30 Assessment and Plan (1) Metabolic encephalopathy Current Visit: Yes Status: Resolved Was presented to the ED on 12/18/18 due to unresponsiveness Likely multifactorial given history of IV heroin use, methamphetamine and cocaine Additionally has history of insulin-dependent type 2 diabetes and glucose was found to be 14 at presentation Glucose now has normalized EEG and MRI show concern for posterior reversible encephalopathy syndrome Neurology consulted Neurology recommends a repeat MRI in 2 weeks Started following commands today, improving encephalopathy (2) Acute respiratory failure with hypoxia Current Visit: Yes Status: Resolved Likely multifactorial secondary to pneumonia and not able to be weaned off the event as she failed spontaneous awakening trial. Likely complicated by encephalopathy and not improving mental status. -Extubated this morning, responding to nasal cannula -Continue to treat underlying pneumonia (3) Pneumonia Current Visit: Yes Status: Acute Sputum culture showed Enterobacter which is pansensitive Was unresponsive at presentation concern for aspiration pneumonia Continue Zosyn day 4 of 7 Qualifiers: Pneumonia type: aspiration pneumonia Aspiration pneumonia type: unspecified Laterality: unspecified laterality Lung location: unspecified part of lung Qualified Code(s): J69.0 - Pneumonitis due to inhalation of food and vomit (4) Polysubstance abuse Current Visit: No Status: Acute History of polysubstance use Family reported history of IV heroin use and cocaine use UDS was positive for cocaine Likely effected underlying encephalopathy (5) Insulin dependent diabetes mellitus Current Visit: No Status: Chronic History of insulin-dependent diabetes presented to the ED with glucose of 14 Was has normalized this morning 137 In the past has presented to the ICU with diabetic ketoacidosis Currently appears to have elevated glucose will change from low scale to high sliding-scale Likely elevated due to tube feeding Continue 10 units of Levemir at night, may need to increase tomorrow with increased nutrition We will start full liquid diet (6) Hypertension Current Visit: Yes Status: Acute Unsure of etiology Blood pressure has been elevated for the past few days could be secondary to opiate withdrawal Ativan 2 mg when necessary ordered Carvedilol 12.5 mg twice a day continue to monitor blood pressure Goal of blood pressure, systolic below 140 Labetalol and hydralazine when necessary ordered Qualifiers: Hypertension type: unspecified Qualified Code(s): I10 - Essential (primary) hypertension (7) DVT prophylaxis Current Visit: Yes Status: Acute Continue subcutaneous heparin every 12 hours Subjective Principal diagnosis: encephalopathy, respiratory failure Interval history: Ms. Richardson was seen at bedside this morning. She was awake and alert, following commands. Overnight she remained afebrile and normotensive. Objective PUL Vital signs: Last Vital Signs Temp 98.7 F 12/23/18 07:41 Pulse 76 12/23/18 09:00 Resp 15 12/23/18 09:00 BP 109/90 12/23/18 09:00 Pulse Ox 100 12/23/18 09:00 General appearance: no acute distress, alert Eyes: nonicteric ENT: oropharynx moist Neck: supple Auscultation: bilateral: diminished breath sounds Cardiovascular: regular rate and rhythm Gastrointestinal: hypoactive bowel sounds, soft, non-tender, non-distended Integumentary: normal Extremities: no cyanosis, no edema Musculoskeletal: no deformities non-focal exam, pupils equal and round, motor strength normal and symmetric mood appropriate, affect normal Ventilator Settings Ventilator Settings: Ventilator Settings, Last 8 Hours Ventilator Tidal Volume 380 Setting Ventilator Tidal Volume 380 Setting Ventilator Tidal Volume 380 Setting Ventilator Tidal Volume 380 Setting Ventilator Tidal Volume 380 Setting Ventilator Tidal Volume 380 Setting Ventilator Tidal Volume 380 Setting Ventilator Tidal Volume 380 Setting Ventilator Tidal Volume 380 Setting Ventilator Respiratory Rate 16 Setting Ventilator Respiratory Rate 16 Setting Ventilator Respiratory Rate 16 Setting Ventilator Respiratory Rate 16 Setting Ventilator Respiratory Rate 16 Setting Ventilator Respiratory Rate 16 Setting Ventilator Respiratory Rate 16 Setting Ventilator Respiratory Rate 16 Setting Ventilator Respiratory Rate 16 Setting Actual Respiratory Rate 12 Actual Respiratory Rate 10 Actual Respiratory Rate 16 Actual Respiratory Rate 16 Actual Respiratory Rate 16 Actual Respiratory Rate 16 Actual Respiratory Rate 16 Actual Respiratory Rate 16 Actual Respiratory Rate 16 Positive End Expiratory 5 Pressure Positive End Expiratory 5 Pressure Positive End Expiratory 5 Pressure Positive End Expiratory 5 Pressure Positive End Expiratory 5 Pressure Positive End Expiratory 4 Pressure Positive End Expiratory 4 Pressure Positive End Expiratory 5 Pressure Positive End Expiratory 5 Pressure Positive End Expiratory 5 Pressure Peak Inspiratory Airway 9.6 Pressure Peak Inspiratory Airway 14 Pressure Peak Inspiratory Airway 12 Pressure Peak Inspiratory Airway 12 Pressure Peak Inspiratory Airway 12 Pressure Peak Inspiratory Airway 20 Pressure Peak Inspiratory Airway 16 Pressure Peak Inspiratory Airway 18 Pressure Peak Inspiratory Airway 17 Pressure Results - Laboratory Findings CBC and BMP: 12/23/18 03:55 12/23/18 03:55 ABG ABG pH 7.45 pH Units (7.32-7.45) 12/23/18 04:19 ABG pCO2 46 mmHg (35-45) H 12/23/18 04:19 ABG pO2 83 mmHg (85-104) L 12/23/18 04:19 ABG O2 Saturation 97 % (95-98) 12/23/18 04:19 PT/INR, D-dimer PT 10.1 Seconds (9.4-12.1) 12/18/18 07:59 Abnormal lab findings: Abnormal lab results WBC 14.2 K/mcL (4.3-11.1) H 12/19/18 04:55 RBC 3.28 M/mcL (3.82-4.97) L 12/23/18 03:55 Hgb 9.3 g/dL (11.5-15.4) L 12/23/18 03:55 Hct 29.9 % (35.3-44.9) L 12/23/18 03:55 MCH 27.8 pg (28.0-33.3) L 12/21/18 11:45 MCHC 31.1 g/dL (31.6-35.5) L 12/23/18 03:55 MPV 9.0 fL (9.4-12.4) L 12/23/18 03:55 Neutrophils # 11.7 K/mcL (1.6-8.9) H 12/19/18 04:55 ABG pH 7.47 pH Units (7.32-7.45) H 12/22/18 04:57 ABG pCO2 46 mmHg (35-45) H 12/23/18 04:19 ABG pO2 83 mmHg (85-104) L 12/23/18 04:19 ABG HCO3 31 mEq/L (21-27) H 12/23/18 04:19 ABG Total CO2 33 mEq/L (20-26) H 12/23/18 04:19 ABG O2 Saturation 90 % (95-98) L 12/21/18 04:54 ABG Base Excess 7 mEq/L (-2 to 3) H 12/23/18 04:19 Potassium 3.0 mEq/L (3.5-5.1) L 12/18/18 07:59 Chloride 109 mEq/L (98-107) H 12/23/18 03:55 BUN 29 mg/dL (8-23) H 12/23/18 03:55 Creatinine 0.46 mg/dL (0.60-1.20) L 12/23/18 03:55 BUN/Creatinine Ratio 63 (6-26) H 12/23/18 03:55 Glucose 194 mg/dL (70-105) H 12/23/18 03:55 POC Glucose 208 mg/dL (70-99) H 12/23/18 00:03 Calculated Osmolality 309 (280-300) H 12/23/18 03:55 Calcium 8.4 mg/dL (8.6-10.3) L 12/23/18 03:55 AST 41 Units/L (13-39) H 12/18/18 07:59 Alkaline Phosphatase 154 Units/L (34-104) H 12/18/18 07:59 Troponin I 0.34 ng/mL (< 0.04) H* 12/18/18 07:59 Lipase 8 Units/L (11-82) L 12/18/18 07:58 Urine Protein 30 mg/dL (Neg-Trace) H 12/18/18 09:16 Urine Glucose (UA) 100 mg/dL (Normal) H 12/18/18 09:16 Urine Blood Moderate (Negative) H 12/18/18 09:16 Urine Microscopic RBC 30-50 per hpf (0-3) H 12/18/18 09:16 Salicylates < 2.5 mg/dL (15.0-30.0) L 12/18/18 07:58 Acetaminophen < 10 mcg/mL (10-20) L 12/18/18 07:58 Urine Cocaine Screen Positive ng/mL (Cutoff= 300) H 12/18/18 09:16 - Clinical Findings Intake & Output: Intake & Output 12/22/18 12/23/18 12/23/18 23:59 07:59 15:59 Intake Total 707 / 1408 360 / 360 Output Total 200 / 450 200 / 200 Balance 507 / 958 160 / 160 Weight 50.9 kg Consult Discharge Plan - Plan Referrals: NONE,PCP [Primary Care Provider] - <Lj Hooks - Last Filed: 12/23/18 21:46> Date of Encounter: 12/23/18 Assessment and Plan (1) Acute respiratory failure with hypoxia Current Visit: Yes Status: Resolved (2) Metabolic encephalopathy Current Visit: Yes Status: Resolved (3) Polysubstance abuse Current Visit: No Status: Acute (4) Pneumonia Current Visit: Yes Status: Acute Qualifiers: Pneumonia type: due to other aerobic Gram-negative bacteria Laterality: unspecified laterality Lung location: unspecified part of lung Qualified Code(s): J15.6 - Pneumonia due to other Gram-negative bacteria Objective PUL Vital signs: Last Vital Signs Temp 98.0 F 12/23/18 20:00 Pulse 73 12/23/18 20:05 Resp 20 12/23/18 20:00 BP 135/62 12/23/18 20:00 Pulse Ox 97 12/23/18 20:00 Results - Laboratory Findings CBC and BMP: 12/23/18 03:55 12/23/18 03:55 ABG ABG pH 7.45 pH Units (7.32-7.45) 12/23/18 04:19 ABG pCO2 46 mmHg (35-45) H 12/23/18 04:19 ABG pO2 83 mmHg (85-104) L 12/23/18 04:19 ABG O2 Saturation 97 % (95-98) 12/23/18 04:19 PT/INR, D-dimer PT 10.1 Seconds (9.4-12.1) 12/18/18 07:59 Abnormal lab findings: Abnormal lab results WBC 14.2 K/mcL (4.3-11.1) H 12/19/18 04:55 RBC 3.28 M/mcL (3.82-4.97) L 12/23/18 03:55 Hgb 9.3 g/dL (11.5-15.4) L 12/23/18 03:55 Hct 29.9 % (35.3-44.9) L 12/23/18 03:55 MCH 27.8 pg (28.0-33.3) L 12/21/18 11:45 MCHC 31.1 g/dL (31.6-35.5) L 12/23/18 03:55 MPV 9.0 fL (9.4-12.4) L 12/23/18 03:55 Neutrophils # 11.7 K/mcL (1.6-8.9) H 12/19/18 04:55 ABG pH 7.47 pH Units (7.32-7.45) H 12/22/18 04:57 ABG pCO2 46 mmHg (35-45) H 12/23/18 04:19 ABG pO2 83 mmHg (85-104) L 12/23/18 04:19 ABG HCO3 31 mEq/L (21-27) H 12/23/18 04:19 ABG Total CO2 33 mEq/L (20-26) H 12/23/18 04:19 ABG O2 Saturation 90 % (95-98) L 12/21/18 04:54 ABG Base Excess 7 mEq/L (-2 to 3) H 12/23/18 04:19 Potassium 3.0 mEq/L (3.5-5.1) L 12/18/18 07:59 Chloride 109 mEq/L (98-107) H 12/23/18 03:55 BUN 29 mg/dL (8-23) H 12/23/18 03:55 Creatinine 0.46 mg/dL (0.60-1.20) L 12/23/18 03:55 BUN/Creatinine Ratio 63 (6-26) H 12/23/18 03:55 Glucose 194 mg/dL (70-105) H 12/23/18 03:55 POC Glucose 208 mg/dL (70-99) H 12/23/18 00:03 Calculated Osmolality 309 (280-300) H 12/23/18 03:55 Calcium 8.4 mg/dL (8.6-10.3) L 12/23/18 03:55 AST 41 Units/L (13-39) H 12/18/18 07:59 Alkaline Phosphatase 154 Units/L (34-104) H 12/18/18 07:59 Troponin I 0.34 ng/mL (< 0.04) H* 12/18/18 07:59 Lipase 8 Units/L (11-82) L 12/18/18 07:58 Urine Protein 30 mg/dL (Neg-Trace) H 12/18/18 09:16 Urine Glucose (UA) 100 mg/dL (Normal) H 12/18/18 09:16 Urine Blood Moderate (Negative) H 12/18/18 09:16 Urine Microscopic RBC 30-50 per hpf (0-3) H 12/18/18 09:16 Salicylates < 2.5 mg/dL (15.0-30.0) L 12/18/18 07:58 Acetaminophen < 10 mcg/mL (10-20) L 12/18/18 07:58 Urine Cocaine Screen Positive ng/mL (Cutoff= 300) H 12/18/18 09:16 - Microbiology Findings Microbiology Findings: Microbiology, Last 48 Hours 12/18/18 08:40 Blood Culture - Final Peripheral Venipuncture No growth. Final report. 12/18/18 08:40 Blood Culture - Final Peripheral Venipuncture No growth. Final report. - Clinical Findings Intake & Output: Intake & Output 12/23/18 12/23/18 12/23/18 07:59 15:59 23:59 Intake Total 360 / 1090 270 / 1090 460 / 1090 Output Total 200 / 625 75 / 625 350 / 625 Balance 160 / 465 195 / 465 110 / 465 Weight 50.9 kg - Attending Attestation - Attending Attestation I saw and evaluated this patient and my medical decision-making was reviewed with the Resident Physician. I agree with the documented findings, disposition and treatment plan as described except to the extent set forth below. We independently had [id number] contact with the patient I spent 35 of Critical Care time with this patient. It involved decision making of high complexity to assess, manipulate, and support vital organ system failure and/or to prevent further life threatening deterioration of the patient's condition. The time involved in the performance of separately reportable procedures was not counted toward critical care time. Patient seen and examined at bedside Labs, radiology, chart personally reviewed. Management was reviewed during multidisciplinary critical care rounds. 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 Cards: Patient is hemodynamically stable FEN-GI: Diet as tolerated. Renal: Labs and output were reviewed ID: Patient is having broad-spectrum antibiotics for Enterobacter pneumonia Heme/Onc: Labs reviewed Endo: Glucose Monitored Integ/MSK: Skin Care per routine ICU Nursing Protocol to prevent ulcers. Lines: All lines examined without evidence of infection : Dispo: critically ill CODE: Full code
--- NOTE | 2018-12-23 11:15 | Neurology Progress Note ---
<Lenin Davila J - Last Filed: 12/23/18 13:13> Date of Encounter: 12/23/18 Time of Encounter: 11:14 Assessment and Plan (1) Metabolic encephalopathy Current Visit: Yes Status: Resolved The neurological exam continues to be limited by the patient's altered mental status She moves all 4 extremities to painful stimuli strength 2/5 in all muscle groups bilateral upper and lower extremities Otherwise, she will not follow commands Today she is extubated and in no acute distress, but encephalopathy persists Differential includes posterior reversible encephalopathy but also significant hypoperfusion and ultimately is likely multifactorial with drug abuse, pneumonia and acute respiratory failure as well as hypoglycemia with blood glucose of 14 a presentation EKG obtained and did not show any seizure activity but was consistent with diffuse cortical dysfunction MRI of the brain did show concerns of breast syndrome with atypical findings on diffusion weighted imaging without any significant abnormality on ADC At this juncture we will repeat EEG Continue medical and supportive care Neurology will continue to follow Subjective Principal diagnosis: encephalopathy, respiratory failure Interval history: Patient seen and examined at the bedside today. She is alert but disoriented and does not follow commands. She is nonverbal at this time but will shake her head yes and no and denies any pain. Objective - Constitutional Vitals: Temp Pulse Resp BP Pulse Ox 98.7 F 78 13 124/68 100 12/23/18 07:41 12/23/18 10:00 12/23/18 10:00 12/23/18 10:00 12/23/18 10:00 General appearance: Present: severe distress (patient intubated and sedated), thin Exam: Examination: General Examination: Exam was complicated by patient's altered mental state *CONSTITUTIONAL: Awake, disoriented otherwise. *GENERAL APPEARANCE OF PATIENT appears generally ill *EYES: pupils equal, round, reactive to light and accommodation, conjunctiva clear *CARDIOVASCULAR: RRR, no peripheral edema, distal temperature normal, dorsalis pedis pulses normal. Refer to vital signs * MUSCULOSKELETAL: *GAIT AND STATION: Deferred *ASSESSMENT OF MUSCLE STRENGTH IN THE UPPER AND LOWER EXTREMITIES bilateral deltoid, bicep, tricep, development geologist strength, hip flexors ,anterior tibialis, dorsoflexion of the foot 5/5 *MUSCLE TONE IN THE UPPER AND LOWER EXTREMITIES normal. No abnormal movements, fasciculations or atrophy identified. Neurological: *ORIENTATION continues to be encephalopathic *LANGUAGE AND FUNCTION no significant aphasia or dysarthia was noted. *ATTENTION AND CONCENTRATION are abnormal *LANGUAGE FUNCTION nonverbal *MENTAL attention span and concentration abnormal, patient is uncooperative and nonverbal *CN II optic fundi were normal, no papilledema noted. *CN III,IV, PERRLA extraocular eye movements were full, no nystagmus and no ptosis noted. *SENSORY EXAMINATION withdraws all 4 extremities to painful stimuli *REFLEXES: deep tendon reflexes were absent diffusely, no pathological reflexes were noted. Results - Laboratory Findings CBC and BMP: 12/23/18 03:55 12/23/18 03:55 Abnormal lab findings: Abnormal lab results WBC 14.2 K/mcL (4.3-11.1) H 12/19/18 04:55 RBC 3.28 M/mcL (3.82-4.97) L 12/23/18 03:55 Hgb 9.3 g/dL (11.5-15.4) L 12/23/18 03:55 Hct 29.9 % (35.3-44.9) L 12/23/18 03:55 MCH 27.8 pg (28.0-33.3) L 12/21/18 11:45 MCHC 31.1 g/dL (31.6-35.5) L 12/23/18 03:55 MPV 9.0 fL (9.4-12.4) L 12/23/18 03:55 Neutrophils # 11.7 K/mcL (1.6-8.9) H 12/19/18 04:55 ABG pH 7.47 pH Units (7.32-7.45) H 12/22/18 04:57 ABG pCO2 46 mmHg (35-45) H 12/23/18 04:19 ABG pO2 83 mmHg (85-104) L 12/23/18 04:19 ABG HCO3 31 mEq/L (21-27) H 12/23/18 04:19 ABG Total CO2 33 mEq/L (20-26) H 12/23/18 04:19 ABG O2 Saturation 90 % (95-98) L 12/21/18 04:54 ABG Base Excess 7 mEq/L (-2 to 3) H 12/23/18 04:19 Potassium 3.0 mEq/L (3.5-5.1) L 12/18/18 07:59 Chloride 109 mEq/L (98-107) H 12/23/18 03:55 BUN 29 mg/dL (8-23) H 12/23/18 03:55 Creatinine 0.46 mg/dL (0.60-1.20) L 12/23/18 03:55 BUN/Creatinine Ratio 63 (6-26) H 12/23/18 03:55 Glucose 194 mg/dL (70-105) H 12/23/18 03:55 POC Glucose 208 mg/dL (70-99) H 12/23/18 00:03 Calculated Osmolality 309 (280-300) H 12/23/18 03:55 Calcium 8.4 mg/dL (8.6-10.3) L 12/23/18 03:55 AST 41 Units/L (13-39) H 12/18/18 07:59 Alkaline Phosphatase 154 Units/L (34-104) H 12/18/18 07:59 Troponin I 0.34 ng/mL (< 0.04) H* 12/18/18 07:59 Lipase 8 Units/L (11-82) L 12/18/18 07:58 Urine Protein 30 mg/dL (Neg-Trace) H 12/18/18 09:16 Urine Glucose (UA) 100 mg/dL (Normal) H 12/18/18 09:16 Urine Blood Moderate (Negative) H 12/18/18 09:16 Urine Microscopic RBC 30-50 per hpf (0-3) H 12/18/18 09:16 Salicylates < 2.5 mg/dL (15.0-30.0) L 12/18/18 07:58 Acetaminophen < 10 mcg/mL (10-20) L 12/18/18 07:58 Urine Cocaine Screen Positive ng/mL (Cutoff= 300) H 12/18/18 09:16 Consult Discharge Plan - Plan Referrals: NONE,PCP [Primary Care Provider] - <Aurora Olmedo I - Last Filed: 12/23/18 16:17> Date of Encounter: 12/23/18 Assessment and Plan (1) Metabolic encephalopathy Current Visit: Yes Status: Resolved I have personally performed a face to face diagnostic evaluation, including HPI, EXAM, which is included in the Assesment and plan, which was discussed with Lenin Davila CNP, I agree with the above outlined documentation. Patient is extubated now, awake but did not follow any commands We will review the EEG. For any nonconvulsive seizure activity Aurora Olmedo MD. NeurologyI Objective - Constitutional Vitals: Temp Pulse Resp BP Pulse Ox 98.2 F 77 20 146/68 98 12/23/18 11:39 12/23/18 14:00 12/23/18 14:00 12/23/18 14:00 12/23/18 14:00 Results - Laboratory Findings CBC and BMP: 12/23/18 03:55 12/23/18 03:55 Abnormal lab findings: Abnormal lab results WBC 14.2 K/mcL (4.3-11.1) H 12/19/18 04:55 RBC 3.28 M/mcL (3.82-4.97) L 12/23/18 03:55 Hgb 9.3 g/dL (11.5-15.4) L 12/23/18 03:55 Hct 29.9 % (35.3-44.9) L 12/23/18 03:55 MCH 27.8 pg (28.0-33.3) L 12/21/18 11:45 MCHC 31.1 g/dL (31.6-35.5) L 12/23/18 03:55 MPV 9.0 fL (9.4-12.4) L 12/23/18 03:55 Neutrophils # 11.7 K/mcL (1.6-8.9) H 12/19/18 04:55 ABG pH 7.47 pH Units (7.32-7.45) H 12/22/18 04:57 ABG pCO2 46 mmHg (35-45) H 12/23/18 04:19 ABG pO2 83 mmHg (85-104) L 12/23/18 04:19 ABG HCO3 31 mEq/L (21-27) H 12/23/18 04:19 ABG Total CO2 33 mEq/L (20-26) H 12/23/18 04:19 ABG O2 Saturation 90 % (95-98) L 12/21/18 04:54 ABG Base Excess 7 mEq/L (-2 to 3) H 12/23/18 04:19 Potassium 3.0 mEq/L (3.5-5.1) L 12/18/18 07:59 Chloride 109 mEq/L (98-107) H 12/23/18 03:55 BUN 29 mg/dL (8-23) H 12/23/18 03:55 Creatinine 0.46 mg/dL (0.60-1.20) L 12/23/18 03:55 BUN/Creatinine Ratio 63 (6-26) H 12/23/18 03:55 Glucose 194 mg/dL (70-105) H 12/23/18 03:55 POC Glucose 208 mg/dL (70-99) H 12/23/18 00:03 Calculated Osmolality 309 (280-300) H 12/23/18 03:55 Calcium 8.4 mg/dL (8.6-10.3) L 12/23/18 03:55 AST 41 Units/L (13-39) H 12/18/18 07:59 Alkaline Phosphatase 154 Units/L (34-104) H 12/18/18 07:59 Troponin I 0.34 ng/mL (< 0.04) H* 12/18/18 07:59 Lipase 8 Units/L (11-82) L 12/18/18 07:58 Urine Protein 30 mg/dL (Neg-Trace) H 12/18/18 09:16 Urine Glucose (UA) 100 mg/dL (Normal) H 12/18/18 09:16 Urine Blood Moderate (Negative) H 12/18/18 09:16 Urine Microscopic RBC 30-50 per hpf (0-3) H 12/18/18 09:16 Salicylates < 2.5 mg/dL (15.0-30.0) L 12/18/18 07:58 Acetaminophen < 10 mcg/mL (10-20) L 12/18/18 07:58 Urine Cocaine Screen Positive ng/mL (Cutoff= 300) H 12/18/18 09:16
--- NOTE | 2018-12-23 14:36 | Electrocardiograph Report ---
[facility] Test Date: 2018-12-18 Pat Name: Daniela Richardson Department: [id number] Room: 04 Gender: F Rest Room Attendant: : 1960 Requested By: Buster Roach Order Number: [id number] Reading MD: Charles Nazario Measurements Intervals [place] Rate: 90 P: 85 VA: 125 QRS: 93 QRSD: 96 T: 68 QT: 378 QTc: 460 Interpretive Statements Sinus rhythm Biatrial enlargement Right axis deviation Consider left ventricular hypertrophy Electronically Signed On 12-23-2018 14:34:37 EDT by Charles Nazario
--- NOTE | 2018-12-23 16:23 | EEG/EMG/Oth Biometrics Report ---
EEG Procedure Report EEG Procedure: Routine EEG Procedure Note: This is a routine 21 channel digital EEG performed utilizing 10- 20 international electrode placement system. FINDINGS: Patient has a predominant waking background frequency that is average voltage 6- 8 Hertz theta activity in the posterior region, normal amplitude symmetrical over the both hemispheres reactive to eyes opening and closing record continued to show alpha activity intermixed with some theta off and on, no abnormal activity recorded, predominantly no evidence of any spike wave discharges or any lateralizing abnormalities, Photic stimulation and hyperventilation did not produce any convulsive response. Intermittent EMG artifacts were noted. Stage II sleep was not achieved. Impression: Within the broad range of Normal awake drowsy electroencephalogram. Previously noted encephalopathic pattern seems to improve, No epileptiform discharges or any other paroxysmal activities noted.
[2018-12-23] MEDS: Insulin DETEMIR 100 UNIT/ML X5UNITS SQ SCH (20:50)
[2018-12-24] MEDS ORDERED: D5% in Water 1,000 ML IVC PRN ×2 (02:16→12:32)
[2018-12-24] MEDS ORDERED: Dextrose Gel 15 GM/37.5 ML TUBE PO PRN ×4 (02:16→12:32)
[2018-12-24] MEDS: *HR* LORazepam 2 MG/ML VIAL IVP PRN (02:21)
[2018-12-24] MEDS: *HR* Dextrose 50 % in Water (Syg) 50 ML SYRINGE IVP PRN ×2 (02:30→04:05)
[2018-12-24] MEDS: Insulin LISPRO 300 UNITS/3 ML VIAL SQ SCH ×5 (04:15→20:03)
[2018-12-24] MEDS: Artificial Tears SOLN 15 ML BOTTLE BOTH EYES SCH ×4 (04:15→22:00)
[2018-12-24 05:42] LABS: Basophils % 0.4 %; Eosinophils # 0.1 K/mcL (0.0-0.6); Eosinophils % 1.1 %; Hematocrit 36.1 % (35.3-44.9); Immature Granulocytes % 1.1 % (0-4); Lymphocytes # 1.8 K/mcL (0.6-4.6); Lymphocytes % 21.7 %; Mean Corpuscular HGB Conc 32.4 g/dL (31.6-35.5); Mean Corpuscular Volume 86.4 fL (83.0-100.0); Mean Platelet Volume 9.1 fL (9.4-12.4); Monocytes # 0.5 K/mcL (0.0-1.3); Monocytes % 5.5 %; Neutrophils # 5.8 K/mcL (1.6-8.9); Platelet Count 341 K/mcL (140-400); Red Blood Count 4.18 M/mcL (3.82-4.97); Red Cell Distribution Width 13.1 % (11.5-14.5); Segmented Neutrophils % 70.2 %; White Blood Count 8.2 K/mcL (4.3-11.1)
[2018-12-24 05:44] LABS: Hemoglobin 11.7 g/dL (11.5-15.4)
[2018-12-24 05:49] LABS: BUN/Creatinine Ratio 57 (6-26); Blood Urea Nitrogen 17 mg/dL (8-23); Calcium 8.5 mg/dL (8.6-10.3); Carbon Dioxide 28 mEq/L (23-29); Chloride 104 mEq/L (98-107); Glucose 160 mg/dL (70-105); Osmolality,Calculated 293 (280-300); Potassium 3.9 mEq/L (3.5-5.1); Sodium 139 mEq/L (136-145); eGFR For African Americans > 60 (> 60); eGFR For Non-African Americans > 60 (> 60)
[2018-12-24] MEDS: Dexmedetomidine HCl 400 MCG/100 ML MLS IVC SCH (06:17)
[2018-12-24] MEDS: *HR* Heparin 5,000 UNIT/ML VIAL SQ SCH ×2 (06:17→17:36)
[2018-12-24] MEDS: Piperacillin/Tazobactam 3.375 GM in 0.9 % Sodium Chloride Mini Bag 100 ML IVPB SCH ×3 (07:22→23:46)
[2018-12-24] MEDS: Pantoprazole 40 MG VIAL IVP SCH (07:22)
--- NOTE | 2018-12-24 07:26 | Pulmonology Progress Note ---
<Ave Duran - Last Filed: 12/24/18 08:35> Date of Encounter: 12/24/18 Time of Encounter: 06:55 Assessment and Plan (1) Metabolic encephalopathy Current Visit: Yes Status: Resolved Was presented to the ED on 12/18/18 due to unresponsiveness Likely multifactorial given history of IV heroin use, methamphetamine and cocaine Additionally has history of insulin-dependent type 2 diabetes and glucose was found to be 14 at presentation EEG and MRI show concern for posterior reversible encephalopathy syndrome Neurology consulted Neurology recommends a repeat MRI in 2 weeks Had a repeat EEG on 12/23/18 which showed improvement from last EEG Follow commands but does not verbalize Has had episodes of hypoglycemia overnight stopped long-acting insulin. Continue to monitor glucose and blood pressure (2) Acute respiratory failure with hypoxia Current Visit: Yes Status: Resolved Likely multifactorial secondary to pneumonia and not able to be weaned off the event as she failed spontaneous awakening trial. Likely complicated by encephalopathy and not improving mental status. -Extubated on 12/23/18, saturation 96% on room air -Continue to treat underlying pneumonia (3) Pneumonia Current Visit: Yes Status: Acute Sputum culture showed Enterobacter which is pansensitive Was unresponsive at presentation concern for aspiration pneumonia Continue Zosyn day 5 of 7 Qualifiers: Pneumonia type: aspiration pneumonia Aspiration pneumonia type: unspecified Laterality: unspecified laterality Lung location: unspecified part of lung Qualified Code(s): J69.0 - Pneumonitis due to inhalation of food and vomit (4) Polysubstance abuse Current Visit: No Status: Acute History of polysubstance use Family reported history of IV heroin use and cocaine use UDS was positive for cocaine Likely causedunderlying encephalopathy (5) Insulin dependent diabetes mellitus Current Visit: No Status: Chronic History of insulin-dependent diabetes presented to the ED with glucose of 14 Overnight had episode of hypoglycemia of 35 In the past has presented to the ICU with diabetic ketoacidosis We will hold long-acting insulin and continue high sliding-scale Continue full liquid diet with dietary supplement (6) Hypertension Current Visit: Yes Status: Acute Unsure of etiology Blood pressure has been elevated for the past few days could be secondary to opiate withdrawal Ativan 2 mg when necessary ordered Carvedilol 12.5 mg twice a day continue to monitor blood pressure Goal of blood pressure, systolic below 140 Labetalol and hydralazine when necessary ordered Qualifiers: Hypertension type: unspecified Qualified Code(s): I10 - Essential (primary) hypertension (7) DVT prophylaxis Current Visit: Yes Status: Acute Continue subcutaneous heparin every 12 hours Subjective Principal diagnosis: encephalopathy, respiratory failure Interval history: Ms. Richardson was seen at bedside this morning. She was awake and alert, following commands but not conversing. Overnight she remained afebrile and normotensive. Objective PUL Vital signs: Last Vital Signs Temp 97.4 F L 12/24/18 04:00 Pulse 62 12/24/18 06:00 Resp 20 12/24/18 06:00 BP 135/65 12/24/18 06:00 Pulse Ox 97 12/24/18 06:00 General appearance: no acute distress, alert Eyes: nonicteric ENT: oropharynx moist Neck: supple Effort: normal Auscultation: bilateral: clear Cardiovascular: regular rate and rhythm Gastrointestinal: normoactive bowel sounds, soft, non-tender, non-distended Integumentary: normal Extremities: no cyanosis, no edema Musculoskeletal: no deformities pupils equal and round, other (Follows commands but not able to verbalize) mood appropriate, affect normal Results - Laboratory Findings CBC and BMP: 12/24/18 05:19 12/24/18 05:19 ABG ABG pH 7.45 pH Units (7.32-7.45) 12/23/18 04:19 ABG pCO2 46 mmHg (35-45) H 12/23/18 04:19 ABG pO2 83 mmHg (85-104) L 12/23/18 04:19 ABG O2 Saturation 97 % (95-98) 12/23/18 04:19 PT/INR, D-dimer PT 10.1 Seconds (9.4-12.1) 12/18/18 07:59 Abnormal lab findings: Abnormal lab results WBC 14.2 K/mcL (4.3-11.1) H 12/19/18 04:55 RBC 3.28 M/mcL (3.82-4.97) L 12/23/18 03:55 Hgb 9.3 g/dL (11.5-15.4) L 12/23/18 03:55 Hct 29.9 % (35.3-44.9) L 12/23/18 03:55 MCH 27.8 pg (28.0-33.3) L 12/21/18 11:45 MCHC 31.1 g/dL (31.6-35.5) L 12/23/18 03:55 MPV 9.1 fL (9.4-12.4) L 12/24/18 05:19 Neutrophils # 11.7 K/mcL (1.6-8.9) H 12/19/18 04:55 ABG pH 7.47 pH Units (7.32-7.45) H 12/22/18 04:57 ABG pCO2 46 mmHg (35-45) H 12/23/18 04:19 ABG pO2 83 mmHg (85-104) L 12/23/18 04:19 ABG HCO3 31 mEq/L (21-27) H 12/23/18 04:19 ABG Total CO2 33 mEq/L (20-26) H 12/23/18 04:19 ABG O2 Saturation 90 % (95-98) L 12/21/18 04:54 ABG Base Excess 7 mEq/L (-2 to 3) H 12/23/18 04:19 Potassium 3.0 mEq/L (3.5-5.1) L 12/18/18 07:59 Chloride 109 mEq/L (98-107) H 12/23/18 03:55 BUN 29 mg/dL (8-23) H 12/23/18 03:55 Creatinine 0.30 mg/dL (0.60-1.20) L 12/24/18 05:19 BUN/Creatinine Ratio 57 (6-26) H 12/24/18 05:19 Glucose 160 mg/dL (70-105) H 12/24/18 05:19 POC Glucose 58 mg/dL (70-99) L 12/24/18 04:01 Calculated Osmolality 309 (280-300) H 12/23/18 03:55 Calcium 8.5 mg/dL (8.6-10.3) L 12/24/18 05:19 AST 41 Units/L (13-39) H 12/18/18 07:59 Alkaline Phosphatase 154 Units/L (34-104) H 12/18/18 07:59 Troponin I 0.34 ng/mL (< 0.04) H* 12/18/18 07:59 Lipase 8 Units/L (11-82) L 12/18/18 07:58 Urine Protein 30 mg/dL (Neg-Trace) H 12/18/18 09:16 Urine Glucose (UA) 100 mg/dL (Normal) H 12/18/18 09:16 Urine Blood Moderate (Negative) H 12/18/18 09:16 Urine Microscopic RBC 30-50 per hpf (0-3) H 12/18/18 09:16 Salicylates < 2.5 mg/dL (15.0-30.0) L 12/18/18 07:58 Acetaminophen < 10 mcg/mL (10-20) L 12/18/18 07:58 Urine Cocaine Screen Positive ng/mL (Cutoff= 300) H 12/18/18 09:16 - Microbiology Findings Microbiology Findings: Microbiology, Last 48 Hours 12/18/18 08:40 Blood Culture - Final Peripheral Venipuncture No growth. Final report. 12/18/18 08:40 Blood Culture - Final Peripheral Venipuncture No growth. Final report. - Clinical Findings Intake & Output: Intake & Output 12/23/18 12/23/18 12/24/18 15:59 23:59 07:59 Intake Total 270 / 1090 460 / 1090 100 / 100 Output Total 75 / 975 350 / 975 750 / 750 Balance 195 / 115 110 / 115 -650 / -650 Weight 48.9 kg Consult Discharge Plan - Plan Referrals: NONE,PCP [Primary Care Provider] - <Lj Hooks - Last Filed: 12/24/18 13:24> Date of Encounter: 12/24/18 Assessment and Plan (1) Acute respiratory failure with hypoxia Current Visit: Yes Status: Resolved (2) Metabolic encephalopathy Current Visit: Yes Status: Resolved (3) Polysubstance abuse Current Visit: No Status: Acute (4) Pneumonia Current Visit: Yes Status: Acute Qualifiers: Pneumonia type: due to other aerobic Gram-negative bacteria Laterality: unspecified laterality Lung location: unspecified part of lung Qualified Code(s): J15.6 - Pneumonia due to other Gram-negative bacteria Objective PUL Vital signs: Last Vital Signs Temp 98.5 F 12/24/18 12:57 Pulse 76 12/24/18 12:57 Resp 19 12/24/18 12:57 BP 151/83 12/24/18 12:57 Pulse Ox 98 12/24/18 12:57 Results - Laboratory Findings CBC and BMP: 12/24/18 05:19 12/24/18 05:19 ABG ABG pH 7.45 pH Units (7.32-7.45) 12/23/18 04:19 ABG pCO2 46 mmHg (35-45) H 12/23/18 04:19 ABG pO2 83 mmHg (85-104) L 12/23/18 04:19 ABG O2 Saturation 97 % (95-98) 12/23/18 04:19 PT/INR, D-dimer PT 10.1 Seconds (9.4-12.1) 12/18/18 07:59 Abnormal lab findings: Abnormal lab results WBC 14.2 K/mcL (4.3-11.1) H 12/19/18 04:55 RBC 3.28 M/mcL (3.82-4.97) L 12/23/18 03:55 Hgb 9.3 g/dL (11.5-15.4) L 12/23/18 03:55 Hct 29.9 % (35.3-44.9) L 12/23/18 03:55 MCH 27.8 pg (28.0-33.3) L 12/21/18 11:45 MCHC 31.1 g/dL (31.6-35.5) L 12/23/18 03:55 MPV 9.1 fL (9.4-12.4) L 12/24/18 05:19 Neutrophils # 11.7 K/mcL (1.6-8.9) H 12/19/18 04:55 ABG pH 7.47 pH Units (7.32-7.45) H 12/22/18 04:57 ABG pCO2 46 mmHg (35-45) H 12/23/18 04:19 ABG pO2 83 mmHg (85-104) L 12/23/18 04:19 ABG HCO3 31 mEq/L (21-27) H 12/23/18 04:19 ABG Total CO2 33 mEq/L (20-26) H 12/23/18 04:19 ABG O2 Saturation 90 % (95-98) L 12/21/18 04:54 ABG Base Excess 7 mEq/L (-2 to 3) H 12/23/18 04:19 Potassium 3.0 mEq/L (3.5-5.1) L 12/18/18 07:59 Chloride 109 mEq/L (98-107) H 12/23/18 03:55 BUN 29 mg/dL (8-23) H 12/23/18 03:55 Creatinine 0.30 mg/dL (0.60-1.20) L 12/24/18 05:19 BUN/Creatinine Ratio 57 (6-26) H 12/24/18 05:19 Glucose 160 mg/dL (70-105) H 12/24/18 05:19 POC Glucose 58 mg/dL (70-99) L 12/24/18 04:01 Calculated Osmolality 309 (280-300) H 12/23/18 03:55 Calcium 8.5 mg/dL (8.6-10.3) L 12/24/18 05:19 AST 41 Units/L (13-39) H 12/18/18 07:59 Alkaline Phosphatase 154 Units/L (34-104) H 12/18/18 07:59 Troponin I 0.34 ng/mL (< 0.04) H* 12/18/18 07:59 Lipase 8 Units/L (11-82) L 12/18/18 07:58 Urine Protein 30 mg/dL (Neg-Trace) H 12/18/18 09:16 Urine Glucose (UA) 100 mg/dL (Normal) H 12/18/18 09:16 Urine Blood Moderate (Negative) H 12/18/18 09:16 Urine Microscopic RBC 30-50 per hpf (0-3) H 12/18/18 09:16 Salicylates < 2.5 mg/dL (15.0-30.0) L 12/18/18 07:58 Acetaminophen < 10 mcg/mL (10-20) L 12/18/18 07:58 Urine Cocaine Screen Positive ng/mL (Cutoff= 300) H 12/18/18 09:16 - Microbiology Findings Microbiology Findings: Microbiology, Last 48 Hours 12/18/18 08:40 Blood Culture - Final Peripheral Venipuncture No growth. Final report. 12/18/18 08:40 Blood Culture - Final Peripheral Venipuncture No growth. Final report. - Clinical Findings Intake & Output: Intake & Output 12/23/18 12/24/18 12/24/18 23:59 07:59 15:59 Intake Total 460 / 1090 100 / 960 860 / 960 Output Total 350 / 975 950 / 1300 350 / 1300 Balance 110 / 115 -850 / -340 510 / -340 Weight 48.9 kg - Attending Attestation - Attending Attestation I saw and evaluated this patient and my medical decision-making was reviewed with the Resident Physician. I agree with the documented findings, disposition and treatment plan as described except to the extent set forth below. We independently had [id number] contact with the patient Patient seen and examined at bedside Labs, radiology, chart personally reviewed. Management was reviewed during multidisciplinary critical care rounds. 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 Pulm: Patient has acceptable oxygenation and ventilation patient encephalopathy is lot better patient was extubated to nasal cannula to continue the broad- spectrum antibiotics for pneumonia. De-escalate antibiotics will put a stop date for antibiotics as patient is clinically getting better Cards: Patient is hemodynamically stable FEN-GI: Diet as tolerated. Renal: Labs and output were reviewed ID: Patient is having broad-spectrum antibiotics for Enterobacter pneumonia. Will de-escalate the antibiotics over the weekend Heme/Onc: Labs reviewed Endo: Glucose Monitored Integ/MSK: Skin Care per routine ICU Nursing Protocol to prevent ulcers. Lines: All lines examined without evidence of infection : Dispo: patient can be transferred to medical telemetry. CODE: Full code
[2018-12-24] MEDS: Chlorhexidine Rinse 15 ML MOUTHWASH MM SCH (07:39)
--- NOTE | 2018-12-24 12:07 | Neurology Progress Note ---
<Shayne Gurrola M - Last Filed: 12/24/18 12:52> Date of Encounter: 12/24/18 Time of Encounter: 11:30 Assessment and Plan (1) Metabolic encephalopathy Current Visit: Yes Status: Resolved Examination limited due to patients altered mental status. Patient seen this afternoon repetitively bringing fingers to mouth which may represent a reflexive reaction. Recommend repeat MRI with and without to evaluate temporal lobe for signs of damage due to hypoglycemia. Given patients substance use history Leukoencephalopathy due to Heroin inhalation would be included in the differential and could account for current altered mental status although hypoglycemic affects on cerebrum remain more likely. Subjective Principal diagnosis: encephalopathy, respiratory failure Interval history: Ms Richardson is a 58 year old admitted from ED after being found unresponsive with severe Hypoglycemia. She has a past medical history significant for diabetes, hepatitis (diagnosed over 20 years ago, unsure of treatment status), and polysubstance use disorder. She was seen today at bedside. She is no longer intubated and was speaking in barely intelligible words primarily "yes or no." When asked what her name was she said "no." She was able to follow simple commands including squeezing fingers and wiggling toes. Staff reports her speech to be primarily uninteligible and inappropriate to questioning. Her eyes were open today and she was looking around the room and would respond to verbal stimuli. Objective - Constitutional Vitals: Temp Pulse Resp BP Pulse Ox 97.9 F 71 20 134/87 99 12/24/18 10:54 12/24/18 11:00 12/24/18 11:00 12/24/18 11:00 12/24/18 11:00 General appearance: Present: severe distress (patient intubated and sedated), thin - Neurological Exam Sensorimotor examination: Present: other (Unable to assess due to altered mental status) Motor Examination: Present: grossly full strength in all extremities Sensation intact: Present: other (Unable to assess due to altered mental status) Posture: Present: other (Relaxed in bed) Reflex and gait examination: other (Reflexes 2/4; gait deferred) Mental Status Examination: Present: awake, alert, opens eyes to voice, follows simple commands, localizes noxious stimulation, expressive aphasia, impaired cognition. Absent: oriented to person, oriented to place, oriented to time, answers questions appropriately, answers questions by nodding yes or no Cranial nerve examination: Present: no facial asymmetry is present. Absent: vertical nystagmus, tongue atrophied Results - Laboratory Findings CBC and BMP: 12/24/18 05:19 12/24/18 05:19 Abnormal lab findings: Abnormal lab results WBC 14.2 K/mcL (4.3-11.1) H 12/19/18 04:55 RBC 3.28 M/mcL (3.82-4.97) L 12/23/18 03:55 Hgb 9.3 g/dL (11.5-15.4) L 12/23/18 03:55 Hct 29.9 % (35.3-44.9) L 12/23/18 03:55 MCH 27.8 pg (28.0-33.3) L 12/21/18 11:45 MCHC 31.1 g/dL (31.6-35.5) L 12/23/18 03:55 MPV 9.1 fL (9.4-12.4) L 12/24/18 05:19 Neutrophils # 11.7 K/mcL (1.6-8.9) H 12/19/18 04:55 ABG pH 7.47 pH Units (7.32-7.45) H 12/22/18 04:57 ABG pCO2 46 mmHg (35-45) H 12/23/18 04:19 ABG pO2 83 mmHg (85-104) L 12/23/18 04:19 ABG HCO3 31 mEq/L (21-27) H 12/23/18 04:19 ABG Total CO2 33 mEq/L (20-26) H 12/23/18 04:19 ABG O2 Saturation 90 % (95-98) L 12/21/18 04:54 ABG Base Excess 7 mEq/L (-2 to 3) H 12/23/18 04:19 Potassium 3.0 mEq/L (3.5-5.1) L 12/18/18 07:59 Chloride 109 mEq/L (98-107) H 12/23/18 03:55 BUN 29 mg/dL (8-23) H 12/23/18 03:55 Creatinine 0.30 mg/dL (0.60-1.20) L 12/24/18 05:19 BUN/Creatinine Ratio 57 (6-26) H 12/24/18 05:19 Glucose 160 mg/dL (70-105) H 12/24/18 05:19 POC Glucose 58 mg/dL (70-99) L 12/24/18 04:01 Calculated Osmolality 309 (280-300) H 12/23/18 03:55 Calcium 8.5 mg/dL (8.6-10.3) L 12/24/18 05:19 AST 41 Units/L (13-39) H 12/18/18 07:59 Alkaline Phosphatase 154 Units/L (34-104) H 12/18/18 07:59 Troponin I 0.34 ng/mL (< 0.04) H* 12/18/18 07:59 Lipase 8 Units/L (11-82) L 12/18/18 07:58 Urine Protein 30 mg/dL (Neg-Trace) H 12/18/18 09:16 Urine Glucose (UA) 100 mg/dL (Normal) H 12/18/18 09:16 Urine Blood Moderate (Negative) H 12/18/18 09:16 Urine Microscopic RBC 30-50 per hpf (0-3) H 12/18/18 09:16 Salicylates < 2.5 mg/dL (15.0-30.0) L 12/18/18 07:58 Acetaminophen < 10 mcg/mL (10-20) L 12/18/18 07:58 Urine Cocaine Screen Positive ng/mL (Cutoff= 300) H 12/18/18 09:16 Consult Discharge Plan - Plan Referrals: NONE,PCP [Primary Care Provider] - <Aurora Olmedo I - Last Filed: 12/28/18 16:28> Date of Encounter: 12/24/18 Assessment and Plan (1) Metabolic encephalopathy Current Visit: Yes Status: Resolved Pt was seen and examined, my medical decision was reviewed with the Resident Physician, I agree with the documented findings, disposition and treatment plan, as described except to the extent set forth below Aurora Olmedo MD Objective - Constitutional Vitals: Temp Pulse Resp BP Pulse Ox 98.5 F 76 19 151/83 98 12/24/18 12:57 12/24/18 12:57 12/24/18 12:57 12/24/18 12:57 12/24/18 12:57 Results - Laboratory Findings CBC and BMP: 12/28/18 05:57 08/20/19 05:57 Abnormal lab findings: Abnormal lab results WBC 14.2 K/mcL (4.3-11.1) H 12/19/18 04:55 RBC 3.28 M/mcL (3.82-4.97) L 12/23/18 03:55 Hgb 9.3 g/dL (11.5-15.4) L 12/23/18 03:55 Hct 29.9 % (35.3-44.9) L 12/23/18 03:55 MCH 27.8 pg (28.0-33.3) L 12/21/18 11:45 MCHC 31.1 g/dL (31.6-35.5) L 12/23/18 03:55 MPV 9.1 fL (9.4-12.4) L 12/24/18 05:19 Neutrophils # 11.7 K/mcL (1.6-8.9) H 12/19/18 04:55 ABG pH 7.47 pH Units (7.32-7.45) H 12/22/18 04:57 ABG pCO2 46 mmHg (35-45) H 12/23/18 04:19 ABG pO2 83 mmHg (85-104) L 12/23/18 04:19 ABG HCO3 31 mEq/L (21-27) H 12/23/18 04:19 ABG Total CO2 33 mEq/L (20-26) H 12/23/18 04:19 ABG O2 Saturation 90 % (95-98) L 12/21/18 04:54 ABG Base Excess 7 mEq/L (-2 to 3) H 12/23/18 04:19 Potassium 3.0 mEq/L (3.5-5.1) L 12/18/18 07:59 Chloride 109 mEq/L (98-107) H 12/23/18 03:55 BUN 29 mg/dL (8-23) H 12/23/18 03:55 Creatinine 0.30 mg/dL (0.60-1.20) L 12/24/18 05:19 BUN/Creatinine Ratio 57 (6-26) H 12/24/18 05:19 Glucose 160 mg/dL (70-105) H 12/24/18 05:19 POC Glucose 58 mg/dL (70-99) L 12/24/18 04:01 Calculated Osmolality 309 (280-300) H 12/23/18 03:55 Calcium 8.5 mg/dL (8.6-10.3) L 12/24/18 05:19 AST 41 Units/L (13-39) H 12/18/18 07:59 Alkaline Phosphatase 154 Units/L (34-104) H 12/18/18 07:59 Troponin I 0.34 ng/mL (< 0.04) H* 12/18/18 07:59 Lipase 8 Units/L (11-82) L 12/18/18 07:58 Urine Protein 30 mg/dL (Neg-Trace) H 12/18/18 09:16 Urine Glucose (UA) 100 mg/dL (Normal) H 12/18/18 09:16 Urine Blood Moderate (Negative) H 12/18/18 09:16 Urine Microscopic RBC 30-50 per hpf (0-3) H 12/18/18 09:16 Salicylates < 2.5 mg/dL (15.0-30.0) L 12/18/18 07:58 Acetaminophen < 10 mcg/mL (10-20) L 12/18/18 07:58 Urine Cocaine Screen Positive ng/mL (Cutoff= 300) H 12/18/18 09:16
[2018-12-24] MEDS ORDERED: *HR* Labetalol 20 MG/4 ML SYRINGE IVP PRN (12:32)
[2018-12-24] MEDS ORDERED: *HR* LORazepam 2 MG/ML VIAL IVP PRN (12:32)
[2018-12-24] MEDS: *HR* LORazepam 2 MG/ML VIAL IVP SCH (12:36)
[2018-12-24] MEDS ORDERED: Gadolinium Contrast Agent (WT Based) IV PRN (13:20)
[2018-12-25] MEDS: *HR* Heparin 5,000 UNIT/ML VIAL SQ SCH ×2 (04:59→17:54)
[2018-12-25] MEDS: Artificial Tears SOLN 15 ML BOTTLE BOTH EYES SCH ×4 (09:33→19:50)
[2018-12-25] MEDS: Piperacillin/Tazobactam 3.375 GM in 0.9 % Sodium Chloride Mini Bag 100 ML IVPB SCH ×2 (09:34→17:47)
[2018-12-25] MEDS: Insulin LISPRO 300 UNITS/3 ML VIAL SQ SCH ×4 (09:44→19:49)
--- NOTE | 2018-12-25 12:00 | Neurology Progress Note ---
Date of Encounter: 12/25/18 Time of Encounter: 08:50 Assessment and Plan (1) Metabolic encephalopathy Current Visit: Yes Status: Resolved Patient is awake and alert still not able to have a conversation Repeat MRI shows improvement in the abnormal signal Previously noted high FLAIR signal in the parietooccipital parenchyma is no longer present. There is a tiny amount of residual relative increased diffusion signal in the left occipital region. There is no abnormal enhancement in this area.No abnormal enhancement otherwise. Faint increased diffusion signal in the brown radiata, posterior limbs of the internal capsules and ventral fernando is again noted. This is indeterminate may be artifactual. Pathologic abnormality of the cortical spinal tract less likely Repeat EEG shows some improvement and no significant epileptiform discharges Suggest to continue to treat underlying metabolic dysfunction Continue on the current treatment Subjective Principal diagnosis: encephalopathy, respiratory failure Interval history: Patient is about the same, significant change in overall neurological status though she is alert and awake at times follow simple commands but is still not talking Objective - Constitutional Vitals: Temp Pulse Resp BP Pulse Ox 98.3 F 80 16 148/91 100 12/25/18 11:21 12/25/18 11:21 12/25/18 11:21 12/25/18 11:21 12/25/18 11:21 General appearance: Present: severe distress (patient intubated and sedated), thin - Neurological Exam Sensorimotor examination: Present: other (Unable to assess due to altered mental status) Motor Examination: Present: grossly full strength in all extremities Sensation intact: Present: other (Unable to assess due to altered mental status) Posture: Present: other (Relaxed in bed) Reflex and gait examination: other (Reflexes 2/4; gait deferred) Mental Status Examination: Present: awake, alert, opens eyes to voice, follows simple commands, localizes noxious stimulation, expressive aphasia, impaired cognition. Absent: oriented to person, oriented to place, oriented to time, answers questions appropriately, answers questions by nodding yes or no Cranial nerve examination: Present: no facial asymmetry is present. Absent: vertical nystagmus, tongue atrophied Results - Laboratory Findings CBC and BMP: 12/24/18 05:19 12/24/18 05:19 Abnormal lab findings: Abnormal lab results WBC 14.2 K/mcL (4.3-11.1) H 12/19/18 04:55 RBC 3.28 M/mcL (3.82-4.97) L 12/23/18 03:55 Hgb 9.3 g/dL (11.5-15.4) L 12/23/18 03:55 Hct 29.9 % (35.3-44.9) L 12/23/18 03:55 MCH 27.8 pg (28.0-33.3) L 12/21/18 11:45 MCHC 31.1 g/dL (31.6-35.5) L 12/23/18 03:55 MPV 9.1 fL (9.4-12.4) L 12/24/18 05:19 Neutrophils # 11.7 K/mcL (1.6-8.9) H 12/19/18 04:55 ABG pH 7.47 pH Units (7.32-7.45) H 12/22/18 04:57 ABG pCO2 46 mmHg (35-45) H 12/23/18 04:19 ABG pO2 83 mmHg (85-104) L 12/23/18 04:19 ABG HCO3 31 mEq/L (21-27) H 12/23/18 04:19 ABG Total CO2 33 mEq/L (20-26) H 12/23/18 04:19 ABG O2 Saturation 90 % (95-98) L 12/21/18 04:54 ABG Base Excess 7 mEq/L (-2 to 3) H 12/23/18 04:19 Potassium 3.0 mEq/L (3.5-5.1) L 12/18/18 07:59 Chloride 109 mEq/L (98-107) H 12/23/18 03:55 BUN 29 mg/dL (8-23) H 12/23/18 03:55 Creatinine 0.30 mg/dL (0.60-1.20) L 12/24/18 05:19 BUN/Creatinine Ratio 57 (6-26) H 12/24/18 05:19 Glucose 160 mg/dL (70-105) H 12/24/18 05:19 POC Glucose 362 mg/dL (70-99) H 12/25/18 07:32 Calculated Osmolality 309 (280-300) H 12/23/18 03:55 Calcium 8.5 mg/dL (8.6-10.3) L 12/24/18 05:19 AST 41 Units/L (13-39) H 12/18/18 07:59 Alkaline Phosphatase 154 Units/L (34-104) H 12/18/18 07:59 Troponin I 0.34 ng/mL (< 0.04) H* 12/18/18 07:59 Lipase 8 Units/L (11-82) L 12/18/18 07:58 Urine Protein 30 mg/dL (Neg-Trace) H 12/18/18 09:16 Urine Glucose (UA) 100 mg/dL (Normal) H 12/18/18 09:16 Urine Blood Moderate (Negative) H 12/18/18 09:16 Urine Microscopic RBC 30-50 per hpf (0-3) H 12/18/18 09:16 Salicylates < 2.5 mg/dL (15.0-30.0) L 12/18/18 07:58 Acetaminophen < 10 mcg/mL (10-20) L 12/18/18 07:58 Urine Cocaine Screen Positive ng/mL (Cutoff= 300) H 12/18/18 09:16 Consult Discharge Plan - Plan Referrals: NONE,PCP [Primary Care Provider] -
--- NOTE | 2018-12-25 12:59 | Internal Med Progress Note ---
Hospitalist Progress Note - Encounter Date of Encounter: 12/25/18 Time of Encounter: 11:00 - Subjective Interval History: Unable to elicit any history from the patient due to her encephalopathy with concerns for anoxic brain injury, nurse stated that the patient might be homeless was kicked out of the home she was living with her daughter Reviewed current in hospital medications with modifications see orders Reviewed Routine labs - Exam Vitals: Temp Pulse Resp BP Pulse Ox 98.3 F 80 16 148/91 100 12/25/18 11:21 12/25/18 11:21 12/25/18 11:21 12/25/18 11:21 12/25/18 11:21 Exam: GEN: Emanciated -looking female does not appear to be oriented, responds to painful stimuli, not conversant however not in acute distress SKIN: [place] warm acyanotic not jaundice HEART: RRR, no murmurs LUNGS: Diminished CTA no wheeze or crackles, overall non labored ABDOMEN; Soft, non tender or distended, BS x 4 normactive EXT: No LE edema, Pedal pulses 1+, radial pulses 2+ PSYCH: Deferred - Assessment and Plan (1) Insulin dependent diabetes mellitus Current Visit: Yes Status: Chronic Assessment and Plan: She was noted to be hypoglycemic on admission unclear if she overdosed on insulin intentionally or unintentionally as the only logical reason for presentation with blood glucose of 14, pancreatic secreting insulinoma is on the differential, suspect brittle diabetic blood glucose yesterday ranges from 33- 302, on the internal, only with insulin short acting continue bedside Accu-Cheks (2) Metabolic encephalopathy Current Visit: Yes Status: Resolved Assessment and Plan: She has been followed by neurology, given the overall presentation anoxic brain injury is of concern. She is minimally conversant at best, does not seems to be oriented (3) Homeless single person Current Visit: Yes Status: Acute Assessment and Plan: Patient allegedly was kicked out of the home she was living with her daughter wa s likely homeless we will have case management look into discharge planning (4) Hypertension Current Visit: Yes Status: Acute Assessment and Plan: On review of home medication is currently not on any antihypertensive we will trend BP (5) Pneumonia Current Visit: Yes Status: Acute Assessment and Plan: Sputum culture was positive for Enterobacter pansensitive was treated with Zosyn. (6) Polysubstance abuse Current Visit: Yes Status: Acute Assessment and Plan: Patient with a personal history of IV drug use urine toxicology positive for cocaine (7) Bipolar disorder Current Visit: Yes Status: Chronic Assessment and Plan: We will get psych involved, once cleared by neurology (8) Acute respiratory failure Current Visit: Yes Status: Acute Assessment and Plan: Status post intubation and extubation due to unresponsiveness, resolved 100% rm air - Time Spent with Patient Total time spent is greater than 50% in coordination of care (as documented) at patient's floor/unit and/or counseling patient: Internal Medicine: Result - Labs CBC & Chem 7: 12/24/18 05:19 12/24/18 05:19 - ABG Interpretation ABG results: ABG ABG pH 7.45 pH Units (7.32-7.45) 12/23/18 04:19 ABG pCO2 46 mmHg (35-45) H 12/23/18 04:19 ABG pO2 83 mmHg (85-104) L 12/23/18 04:19 ABG O2 Saturation 97 % (95-98) 12/23/18 04:19 PT/INR, D-dimer PT 10.1 Seconds (9.4-12.1) 12/18/18 07:59 - Impressions Impressions Brain MRI 12/24/18 13:20 IMPRESSION: Previously noted high FLAIR signal in the parietooccipital parenchyma is no longer present. There is a tiny amount of residual relative increased diffusion signal in the left occipital region. There is no abnormal enhancement in this area. No abnormal enhancement otherwise. Faint increased diffusion signal in the brown radiata, posterior limbs of the internal capsules and ventral fernando is again noted. This is indeterminate may be artifactual. Pathologic abnormality of the cortical spinal tract less likely D/ / Wang Blas / Wang Blas Interpreting Provider: Wang Blas Consult Discharge Plan - Plan Referrals: NONE,PCP [Primary Care Provider] - (4) Hypertension Qualifiers: Hypertension type: unspecified Qualified Code(s): I10 - Essential (primary) hypertension (5) Pneumonia Qualifiers: Pneumonia type: aspiration pneumonia Aspiration pneumonia type: unspecified Laterality: unspecified laterality Lung location: unspecified part of lung [place] lified Code(s): J69.0 - Pneumonitis due to inhalation of food and vomit (7) Bipolar disorder Qualifiers: Active/Remission status: remission status unspecified Qualified Code(s): F31.9 - Bipolar disorder, unspecified (8) Acute respiratory failure Qualifiers: Respiratory failure complication: unspecified whether with hypoxia or hypercapnia Qualified Code(s): J96.00 - Acute respiratory failure, unspecified whether with hypoxia or hypercapnia
[2018-12-25 15:01] LABS: Folate > 22.3 ng/mL (3.0-16.0); Vitamin B12 626 pg/mL (250-1100)
[2018-12-25] MEDS: Latanoprost 2.5 ML BOTTLE BOTH EYES SCH (19:51)
[2018-12-26] MEDS: Piperacillin/Tazobactam 3.375 GM in 0.9 % Sodium Chloride Mini Bag 100 ML IVPB SCH ×3 (00:06→15:19)
[2018-12-26 05:19] LABS: Basophils % 0.4 %; Eosinophils # 0.1 K/mcL (0.0-0.6); Eosinophils % 0.7 %; Hematocrit 33.5 % (35.3-44.9); Hemoglobin 11.2 g/dL (11.5-15.4); Immature Granulocytes % 2.4 % (0-4); Lymphocytes % 28.3 %; Mean Corpuscular HGB Conc 33.4 g/dL (31.6-35.5); Mean Corpuscular Hemoglobin 28.1 pg (28.0-33.3); Mean Platelet Volume 9.1 fL (9.4-12.4); Monocytes # 0.3 K/mcL (0.0-1.3); Monocytes % 4.6 %; Neutrophils # 4.5 K/mcL (1.6-8.9); Platelet Count 449 K/mcL (140-400); Red Blood Count 3.99 M/mcL (3.82-4.97); Red Cell Distribution Width 12.8 % (11.5-14.5); Segmented Neutrophils % 63.6 %; White Blood Count 7.1 K/mcL (4.3-11.1)
[2018-12-26] MEDS: *HR* Heparin 5,000 UNIT/ML VIAL SQ SCH ×2 (05:22→17:18)
[2018-12-26 05:30] LABS: BUN/Creatinine Ratio 51 (6-26); Blood Urea Nitrogen 26 mg/dL (8-23); Calcium 8.7 mg/dL (8.6-10.3); Carbon Dioxide 21 mEq/L (23-29); Chloride 101 mEq/L (98-107); Glucose 408 mg/dL (70-105); Magnesium 2.1 mg/dL (1.6-2.6); Osmolality,Calculated 300 (280-300); Potassium 4.8 mEq/L (3.5-5.1); Sodium 134 mEq/L (136-145); eGFR For African Americans > 60 (> 60); eGFR For Non-African Americans > 60 (> 60)
[2018-12-26] MEDS ORDERED: Insulin LISPRO 300 UNITS/3 ML VIAL SQ ONE ×2 (08:13→12:05)
[2018-12-26] MEDS: Insulin LISPRO 300 UNITS/3 ML VIAL SQ SCH ×3 (08:37→21:26)
[2018-12-26] MEDS: (Buprenorphine Hcl/Naloxone Hcl [Suboxone 8 Mg-2 Mg S SL SCH (08:38)
[2018-12-26] MEDS: Loratadine 10 MG TABLET PO SCH (08:53)
[2018-12-26] MEDS: Insulin DETEMIR 100 UNIT/ML X5UNITS SQ SCH ×2 (09:20→21:27)
[2018-12-26] MEDS: Artificial Tears SOLN 15 ML BOTTLE BOTH EYES SCH ×4 (09:21→21:27)
--- NOTE | 2018-12-26 10:03 | Internal Med Progress Note ---
Hospitalist Progress Note - Encounter Date of Encounter: 12/26/18 Time of Encounter: 08:00 - Subjective Interval History: Ms Richardson remains minimally conversant and and does not appear to be oriented to self. Boyfriend name Wei Clemons was at the bedside he did confirm that he has no phone and that both him and the patient are homeless, although she thinks the patient's sister may be able to help them. He also stated that the patient frequents with erratic blood glucose and also will be hypoglycemic and that he typically will give her some chocolate peanut butter. He stated up prior to presenting the night before she was hypoglycemic before going to bed but did not have any glucose tablets or any other acute medication at his disposal to give to her help with her blood glucose. Per staff no changes in her mentation from yesterday Reviewed current in hospital medications with modifications see orders Reviewed Routine labs - Exam Vitals: Temp Pulse Resp BP Pulse Ox 98.0 F 88 20 143/80 97 12/26/18 08:15 12/26/18 08:15 12/26/18 08:15 12/26/18 08:15 12/26/18 08:15 Exam: GEN: Emanciated -looking female does not appear to be oriented, responds to painful stimuli, not conversant however not in acute distress, boy friwend at her bedside SKIN: [place] warm acyanotic not jaundice HEART: RRR, no murmurs LUNGS: Diminished CTA no wheeze or crackles, overall non labored ABDOMEN; Soft, non tender or distended, BS x 4 normactive EXT: No LE edema, Pedal pulses 1+, radial pulses 2+ PSYCH: Deferred - Assessment and Plan (1) Insulin dependent diabetes mellitus Current Visit: Yes Status: Chronic Assessment and Plan: She was noted to be hypoglycemic on admission unclear if she overdosed on insulin intentionally or unintentionally as the only logical reason for presentation with blood glucose of 14, pancreatic secreting insulinoma is on the differential, suspect brittle diabetic blood glucose yesterday ranges from 33- 302, on the internal, only with insulin short acting continue bedside Accu- Cheks, blood glucose this morning was 408, POC ranges 261-362 yesterday (2) Metabolic encephalopathy Current Visit: Yes Status: Resolved Assessment and Plan: She has been followed by neurology, given the overall presentation anoxic brain injury is of concern. She is minimally conversant at best, does not seems to be oriented, no changes from yesterday. This may be New baseline, she would likely need a long-term care facility with fpc (3) Homeless single person Current Visit: Yes Status: Acute Assessment and Plan: Patient allegedly was kicked out of the home she was living with her daughter was likely homeless, this was confirmed with her boyfriend Wei clemons. He stated that he too is homeless and has no phone. we will have case management look into discharge planning (4) Hypertension Current Visit: Yes Status: Acute Assessment and Plan: On review of home medication is currently not on any antihypertensive we will trend BP, remains elevated will start low dose lisinopril in addition to Coreg (5) Pneumonia Current Visit: Yes Status: Acute Assessment and Plan: Sputum culture was positive for Enterobacter pansensitive on with Zosyn. (6) Polysubstance abuse Current Visit: Yes Status: Acute Assessment and Plan: Patient with a personal history of IV drug use urine toxicology positive for cocaine (7) Bipolar disorder Current Visit: Yes Status: Chronic Assessment and Plan: We will get psych involved, once cleared by neurology (8) Acute respiratory failure Current Visit: Yes Status: Acute Assessment and Plan: Status post intubation and extubation due to unresponsiveness, resolved 97% rm air DVT Prophylaxis: Heparin subcutaneous - Time Spent with Patient Total time spent is greater than 50% in coordination of care (as documented) at patient's floor/unit and/or counseling patient: Internal Medicine: Result - Labs CBC & Chem 7: 12/26/18 04:46 12/26/18 04:46 Labs: Short CBC 12/26/18 Range/Units 04:46 WBC 7.1 (4.3-11.1) K/mcL Hgb 11.2 L (11.5-15.4) g/dL Hct 33.5 L (35.3-44.9) % Plt Count 449 H (140-400) K/mcL Neutrophils # 4.5 (1.6-8.9) K/mcL BMP 12/26/18 04:46 Sodium 134 L Potassium 4.8 Chloride 101 Carbon Dioxide 21 L BUN 26 H Creatinine 0.51 L Glucose 408 H Calcium 8.7 - ABG Interpretation ABG results: ABG ABG pH 7.45 pH Units (7.32-7.45) 12/23/18 04:19 ABG pCO2 46 mmHg (35-45) H 12/23/18 04:19 ABG pO2 83 mmHg (85-104) L 12/23/18 04:19 ABG O2 Saturation 97 % (95-98) 12/23/18 04:19 PT/INR, D-dimer PT 10.1 Seconds (9.4-12.1) 12/18/18 07:59 Consult Discharge Plan - Plan Referrals: NONE,PCP [Primary Care Provider] - (4) Hypertension Qualifiers: Hypertension type: unspecified Qualified Code(s): I10 - Essential (primary) hypertension (5) Pneumonia Qualifiers: Pneumonia type: aspiration pneumonia Aspiration pneumonia type: unspecified Laterality: unspecified laterality Lung location: unspecified part of lung Qualified Code(s): J69.0 - Pneumonitis due to inhalation of food and vomit (7) Bipolar disorder Qualifiers: Active/Remission status: remission status unspecified Qualified Code(s): F31.9 - Bipolar disorder, unspecified (8) Acute respiratory failure Qualifiers: Respiratory failure complication: unspecified whether with hypoxia or hypercapnia Qualified Code(s): J96.00 - Acute respiratory failure, unspecified whether with hypoxia or hypercapnia
--- NOTE | 2018-12-26 11:58 | Neurology Progress Note ---
Date of Encounter: 12/26/18 Time of Encounter: 11:54 Assessment and Plan (1) Metabolic encephalopathy Current Visit: Yes Status: Resolved Overall she is improved but is still not able to have any conversation considering significantly low level of blood sugar that she had along with her history of multiple episode like this in the past as well as with a history of multiple substance abuse including heroin afraid that she may have suffered some hypoglycemic damage that may have affected her speech area Repeat EEG also did not show any evidence of flow seizure activity though it did shows generalized slowing consistent with the diffuse encephalopathy Lab work including vitamin B12 folate TSH was also within normal limits Suggest to continue on current management Discussed with the boyfriend in detail ( I have spend more than 25 minutes [id number] with the patient of which more than 50% time was spent counseling and coordination of the care.Including review of lab results as well as previous imaging studies.) Subjective Principal diagnosis: encephalopathy, respiratory failure Interval history: Patient is about the same, patient remain alert and awake but still not able to have any conversation Discussed with the boyfriend was present at the bedside according to him she has done this in the past that when her sugar level goes down she asked like a child and was not able to talk or do anything But later when her shoulder was back to normal she becomes back to normal but this time she is a still not back able to talk or anything Repeat MRI scan shows some improvement in the enhancement that she had and he did not show any other large infarct Objective - Constitutional Vitals: Temp Pulse Resp BP Pulse Ox 98.8 F 86 17 123/76 96 12/26/18 11:52 12/26/18 11:52 12/26/18 11:52 12/26/18 11:52 12/26/18 11:52 General appearance: Present: severe distress (patient intubated and sedated), thin - Neurological Exam Sensorimotor examination: Present: intact, other (Unable to assess due to altered mental status) Motor Examination: Present: grossly full strength in all extremities (On ex amination she is alert awake did follow simple commands able to eat but not able to have any conversation he does open eyes and moving all 4 extremities equally) Sensation intact: Present: other (Unable to assess due to altered mental status) Posture: Present: other (Relaxed in bed) Reflex and gait examination: other (Reflexes 2/4; gait deferred) Mental Status Examination: Present: awake, alert, opens eyes to voice, follows simple commands, localizes noxious stimulation, expressive aphasia, impaired cognition. Absent: oriented to person, oriented to place, oriented to time, answers questions appropriately, answers questions by nodding yes or no Cranial nerve examination: Present: no facial asymmetry is present. Absent: vertical nystagmus, tongue atrophied Results - Laboratory Findings CBC and BMP: 12/26/18 04:46 12/26/18 04:46 Abnormal lab findings: Abnormal lab results WBC 14.2 K/mcL (4.3-11.1) H 12/19/18 04:55 RBC 3.28 M/mcL (3.82-4.97) L 12/23/18 03:55 Hgb 11.2 g/dL (11.5-15.4) L 12/26/18 04:46 Hct 33.5 % (35.3-44.9) L 12/26/18 04:46 MCH 27.8 pg (28.0-33.3) L 12/21/18 11:45 MCHC 31.1 g/dL (31.6-35.5) L 12/23/18 03:55 Plt Count 449 K/mcL (140-400) H 12/26/18 04:46 MPV 9.1 fL (9.4-12.4) L 12/26/18 04:46 Neutrophils # 11.7 K/mcL (1.6-8.9) H 12/19/18 04:55 ABG pH 7.47 pH Units (7.32-7.45) H 12/22/18 04:57 ABG pCO2 46 mmHg (35-45) H 12/23/18 04:19 ABG pO2 83 mmHg (85-104) L 12/23/18 04:19 ABG HCO3 31 mEq/L (21-27) H 12/23/18 04:19 ABG Total CO2 33 mEq/L (20-26) H 12/23/18 04:19 ABG O2 Saturation 90 % (95-98) L 12/21/18 04:54 ABG Base Excess 7 mEq/L (-2 to 3) H 12/23/18 04:19 Sodium 134 mEq/L (136-145) L 12/26/18 04:46 Potassium 3.0 mEq/L (3.5-5.1) L 12/18/18 07:59 Chloride 109 mEq/L (98-107) H 12/23/18 03:55 Carbon Dioxide 21 mEq/L (23-29) L 12/26/18 04:46 BUN 26 mg/dL (8-23) H 12/26/18 04:46 Creatinine 0.51 mg/dL (0.60-1.20) L 12/26/18 04:46 BUN/Creatinine Ratio 51 (6-26) H 12/26/18 04:46 Glucose 408 mg/dL (70-105) H 12/26/18 04:46 POC Glucose 261 mg/dL (70-99) H 12/25/18 11:38 Calculated Osmolality 309 (280-300) H 12/23/18 03:55 Calcium 8.5 mg/dL (8.6-10.3) L 12/24/18 05:19 AST 41 Units/L (13-39) H 12/18/18 07:59 Alkaline Phosphatase 154 Units/L (34-104) H 12/18/18 07:59 Troponin I 0.34 ng/mL (< 0.04) H* 12/18/18 07:59 Lipase 8 Units/L (11-82) L 12/18/18 07:58 Folate > 22.3 ng/mL (3.0-16.0) H 12/25/18 13:59 Urine Protein 30 mg/dL (Neg-Trace) H 12/18/18 09:16 Urine Glucose (UA) 100 mg/dL (Normal) H 12/18/18 09:16 Urine Blood Moderate (Negative) H 12/18/18 09:16 Urine Microscopic RBC 30-50 per hpf (0-3) H 12/18/18 09:16 Nasal Screen MRSA (PCR) DETECTED (Not Detect) A 12/25/18 13:12 Salicylates < 2.5 mg/dL (15.0-30.0) L 12/18/18 07:58 Acetaminophen < 10 mcg/mL (10-20) L 12/18/18 07:58 Urine Cocaine Screen Positive ng/mL (Cutoff= 300) H 12/18/18 09:16 Consult Discharge Plan - Plan Referrals: NONE,PCP [Primary Care Provider] -
[2018-12-26] MEDS: Latanoprost 2.5 ML BOTTLE BOTH EYES SCH (17:20)
[2018-12-27] MEDS ORDERED: Ipratropium/Albuterol Neb 3 ML IH PRN (06:08)
[2018-12-27 06:42] LABS: Basophils % 0.4 %; Eosinophils # 0.1 K/mcL (0.0-0.6); Eosinophils % 0.7 %; Hematocrit 42.8 % (35.3-44.9); Immature Granulocytes % 0.6 % (0-4); Lymphocytes # 3.1 K/mcL (0.6-4.6); Lymphocytes % 34.1 %; Mean Corpuscular HGB Conc 32.7 g/dL (31.6-35.5); Mean Corpuscular Hemoglobin 27.9 pg (28.0-33.3); Mean Corpuscular Volume 85.3 fL (83.0-100.0); Mean Platelet Volume 9.2 fL (9.4-12.4); Monocytes # 0.4 K/mcL (0.0-1.3); Monocytes % 4.9 %; Neutrophils # 5.3 K/mcL (1.6-8.9); Platelet Count 407 K/mcL (140-400); Red Blood Count 5.02 M/mcL (3.82-4.97); Red Cell Distribution Width 13.2 % (11.5-14.5); Segmented Neutrophils % 59.3 %
[2018-12-27] MEDS: *HR* Heparin 5,000 UNIT/ML VIAL SQ SCH ×2 (06:51→17:48)
[2018-12-27] MEDS: *HR* Dextrose 50 % in Water (Syg) 50 ML SYRINGE IVP PRN (06:51)
[2018-12-27 07:06] LABS: BUN/Creatinine Ratio 50 (6-26); Blood Urea Nitrogen 21 mg/dL (8-23); Calcium 9.3 mg/dL (8.6-10.3); Carbon Dioxide 27 mEq/L (23-29); Chloride 103 mEq/L (98-107); Glucose 20 mg/dL (70-105); Magnesium 2.2 mg/dL (1.6-2.6); Osmolality,Calculated 293 (280-300); Potassium 3.4 mEq/L (3.5-5.1); Sodium 142 mEq/L (136-145); eGFR For African Americans > 60 (> 60); eGFR For Non-African Americans > 60 (> 60)
[2018-12-27] MEDS: Loratadine 10 MG TABLET PO SCH (08:48)
[2018-12-27] MEDS: amLODIPine 5 MG TABLET PO SCH (08:48)
[2018-12-27] MEDS: Artificial Tears SOLN 15 ML BOTTLE BOTH EYES SCH (08:48)
[2018-12-27] MEDS: (Buprenorphine Hcl/Naloxone Hcl [Suboxone 8 Mg-2 Mg S SL SCH (08:49)
[2018-12-27 09:07] LABS: Estimated Average Glucose 192 mg/dl
--- NOTE | 2018-12-27 09:36 | Internal Med Progress Note ---
Hospitalist Progress Note - Encounter Date of Encounter: 12/27/18 Time of Encounter: 08:25 - Subjective Interval History: Ms Richardson BMP this morning revealed blood glucose of 20, of note at about 8:30 PM yesterday as instructed her nurse called to notify me that had blood sugar was 213 she was instructed not to cover with short acting but rather administer has scheduled basal insulin of 10 units. Patient blood glucose at 8:00 in the morning of yesterday was 448, at 1150 388 and at 1652 182 she was never placed on protocol because of concern for brittle diabetes, she only received levemir 10 u bid, humalog 10u 2 1242, 5u at 0921. - Exam Vitals: Temp Pulse Resp BP Pulse Ox 97.5 F L 50 14 142/76 99 12/27/18 04:27 12/27/18 06:34 12/27/18 06:59 12/27/18 08:08 12/27/18 06:59 Exam: GEN: Emanciated -looking female more alert and conversant today, boy friend at her bedside SKIN: [place] warm acyanotic not jaundice HEART: RRR, no murmurs LUNGS: Diminished CTA no wheeze or crackles, overall non labored ABDOMEN; Soft, non tender or distended, BS x 4 normactive EXT: No LE edema, Pedal pulses 1+, radial pulses 2+ PSYCH: Deferred - Assessment and Plan (1) Insulin dependent diabetes mellitus Current Visit: Yes Status: Chronic Assessment and Plan: Patient was hypoglycemic again today, BMP this morning revealed blood glucose of 20, of note at about 8:30 PM yesterday as instructed her nurse called to notify me that had blood sugar was 213 she was instructed not to cover with short acting but rather administer has scheduled basal insulin of 10 units. Patient blood glucose at 8:00 in the morning of yesterday was 448, at 1150 388 and at 1652 182 she was never placed on protocol because of concern for brittle diab etes, she only received levemir 10 u bid, humalog 10u 2 1242, 5u at 0921. Workup initiated for possible pancreatic secreting insulinoma, versus iatrogenic causes for intermittent hypoglycemia of unclear etiology. A1c was 8.3 She was noted to be hypoglycemic on admission unclear if she overdosed on insulin intentionally or unintentionally as the only logical reason for presentation with blood glucose of 14, pancreatic secreting insulinoma is on the differential, suspect brittle diabetic blood glucose yesterday ranges from 33- 302, on the internal, only with insulin short acting continue bedside Accu- Cheks, blood glucose this morning was 408, POC ranges 261-362 yesterday (2) Metabolic encephalopathy Current Visit: Yes Status: Resolved Assessment and Plan: She is more alert and conversant today even with a blood glucose of 20 this am per nurse. She has been followed by neurology, given the overall presentation anoxic brain injury is of concern. She is minimally conversant at best, does not seems to be oriented, no changes from yesterday. This may be New baseline, she would likely need a long-term care facility with detention (3) Homeless single person Current Visit: Yes Status: Acute Assessment and Plan: Patient allegedly was kicked out of the home she was living with her daughter was likely homeless, this was confirmed with her boyfriend Wei connor. He stated that he too is homeless and has no phone. we will have case management look into discharge planning (4) Hypertension Current Visit: Yes Status: Acute Assessment and Plan: On review of home medication is currently not on any antihypertensive we will trend BP, remains elevated will start low dose lisinopril in addition to Coreg (5) Pneumonia Current Visit: Yes Status: Acute Assessment and Plan: Sputum culture was positive for Enterobacter pansensitive was tx with Zosyn. (6) Polysubstance abuse Current Visit: Yes Status: Acute Assessment and Plan: Patient with a personal history of IV drug use urine toxicology positive for cocaine (7) Bipolar disorder Current Visit: Yes Status: Chronic Assessment and Plan: We will get psych involved, once cleared by neurology and all other metabolic conditions have been addressed, she can also follow up as an outpatient upon discharge (8) Acute respiratory failure Current Visit: Yes Status: Acute Assessment and Plan: Status post intubation and extubation due to unresponsiveness, resolved 97% rm air DVT Prophylaxis: Heparin subcutaneous - Time Spent with Patient Total time spent is greater than 50% in coordination of care (as documented) at patient's floor/unit and/or counseling patient: Internal Medicine: Result - Labs CBC & Chem 7: 12/27/18 06:29 12/27/18 06:29 Labs: Short CBC 12/27/18 Range/Units 06:29 WBC 9.0 (4.3-11.1) K/mcL Hgb 14.0 D (11.5-15.4) g/dL Hct 42.8 (35.3-44.9) % Plt Count 407 H (140-400) K/mcL Neutrophils # 5.3 (1.6-8.9) K/mcL BMP 12/27/18 06:29 Sodium 142 Potassium 3.4 L Chloride 103 Carbon Dioxide 27 BUN 21 Creatinine 0.42 L Glucose 20 L* Calcium 9.3 - ABG Interpretation ABG results: ABG ABG pH 7.45 pH Units (7.32-7.45) 12/23/18 04:19 ABG pCO2 46 mmHg (35-45) H 12/23/18 04:19 ABG pO2 83 mmHg (85-104) L 12/23/18 04:19 ABG O2 Saturation 97 % (95-98) 12/23/18 04:19 PT/INR, D-dimer PT 10.1 Seconds (9.4-12.1) 12/18/18 07:59 Consult Discharge Plan - Plan Referrals: NONE,PCP [Primary Care Provider] - (4) Hypertension Qualifiers: Hypertension type: unspecified Qualified Code(s): I10 - Essential (primary) hypertension (5) Pneumonia Qualifiers: Pneumonia type: aspiration pneumonia Aspiration pneumonia type: unspecified Laterality: unspecified laterality Lung location: unspecified part of lung Qualified Code(s): J69.0 - Pneumonitis due to inhalation of food and vomit (7) Bipolar disorder Qualifiers: Active/Remission status: remission status unspecified Qualified Code(s): F31.9 - Bipolar disorder, unspecified (8) Acute respiratory failure Qualifiers: Respiratory failure complication: unspecified whether with hypoxia or hypercapnia Qualified Code(s): J96.00 - Acute respiratory failure, unspecified whether with hypoxia or hypercapnia
[2018-12-27] MEDS ORDERED: Artificial Tears SOLN 15 ML BOTTLE BOTH EYES PRN (12:08)
[2018-12-27] MEDS ORDERED: Insulin LISPRO 300 UNITS/3 ML VIAL SQ ONE ×2 (12:32→22:00)
[2018-12-27] MEDS: Latanoprost 2.5 ML BOTTLE BOTH EYES SCH (17:47)
[2018-12-28] MEDS: *HR* Heparin 5,000 UNIT/ML VIAL SQ SCH ×2 (04:59→16:49)
[2018-12-28 06:54] LABS: Basophils % 0.3 %; Eosinophils % 0.4 %; Hematocrit 38.1 % (35.3-44.9); Immature Granulocytes % 0.7 % (0-4); Lymphocytes # 1.8 K/mcL (0.6-4.6); Lymphocytes % 23.9 %; Mean Corpuscular HGB Conc 31.8 g/dL (31.6-35.5); Mean Corpuscular Hemoglobin 27.8 pg (28.0-33.3); Mean Corpuscular Volume 87.6 fL (83.0-100.0); Mean Platelet Volume 9.9 fL (9.4-12.4); Monocytes # 0.4 K/mcL (0.0-1.3); Monocytes % 5.5 %; Neutrophils # 5.3 K/mcL (1.6-8.9); Platelet Count 351 K/mcL (140-400); Red Blood Count 4.35 M/mcL (3.82-4.97); Red Cell Distribution Width 13.2 % (11.5-14.5); Segmented Neutrophils % 69.2 %; White Blood Count 7.7 K/mcL (4.3-11.1)
[2018-12-28 07:20] LABS: BUN/Creatinine Ratio 42 (6-26); Blood Urea Nitrogen 19 mg/dL (8-23); Calcium 8.8 mg/dL (8.6-10.3); Carbon Dioxide 25 mEq/L (23-29); Chloride 97 mEq/L (98-107); Glucose 430 mg/dL (70-105); Hemoglobin 12.1 g/dL (11.5-15.4); Magnesium 2.1 mg/dL (1.6-2.6); Osmolality,Calculated 297 (280-300); Phosphorous 2.8 mg/dL (2.7-4.5); Potassium 4.4 mEq/L (3.5-5.1); Sodium 133 mEq/L (136-145); eGFR For African Americans > 60 (> 60); eGFR For Non-African Americans > 60 (> 60)
[2018-12-28 07:23] LABS: Platelet Estimate Normal (Normal)
[2018-12-28] MEDS ORDERED: Insulin LISPRO 300 UNITS/3 ML VIAL SQ ONE (08:08)
[2018-12-28] MEDS: amLODIPine 5 MG TABLET PO SCH (09:45)
[2018-12-28] MEDS: Loratadine 10 MG TABLET PO SCH (09:47)
[2018-12-28] MEDS: Insulin DETEMIR 100 UNIT/ML X5UNITS SQ SCH (09:47)
[2018-12-28] MEDS: Insulin LISPRO 300 UNITS/3 ML VIAL SQ SCH ×2 (12:12→16:50)
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
[2018-12-28] MEDS ORDERED: *HR* Heparin 5,000 UNIT/ML VIAL ONE (16:43)
[2018-12-28] MEDS: Latanoprost 2.5 ML BOTTLE BOTH EYES SCH (16:50)
[2018-12-29 05:08] LABS: Basophils % 0.3 %; Eosinophils # 0.1 K/mcL (0.0-0.6); Eosinophils % 0.6 %; Hematocrit 35.8 % (35.3-44.9); Hemoglobin 11.8 g/dL (11.5-15.4); Immature Granulocytes % 0.8 % (0-4); Lymphocytes # 2.8 K/mcL (0.6-4.6); Lymphocytes % 35.8 %; Mean Corpuscular Hemoglobin 27.7 pg (28.0-33.3); Monocytes # 0.4 K/mcL (0.0-1.3); Monocytes % 5.6 %; Neutrophils # 4.5 K/mcL (1.6-8.9); Platelet Count 484 K/mcL (140-400); Red Blood Count 4.26 M/mcL (3.82-4.97); Red Cell Distribution Width 13.2 % (11.5-14.5); Segmented Neutrophils % 56.9 %; White Blood Count 7.9 K/mcL (4.3-11.1)
[2018-12-29 05:22] LABS: BUN/Creatinine Ratio 54 (6-26); Blood Urea Nitrogen 22 mg/dL (8-23); Calcium 8.8 mg/dL (8.6-10.3); Carbon Dioxide 27 mEq/L (23-29); Chloride 100 mEq/L (98-107); Glucose 306 mg/dL (70-105); Magnesium 1.8 mg/dL (1.6-2.6); Osmolality,Calculated 295 (280-300); Phosphorous 3.1 mg/dL (2.7-4.5); Potassium 3.9 mEq/L (3.5-5.1); Sodium 135 mEq/L (136-145); eGFR For African Americans > 60 (> 60); eGFR For Non-African Americans > 60 (> 60)
[2018-12-29] MEDS: *HR* Heparin 5,000 UNIT/ML VIAL SQ SCH ×2 (06:28→17:04)
[2018-12-29] MEDS: Insulin LISPRO 300 UNITS/3 ML VIAL SQ SCH ×3 (09:30→17:04)
[2018-12-29] MEDS: Loratadine 10 MG TABLET PO SCH (09:31)
[2018-12-29] MEDS: Insulin DETEMIR 100 UNIT/ML X5UNITS SQ SCH (09:31)
[2018-12-29] MEDS: amLODIPine 5 MG TABLET PO SCH (09:31)
--- NOTE | 2018-12-29 14:07 | Internal Med Progress Note ---
Hospitalist Progress Note - Encounter Date of Encounter: 12/29/18 Time of Encounter: 14:05 - Subjective Interval History: Evaluated patient earlier today. Patient was somnolent. Not responding to verbal commands. Withdraws to pain. No acute issues reported overnight. Portion present at bedside. He notes that he is being able to wake her up intermittently and she was able to take some food earlier today. - Exam Vitals: Temp Pulse Resp BP Pulse Ox 98.7 F 89 17 95/58 94 12/29/18 11:07 12/29/18 11:07 12/29/18 11:07 12/29/18 11:07 12/29/18 04:56 Exam: General: Patient is somnolent, difficult to awake. Withdraws to sternal rub ENT: Mucous membranes moist Respiratory: Diminished breath sounds at both bases. Cardiovascular: Regular rate and rhythm. s1 and s2 normal No clicks, rubs, gallops, or murmurs. No pedal edema Abdomen: Abdomen is soft, nontender. Bowel sounds are present Musculoskeletal: Spontaneously moving all extremities Skin: warm, dry, intact. Neuro: Somnolent. Unable to participate in neurologic examination - Assessment and Plan (1) Insulin dependent diabetes mellitus Current Visit: Yes Status: Chronic (2) Bipolar disorder Current Visit: Yes Status: Chronic (3) Metabolic encephalopathy Current Visit: Yes Status: Resolved (4) Polysubstance abuse Current Visit: Yes Status: Acute (5) Acute respiratory failure Current Visit: Yes Status: Acute (6) Pneumonia Current Visit: Yes Status: Acute (7) Hypertension Current Visit: Yes Status: Acute (8) Homeless single person Current Visit: Yes Status: Acute DVT Prophylaxis: Subcutaneous heparin - Summary of Assessment and Plan Summary of Assessment and Plan: Diabetes mellitus type 2 with insulin dependence and episodes of hypoglycemia: No further episodes of hypoglycemia since 12/27. Blood sugars are now elevated. We will increase long-acting insulin regimen to 12 units Levemir. Also increase short-acting insulin regimen to 4 units 3 times a day with meals. Continue to monitor blood sugars closely. Metabolic encephalopathy: Neurology consult appreciated. Concern for permanent damage due to recurrent episodes of hypoglycemia. Continue supportive care. MRI of the brain done on 12/24 shows some improvement in the abnormal signal that was previously noted in the parieto-occipital parenchyma. Patient remains minimally responsive. Will consult physical therapy for evaluation. computer recycling worker and case management also consult for discharge planning. Essential hypertension: Blood pressure is fairly controlled. We will continue to monitor. Pneumonia due to Enterobacter aerogenes: Completed treatment with antibiotics. Polysubstance abuse: Patient has history of IV drug abuse. Does not appear to be in withdrawal at this time. Acute hypoxic respiratory failure: Now resolved. Hx of bipolar disorder: No medications listed on home med list. Patient is too somnolent to be able to participate in psychiatric evaluation at this time. If her condition improves, we will consult psychiatry to evaluate. - Time Spent with Patient Total time spent is greater than 50% in coordination of care (as documented) at patient's floor/unit and/or counseling patient: Internal Medicine: Result - Labs CBC & Chem 7: 12/29/18 04:27 12/29/18 04:27 Labs: Short CBC 12/29/18 Range/Units 04:27 WBC 7.9 (4.3-11.1) K/mcL Hgb 11.8 (11.5-15.4) g/dL Hct 35.8 (35.3-44.9) % Plt Count 484 H (140-400) K/mcL Neutrophils # 4.5 (1.6-8.9) K/mcL BMP 12/29/18 04:27 Sodium 135 L Potassium 3.9 Chloride 100 Carbon Dioxide 27 BUN 22 Creatinine 0.41 L Glucose 306 H Calcium 8.8 - ABG Interpretation ABG results: ABG ABG pH 7.45 pH Units (7.32-7.45) 12/23/18 04:19 ABG pCO2 46 mmHg (35-45) H 12/23/18 04:19 ABG pO2 83 mmHg (85-104) L 12/23/18 04:19 ABG O2 Saturation 97 % (95-98) 12/23/18 04:19 PT/INR, D-dimer PT 10.1 Seconds (9.4-12.1) 12/18/18 07:59 Consult Discharge Plan - Plan Referrals: NONE,PCP [Primary Care Provider] - (2) Bipolar disorder Qualifiers: Active/Remission status: remission status unspecified Qualified Code(s): F31.9 - Bipolar disorder, unspecified (5) Acute respiratory failure Qualifiers: Respiratory failure complication: unspecified whether with hypoxia or hypercapnia Qualified Code(s): J96.00 - Acute respiratory failure, unspecified whether with hypoxia or hypercapnia (6) Pneumonia Qualifiers: Pneumonia type: aspiration pneumonia Aspiration pneumonia type: unspecified Laterality: unspecified laterality Lung location: unspecified part of lung Qualified Code(s): J69.0 - Pneumonitis due to inhalation of food and vomit (7) Hypertension Qualifiers: Hypertension type: unspecified Qualified Code(s): I10 - Essential (primary) hypertension
[2018-12-29] MEDS ORDERED: Insulin DETEMIR 100 UNIT/ML X5UNITS SQ ONE (14:26)
[2018-12-29] MEDS: Latanoprost 2.5 ML BOTTLE BOTH EYES SCH (17:05)
[2018-12-30 05:15] LABS: BUN/Creatinine Ratio 66 (6-26); Blood Urea Nitrogen 23 mg/dL (8-23); Calcium 9.1 mg/dL (8.6-10.3); Carbon Dioxide 27 mEq/L (23-29); Chloride 100 mEq/L (98-107); Potassium 3.7 mEq/L (3.5-5.1); Sodium 138 mEq/L (136-145); eGFR For African Americans > 60 (> 60); eGFR For Non-African Americans > 60 (> 60)
[2018-12-30 05:17] LABS: Basophils % 0.3 %; Eosinophils # 0.1 K/mcL (0.0-0.6); Eosinophils % 1.1 %; Hematocrit 40.3 % (35.3-44.9); Hemoglobin 13.3 g/dL (11.5-15.4); Immature Granulocytes % 0.8 % (0-4); Lymphocytes % 41.2 %; Mean Corpuscular Hemoglobin 27.8 pg (28.0-33.3); Mean Corpuscular Volume 84.3 fL (83.0-100.0); Mean Platelet Volume 9.3 fL (9.4-12.4); Monocytes # 0.5 K/mcL (0.0-1.3); Monocytes % 6.2 %; Neutrophils # 3.7 K/mcL (1.6-8.9); Platelet Count 453 K/mcL (140-400); Red Blood Count 4.78 M/mcL (3.82-4.97); Red Cell Distribution Width 13.2 % (11.5-14.5); Segmented Neutrophils % 50.4 %; White Blood Count 7.3 K/mcL (4.3-11.1)
[2018-12-30 05:20] LABS: Glucose 109 mg/dL (70-105); Osmolality,Calculated 290 (280-300)
[2018-12-30] MEDS: *HR* Heparin 5,000 UNIT/ML VIAL SQ SCH ×2 (06:06→17:42)
[2018-12-30] MEDS ORDERED: Insulin DETEMIR 100 UNIT/ML X5UNITS SQ SCH (09:00)
[2018-12-30] MEDS: Loratadine 10 MG TABLET PO SCH (09:57)
[2018-12-30] MEDS: amLODIPine 5 MG TABLET PO SCH (09:57)
[2018-12-30] MEDS: Insulin LISPRO 300 UNITS/3 ML VIAL SQ SCH ×3 (09:58→18:15)
[2018-12-30] MEDS ORDERED: Insulin DETEMIR 100 UNIT/ML X5UNITS SQ ONE (11:42)
--- NOTE | 2018-12-30 14:17 | Internal Med Progress Note ---
Hospitalist Progress Note - Encounter Date of Encounter: 12/30/18 Time of Encounter: 10:35 - Subjective Interval History: Patient lying down in bed. Answers some questions appropriately but mostly does not respond purposefully. Present at bedside and cleaning her hair. No fever reported overnight. - Exam Vitals: Temp Pulse Resp BP Pulse Ox 99.1 F 94 18 129/75 97 12/30/18 11:06 12/30/18 11:06 12/30/18 11:06 12/30/18 11:06 12/30/18 11:06 Exam: General: Patient is somnolent and answers some questions but disoriented ENT: Mucous membranes moist Respiratory: Diminished breath sounds at both bases Cardiovascular: Regular rate and rhythm. s1 and s2 normal No clicks, rubs, gallops, or murmurs. No pedal edema Abdomen: Abdomen is soft, nontender. Bowel sounds are present Musculoskeletal: Spontaneously moving all extremities Skin: warm, dry, intact. Neuro: Somnolent and answers some questions. Alert oriented x 3 normal cranial nerves, no focal deficits - Assessment and Plan (1) Insulin dependent diabetes mellitus Current Visit: Yes Status: Chronic (2) Bipolar disorder Current Visit: Yes Status: Chronic (3) Metabolic encephalopathy Current Visit: Yes Status: Resolved (4) Polysubstance abuse Current Visit: Yes Status: Acute (5) Acute respiratory failure Current Visit: Yes Status: Acute (6) Pneumonia Current Visit: Yes Status: Acute (7) Hypertension Current Visit: Yes Status: Acute (8) Homeless single person Current Visit: Yes Status: Acute DVT Prophylaxis: Subcutaneous heparin - Summary of Assessment and Plan Summary of Assessment and Plan: Diabetes mellitus type 2 with insulin dependence and episodes of hypoglycemia: No further episodes of hypoglycemia since 12/27. Blood sugars again remain elevated today. She again had a brittle response to insulin yesterday with blood sugars going down from 543 to164 with minimal dose of insulin. Will slowly continue to increase insulin dosage by mainly relying on long-acting insulin to prevent rapid decrease in blood sugars. Metabolic encephalopathy: Neurology consult appreciated. Concern for permanent damage due to recurrent episodes of hypoglycemia. Continue supportive care. MRI of the brain done on 12/24 shows some improvement in the abnormal signal that was previously noted in the parieto-occipital parenchyma. Patient remains minimally responsive and is more able to answer questions today. Tolerating diet well. Physical therapy evaluated patient but patient not able to participate. disc pad knockout worker and case management also consult for discharge planning. Essential hypertension: Blood pressure is fairly controlled. We will continue to monitor. Pneumonia due to Enterobacter aerogenes: Completed treatment with antibiotics. Polysubstance abuse: disc pad knockout worker consulted. No signs of withdrawal at this time. Acute hypoxic respiratory failure: Now resolved. Hx of bipolar disorder: No medications listed on home med list. Patient is too somnolent to be able to participate in psychiatric evaluation at this time. - Time Spent with Patient Total time spent is greater than 50% in coordination of care (as documented) at patient's floor/unit and/or counseling patient: Internal Medicine: Result - Labs CBC & Chem 7: 12/30/18 04:12 12/30/18 04:12 Labs: Short CBC 12/30/18 Range/Units 04:12 WBC 7.3 (4.3-11.1) K/mcL Hgb 13.3 D (11.5-15.4) g/dL Hct 40.3 (35.3-44.9) % Plt Count 453 H (140-400) K/mcL Neutrophils # 3.7 (1.6-8.9) K/mcL BMP 12/30/18 04:12 Sodium 138 Potassium 3.7 Chloride 100 Carbon Dioxide 27 BUN 23 Creatinine 0.35 L Glucose 109 H Calcium 9.1 - ABG Interpretation ABG results: ABG ABG pH 7.45 pH Units (7.32-7.45) 12/23/18 04:19 ABG pCO2 46 mmHg (35-45) H 12/23/18 04:19 ABG pO2 83 mmHg (85-104) L 12/23/18 04:19 ABG O2 Saturation 97 % (95-98) 12/23/18 04:19 PT/INR, D-dimer PT 10.1 Seconds (9.4-12.1) 12/18/18 07:59 Consult Discharge Plan - Plan Referrals: NONE,PCP [Primary Care Provider] - (2) Bipolar disorder Qualifiers: Active/Remission status: remission status unspecified Qualified Code(s): F31.9 - Bipolar disorder, unspecified (5) Acute respiratory failure Qualifiers: Respiratory failure complication: unspecified whether with hypoxia or hypercapnia Qualified Code(s): J96.00 - Acute respiratory failure, unspecified whether with hypoxia or hypercapnia (6) Pneumonia Qualifiers: Pneumonia type: aspiration pneumonia Aspiration pneumonia type: unspecified Laterality: unspecified laterality Lung location: unspecified part of lung Qu alified Code(s): J69.0 - Pneumonitis due to inhalation of food and vomit (7) Hypertension Qualifiers: Hypertension type: unspecified Qualified Code(s): I10 - Essential (primary) hypertension
[2018-12-30] MEDS: Latanoprost 2.5 ML BOTTLE BOTH EYES SCH (17:43)
[2018-12-31] MEDS: *HR* Heparin 5,000 UNIT/ML VIAL SQ SCH ×2 (05:46→18:43)
[2018-12-31] MEDS: Loratadine 10 MG TABLET PO SCH (08:03)
[2018-12-31] MEDS: amLODIPine 5 MG TABLET PO SCH (08:03)
[2018-12-31] MEDS: Insulin DETEMIR 100 UNIT/ML X5UNITS SQ SCH (08:04)
[2018-12-31] MEDS: Insulin LISPRO 300 UNITS/3 ML VIAL SQ SCH ×3 (08:04→17:44)
--- NOTE | 2018-12-31 12:07 | Internal Med Progress Note ---
Hospitalist Progress Note - Encounter Date of Encounter: 12/31/18 Time of Encounter: 12:04 - Subjective Interval History: Patient lying down in bed. Awakes to verbal commands. Denies any pain. No fever or chills reported overnight. Tolerating diet. - Exam Vitals: Temp Pulse Resp BP Pulse Ox 98.4 F 85 16 125/73 97 12/31/18 11:37 12/31/18 11:37 12/31/18 11:37 12/31/18 11:37 12/31/18 11:37 Exam: General: Patient is somnolent and awakes to verbal commands. Remains disoriented Respiratory: Diminished breath sounds at both bases Cardiovascular: Regular rate and rhythm. s1 and s2 normal No clicks, rubs, gallops, or murmurs. No pedal edema Abdomen: Abdomen is soft, nontender. Bowel sounds are present Musculoskeletal: Spontaneously moving all extremities Neuro: Somnolent and answers some questions. Disoriented - Assessment and Plan (1) Insulin dependent diabetes mellitus Current Visit: Yes Status: Chronic (2) Bipolar disorder Current Visit: Yes Status: Chronic (3) Metabolic encephalopathy Current Visit: Yes Status: Resolved (4) Polysubstance abuse Current Visit: Yes Status: Acute (5) Acute respiratory failure Current Visit: Yes Status: Acute (6) Pneumonia Current Visit: Yes Status: Acute (7) Hypertension Current Visit: Yes Status: Acute (8) Homeless single person Current Visit: Yes Status: Acute DVT Prophylaxis: Subcutaneous heparin - Summary of Assessment and Plan Summary of Assessment and Plan: Diabetes mellitus type 2 with insulin dependence and episodes of hypoglycemia: Continues to have brittle diabetes. Continue current insulin regimen as she has not had further episodes of hypoglycemia. Metabolic encephalopathy: Neurology consult appreciated. Concern for permanent damage due to recurrent episodes of hypoglycemia. Continue supportive care. MRI of the brain done on 12/24 shows some improvement in the abnormal signal that was previously noted in the parieto-occipital parenchyma. Patient continues to have persistent disorientation and lacks capacity to make medical decisions. Essential hypertension: Blood pressure is fairly controlled. Not requiring any medications Pneumonia due to Enterobacter aerogenes: Completed treatment with antibiotics. Polysubstance abuse: telephone sex worker consulted. No signs of withdrawal at this time. Acute hypoxic respiratory failure: Now resolved. Hx of bipolar disorder: No medications listed on home med list. Recommend outpatient follow-up. Discharge planning: Patient will most likely need placement to long-term care. Not able to participate with PT and OT. telephone sex worker working on placement. - Time Spent with Patient Total time spent is greater than 50% in coordination of care (as documented) at patient's floor/unit and/or counseling patient: Internal Medicine: Result - Labs CBC & Chem 7: 12/30/18 04:12 12/30/18 04:12 - ABG Interpretation ABG results: ABG ABG pH 7.45 pH Units (7.32-7.45) 12/23/18 04:19 ABG pCO2 46 mmHg (35-45) H 12/23/18 04:19 ABG pO2 83 mmHg (85-104) L 12/23/18 04:19 ABG O2 Saturation 97 % (95-98) 12/23/18 04:19 PT/INR, D-dimer PT 10.1 Seconds (9.4-12.1) 12/18/18 07:59 Consult Discharge Plan - Plan Referrals: NONE,PCP [Primary Care Provider] - (2) Bipolar disorder Qualifiers: Active/Remission status: remission status unspecified Qualified Code(s): F31.9 - Bipolar disorder, unspecified (5) Acute respiratory failure Qualifiers: Respiratory failure complication: unspecified whether with hypoxia or hy percapnia Qualified Code(s): J96.00 - Acute respiratory failure, unspecified whether with hypoxia or hypercapnia (6) Pneumonia Qualifiers: Pneumonia type: aspiration pneumonia Aspiration pneumonia type: unspecified Laterality: unspecified laterality Lung location: unspecified part of lung Qualified Code(s): J69.0 - Pneumonitis due to inhalation of food and vomit (7) Hypertension Qualifiers: Hypertension type: unspecified Qualified Code(s): I10 - Essential (primary) hypertension
[2018-12-31] MEDS: Latanoprost 2.5 ML BOTTLE BOTH EYES SCH (18:43)
[2019-01-01] MEDS: *HR* Heparin 5,000 UNIT/ML VIAL SQ SCH ×2 (05:02→18:10)
[2019-01-01] MEDS: Loratadine 10 MG TABLET PO SCH (08:57)
[2019-01-01] MEDS: amLODIPine 5 MG TABLET PO SCH (08:57)
[2019-01-01] MEDS: Insulin DETEMIR 100 UNIT/ML X5UNITS SQ SCH (08:57)
[2019-01-01] MEDS: Insulin LISPRO 300 UNITS/3 ML VIAL SQ SCH ×3 (08:58→16:57)
--- NOTE | 2019-01-01 11:18 | Internal Med Progress Note ---
Hospitalist Progress Note - Encounter Date of Encounter: 01/01/19 Time of Encounter: 11:16 - Subjective Interval History: Patient lying down in bed. Responds to some verbal commands but not able to participate in a conversation. No acute issues reported overnight. No chest pain or palpitations. No nausea or vomiting. - Exam Vitals: Temp Pulse Resp BP Pulse Ox 97.6 F 78 18 126/77 97 01/01/19 07:44 01/01/19 07:44 01/01/19 07:44 01/01/19 07:44 01/01/19 09:15 Exam: General: Patient is somnolent. Response to some verbal commands. Respiratory: Diminished breath sounds at both bases Cardiovascular: Regular rate and rhythm. s1 and s2 normal No clicks, rubs, gallops, or murmurs. No pedal edema Abdomen: Abdomen is soft, nontender. Bowel sounds are present Musculoskeletal: Spontaneously moving all extremities Neuro: Somnolent and answers some questions. Disoriented - Assessment and Plan (1) Insulin dependent diabetes mellitus Current Visit: Yes Status: Chronic (2) Bipolar disorder Current Visit: Yes Status: Chronic (3) Metabolic encephalopathy Current Visit: Yes Status: Resolved (4) Polysubstance abuse Current Visit: Yes Status: Acute (5) Acute respiratory failure Current Visit: Yes Status: Acute (6) Pneumonia Current Visit: Yes Status: Acute (7) Hypertension Current Visit: Yes Status: Acute (8) Homeless single person Current Visit: Yes Status: Acute DVT Prophylaxis: Subcutaneous heparin - Summary of Assessment and Plan Summary of Assessment and Plan: Diabetes mellitus type 2 with insulin dependence and episodes of hypoglycemia: No further episodes of hypoglycemia. Continue current insulin regimen. Metabolic encephalopathy: Neurology consult appreciated. Concern for permanent damage due to recurrent episodes of hypoglycemia. Continue supportive care. MRI of the brain done on 12/24 shows some improvement in the abnormal signal that was previously noted in the parieto-occipital parenchyma. Patient continues to have persistent disorientation and lacks capacity to make medical decisions. Awaiting placement to skilled rehabilitation for long-term care. Essential hypertension: Blood pressure is fairly controlled. Not requiring any medications Pneumonia due to Enterobacter aerogenes: Completed treatment with antibiotics. Polysubstance abuse: heater worker consulted. No signs of withdrawal at this time. Acute hypoxic respiratory failure: Now resolved. Hx of bipolar disorder: No medications listed on home med list. Recommend outpatient follow-up. Discharge planning: Awaiting placement to skilled rehabilitation for long-term care. heater worker working on this. - Time Spent with Patient Total time spent is greater than 50% in coordination of care (as documented) at patient's floor/unit and/or counseling patient: Internal Medicine: Result - Labs CBC & Chem 7: 12/30/18 04:12 12/30/18 04:12 - ABG Interpretation ABG results: ABG ABG pH 7.45 pH Units (7.32-7.45) 12/23/18 04:19 ABG pCO2 46 mmHg (35-45) H 12/23/18 04:19 ABG pO2 83 mmHg (85-104) L 12/23/18 04:19 ABG O2 Saturation 97 % (95-98) 12/23/18 04:19 PT/INR, D-dimer PT 10.1 Seconds (9.4-12.1) 12/18/18 07:59 Consult Discharge Plan - Plan Referrals: NONE,PCP [Primary Care Provider] - ____ (2) Bipolar disorder Qualifiers: Active/Remission status: remission status unspecified Qualified Code(s): F31.9 - Bipolar disorder, unspecified (5) Acute respiratory failure Qualifiers: Respiratory failure complication: unspecified whether with hypoxia or hypercapnia Qualified Code(s): J96.00 - Acute respiratory failure, unspecified whether with hypoxia or hypercapnia (6) Pneumonia Qualifiers: Pneumonia type: aspiration pneumonia Aspiration pneumonia type: unspecified Laterality: unspecified laterality Lung location: unspecified part of lung Qualified Code(s): J69.0 - Pneumonitis due to inhalation of food and vomit (7) Hypertension Qualifiers: Hypertension type: unspecified Qualified Code(s): I10 - Essential (primary) hypertension
[2019-01-01 11:24] LABS: Insulin Antibody 7.4 U/mL (0.0-0.4); Proinsulin Intact <1.6 pmol/L (<=8.0)
[2019-01-01] MEDS: Latanoprost 2.5 ML BOTTLE BOTH EYES SCH (18:11)
[2019-01-02] MEDS: *HR* Heparin 5,000 UNIT/ML VIAL SQ SCH ×2 (05:09→17:00)
[2019-01-02] MEDS: Insulin DETEMIR 100 UNIT/ML X5UNITS SQ SCH (09:02)
[2019-01-02] MEDS: Insulin LISPRO 300 UNITS/3 ML VIAL SQ SCH ×3 (09:03→17:04)
[2019-01-02] MEDS: Loratadine 10 MG TABLET PO SCH (09:03)
[2019-01-02] MEDS: amLODIPine 5 MG TABLET PO SCH (09:03)
--- NOTE | 2019-01-02 13:17 | Internal Med Progress Note ---
Hospitalist Progress Note - Encounter Date of Encounter: 01/02/19 Time of Encounter: 13:15 - Subjective Interval History: Evaluated patient earlier today. She was lying down in bed. More awake and alert today. Denies any pain. No fevers or chills. Tolerating oral diet well. - Exam Vitals: Temp Pulse Resp BP Pulse Ox 98.5 F 90 20 99/59 98 01/02/19 11:00 01/02/19 11:00 01/02/19 11:00 01/02/19 11:00 01/02/19 11:00 Exam: General: Patient is awake and alert. Answers some questions appropriately. Disoriented Respiratory: Diminished breath sounds at both bases Cardiovascular: Regular rate and rhythm. s1 and s2 normal No clicks, rubs, gallops, or murmurs. No pedal edema Abdomen: Abdomen is soft, nontender. Bowel sounds are present Musculoskeletal: Spontaneously moving all extremities Neuro: Patient is awake and alert but disoriented - Assessment and Plan (1) Insulin dependent diabetes mellitus Current Visit: Yes Status: Chronic (2) Bipolar disorder Current Visit: Yes Status: Chronic (3) Metabolic encephalopathy Current Visit: Yes Status: Resolved (4) Polysubstance abuse Current Visit: Yes Status: Acute (5) Acute respiratory failure Current Visit: Yes Status: Acute (6) Pneumonia Current Visit: Yes Status: Acute (7) Hypertension Current Visit: Yes Status: Acute (8) Homeless single person Current Visit: Yes Status: Acute DVT Prophylaxis: Subcutaneous heparin - Summary of Assessment and Plan Summary of Assessment and Plan: Diabetes mellitus type 2 with insulin dependence and episodes of hypoglycemia: Patient had a blood glucose of 65 earlier this morning but it has since improved. Metabolic encephalopathy: Neurology consult appreciated. Concern for permanent damage due to recurrent episodes of hypoglycemia. Continue supportive care. MRI of the brain done on 12/24 shows some improvement in the abnormal signal that was previously noted in the parieto-occipital parenchyma. Patient continues to have persistent disorientation and lacks capacity to make medical decisions. Awaiting placement to skilled rehabilitation for long-term care. Essential hypertension: Well controlled Pneumonia due to Enterobacter aerogenes: Completed treatment with antibiotics. Polysubstance abuse: vehicle delivery worker consulted. No signs of withdrawal at this time. Acute hypoxic respiratory failure: Now resolved. Hx of bipolar disorder: No medications listed on home med list. Recommend outpatient follow-up. Discharge planning: Awaiting placement to skilled rehabilitation for long-term care. vehicle delivery worker working on this. - Time Spent with Patient Total time spent is greater than 50% in coordination of care (as documented) at patient's floor/unit and/or counseling patient: Internal Medicine: Result - Labs CBC & Chem 7: 12/30/18 04:12 12/30/18 04:12 - ABG Interpretation ABG results: ABG ABG pH 7.45 pH Units (7.32-7.45) 12/23/18 04:19 ABG pCO2 46 mmHg (35-45) H 12/23/18 04:19 ABG pO2 83 mmHg (85-104) L 12/23/18 04:19 ABG O2 Saturation 97 % (95-98) 12/23/18 04:19 PT/INR, D-dimer PT 10.1 Seconds (9.4-12.1) 12/18/18 07:59 Consult Discharge Plan - Plan Referrals: NONE,PCP [Primary Care Provider] - (2) Bipolar disorder Qualifiers: Active/Remission status: remission status unspecified Qualified Code(s): F31.9 - Bipolar disorder, unspecified (5) Acute respiratory failure Qualifiers: Respiratory failure complication: unspecified whether with hypoxia or hypercapnia Qualified Code(s): J96.00 - Acute respiratory failure, unspecified whether with hypoxia or hypercapnia (6) Pneumonia Qualifiers: Pneumonia type: aspiration pneumonia Aspiration pneumonia type: unspecified Laterality: unspecified laterality Lung location: unspecified part of lung Q ualified Code(s): J69.0 - Pneumonitis due to inhalation of food and vomit (7) Hypertension Qualifiers: Hypertension type: unspecified Qualified Code(s): I10 - Essential (primary) hypertension
[2019-01-02] MEDS: Latanoprost 2.5 ML BOTTLE BOTH EYES SCH (17:01)
[2019-01-02] MEDS: *HR* Dextrose 50 % in Water (Syg) 50 ML SYRINGE IVP PRN (23:54)
[2019-01-03] MEDS: *HR* Heparin 5,000 UNIT/ML VIAL SQ SCH ×2 (06:58→18:24)
[2019-01-03] MEDS: Insulin DETEMIR 100 UNIT/ML X5UNITS SQ SCH (09:07)
[2019-01-03] MEDS: Loratadine 10 MG TABLET PO SCH (09:07)
[2019-01-03] MEDS: amLODIPine 5 MG TABLET PO SCH (09:07)
[2019-01-03] MEDS: Insulin LISPRO 300 UNITS/3 ML VIAL SQ SCH ×3 (09:08→16:57)
--- NOTE | 2019-01-03 10:59 | Internal Med Progress Note ---
<Carlos Jurado - Last Filed: 01/03/19 14:28> Hospitalist Progress Note - Encounter Date of Encounter: 01/03/19 Time of Encounter: 14:28 - Exam Vitals: Temp Pulse Resp BP Pulse Ox 98.2 F 88 16 95/60 98 01/03/19 11:47 01/03/19 11:47 01/03/19 11:47 01/03/19 11:47 01/03/19 03:34 - Assessment and Plan (1) Insulin dependent diabetes mellitus Current Visit: Yes Status: Chronic (2) Bipolar disorder Current Visit: Yes Status: Chronic (3) Metabolic encephalopathy Current Visit: Yes Status: Resolved (4) Polysubstance abuse Current Visit: Yes Status: Acute (5) Acute respiratory failure Current Visit: Yes Status: Acute (6) Pneumonia Current Visit: Yes Status: Acute (7) Hypertension Current Visit: Yes Status: Acute (8) Homeless single person Current Visit: Yes Status: Acute - Time Spent with Patient Total time spent is greater than 50% in coordination of care (as documented) at patient's floor/unit and/or counseling patient: Internal Medicine: Result - Labs CBC & Chem 7: 12/30/18 04:12 12/30/18 04:12 - ABG Interpretation ABG results: ABG ABG pH 7.45 pH Units (7.32-7.45) 12/23/18 04:19 ABG pCO2 46 mmHg (35-45) H 12/23/18 04:19 ABG pO2 83 mmHg (85-104) L 12/23/18 04:19 ABG O2 Saturation 97 % (95-98) 12/23/18 04:19 PT/INR, D-dimer PT 10.1 Seconds (9.4-12.1) 12/18/18 07:59 Consult Discharge Plan - Plan Referrals: NONE,PCP [Primary Care Provider] - - Attending Attestation I saw evaluated and examined this patient and reviewed objective data including labs and my medical decision-making was reviewed with the Resident Physician, Esperanza Bob. I agree with the documented findings, disposition and treatment plan as described except to any changes set forth below. We independently had [id number] contact with the patient. No acute issues overnight. Awaiting placement. Continue to monitor blood sugars. 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 Patient up. History more awake and alert today. Will attempt re-evaluation by physical therapy today. <PavanmarceloZiggy gallowayayan Anthony - Last Filed: 01/03/19 15:41> Hospitalist Progress Note - Encounter Date of Encounter: 01/03/19 - Subjective Interval History: Ms. Richardson is a 58-year-old female initially admitted after being found down and unresponsive with blood glucose level of 14. Patient was admitted intubated in the ICU. Patient is now awake and is slowly able to communicate better, although still unable to answer most questions appropriately . She denies any pain. Patient is awaiting placement with [facility]. - Exam Vitals: Temp Pulse Resp BP Pulse Ox 97.3 F L 83 16 107/65 98 01/03/19 07:31 01/03/19 07:31 01/03/19 07:31 01/03/19 07:31 01/03/19 03:34 Exam: General: Patient is awake and alert, unable to answer most questions, no acute distress Head: normocephalic, atraumatic Eyes: NIESHA, no icterus Cardio: RRR, no murmurs, rubs, or gallops Respiratory: CTAB, no wheezing, rhonchi, rales Abd: normal bowel sounds, no gaurding or rigidity Extremities: no pedal edema, pulses equal bilaterally, warm Skin: warm, dry, intact - Assessment and Plan (1) Insulin dependent diabetes mellitus Current Visit: Yes Status: Acute Assessment and Plan: History of multiple hypoglycemic events Insulin-dependent Continue Levemir 15 units each morning Humalog 5 units 3 times a day with meals (2) Bipolar disorder Current Visit: Yes Status: Chronic Assessment and Plan: Patient has history of bipolar disorder Currently not on any medications Outpatient follow-up needed (3) Metabolic encephalopathy Current Visit: Yes Status: Resolved Assessment and Plan: Concern for damage due to recurrent episodes of hypoglycemia Continue supportive care Repeat MRI 816 show some improvement to abnormal signal noted in the parietal- occipital parenchyma Patient is still disoriented and cannot make medical decisions but is more able to answer some direct questioning Placement in skilled rehabilitation for long-term care will be needed (4) Polysubstance abuse Current Visit: Yes Status: Acute Assessment and Plan: Social work has been consulted No signs of withdrawal Drug of choice heroin (5) Acute respiratory failure Current Visit: Yes Status: Resolved Assessment and Plan: Likely secondary to pneumonia versus polysubstance abuse versus hypoglycemia Resolved (6) Pneumonia Current Visit: Yes Status: Resolved Assessment and Plan: Secondary to Enterobacter aerogenes Has finished treatment with antibiotics Resolved (7) Homeless single person Current Visit: Yes Status: Acute Assessment and Plan: Patient currently homeless Will need skilled care Awaiting placement (8) DVT prophylaxis Current Visit: No Status: Acute Assessment and Plan: Subcutaneous heparin DVT Prophylaxis: Subcutaneous heparin - Time Spent with Patient Total time spent is greater than 50% in coordination of care (as documented) at patient's floor/unit and/or counseling patient: Internal Medicine: Result - Labs CBC & Chem 7: 12/30/18 04:12 12/30/18 04:12 - ABG Interpretation ABG results: ABG ABG pH 7.45 pH Units (7.32-7.45) 12/23/18 04:19 ABG pCO2 46 mmHg (35-45) H 12/23/18 04:19 ABG pO2 83 mmHg (85-104) L 12/23/18 04:19 ABG O2 Saturation 97 % (95-98) 12/23/18 04:19 PT/INR, D-dimer PT 10.1 Seconds (9.4-12.1) 12/18/18 07:59 <Carlos Jurado - Last Filed: 01/03/19 14:28> (2) Bipolar disorder Qualifiers: Active/Remission status: remission status unspecified Qualified Code(s): F31.9 - Bipolar disorder, unspecified (5) Acute respiratory failure Qualifiers: Respiratory failure complication: unspecified whether with hypoxia or hypercapnia Qualified Code(s): J96.00 - Acute respiratory failure, unspecified whether with hypoxia or hypercapnia (6) Pneumonia Qualifiers: Pneumonia type: aspiration pneumonia Aspiration pneumonia type: unspecified Laterality: unspecified laterality Lung location: unspecified part of lung Qualified Code(s): J69.0 - Pneumonitis due to inhalation of food and vomit (7) Hypertension Qualifiers: Hypertension type: unspecified Qualified Code(s): I10 - Essential (primary) hypertension <Esperanza Bob - Last Filed: 01/03/19 15:41> (2) Bipolar disorder Qualifiers: Active/Remission status: remission status unspecified Qualified Code(s): F31.9 - Bipolar disorder, unspecified (5) Acute respiratory failure Qualifiers: Respiratory failure complication: unspecified whether with hypoxia or hypercapnia Qualified Code(s): J96.00 - Acute respiratory failure, unspecified whether with hypoxia or hypercapnia (6) Pneumonia Qualifiers: Pneumonia type: aspiration pneumonia Aspiration pneumonia type: unspecified Laterality: unspecified laterality Lung location: unspecified part of lung Qualified Code(s): J69.0 - Pneumonitis due to inhalation of food and vomit
[2019-01-03] MEDS: Latanoprost 2.5 ML BOTTLE BOTH EYES SCH (18:24)
[2019-01-04] MEDS: *HR* Heparin 5,000 UNIT/ML VIAL SQ SCH ×2 (06:11→18:00)
[2019-01-04] MEDS: Insulin LISPRO 300 UNITS/3 ML VIAL SQ SCH ×4 (06:56→20:47)
--- NOTE | 2019-01-04 07:28 | Event Note ---
Date of Encounter: 01/04/19 Time of Encounter: 07:27 This patient is not my patient however I was sent her PT eval in error. As there is no way to send to appropriate physician in [facility] it is signed and Dr Jurado updated.
[2019-01-04] MEDS: amLODIPine 5 MG TABLET PO SCH (09:16)
[2019-01-04] MEDS: Insulin DETEMIR 100 UNIT/ML X5UNITS SQ SCH (09:16)
[2019-01-04] MEDS: Loratadine 10 MG TABLET PO SCH (09:16)
--- NOTE | 2019-01-04 11:47 | Discharge Summary ---
<Carlos Jurado - Last Filed: 01/04/19 12:38> Orders not resulted at time of discharge: Pending orders 12/27/18 06:10 Culture,Sputum with Gram Stain [RM] Routine Date of Encounter: 01/04/19 Time of Encounter: 10:10 - Discharge Diagnosis (1) Insulin dependent diabetes mellitus Status: Chronic (2) Bipolar disorder Status: Chronic Qualifiers: Active/Remission status: remission status unspecified Qualified Code(s): F31.9 - Bipolar disorder, unspecified (3) Metabolic encephalopathy Status: Resolved (4) Polysubstance abuse Status: Acute (5) Acute respiratory failure Status: Resolved Qualifiers: Respiratory failure complication: unspecified whether with hypoxia or hypercapnia Qualified Code(s): J96.00 - Acute respiratory failure, unspecified whether with hypoxia or hypercapnia (6) Pneumonia Status: Resolved Qualifiers: Pneumonia type: aspiration pneumonia Aspiration pneumonia type: unspecified Laterality: unspecified laterality Lung location: unspecified part of lung Qualified Code(s): J69.0 - Pneumonitis due to inhalation of food and vomit (7) Hypertension Status: Acute Qualifiers: Hypertension type: unspecified Qualified Code(s): I10 - Essential (primary) hypertension (8) Homeless single person Status: Acute Hospital course: Ms. Richardson is a 58 year old female - Time Spent with Patient Total time spent providing and/or coordinating discharge services: - Discharge Medications Prescriptions: New Carvedilol [Coreg] 12.5 mg PO BIDWM 30 Days #60 tablet Insulin LISPRO [HumaLOG] 5 units SQ TIDWM 20 Days #1 vial amLODIPine [Norvasc] 10 mg PO DAILY 30 Days #30 tablet Quetiapine Fumarate [Seroquel] 25 mg PO HS 30 Days #30 tablet Insulin Degludec [Tresiba Flextouch U-200] 15 unit SQ QAM 14 Days #1 insuln.p en Lisinopril [Zestril] 10 mg PO DAILY 30 Days #30 tablet Continued Buprenorphine HCl/Naloxone HCl [Suboxone 8 mg-2 mg Sl Film] 2 each SL DAILY Meloxicam [Mobic] 15 mg PO DAILY PRN #60 tablet PRN Reason: Pain Cetirizine HCl [Allergy Relief] 10 mg PO DAILY #30 capsule Naloxone [Narcan] 1 spray NS AD PRN #2 spray PRN Reason: opiod overdose Discontinued Latanoprost/Pf [Latanoprost 0.005% Eye Drop] 7.5 ml OP QPM #1 drops Insulin ASPART [NovoLOG] 5 unit SQ TIDWM #450 mls Insulin Glargine,Hum.rec.anlog [Basaglar Kwikpen U-100] 17 units SQ QAM 30 Days insuln.pen Home Medications: Buprenorphine HCl/Naloxone HCl [Suboxone 8 mg-2 mg Sl Film] 2 each SL DAILY 10/28/18 [History] Cetirizine HCl [Allergy Relief] 10 mg PO DAILY #30 capsule 10/29/18 [Rx] Meloxicam [Mobic] 15 mg PO DAILY PRN #60 tablet 10/29/18 [Rx] Naloxone [Narcan] 1 spray NS AD PRN #2 spray 10/29/18 [Rx] Carvedilol [Coreg] 12.5 mg PO BIDWM 30 Days #60 tablet 01/04/19 [Rx] Insulin Degludec [Tresiba Flextouch U-200] 15 unit SQ QAM 14 Days #1 insuln.pen 01/04/19 [Rx] Insulin LISPRO [HumaLOG] 5 units SQ TIDWM 20 Days #1 vial 01/04/19 [Rx] Lisinopril [Zestril] 10 mg PO DAILY 30 Days #30 tablet 01/04/19 [Rx] Quetiapine Fumarate [Seroquel] 25 mg PO HS 30 Days #30 tablet 01/04/19 [Rx] amLODIPine [Norvasc] 10 mg PO DAILY 30 Days #30 tablet 01/04/19 [Rx] Allergies/Adverse Reactions: Allergy/AdvReac Type Severity Reaction Status Date / Time No Known Allergies Allergy Verified 02/15/18 09:31 Date of admission: 12/18/18 10:24 Primary care physician: PCP NONE Consults: 12/18/18 12:52 Consult to Traffic Control Specialist [CONS] Routine Reason for SW Consult: Arabella Key (friend) called and said they all (Arabella, Wei, and Daniela) live in a house with Cortney but she needs accuchek strips and a doctor. Friend states they don't know anything about diabetes. Arabella states Daniela does have a daughter but they don't talk. The daughter's name is Elizabeth Gill [phone]. 12/20/18 08:35 Consult to Invasive Line Access Team [CONS] Routine Reason for Consult: port access Line Type: EPIV 12/20/18 10:25 Consult to Nutrition [CONS] Routine Comment: Consulting Provider: NUTRITION Reason for Dietary Consult: Tube Feed Start & Manage 12/21/18 14:13 Consult to Interpret Exam [CONS] Routine Consulting Provider: Aurora Olmedo I Consult to Interpret Exam: Interpret Sleep Study 12/22/18 07:46 Consult to Neurology [CONS] Routine Consulting Provider: Neurology [facility] Reason for Consult: patient not responding to command, abnormal EEG and MRI Call Completed: No 12/23/18 16:24 Consult to Interpret Exam [CONS] Routine Consulting Provider: Aurora Olmedo I Consult to Interpret Exam: Interpret EEG 12/27/18 09:22 Consult to Nurse Navigator [CONS] Routine Comment: pn 12/30/18 14:35 Consult to Wound Care [CONS] Routine Reason for Consult: Stage 2 pressure injury to coccyx Call Completed: No 01/03/19 08:34 Consult to Occupational Therapy [CONS] Routine Comment: Evaluate, develop and implement POC Reason for Consult: pre-cert for rehb/ECF, able to follow commands Does patient have active BEDREST order?: No Is patient medically & hemodynamically stable?: Yes Consult to Physical Therapy [CONS] Routine Comment: Evaluate, develop and implement POC Reason for Consult: pre-cert for rehb/ECF, able to follow commands Does patient have active BEDREST order?: No Is patient medically & hemodynamically stable?: Yes - Constitutional Vitals: Temp Pulse Resp BP Pulse Ox 97.6 F 80 18 96/59 97 01/04/19 12:07 01/04/19 12:07 01/04/19 12:07 01/04/19 12:07 01/04/19 12:07 - Patient Status Disposition: Transfer LTC Condition: Fair - Discharge Instructions Follow Up With: NONE,PCP [Primary Care Provider] - - Attending Attestation I saw evaluated and examined this patient and reviewed objective data including labs and my medical decision-making was reviewed with the Resident Physician, Donato Bob. I agree with the documented findings, disposition and discharge plan as described except to any changes set forth below. We independently had [id number] contact with the patient. Patient with history of diabetes, drug abuse, hepatitis C was hospitalized here initially to the ICU due to acute encephalopathy and respiratory failure requiring endotracheal intubation. At that time her urine drug screen was positive for cocaine. She was severely hypoglycemic with a blood glucose of 14 in the field. She was placed on D5 drip and her blood sugars improved. Patient was eventually extubated and transferred to the floor. She appears to have some permanent damage as a result of her episodes of severe hypoglycemia and hypoxia. She has expressive aphasia and was evaluated by neurology. Patient underwent MRI of the brain which initially showed mild restricted diffusion in the parietal-occipital lobes. A repeat MRI of the brain done a few days later showed improvement in this with mild residual signal in the left occipital region. EEG showed signs of generalized slowing consistent with metabolic toxic encephalopathy. No epileptiform activity was identified. Patient has had slow recovery of her neurologic function and while she is more awake and alert at this time, she remains disoriented with persistent expressive aphasia. She also is a very brittle diabetic most likely due to lack of any intrinsic glycogen stores. Her blood sugars rapidly change from 500 to normal levels within a few hours with very minimal use of insulin. As such we have titrated her insulin regimen significantly and presently she is on Levemir 15 units in the morning and 5 units of Humalog 3 times daily with meals which seems to be keeping her from developing hypoglycemia. Patient has been evaluated by physical therapy and recommended placement to skilled rehabilitation. manufacturing worker working on this. Patient will be discharged once she has been accepted at a facility. She most likely would need long-term care. Time spent on discharge: 15 minutes <Esperanza Bob - Last Filed: 01/04/19 14:00> Orders not resulted at time of discharge: Pending orders 12/27/18 06:10 Culture,Sputum with Gram Stain [RM] Routine Date of Encounter: 01/04/19 Time of Encounter: 09:15 - Discharge Diagnosis (1) Insulin dependent diabetes mellitus Priority: Primary Status: Acute Assessment and Plan: History of multiple hypoglycemic events Insulin-dependent Continue Levemir 15 units each morning Humalog 5 units 3 times a day with meals (2) Bipolar disorder Priority: Secondary Status: Chronic Assessment and Plan: Patient has history of bipolar disorder Currently not on any medications Outpatient follow-up needed Added seroquel today 25mg nightly for agitation Qualifiers: Active/Remission status: remission status unspecified Qualified Code(s): F31.9 - Bipolar disorder, unspecified (3) Metabolic encephalopathy Priority: Primary Status: Resolved Assessment and Plan: Concern for damage due to recurrent episodes of hypoglycemia Continue supportive care Repeat MRI 12/24 show some improvement to abnormal signal noted in the parietal- occipital parenchyma Patient is still disoriented and cannot make medical decisions but is more able to answer some direct questioning Placement in skilled rehabilitation for long-term care will be needed (4) Polysubstance abuse Priority: Primary Status: Chronic Assessment and Plan: Social work has been consulted No signs of withdrawal Drug of choice heroin and cocaine (5) Acute respiratory failure Priority: Primary Status: Resolved Assessment and Plan: Likely secondary to pneumonia versus polysubstance abuse versus hypoglycemia Resolved Qualifiers: Respiratory failure complication: unspecified whether with hypoxia or hypercapnia Qualified Code(s): J96.00 - Acute respiratory failure, unspecified whether with hypoxia or hypercapnia (6) Pneumonia Priority: Primary Status: Resolved Assessment and Plan: Secondary to Enterobacter aerogenes Has finished treatment with antibiotics Resolved Qualifiers: Pneumonia type: aspiration pneumonia Aspiration pneumonia type: unspecified Laterality: unspecified laterality Lung location: unspecified part of lung Qualified Code(s): J69.0 - Pneumonitis due to inhalation of food and vomit (7) Homeless single person Priority: Secondary Status: Acute Assessment and Plan: Patient currently homeless Will need skilled care Awaiting placement (8) DVT prophylaxis Priority: Secondary Status: Acute Assessment and Plan: Subcutaneous heparin Hospital course: Ms. Richardson is a 58 year old female who was admitted on December 18 after being found unresponsive EMS found blood glucose level to be 14, did not respond to Narcan. Patient was intubated and sedated in the ICU. Was initially treated for possible aspiration pneumonia with 7 day course of ceftriaxone. Neurology was consulted for her metabolic encephalopathy with MRI showing restricted diffusion in parietal and occipital lobes as well as periventricular white matter and internal capsule. EEG showed generalized slowing with was nonspecific and was determined that it could be result of her metabolic encephalopathy with diffuse cortical dysfunction. Patient was extubated on . Patient's family stated patient had history of polysubstance use including cocaine and heroin. Initial UDS was positive for cocaine, likely infected underlying encephalopathy. Patient's blood glucose remained very inconsistent, currently patient is on Levemir 15 units in the morning with 5 units of lispro 3 times a day with meals. Patient should not receive her lispro dosing unless she is going to eat. Patient is able to answer some very specific questions at this time but continues to have expressive aphasia. She did not exhibit any signs of withdrawal symptoms while in hospital. Plan is for patient to be placed into a long-term care facility. - Time Spent with Patient Total time spent providing and/or coordinating discharge services: Date of admission: 12/18/18 10:24 Primary care physician: PCP NONE Consults: 12/18/18 12:52 Consult to Traffic Control Specialist [CONS] Routine Reason for SW Consult: Arabella Key (friend) called and said they all (Arabella, Wei, and Daniela) live in a house with Cortney but she needs accuchek strips and a doctor. Friend states they don't know anything about diabetes. Arabella states Daniela does have a daughter but they don't talk. The daughter's name is Elizabeth [phone]. 12/20/18 08:35 Consult to Invasive Line Access Team [CONS] Routine Reason for Consult: port access Line Type: EPIV 12/20/18 10:25 Consult to Nutrition [CONS] Routine Comment: Consulting Provider: NUTRITION Reason for Dietary Consult: Tube Feed Start & Manage 12/21/18 14:13 Consult to Interpret Exam [CONS] Routine Consulting Provider: Aurora Olmedo I Consult to Interpret Exam: Interpret Sleep Study 12/22/18 07:46 Consult to Neurology [CONS] Routine Consulting Provider: Neurology [facility] Reason for Consult: patient not responding to command, abnormal EEG and MRI Call Completed: No 12/23/18 16:24 Consult to Interpret Exam [CONS] Routine Consulting Provider: Aurora Olmedo I Consult to Interpret Exam: Interpret EEG 12/27/18 09:22 Consult to Nurse Navigator [CONS] Routine Comment: pn 12/30/18 14:35 Consult to Wound Care [CONS] Routine Reason for Consult: Stage 2 pressure injury to coccyx Call Completed: No 01/03/19 08:34 Consult to Occupational Therapy [CONS] Routine Comment: Evaluate, develop and implement POC Reason for Consult: pre-cert for rehb/ECF, able to follow commands Does patient have active BEDREST order?: No Is patient medically & hemodynamically stable?: Yes Consult to Physical Therapy [CONS] Routine Comment: Evaluate, develop and implement POC Reason for Consult: pre-cert for rehb/ECF, able to follow commands Does patient have active BEDREST order?: No Is patient medically & hemodynamically stable?: Yes Discharging clinician: Carlos Jurado Anticipated date of discharge: 01/04/19 - Constitutional Vitals: Temp Pulse Resp BP Pulse Ox 98.0 F 86 20 107/69 98 01/04/19 07:38 01/04/19 07:38 01/04/19 07:38 01/04/19 07:38 01/04/19 07:38 Exam: General: Patient is awake and alert, unable to answer most questions, no acute distress Head: normocephalic, atraumatic Eyes: NIESHA, no icterus Cardio: RRR, no murmurs, rubs, or gallops Respiratory: CTAB, no wheezing, rhonchi, rales Abd: normal bowel sounds, no guarding or rigidity Extremities: no pedal edema, pulses equal bilaterally, warm Skin: warm, dry, intact - Patient Status Functional capacity at discharge: bed bound Overall status at discharge: patient is progressing back to baseline - Diet and Activity Activity: as per physical therapy Diet: advance to your usual diet
[2019-01-04] MEDS: *HR* Dextrose 50 % in Water (Syg) 50 ML SYRINGE IVP PRN (17:45)
[2019-01-04] MEDS: Latanoprost 2.5 ML BOTTLE BOTH EYES SCH (18:01)
[2019-01-04 20:34] LABS: Hematocrit 40.4 % (35.3-44.9); Hemoglobin 13.4 g/dL (11.5-15.4); Mean Corpuscular HGB Conc 33.2 g/dL (31.6-35.5); Mean Corpuscular Hemoglobin 28.1 pg (28.0-33.3); Mean Corpuscular Volume 84.7 fL (83.0-100.0); Platelet Count 359 K/mcL (140-400); Red Blood Count 4.77 M/mcL (3.82-4.97); Red Cell Distribution Width 13.9 % (11.5-14.5); White Blood Count 5.5 K/mcL (4.3-11.1)
[2019-01-04 21:00] LABS: Alanine Aminotransferase 15 Units/L (7-52); Albumin 3.8 g/dL (3.5-5.7); Albumin/Globulin Ratio 1.3 (1.1-2.2); Alkaline Phosphatase 105 Units/L (34-104); Aspartate Amino Transferase 16 Units/L (13-39); BUN/Creatinine Ratio 70 (6-26); Bilirubin,Total 0.7 mg/dL (0.3-1.0); Blood Urea Nitrogen 30 mg/dL (8-23); Calcium 9.5 mg/dL (8.6-10.3); Carbon Dioxide 27 mEq/L (23-29); Chloride 98 mEq/L (98-107); Glucose 63 mg/dL (70-105); Osmolality,Calculated 282 (280-300); Potassium 3.7 mEq/L (3.5-5.1); Sodium 134 mEq/L (136-145); Total Protein 6.8 g/dL (6.4-8.9); eGFR For African Americans > 60 (> 60); eGFR For Non-African Americans > 60 (> 60)
[2019-01-05] MEDS: *HR* Dextrose 50 % in Water (Syg) 50 ML SYRINGE IVP PRN (00:09)
[2019-01-05] MEDS: *HR* Heparin 5,000 UNIT/ML VIAL SQ SCH ×2 (05:53→17:10)
[2019-01-05] MEDS: Loratadine 10 MG TABLET PO SCH (08:29)
[2019-01-05] MEDS: Insulin LISPRO 300 UNITS/3 ML VIAL SQ SCH ×4 (08:29→20:14)
--- NOTE | 2019-01-05 08:35 | Internal Med Progress Note ---
<Colby Gonzáles A - Last Filed: 01/05/19 18:00> Hospitalist Progress Note - Encounter Date of Encounter: 01/05/19 Time of Encounter: 10:00 - Subjective Interval History: Pt seen and examined at bedside. Her mentation is improved today, currently A&Ox3. Denies any new or acute complaints. No fever, chills, chest pain, shortness of breath, abdominal pain, nausea, or vomiting. - Exam Vitals: Temp Pulse Resp BP Pulse Ox 97.3 F L 70 16 113/70 97 01/05/19 07:51 01/05/19 07:51 01/05/19 07:51 01/05/19 07:51 01/05/19 04:28 Exam: Constitutional: Cachectic female in no acute distress Head: Normocephalic, atraumatic Eyes: PERRL, EOMI, conjunctiva pink, sclera anicteric Neck: Supple, trachea midline Lungs: Clear to auscultation bilaterally. Nonlabored breathing. No wheezes, rales, or rhonchi noted. Cardiac: RRR. +s1 +s2 No murmurs, clicks, or rubs noted. GI: Abdomen soft, nontender, nondistended. Extremities: Warm, radial pulses palpable and symmetrical. No cyanosis, pedal edema, or calf tenderness. Neuro: Alert and oriented 3. No focal deficits. Normal speech. Skin: Warm, dry, and intact. - Assessment and Plan (1) Insulin dependent diabetes mellitus Current Visit: Yes Status: Chronic Assessment and Plan: History of multiple hypoglycemic events, very brittle diabetic Insulin-dependent Transition to Levemir 5u BID, however this will have to wait until tomorrow as the patient had already received her 15u daily Humalog 5 units 3 times a day with meals - only while patient is eating Spoke with [facility] soliciting freight agent over the phone this afternoon. Recommended transition to IV Insulin drip, but will defer this until tomorrow as pt has already received the Levemir as above (2) Bipolar disorder Current Visit: Yes Status: Chronic Assessment and Plan: Patient has history of bipolar disorder Currently not on any medications Outpatient follow-up needed Continue seroquel today 25mg nightly for agitation (3) Metabolic encephalopathy Current Visit: Yes Status: Resolved Assessment and Plan: Concern for damage due to recurrent episodes of hypoglycemia Continue supportive care Repeat MRI 8/16 show some improvement to abnormal signal noted in the parietal- occipital parenchyma Patient is still disoriented and cannot make medical decisions but is more able to answer some direct questioning Placement in skilled rehabilitation for long-term care will be needed (4) Polysubstance abuse Current Visit: Yes Status: Chronic Assessment and Plan: Social work has been consulted No signs of withdrawal Drug of choice heroin and cocaine (5) Pneumonia Current Visit: Yes Status: Resolved Assessment and Plan: Secondary to Enterobacter aerogenes Has finished treatment with antibiotics Resolved (6) Homeless single person Current Visit: Yes Status: Acute Assessment and Plan: Patient currently homeless Will need skilled care Awaiting placement DVT Prophylaxis: SQ heparin - Time Spent with Patient Total time spent is greater than 50% in coordination of care (as documented) at patient's floor/unit and/or counseling patient: Internal Medicine: Result - Labs CBC & Chem 7: 01/04/19 20:15 01/04/19 20:15 Labs: Short CBC 01/04/19 Range/Units 20:15 WBC 5.5 (4.3-11.1) K/mcL Hgb 13.4 (11.5-15.4) g/dL Hct 40.4 (35.3-44.9) % Plt Count 359 (140-400) K/mcL BMP 01/04/19 20:15 Sodium 134 L Potassium 3.7 Chloride 98 Carbon Dioxide 27 BUN 30 H Creatinine 0.43 L Glucose 63 L Calcium 9.5 Liver Function 01/04/19 Range/Units 20:15 Total Bilirubin 0.7 (0.3-1.0) mg/dL AST 16 (13-39) Units/L ALT 15 (7-52) Units/L Alkaline Phosphatase 105 H (34-104) Units/L Albumin 3.8 (3.5-5.7) g/dL - ABG Interpretation ABG results: ABG ABG pH 7.45 pH Units (7.32-7.45) 12/23/18 04:19 ABG pCO2 46 mmHg (35-45) H 12/23/18 04:19 ABG pO2 83 mmHg (85-104) L 12/23/18 04:19 ABG O2 Saturation 97 % (95-98) 12/23/18 04:19 PT/INR, D-dimer PT 10.1 Seconds (9.4-12.1) 12/18/18 07:59 Consult Discharge Plan - Plan Referrals: NONE,PCP [Primary Care Provider] - Prescriptions: Carvedilol [Coreg] 12.5 mg PO BIDWM 30 Days #60 tablet Insulin LISPRO [HumaLOG] 5 units SQ TIDWM 20 Days #1 vial amLODIPine [Norvasc] 10 mg PO DAILY 30 Days #30 tablet Quetiapine Fumarate [Seroquel] 25 mg PO HS 30 Days #30 tablet Insulin Degludec [Tresiba Flextouch U-200] 15 unit SQ QAM 14 Days #1 insuln.pen Lisinopril [Zestril] 10 mg PO DAILY 30 Days #30 tablet <Jan Patiño - Last Filed: 01/05/19 20:35> Hospitalist Progress Note - Encounter Date of Encounter: 01/05/19 - Exam Vitals: Temp Pulse Resp BP Pulse Ox 98.6 F 96 18 103/68 98 01/05/19 19:34 01/05/19 19:34 01/05/19 19:34 01/05/19 19:34 01/05/19 19:34 - Assessment and Plan (1) Insulin dependent diabetes mellitus Current Visit: Yes Status: Chronic (2) Bipolar disorder Current Visit: Yes Status: Chronic (3) Metabolic encephalopathy Current Visit: Yes Status: Resolved (4) Polysubstance abuse Current Visit: Yes Status: Chronic (5) Pneumonia Current Visit: Yes Status: Resolved (6) Homeless single person Current Visit: Yes Status: Acute - Time Spent with Patient Total time spent is greater than 50% in coordination of care (as documented) at patient's floor/unit and/or counseling patient: Internal Medicine: Result - Labs CBC & Chem 7: 01/04/19 20:15 01/04/19 20:15 Labs: Short CBC 01/04/19 Range/Units 20:15 WBC 5.5 (4.3-11.1) K/mcL Hgb 13.4 (11.5-15.4) g/dL Hct 40.4 (35.3-44.9) % Plt Count 359 (140-400) K/mcL BMP 01/04/19 20:15 Sodium 134 L Potassium 3.7 Chloride 98 Carbon Dioxide 27 BUN 30 H Creatinine 0.43 L Glucose 63 L Calcium 9.5 Liver Function 01/04/19 Range/Units 20:15 Total Bilirubin 0.7 (0.3-1.0) mg/dL AST 16 (13-39) Units/L ALT 15 (7-52) Units/L Alkaline Phosphatase 105 H (34-104) Units/L Albumin 3.8 (3.5-5.7) g/dL - ABG Interpretation ABG results: ABG ABG pH 7.45 pH Units (7.32-7.45) 12/23/18 04:19 ABG pCO2 46 mmHg (35-45) H 12/23/18 04:19 ABG pO2 83 mmHg (85-104) L 12/23/18 04:19 ABG O2 Saturation 97 % (95-98) 12/23/18 04:19 PT/INR, D-dimer PT 10.1 Seconds (9.4-12.1) 12/18/18 07:59 - Attending Attestation I saw evaluated and examined this patient and reviewed objective data including labs and my medical decision-making was reviewed with the Resident Physician. I agree with the documented findings, disposition and treatment plan as described except to any changes set forth below. We independently had [id number] contact with the patient. Patient has been having episodes of hypoglycemia along with hyperglycemia. There is no reports of symptoms during those times. Assessment is limited to patient expressive aphasia. Glucose as low as 24-30 with spikes of glucose to 500s. Based on most recent A1c of 8.3% suggesting she does not usually run that high. She is taking Levemir 15 units daily and most times does not require sliding scale. Patient was stable for discharge but there is concern that she may have further severe episodes of hypoglycemia and/or hyperglycemia, and transportation at this time does not appear safe. Patient needs Endocrinology consultation. We discussed case with [facility], who have beds full and cannot take pa tient. They did recommend low dose insulin drip, but patient hypoglycemia puts her at risk currently. Will need to continue sliding scale and change levemir to BID tomorrow. Will also decrease beta wild dose to avoid masking hypoglycemia. Will need to discuss case again for possible transfer tomorrow for Endocrinology consultation. She is high risk for another metabolic encephalopathy from hypoglycemia and/or DKA/HHS. <Colby Gonzáles - Last Filed: 01/05/19 18:00> (2) Bipolar disorder Qualifiers: Active/Remission status: remission status unspecified Qualified Code(s): F31.9 - Bipolar disorder, unspecified (5) Pneumonia Qualifiers: Pneumonia type: aspiration pneumonia Aspiration pneumonia type: unspecified Laterality: unspecified laterality Lung location: unspecified part of lung Qualified Code(s): J69.0 - Pneumonitis due to inhalation of food and vomit <Jan Patiño - Last Filed: 01/05/19 20:35> (2) Bipolar disorder Qualifiers: Active/Remission status: remission status unspecified Qualified Code(s): F31.9 - Bipolar disorder, unspecified (5) Pneumonia Qualifiers: Pneumonia type: aspiration pneumonia Aspiration pneumonia type: unspecified Laterality: unspecified laterality Lung location: unspecified part of lung Qualified Code(s): J69.0 - Pneumonitis due to inhalation of food and vomit
[2019-01-05] MEDS: Insulin DETEMIR 100 UNIT/ML X5UNITS SQ SCH (08:37)
[2019-01-05 14:25] LABS: Amylase 67 Units/L (29-103); Lipase 67 Units/L (11-82)
[2019-01-05] MEDS: Latanoprost 2.5 ML BOTTLE BOTH EYES SCH (17:11)
[2019-01-06] MEDS: *HR* Heparin 5,000 UNIT/ML VIAL SQ SCH ×2 (05:07→17:21)
[2019-01-06 06:22] LABS: BUN/Creatinine Ratio 35 (6-26); Blood Urea Nitrogen 20 mg/dL (8-23); Calcium 9.2 mg/dL (8.6-10.3); Carbon Dioxide 23 mEq/L (23-29); Chloride 98 mEq/L (98-107); Glucose 387 mg/dL (70-105); Osmolality,Calculated 297 (280-300); Potassium 5.1 mEq/L (3.5-5.1); Sodium 134 mEq/L (136-145); eGFR For African Americans > 60 (> 60); eGFR For Non-African Americans > 60 (> 60)
[2019-01-06] MEDS ORDERED: Insulin Human Regular 100 UNIT in 0.9 % Sodium Chloride 100 ML IVC SCH ×2 (07:30→08:00)
[2019-01-06] MEDS ORDERED: *HR* Dextrose 50 % in Water (Syg) 50 ML SYRINGE IVP PRN (07:54)
--- NOTE | 2019-01-06 08:03 | Internal Med Progress Note ---
<Colby Gonzáles - Last Filed: 01/06/19 08:02> Hospitalist Progress Note - Encounter Date of Encounter: 01/06/19 - Exam Vitals: Temp Pulse Resp BP Pulse Ox 98.5 F 82 18 113/69 98 01/06/19 03:49 01/06/19 03:49 01/06/19 03:49 01/06/19 03:49 01/06/19 03:49 - Assessment and Plan (1) Insulin dependent diabetes mellitus Current Visit: Yes Status: Chronic (2) Metabolic encephalopathy Current Visit: Yes Status: Resolved (3) Bipolar disorder Current Visit: Yes Status: Chronic (4) Polysubstance abuse Current Visit: Yes Status: Chronic (5) Pneumonia Current Visit: Yes Status: Resolved (6) Homeless single person Current Visit: Yes Status: Acute - Time Spent with Patient Total time spent is greater than 50% in coordination of care (as documented) at patient's floor/unit and/or counseling patient: Internal Medicine: Result - Labs CBC & Chem 7: 01/04/19 20:15 01/06/19 05:46 Labs: BMP 01/06/19 05:46 Sodium 134 L Potassium 5.1 Chloride 98 Carbon Dioxide 23 BUN 20 Creatinine 0.57 L Glucose 387 H Calcium 9.2 - ABG Interpretation ABG results: ABG ABG pH 7.45 pH Units (7.32-7.45) 12/23/18 04:19 ABG pCO2 46 mmHg (35-45) H 12/23/18 04:19 ABG pO2 83 mmHg (85-104) L 12/23/18 04:19 ABG O2 Saturation 97 % (95-98) 12/23/18 04:19 PT/INR, D-dimer PT 10.1 Seconds (9.4-12.1) 12/18/18 07:59 Consult Discharge Plan - Plan Referrals: NONE,PCP [Primary Care Provider] - Prescriptions: Carvedilol [Coreg] 12.5 mg PO BIDWM 30 Days #60 tablet Insulin LISPRO [HumaLOG] 5 units SQ TIDWM 20 Days #1 vial amLODIPine [Norvasc] 10 mg PO DAILY 30 Days #30 tablet Quetiapine Fumarate [Seroquel] 25 mg PO HS 30 Days #30 tablet Insulin Degludec [Tresiba Flextouch U-200] 15 unit SQ QAM 14 Days #1 insuln.pen Lisinopril [Zestril] 10 mg PO DAILY 30 Days #30 tablet <Jan Patiño - Last Filed: 01/06/19 17:18> Hospitalist Progress Note - Encounter Date of Encounter: 01/06/19 - Exam Vitals: Temp Pulse Resp BP Pulse Ox 97.5 F L 82 17 134/72 99 01/06/19 16:40 01/06/19 16:40 01/06/19 16:40 01/06/19 16:40 01/06/19 16:40 - Assessment and Plan (1) Insulin dependent diabetes mellitus Current Visit: Yes Status: Chronic (2) Bipolar disorder Current Visit: Yes Status: Chronic (3) Metabolic encephalopathy Current Visit: Yes Status: Resolved (4) Polysubstance abuse Current Visit: Yes Status: Chronic (5) Pneumonia Current Visit: Yes Status: Resolved (6) Homeless single person Current Visit: Yes Status: Acute - Time Spent with Patient Total time spent is greater than 50% in coordination of care (as documented) at patient's floor/unit and/or counseling patient: Internal Medicine: Result - Labs CBC & Chem 7: 01/04/19 20:15 01/06/19 05:46 Labs: BMP 01/06/19 05:46 Sodium 134 L Potassium 5.1 Chloride 98 Carbon Dioxide 23 BUN 20 Creatinine 0.57 L Glucose 387 H Calcium 9.2 - ABG Interpretation ABG results: ABG ABG pH 7.45 pH Units (7.32-7.45) 12/23/18 04:19 ABG pCO2 46 mmHg (35-45) H 12/23/18 04:19 ABG pO2 83 mmHg (85-104) L 12/23/18 04:19 ABG O2 Saturation 97 % (95-98) 12/23/18 04:19 PT/INR, D-dimer PT 10.1 Seconds (9.4-12.1) 12/18/18 07:59 - Attending Attestation I saw evaluated and examined this patient and reviewed objective data including labs and my medical decision-making was reviewed with the Resident Physician. I agree with the documented findings, disposition and treatment plan as described except to any changes set forth below. We independently had [id number] contact with the patient. <Colby Gonzáles - Last Filed: 01/06/19 08:02> (3) Bipolar disorder Qualifiers: Active/Remission status: remission status unspecified Qualified Code(s): F31.9 - Bipolar disorder, unspecified (5) Pneumonia Qualifiers: Pneumonia type: aspiration pneumonia Aspiration pneumonia type: unspecified Laterality: unspecified laterality Lung location: unspecified part of lung Qualified Code(s): J69.0 - Pneumonitis due to inhalation of food and vomit <Jan Patiño - Last Filed: 01/06/19 17:18> (2) Bipolar disorder Qualifiers: Active/Remission status: remission status unspecified Qualified Code(s): F31.9 - Bipolar disorder, unspecified (5) Pneumonia Qualifiers: Pneumonia type: aspiration pneumonia Aspiration pneumonia type: unspecified Laterality: unspecified laterality Lung location: unspecified part of lung Qualified Code(s): J69.0 - Pneumonitis due to inhalation of food and vomit
[2019-01-06] MEDS ORDERED: Insulin DETEMIR 100 UNIT/ML X5UNITS SQ SCH (09:00)
[2019-01-06] MEDS: Loratadine 10 MG TABLET PO SCH (10:05)
[2019-01-06 16:41] VITALS: BP 134/72
--- NOTE | 2019-01-06 16:56 | Discharge Summary ---
<Jan Patiño - Last Filed: 01/06/19 17:15> Orders not resulted at time of discharge: Pending orders 12/27/18 06:10 Culture,Sputum with Gram Stain [] Routine Date of Encounter: 01/06/19 - Discharge Diagnosis (1) Insulin dependent diabetes mellitus Status: Chronic (2) Bipolar disorder Status: Chronic Qualifiers: Active/Remission status: remission status unspecified Qualified Code(s): F31.9 - Bipolar disorder, unspecified (3) Metabolic encephalopathy Status: Resolved (4) Polysubstance abuse Status: Chronic (5) Pneumonia Status: Resolved Qualifiers: Pneumonia type: aspiration pneumonia Aspiration pneumonia type: unspecified Laterality: unspecified laterality Lung location: unspecified part of lung Qualified Code(s): J69.0 - Pneumonitis due to inhalation of food and vomit (6) Homeless single person Status: Acute Hospital course: Ms. Richardson is a 58 year old female - Time Spent with Patient Total time spent providing and/or coordinating discharge services: - Discharge Medications Prescriptions: New Carvedilol [Coreg] 12.5 mg PO BIDWM 30 Days #60 tablet amLODIPine [Norvasc] 10 mg PO DAILY 30 Days #30 tablet Quetiapine Fumarate [Seroquel] 25 mg PO HS 30 Days #30 tablet Lisinopril [Zestril] 10 mg PO DAILY 30 Days #30 tablet Continued Buprenorphine HCl/Naloxone HCl [Suboxone 8 mg-2 mg Sl Film] 2 each SL DAILY Meloxicam [Mobic] 15 mg PO DAILY PRN #60 tablet PRN Reason: Pain Cetirizine HCl [Allergy Relief] 10 mg PO DAILY #30 capsule Naloxone [Narcan] 1 spray NS AD PRN #2 spray PRN Reason: opiod overdose Discontinued Latanoprost/Pf [Latanoprost 0.005% Eye Drop] 7.5 ml OP QPM #1 drops Insulin ASPART [NovoLOG] 5 unit SQ TIDWM #450 mls Insulin Glargine,Hum.rec.anlog [Basaglar Kwikpen U-100] 17 units SQ QAM 30 Days insuln.pen Home Medications: Buprenorphine HCl/Naloxone HCl [Suboxone 8 mg-2 mg Sl Film] 2 each SL DAILY 10/28/18 [History] Cetirizine HCl [Allergy Relief] 10 mg PO DAILY #30 capsule 10/29/18 [Rx] Meloxicam [Mobic] 15 mg PO DAILY PRN #60 tablet 10/29/18 [Rx] Naloxone [Narcan] 1 spray NS AD PRN #2 spray 10/29/18 [Rx] Carvedilol [Coreg] 12.5 mg PO BIDWM 30 Days #60 tablet 01/04/19 [Rx] Lisinopril [Zestril] 10 mg PO DAILY 30 Days #30 tablet 01/04/19 [Rx] Quetiapine Fumarate [Seroquel] 25 mg PO HS 30 Days #30 tablet 01/04/19 [Rx] amLODIPine [Norvasc] 10 mg PO DAILY 30 Days #30 tablet 01/04/19 [Rx] Allergies/Adverse Reactions: Allergy/AdvReac Type Severity Reaction Status Date / Time No Known Allergies Allergy Verified 02/15/18 09:31 Date of admission: 12/18/18 10:24 Primary care physician: PCP NONE Consults: 12/18/18 12:52 Consult to Supervisor Dry Paste [CONS] Routine Reason for SW Consult: Arabella Shahid (friend) called and said they all (Arabella, Wei, and Daniela) live in a house with Cortney but she needs accuchek strips and a doctor. Friend states they don't know anything about diabetes. Arabella states Dainela does have a daughter but they don't talk. The daughter's name is Elizabeth [phone]. 12/20/18 08:35 Consult to Invasive Line Access Team [CONS] Routine Reason for Consult: port access Line Type: EPIV 12/20/18 10:25 Consult to Nutrition [CONS] Routine Comment: Consulting Provider: NUTRITION Reason for Dietary Consult: Tube Feed Start & Manage 12/21/18 14:13 Consult to Interpret Exam [CONS] Routine Consulting Provider: Aurora Olmedo I Consult to Interpret Exam: Interpret Sleep Study 12/22/18 07:46 Consult to Neurology [CONS] Routine Consulting Provider: [facility] Reason for Consult: patient not responding to command, abnormal EEG and MRI Call Completed: No 12/23/18 16:24 Consult to Interpret Exam [CONS] Routine Consulting Provider: Aurora Olmedo I Consult to Interpret Exam: Interpret EEG 12/27/18 09:22 Consult to Nurse Navigator [CONS] Routine Comment: pn 12/30/18 14:35 Consult to Wound Care [CONS] Routine Reason for Consult: Stage 2 pressure injury to coccyx Call Completed: No 01/03/19 08:34 Consult to Occupational Therapy [CONS] Routine Comment: Evaluate, develop and implement POC Reason for Consult: pre-cert for rehb/ECF, able to follow commands Does patient have active BEDREST order?: No Is patient medically & hemodynamically stable?: Yes Consult to Physical Therapy [CONS] Routine Comment: Evaluate, develop and implement POC Reason for Consult: pre-cert for rehb/ECF, able to follow commands Does patient have active BEDREST order?: No Is patient medically & hemodynamically stable?: Yes - Constitutional Vitals: Temp Pulse Resp BP Pulse Ox 97.5 F L 82 17 134/72 99 01/06/19 16:40 01/06/19 16:40 01/06/19 16:40 01/06/19 16:40 01/06/19 16:40 - Patient Status Disposition: Transfer Other Condition: Fair - Discharge Instructions Follow Up With: NONE,PCP [Primary Care Provider] - - Attending Attestation I saw evaluated and examined this patient and reviewed objective data including labs and my medical decision-making was reviewed with the Resident Physician. I agree with the documented findings, disposition and treatment plan as described except to any changes set forth below. We independently had [id number] contact with the patient. Discharge time 40 min <Colby Gonzáles - Last Filed: 01/06/19 20:02> - NOTES TO OUTPATIENT PROVIDER Notes to Outpatient Provider: Ms Richardson was admitted on 12/18/18 after being found unresponsive. She was hypoglycemic with blood glucose of 14. She was admitted to the ICU initially and required respiratory support, however she was extubated on 12/23. Neurology evaluated the patient and reported concern for damage to the speech area of her brain related to hypoglycemia. While the metabolic encephalopathy improved throughout admission, her blood sugars proved difficult to control. [facility] was consulted on 01/05 and recommended a low dose IV insulin drip. Once [facility] was off diversion, transfer was arranged on 01/06/19 for inpatient endocrinology management of brittle diabetes. Orders not resulted at time of discharge: Pending orders 08/19/19 06:10 Culture,Sputum with Gram Stain [RM] Routine Date of Encounter: 01/06/19 Time of Encounter: 08:30 - Discharge Diagnosis (1) Insulin dependent diabetes mellitus Priority: Primary Status: Chronic (2) Metabolic encephalopathy Priority: Primary Status: Resolved (3) Bipolar disorder Priority: Secondary Status: Chronic Qualifiers: Active/Remission status: remission status unspecified Qualified Code(s): F31.9 - Bipolar disorder, unspecified (4) Polysubstance abuse Priority: Secondary Status: Chronic (5) Pneumonia Priority: Secondary Status: Resolved Qualifiers: Pneumonia type: aspiration pneumonia Aspiration pneumonia type: unspecified Laterality: unspecified laterality Lung location: unspecified part of lung Qualified Code(s): J69.0 - Pneumonitis due to inhalation of food and vomit (6) Homeless single person Priority: Secondary Status: Acute Hospital course: Ms. Richardson is a 58 year old female was admitted on 12/18/18 after being found unresponsive. She has a PMH of DM2, CAD, and polysubstance abuse with previous drugs including heroin, amphetamines, and cocaine. Per EMS was hypoglycemic with blood glucose of 14. She was given 2mg Narcan, as well as 1 amp of D50 without change in mental status. Blood glucose on arrival in the ED was 109. She was given 4mg Narcan without response. The patient was subsequently intubated for inability to protect her airway. CXR from the ED showed no acute abnormality with ET tube in place. CT of the head demonstrated no acute intracranial abnormality. CT of the cervical spine showed no acute abnormality. The patient was given 1g Calcium Chloride for concern of hyperacute T waves on EKG, as well as empiric Vancomycin and Zosyn for concerns of aspiration. The patient was subsequently admitted to the ICU. While in the ICU, extubation was delayed due to poor mental status. For this neurology was consulted. EEG from 12/21 showed a pattern suggestive of metabolic toxic encephalopathy consistent with diffuse cortical dysfunction. MRI of the brain from 12/21 revealed mild restricted diffusion in the parietal occipital lobes and in the periventricular white matter and posterior limbs of the internal capsules. This was reported to be vague results. EEG was repeated on 12/23 which showed improvement in the previous changes. Brain MRI was repeated on 12/24 which demonstrated the prreviously noted high FLAIR signal in the parietooccipital parenchyma was no longer present. There was a tiny amount of residual relative increased diffusion signal in the left occipital region, as well as no abnormal enhancement in the area. No abnormal enhancement otherwise. There was noted to be a faint increased diffusion signal in the brown radiata, posterior limbs of the internal capsules and ventral fernando is again noted. Which was noted to be indeterminate or artifactual. Neurology was following the patient during this time and reported concern for damage to the speech area of her brain related to hypoglycemia. They recommended continued treatment of metabolic dysfunction. During this time the patient was also treated for aspiration pneumonia. Sputum culture from 12/18 ultimately grew Entrobacter areogenes. The patient received a 7 day course of IV Zosyn. The patient was eventually transferred out of the ICU on 12/25. While the metabolic encephalopathy and speech did improve throughout admission, her blood sugars proved difficult to control. The insulin regimen was monitored closely and altered many times in an effort to maintain stable range. Seroquel was also initiated as the patient has a hx of bipolar disorder and would become intermittently agitated. Labs to further evaluate the patient's diabetes were obtained on 12/27 which included Hgb A1c of 8.3, random insulin of 12, Proinsulin of <1.6, C-peptide of <0.1, and elevated insulin antibody at 7.4. However on 01/05 the decision was made to consult [facility], who recommended a low dose IV insulin drip. This was initiated the morning of 01/06 and closely monitored with q1hr accuchecks and titration. Once [facility] was off di version, transfer was arranged later on 01/06/19 for inpatient endocrinology management of brittle diabetes. At this time the patient was noted to have some expressive aphasia, but was otherwise alert and oriented. Discharge discussed with: patient, family, nurse - Time Spent with Patient Total time spent providing and/or coordinating discharge services: Date of admission: 12/18/18 10:24 Primary care physician: PCP NONE Consults: 12/18/18 12:52 Consult to Supervisor Dry Paste [CONS] Routine Reason for SW Consult: Arabella Kathiaayana (friend) called and said they all (Arabella, Wei, and Daniela) live in a house with Cortney but she needs accuchek strips and a doctor. Friend states they don't know anything about diabetes. Arabella states Daniela does have a daughter but they don't talk. The daughter's name is Elizabeth [phone]. 12/20/18 08:35 Consult to Invasive Line Access Team [CONS] Routine Reason for Consult: port access Line Type: EPIV 12/20/18 10:25 Consult to Nutrition [CONS] Routine Comment: Consulting Provider: NUTRITION Reason for Dietary Consult: Tube Feed Start & Manage 12/21/18 14:13 Consult to Interpret Exam [CONS] Routine Consulting Provider: Aurora Olmedo I Consult to Interpret Exam: Interpret Sleep Study 12/22/18 07:46 Consult to Neurology [CONS] Routine Consulting Provider: [facility] Reason for Consult: patient not responding to command, abnormal EEG and MRI Call Completed: No 12/23/18 16:24 Consult to Interpret Exam [CONS] Routine Consulting Provider: Aurora Olmedo I Consult to Interpret Exam: Interpret EEG 12/27/18 09:22 Consult to Nurse Navigator [CONS] Routine Comment: pn 12/30/18 14:35 Consult to Wound Care [CONS] Routine Reason for Consult: Stage 2 pressure injury to coccyx Call Completed: No 01/03/19 08:34 Consult to Occupational Therapy [CONS] Routine Comment: Evaluate, develop and implement POC Reason for Consult: pre-cert for rehb/ECF, able to follow commands Does patient have active BEDREST order?: No Is patient medically & hemodynamically stable?: Yes Consult to Physical Therapy [CONS] Routine Comment: Evaluate, develop and implement POC Reason for Consult: pre-cert for rehb/ECF, able to follow commands Does patient have active BEDREST order?: No Is patient medically & hemodynamically stable?: Yes - Constitutional Vitals: Temp Pulse Resp BP Pulse Ox 97.5 F L 82 17 134/72 99 01/06/19 16:40 01/06/19 16:40 01/06/19 16:40 01/06/19 16:40 01/06/19 16:40 General appearance: Present: cachectic, A&O X 2, pleasant, no acute distress Exam: Constitutional: Cachectic female in no acute distress Head: Normocephalic, atraumatic Eyes: PERRL, EOMI, conjunctiva pink, sclera anicteric Neck: Supple, trachea midline Lungs: Clear to auscultation bilaterally. Nonlabored breathing. No wheezes, rales, or rhonchi noted. Cardiac: RRR. +s1 +s2 No murmurs, clicks, or rubs noted. GI: Abdomen soft, nontender, nondistended. Extremities: Warm, radial pulses palpable and symmetrical. No cyanosis, pedal edema, or calf tenderness. Neuro: Alert and oriented 2. No focal deficits. Expressive aphasia. Skin: Warm, dry, and intact. - Patient Status Overall status at discharge: patient is not back to baseline - Diet and Activity Diet: diabetic diet
[2019-01-06] MEDS: Latanoprost 2.5 ML BOTTLE BOTH EYES SCH (18:02)
== END 2019-01-06 19:40 | disposition other institution (70) | DRG 380 ==
LOC: EMEROOARM 07:49 → SUATTDRO 10:24 → ICNU 10:24 → 2ANU 12-24 12:04
PROVIDERS: ADMIT Internal Medicine; ATTEND Student in an Organized Health Care Education/Training Program